=== PATIENT | female | born 1960 | race Caucasian/White ===

== ENCOUNTER 2016-11-30 09:50 | Inpatient (IN) | payer MEDICARE, MEDICAID ==
[2016-11-30] MEDS ORDERED: methylPREDNISolone 125 MG* 2 ML VIAL IV ONE (10:09)
[2016-11-30] MEDS ORDERED: NS 0.9% 1000 ML* 1,000 ML IV ONE ×2 (10:10→21:04)
[2016-11-30] MEDS ORDERED: Levofloxacin 750 MG IVPREMIX(* 750 MG/150 ML BAG IVPB ONE (10:10)
[2016-11-30] MEDS ORDERED: Albuterol/Ipratropium NEB.SOL* Albuterol 2.5 MG/Ipratropium 0.5 MG 3 ML INH ONE ×2 (10:10→11:20)
--- NOTE | 2016-11-30 10:28 | RAD ---
HISTORY: Chest pain COMPARISONS: Summer 05/14/2016 VIEWS:1: Single frontal portable view of the chest at 10:15 AM FINDINGS: LINES AND TUBES: An implantable lunchroom monitor is noted CARDIOMEDIASTINAL SILHOUETTE: The cardiomediastinal silhouette is normal for portable technique. PLEURA: The costophrenic angles are sharp. No pleural abnormalities are noted. LUNG PARENCHYMA: The lungs are clear. ABDOMEN: The upper abdomen is clear. There is no subphrenic gas. BONES AND SOFT TISSUES: No bone or soft tissue abnormalities are noted. IMPRESSION: NO ACTIVE CARDIOPULMONARY DISEASE.
[2016-11-30] MEDS ORDERED: Acetaminophen TAB* 325 MG PO ONE (10:49)
[2016-11-30 10:52] LABS: Hematocrit 35 % (35-47); Hemoglobin 11.6 g/dl (12.0-16.0); Mean Corpuscular HGB Conc 34 g/dl (31-36); Mean Corpuscular Hemoglobin 29 pg (27-31); Mean Corpuscular Volume 85 fL (80-97); Mean Platelet Volume 9 um3 (7.4-10.4); Red Blood Count 4.09 10^6/ul (4.0-5.4); Red Cell Distribution Width 15 % (10.5-15)
[2016-11-30 11:16] LABS: Albumin 3.6 g/dL (3.2-5.2); BUN/Creatinine Ratio 12.9 (8-20); Calcium 10.1 mg/dL (8.6-10.3); EGFR African American 61.9 (>60); EGFR Non-African American 48.2 (>60); Globulin 2.7 g/dL (2-4); Potassium 4.1 mmol/L (3.5-5.0); Total Bilirubin 0.4 mg/dL (0.2-1.0); Total Protein 6.3 g/dL (6.4-8.9)
[2016-11-30 12:48] LABS: Troponin I 0.1 ng/mL (<0.04)
[2016-11-30] MEDS ORDERED: Albuterol 2.5 MG/3 ML NEB.SOL* (0.083%) INH PRN (13:14)
[2016-11-30] MEDS ORDERED: Ondansetron INJ* 2 MG/ML VIAL IV PRN (13:14)
[2016-11-30] MEDS ORDERED: guaiFENesin/CODIEN 100MG-10MG* 5 ML UDC PO PRN (13:18)
[2016-11-30] MEDS ORDERED: Cetirizine* 10 MG TAB PO PRN (13:18)
[2016-11-30] MEDS ORDERED: LORazepam TAB(*) 0.5 MG PO PRN (13:18)
[2016-11-30] MEDS ORDERED: Morphine ORAL.SOLN 10 mg* 2 MG/ML UDC 5 ml PO PRN (13:18)
[2016-11-30] MEDS ORDERED: Morphine ORAL.SOLN 10 mg* 2 MG/ML UDC 5 ml PO ONE (13:18)
[2016-11-30] MEDS ORDERED: Cyclobenzaprine TAB* 10 MG PO PRN (13:18)
[2016-11-30] MEDS ORDERED: GuaiFENesin DM* 5 ML UDC PO PRN (13:18)
[2016-11-30] MEDS ORDERED: predniSONE TAB* 20 MG PO SCH (14:00)
[2016-11-30] MEDS ORDERED: Albuterol/Ipratropium NEB.SOL* Albuterol 2.5 MG/Ipratropium 0.5 MG 3 ML INH SCH (14:00)
[2016-11-30] MEDS: Albuterol/Ipratropium NEB.SOL* Albuterol 2.5 MG/Ipratropium 0.5 MG 3 ML INH SCH ×3 (15:15→23:47)
[2016-11-30] MEDS: Heparin VIAL(*) 5000 UNITS/ML VIAL (FIVE THOUSAND) SUBCUT SCH ×2 (15:30→21:35)
[2016-11-30] MEDS: Diltiazem TAB* 30 MG PO SCH (17:13)
[2016-11-30] MEDS: Montelukast Sodium TAB* 10 MG PO SCH (17:13)
[2016-11-30] MEDS: Potassium Chlor TAB* 10 MEQ TAB.ER PO SCH (17:13)
[2016-11-30] MEDS: CMC:Pravastatin (NF) 20 MG TAB PO SCH (17:26)
--- NOTE | 2016-11-30 20:20 | HP ---
HISTORY AND PHYSICAL: * DATE OF ADMISSION: 11/30/16 ADDENDUM: Mrs. Muniz is a 56-year-old female with history of COPD/asthma, who presents to the hospital complaining of shortness of breath. The patient is going to be placed on observation with a diagnosis of COPD exacerbation. The patient also has chronically elevated troponins on which Dr. Ramirez will comment. For further details of patient's presentation and plan, please see history and physical dictated by Ivan Martinez NP, on 11/30/16, with which I agree. [id number]/[facility] #: [id number] JERMAIN
--- NOTE | 2016-11-30 20:46 | HP ---
ATTENDING PROVIDER ADDENDUM NOW INCLUDED ON THIS REPORT HISTORY AND PHYSICAL: DATE OF ADMISSION: 11/30/16 PRIMARY CARE PROVIDER: Dr. Dent. ATTENDING PHYSICIAN WHILE IN THE HOSPITAL: Dr. Leatha Nix * (report dictated by Michelle Martinez NP). CHIEF COMPLAINT: 1. Shortness of breath. 2. Chest pain. HISTORY OF PRESENTING ILLNES: Mrs. Muniz is a 56-year-old female patient with a history of COPD, hypertension, TIA, anxiety, depression, LEELA, fibromyalgia, hyperlipidemia, MVP and ASD, thoracic aneurysm, tachycardia, which she sees Dr. Kecia gutierrez, insurance customer service specialist in [place], history of [place] and she said she had a history of elevated troponins. She comes into the ER today stating that last night she went to bed. She was feeling short of breath. She was coughing a little bit more than her baseline. She took a treatment and she actually felt good, went to bed, was able to sleep but unfortunately woke up in the early hours this morning, was very short of breath, having difficulty with breathing, having some chest pain across the front of her chest and down her left arm. She was concerned, she took a nebulizer, hopeful that it would help again, but it did not. So she decided to come into the ER to be evaluated. She denied any recent fevers, there is no abdominal pain, no nausea, no vomiting. No dysuria, no frequency. She denied having any other symptoms. She said that when she got here, she was given another treatment and she was given antibiotics , and she states that this was making her feel better. It was ultimately found that her troponin was bumping at 0.10. There was concern because she was continuing to wheeze despite treatments here in the ER and the hospitalist service was asked to evaluate for admission. PAST MEDICAL HISTORY: Significant for: 1. COPD. 2. Hypertension. 3. TIA. 4. Anxiety. 5. Depression. 6. LEELA. 7. Fibromyalgia. 8. Hyperlipidemia. 9. Mitral valve prolapse. 10. ASD. 11. Thoracic aneurysm. 12. Tachycardia and which she sees an insurance customer service specialist for. PAST SURGICAL HISTORY: 1. She has had a right total knee replacement. 2. Cardiac catheterization, 2009, per Dr. Ramirez, this was clean. 3. She had a history of hernia repair. 4. History of a hysterectomy. HOME MEDICATIONS: Include: 1. Lyrica 50 mg b.i.d., 100 mg in the morning. 2. Morphine 4 mg every 6 hours as needed. 3. Codeine with guaifenesin 5 mL every 4 hours as needed. 4. Symbicort 2 puffs inhaled b.i.d. 5. QVAR 2 puffs inhaled b.i.d. 6. Spiriva one capsule inhaled daily. 7. Pravachol 10 mg daily. 8. Potassium 10 mEq p.o. daily. 9. Singulair 10 mg daily. 10. Mag-Ox 200 mg p.o. daily. 11. Lisinopril 10 mg p.o. b.i.d. 12. Ativan 0.25 mg every 8 hours as needed. 13. Motrin 600 mg every 6 hours as needed. 14. Hydrochlorothiazide 25 mg daily. 15. Robitussin 10 cc every 4 hours as needed. 16. Folic acid 1 mg daily. 17. Pepcid 20 mg at bedtime. 18. Benadryl 25 mg every 4 hours as needed. 19. Flexeril 10 mg p.o. t.i.d. as needed. 20. Vitamin D 1000 units p.o. daily. 21. Zyrtec 10 mg p.o. daily as needed. 22. Albuterol 2 puffs inhaled every 4 hours as needed. 23. Albuterol nebulizer 1 neb every 4 hours as needed. ALLERGIES: Her allergies to medications include ASPIRIN, BACITRACIN, BEE VENOM , PENICILLIN, TOMATO, CEFACLOR, ANCEF, CELEBREX, CUCUMBER, ERYTHROMYCIN, METOPROLOL, SAVELLA, MUSHROOMS, POLYMYXIN B, TETRACYCLINE, NEOMYCIN, LIDOCAINE, and PEPPER. FAMILY HISTORY: Mother had mitral valve prolapse and ASD as well. Father had history of brain cancer. SOCIAL HISTORY: She is a former smoker, occasionally drinks. She lives alone. Surrogate decision maker is her son, Dre. REVIEW OF SYSTEMS: There is no documented fever. She denied having any significant weight change. There was no double vision. There is no ear discharge. She denies having any rhinorrhea. There is no sore throat. No thyroid enlargement. There was chest pain per my HPI. There was dyspnea on exertion. No shortness of breath. There was no abdominal pain, no nausea, no vomiting. No dysuria, no frequency, no loss of consciousness, no pruritus and no skin ulcerations. Review of 14 systems completed, all others negative. PHYSICAL EXAMINATION GENERAL: At this time, Mrs. Muniz is a 56-year-old female patient. She does not appear to be in any acute distress. She is sitting in the ER stretcher. VITAL SIGNS: Reveals blood pressure 138/80 with a pulse 87, respirations 18, O2 sat 98%, temperature 98.6. HEENT: Head atraumatic, normocephalic. Eyes: EOMs are intact. Sclerae is anicteric, not pale. Throat: Oral mucosa appears to be moist. No oropharyngeal erythema. NECK: Supple. LUNGS: She did have some wheezing bilaterally, expiratory in the upper and lower lobes. HEART: Heart sounds S1, S2. Regular rate and rhythm. No murmurs, rubs or gallops. She is tachycardic, rate in the 100s. ABDOMEN: Soft, flat, nontender. Bowel sounds were present. EXTREMITIES: Pulses were 2+ throughout. She was able to move all 4 extremities with 5/5 strength. NEUROLOGIC: She is awake, she is alert. She is oriented x3. Tongue midline. Book Jogger were equal. No gross focal deficits. SKIN: Grossly intact. DIAGNOSTIC STUDIES/LAB DATA: Labs today revealed WBC of 6.0, RBC of 4.09, hemoglobin of 11.6, hematocrit of 35, platelet count of 233. INR was 0.88, PTT 33.7. Sodium 141, potassium is 4.1, chloride of 101, bicarb 31, BUN 15, creatinine 1.16, glucose of 83, lactate 2.4, total bili 0.4, AST 18, ALT 21, alk phos 54, CK is 69, CK-MB 2.1, myoglobin of 54, troponin 0.10. BNP of 11, albumin 3.6. She did have a chest x-ray obtained today, which revealed no cardiopulmonary disease. She had an EKG obtained today, which showed a normal sinus rhythm with a rate of 99. No ST elevations or T-wave inversions were noted. She had a stress test done in September of this year, which showed a normal stress test. She had an echo done about a month ago, which showed an EF of 65%. No wall motion abnormalities were seen. Old medical records were reviewed. ASSESSMENT AND PLAN: Mrs. Muniz is a 56-year-old female patient coming into the ER today with complaints of shortness of breath, cough, and chest discomfort. On evaluation in the ER, it was noted that she had elevated troponin at 0.1 and there was concern because she was also wheezing on exam. She will be admitted under observation status for: 1. Chronic obstructive pulmonary disease exacerbation. At this point, I will go ahead and put her on Dulera, nebs around the clock, steroids, and Levaquin. Aggressive pulmonary toileting and we will continue to follow. 2. Indeterminate troponin. We had a long discussion with Dr. Ramirez, the patient's primary detective precinct. He feels that it is most likely related to the fact that she is chronically tachycardic. However, she had a negative stress, she had a negative cath 4 years ago. In addition to this, her echo appeared to be stable just the beginning of last month. We are going to repeat the troponins. If they do go up and they are not trending down, then Dr. Ramirez will evaluate the patient. She is chest pain-free currently. She will be placed on telemetry and we will continue to follow. 3. Hypertension. Continue meds as prescribed. I am going to hold the hydrochlorothiazide in the setting of acute illness. 4. History of transient ischemic attack. We will continue the patient on her statin. She is allergic to ASPIRIN. 5. Obstructive sleep apnea. She does not wear a mask at night. 6. Anxiety and depression. Continue meds as prescribed. 7. Fibromyalgia. Continue meds as prescribed. 8. Hyperlipidemia. Continue statin therapy. 9. History of mitral valve prolapse and atrial septal defect. Follow with her primary. 10. Thoracic aneurysm. Follow with her primary. 11. History of tachycardia. Follow with Dr. Mcdonnell. 12. DVT prophylaxis. She will be placed on heparin subcu. 13. Code status. Full code. 14. Fluids, electrolytes and nutrition. She can have a heart healthy diet. TIME SPENT: Time spent on this admission was 60 minutes; greater than half the time was spent [id number] with the patient, obtaining my history of physical; the other half time was spent going over the plan of care with the patient and implementing plan of care. I did discuss the plan of care with my attending, Dr. Nix; she is in agreement. MICHELLE MARTINEZ NP ADDENDUM: Mrs. Muniz is a 56-year-old female with history of COPD/asthma, who presents to the hospital complaining of shortness of breath. The patient is going to be placed on observation with a diagnosis of COPD exacerbation. The patient also has chronically elevated troponins on which Dr. Ramirez will comment. For further details of patient's presentation and plan, please see history and physical dictated by Ivan Martinez NP, on 11/30/16, with which I agree. LEATHA NIX MD CC: Dr. Ramirez; Dr. Dent [id number]/[facility] #: [id number]/[facility] #: [id number] JERMAIN
[2016-11-30] MEDS: Mometasone/Formoter 200/5 MDI INH SCH (20:56)
[2016-11-30] MEDS: Lisinopril TAB* 10 MG PO SCH (21:35)
[2016-11-30] MEDS: Pregabalin CAP(*) 50 MG PO SCH (21:35)
[2016-11-30] MEDS: Famotidine TAB* 20 MG PO SCH (21:35)
[2016-12-01] MEDS: Diltiazem TAB* 30 MG PO SCH ×3 (00:02→11:40)
--- NOTE | 2016-12-01 00:54 | CONS ---
CC: Hospitalist Service, Abimael Martinez, TERRI; Dr. Ramirez; Dr. Dent CARDIOLOGY CONSULT: DATE OF CONSULT: 11/30/16 HISTORY OF PRESENT ILLNESS: I was asked by Abimael Martinez from the hospitalist service to see this [age]-year-old female patient who is known to me from before actually. The patient was just hospitalize d in October 2016 and discharged on the . The reason for hospitalization at that time was symp toms of chest pain and borderline troponin peaked at 0.2. She does have a known history of chronic chest pain syndrome. She does have also history of chronic obstructive pulmonary disease. She does have a cardiac catheterization done in 2011 and showed no coronary artery disease appreciated. She does have known history of resting sinus tachycardia and she followed up and evaluated by Dr. Umair holloway at [facility] in [place]. Possibilities include inappropriate resting sinus tachycardia. She does have history of hypertension, transient ischemic attack, history of anxiety, depression, obstructive sleep apnea, fibromyalgia, dyslipidemia and tachycardia as well. The patient presented again with shortness of breath and also chronic chest pain syndrome. She was found to have a tropon in of 0.1. She has sinus tachycardia. Because of her troponin borderline, cardiology consult was f sammy requested. Of note, this goes back in June 2016, her troponin was borderline at 0.07 and 0 .08. She always has symptoms of chest pain and they never go away actually. She does have history of hypertension as indicated above. In October, she had a nuclear Myoview stress test that was rep orted to be normal without any evidence of ischemia or infarction and she had an echocardiogram and the echocardiogram reported to have a normal left ventricular systolic function with an EF of 65% an d a [id number] mitral insufficiency, [id number] tricuspid insufficiency, trace pulmonic insuff iciency and there was no dilatation of the aorta and was normal. She had also chest and abdomen CTA and it was reported the patient to have no pulmonary lesion and no evidence of aortic dissection an d the origins of the great vessels are unremarkable. She gets no fevers, no chills, no nausea, no v omiting, no hematochezia, no skin rash, no abdominal pain, no syncope, no swelling in the lower extr emities is appreciated. PAST MEDICAL HISTORY: Her past medical history is complex including all of the above actually menti oned including anxiety, depression and also COPD, hypertension, TIA, obstructive sleep apnea, fibrom yalgia, dyslipidemia, mitral valve disease, and tachycardia. Review of all other systems essentiall y is negative. Her nuclear Myoview stress test was done on 10/03/16 and at that time it was reporte d to be normal actually and low risk. PAST SURGICAL HISTORY: She had a history of hysterectomy at age 44. Hernia repair, right inguinal hernia x2. She had a history of adenoidectomy and total replacement of knee on the right side in . CURRENT MEDICATIONS: 1. Tylenol 650 mg p.o. q.4 hours p.r.n. 2. Ventolin 2.5 mg p.r.n. 3. Zyrtec 10 mg p.o. daily. 4. Flexeril 10 mg t.i.d. p.r.n. 5. Diltiazem 30 mg p.o. q. 6 hours. 6. Pepcid 20 mg p.o. at bedtime. 7. Folic acid 1 mg p.o. daily. 8. She is also on heparin 5000 units subcu q.8 hours. 9. She is on Levaquin 750 mg q.24 hours. 10. Lisinopril 10 mg b.i.d. 11. Magnesium 200 mg daily. 12. Singulair 10 mg daily. 13. Potassium 10 mEq q.p.m. 14. Pravachol 10 mg q.p.m. 15. Prednisone 60 mg daily. ALLERGIES: She is allergic to ASPIRIN, BACITRACIN, PENICILLIN, CEFACLOR, CEFAZOLIN, METOPROLOL, TET RACYCLINE, and LIDOCAINE. FAMILY HISTORY: No family history of premature CAD. SOCIAL HISTORY: She is an ex-tobacco, she quit in 2011. She smoked for about four to five years. No alcohol or drug abuse. She is unemployed. She is disabled. REVIEW OF SYSTEMS: Review of all other systems essentially is negative. PHYSICAL EXAMINATION: General: On exam, she is receiving inhaler treatment for her shortness of br eath and COPD. She had a chronic chest pain syndrome. Vitals: Her blood pressure is 139/78, pulse is 100 sinus, respiratory rate is 18, temperature 98.0. Head and Neck Exam: Normocephalic, atrauma tic. Head, ears, nose, and throat: Essentially benign. Neck: Supple. JVP is not elevated. No c arotid bruits. No masses in the neck is appreciated. Chest: Clear to auscultation. No rales. No wheezes. No added sounds. Diminished air inside the bases. Heart: Normal. Tachycardic S1, S2. No added sounds. No gallops. No rubs. Abdomen: Benign, soft. Positive bowel sounds. Extremiti es: No edema, no cyanosis, and no clubbing. Skin exam is normal. Psych: Normal affect and mood. PEDIATRIC ONCOLOGY NURSE: No focal deficits appreciated. DIAGNOSTIC STUDIES/LABORATORY DATA: Her EKG showed her to be in sinus rhythm. Heart rate 99 beats p er minute. Nonspecific T abnormality. Her labs showed the following: White blood cells 6, hemoglobin 11.6, hematocrit 35, and platelets 2 33. Her INR 0.88. Her sodium 141, potassium is 4.1, chloride of 101, total CO2 of 31, BUN 15, crea tinine 1.16, lactic acid 2.4, AST 18, ALT 21, total CK 69, myoglobin 54.9. Troponin 0.10. IMPRESSION: The patient is a 56-year-old female patient with: 1. Known history of chronic chest pain syndrome. 2. Cardiac catheterization done in 2011 because of recurrent chronic chest pain showed normal coron nate artery system. 3. Systemic arterial hypertension. 4. Chronic obstructive pulmonary disease with exacerbation. 5. Chronically elevated borderline troponin. 6. Nuclear Myoview stress test done, September 2016 showed no ischemia, no infarction, low risk. 7. An echocardiogram done in October 2016 showed normal left ventricular systolic function and tra ce-to-mild mitral insufficiency and tricuspid insufficiency. 8. CT scan done in October 2016 showed no aortic dissection. 9. Anxiety and depression. 10. Known history of resting sinus tachycardia. She was seen in the past by Electrophysiology, Dr. Mcdonnell, at [facility] in [place]. She is scheduled to see him again in December, next month. PLAN: Must immediately clear her troponin for her chest pain. She does have known chronic chest pa in syndrome that needed us to do a cardiac catheterization on her in 2011, which was normal coronary artery system. The elevation of the troponin is probably related to her chronic resting sinus tach ycardia and it could be related to exacerbation of her COPD with shortness of breath. In light of h er normal nuclear Myoview stress test in September 2016 and in light of her normal left ventricular s ystolic function and wall motion by an echo in October 2016 and in light of her normal coronary art leonarda system in 2011, I think at the present time we can wait and follow her troponin. I have discuss ed with her that the definite evaluation test for her would be a cardiac catheterization, this is st ill under discussion. We will wait and see the second followup on the troponins. If the troponin b ecomes significantly elevated, then consideration might be given for cardiac catheterization. If th e troponin continued to be in this range, then I would advise medical management and controlling her heart rate with Cardizem. I discussed with hospitalist, Abimael Martinez and COPD treatment. I do no t think repeating an echo and nuclear stress test is needed at the present time. I answered all her concerns and questions up to her satisfaction. TIME SPENT: More than half of at least 60 to 65 plus minutes was in the education and counseling mo de [id number] explaining all of the above to the patient and answering all her concerns and questi ons up to her satisfaction. [id number]/[facility] #: [id number]
[2016-12-01] MEDS ORDERED: NS 0.9% 1000 ML* 1,000 ML IV ONE (01:30)
[2016-12-01] MEDS: Albuterol/Ipratropium NEB.SOL* Albuterol 2.5 MG/Ipratropium 0.5 MG 3 ML INH SCH ×6 (03:44→23:01)
[2016-12-01 05:31] LABS: Hematocrit 33 % (35-47); Hemoglobin 10.9 g/dl (12.0-16.0); Mean Corpuscular HGB Conc 33 g/dl (31-36); Mean Corpuscular Hemoglobin 28 pg (27-31); Mean Corpuscular Volume 85 fL (80-97); Mean Platelet Volume 8 um3 (7.4-10.4); Red Cell Distribution Width 15 % (10.5-15); White Blood Count 7.9 10^3/ul (3.5-10.8)
[2016-12-01 05:46] LABS: EGFR African American 73.5 (>60); EGFR Non-African American 57.1 (>60)
[2016-12-01] MEDS: Heparin VIAL(*) 5000 UNITS/ML VIAL (FIVE THOUSAND) SUBCUT SCH ×3 (05:48→21:02)
[2016-12-01] MEDS: Mometasone/Formoter 200/5 MDI INH SCH ×2 (07:44→21:03)
[2016-12-01] MEDS: predniSONE TAB* 20 MG PO SCH (09:28)
[2016-12-01] MEDS: Lisinopril TAB* 10 MG PO SCH ×2 (09:28→21:02)
[2016-12-01] MEDS: Pregabalin CAP(*) 100 MG PO SCH (09:28)
[2016-12-01] MEDS: Folic Acid TAB* 1 MG PO SCH (09:28)
[2016-12-01] MEDS: Magnesium Oxide TAB* 400 MG PO SCH (09:29)
[2016-12-01] MEDS: Acetaminophen TAB* 325 MG PO PRN ×2 (10:29→18:22)
[2016-12-01] MEDS: Pregabalin CAP(*) 50 MG PO SCH ×2 (11:39→21:02)
[2016-12-01] MEDS: Levofloxacin 750 MG IVPREMIX(* 750 MG/150 ML BAG IVPB SCH (11:41)
[2016-12-01] MEDS: Diltiazem CD CAP* 180 MG PO SCH (14:00)
--- NOTE | 2016-12-01 14:05 | PN ---
Subjective Date of Service: 12/01/16 Interval History: Breathing feels "better". Has CP and epigastric pain when coughing-improved. Had evaluation for it with CTA in October 2016- neg for PE. C/o sudden onset of R ankle edema and pain. Difficulty bearing weight on the R leg. Telem shows sinus tachy Objective Active Medications: Acetaminophen (Tylenol Tab*) 650 mg PO Q4H PRN PRN Reason: FEVER/PAIN Last Admin: 12/01/16 10:29 Dose: 650 mg Albuterol (Ventolin 2.5 Mg/3 Ml Neb.Grazyna*) 2.5 mg INH Q2H PRN PRN Reason: SOB/WHEEZING Albuterol/Ipratropium (Duoneb Neb.Grazyna*) 1 neb INH Q4H [facility] Last Admin: 12/01/16 11:48 Dose: 1 neb Cetirizine HCl (Zyrtec*) 10 mg PO DAILY PRN; Protocol PRN Reason: Allergy Symptoms Cyclobenzaprine HCl (Flexeril Tab*) 10 mg PO TID PRN PRN Reason: SPASMS Diltiazem HCl (Cardizem Cd Cap*) 180 mg PO DAILY [facility] Famotidine (Pepcid Tab*) 20 mg PO BEDTIME [facility] Last Admin: 11/30/16 21:35 Dose: 20 mg Folic Acid (Folvite Tab*) 1 mg PO DAILY [facility] Last Admin: 12/01/16 09:28 Dose: 1 mg Guaifenesin/Codeine Phosphate (Robitussin Ac 100mg-10mg*) 5 ml PO Q4H PRN PRN Reason: COUGH Guaifenesin/Dextromethorphan (Robitussin Dm*) 10 ml PO Q4H PRN PRN Reason: COUGH Heparin Sodium (Porcine) (Heparin Vial(*)) 5,000 units SUBCUT Q8HR [facility] Last Admin: 12/01/16 05:48 Dose: 5,000 units Levofloxacin/Dextrose (Levaquin 750 Mg Ivpremix(*)) 750 mg in 150 mls @ 100 mls /hr IVPB Q24H [facility] Last Admin: 12/01/16 11:41 Dose: 100 mls/hr Lisinopril (Prinivil Tab*) 10 mg PO BID [facility] Last Admin: 12/01/16 09:28 Dose: 10 mg Lorazepam (Ativan Tab(*)) 0.25 mg PO Q8H PRN PRN Reason: ANXIETY Last Admin: 12/01/16 00:17 Dose: 0.25 mg Magnesium Oxide (Magox 400 Tab*) 200 mg PO DAILY [facility] Last Admin: 12/01/16 09:29 Dose: 200 mg Mometasone Furoate/Formoterol Fumar (Dulera 200/5 Mdi*) 2 puff INH BID [facility] Last Admin: 12/01/16 07:44 Dose: 2 puff Montelukast Sodium (Singulair Tab*) 10 mg PO QPM [facility] Last Admin: 11/30/16 17:13 Dose: 10 mg Ondansetron HCl (Zofran Inj*) 4 mg IV Q6H PRN PRN Reason: NAUSEA Oxycodone/Acetaminophen (Percocet 5/325 Tab*) 1 tab PO Q4H PRN PRN Reason: PAIN Potassium Chloride (Klor Con Er Tab*) 10 meq PO QPM [facility] Last Admin: 11/30/16 17:13 Dose: 10 meq Pravastatin Sodium (Pravachol (Nf)) 10 mg PO QPM [facility] Last Admin: 11/30/16 17:26 Dose: 10 mg Prednisone (Deltasone Tab*) 60 mg PO DAILY@0900 [facility] Last Admin: 12/01/16 09:28 Dose: 60 mg Pregabalin (Lyrica Cap(*)) 100 mg PO QAM [facility] Last Admin: 12/01/16 09:28 Dose: 100 mg Pregabalin (Lyrica Cap(*)) 50 mg PO BID@1200,2100 [facility] Last Admin: 12/01/16 11:39 Dose: 50 mg Vital Signs 11/30/16 11/30/16 11/30/16 14:30 14:53 15:18 Temperature 98.0 F Pulse Rate 103 113 Respiratory 13 18 18 Rate Blood Pressure 123/92 139/78 (mmHg) O2 Sat by Pulse 96 100 Oximetry 11/30/16 11/30/16 11/30/16 15:19 19:10 20:00 Temperature 98.3 F Pulse Rate 105 109 Respiratory 18 14 20 Rate Blood Pressure 113/58 (mmHg) O2 Sat by Pulse 95 95 Oximetry 11/30/16 11/30/16 11/30/16 20:57 21:35 23:34 Temperature 97.4 F Pulse Rate 101 99 Respiratory 16 20 20 Rate Blood Pressure 105/60 (mmHg) O2 Sat by Pulse 95 97 Oximetry 11/30/16 11/30/16 12/01/16 23:35 23:47 00:17 Temperature Pulse Rate 94 Respiratory 20 16 20 Rate Blood Pressure (mmHg) O2 Sat by Pulse 99 Oximetry 12/01/16 12/01/16 12/01/16 02:17 05:00 07:24 Temperature 98.2 F Pulse Rate 103 99 Respiratory 20 22 18 Rate Blood Pressure 113/64 (mmHg) O2 Sat by Pulse 98 99 Oximetry 12/01/16 12/01/16 12/01/16 07:50 09:28 11:26 Temperature 97.9 F 98.1 F Pulse Rate 111 103 Respiratory 16 14 16 Rate Blood Pressure 122/53 111/63 (mmHg) O2 Sat by Pulse 98 96 Oximetry 12/01/16 12/01/16 12/01/16 11:28 11:39 11:53 Temperature Pulse Rate 98 Respiratory 14 14 20 Rate Blood Pressure (mmHg) O2 Sat by Pulse 98 Oximetry Oxygen Devices in Use Now: None Appearance: 56 yo F in nAD, aAOx3 Eyes: No Scleral Icterus, PERRLA Ears/Nose/Mouth/Throat: NL Teeth, Lips, Gums, Mucous Membranes Moist Neck: NL Appearance and Movements; NL JVP, Trachea Midline Respiratory: Symmetrical Chest Expansion and Respiratory Effort, - - scant wheezes at b/l bases Cardiovascular: NL Sounds; No Murmurs; No JVD, RRR Abdominal: NL Sounds; No Tenderness; No Distention, No Hepatosplenomegaly Lymphatic: No Cervical Adenopathy Extremities: No Clubbing, Cyanosis, - - R ankle edema -pain with passive and active movement, no skin erythema, or increased warmth , left ankle-trace edema Skin: No Nodules or Sclerosis Neurological: Alert and Oriented x 3, NL Muscle Strength and Tone Result Diagrams: 12/01/16 05:22 12/01/16 05:22 Microbiology and Other Data: Microbiology 11/30/16 16:00 Influenza Types A,B Antigen (JOSEF) - Final Nasal Specimen received for Influenza A/B Molecular testing Assess/Plan/Problems-Billing Assessment: 56 yo F with h/o fibromyalgia, chronically elevated troponin(neg cath in 2011 and stress test in September 2016), cOPD presented with c/o SOB - Patient Problems (1) COPD exacerbation Comment: Feels better today, continue levaquin, prednisone, PRN nebulizers. (2) Elevated troponin Comment: Denies chest pain-pleuritic, chronic in nature, h/o CTA in the past with no PE noted, pt not hypoxemic. Troponin peaked at 0.10. Appreciate dr. Rock consult. Recent echo and stress test neg. suspect demand ischemia. cont telem and rate control with Cardizem CD (3) Tachycardia Comment: start Cardizem CD, d/c short acting Cardizem (4) DVT prophylaxis Comment: SQ heparin (5) Dyslipidemia Comment: Continue statin. (6) Ankle edema Comment: and pain, surprisingly it occured after pt was started on Prednisone.Decreased ROM due to pain. H/o remote ORIF of the R ankle XRay and dopplers ordered.
--- NOTE | 2016-12-01 14:33 | RAD ---
HISTORY: Edema, history of ORIF, pain and swelling of right ankle COMPARISONS: None VIEWS: 3, Frontal, lateral, and oblique views of the right ankle FINDINGS: BONE DENSITY: Normal. BONES: There is a tiny well corticated bone fragment of the distal fibula. There is no acute displaced fracture or dislocation. JOINTS: There is a joint effusion ALIGNMENT: There is no dislocation. SOFT TISSUES: There is a compression soft tissue swelling OTHER FINDINGS: None. IMPRESSION: 1. SMALL WELL-CORTICATED BONE FRAGMENT OF THE DISTAL FIBULA SUGGESTIVE OF REMOTE AVULSION INJURY. 2. JOINT EFFUSION. 3. SOFT TISSUE SWELLING. 4. NO ACUTE OSSEOUS INJURY. IF SYMPTOMS PERSIST, RECOMMEND REPEAT IMAGING
[2016-12-01] MEDS: Montelukast Sodium TAB* 10 MG PO SCH (18:09)
[2016-12-01] MEDS: CMC:Pravastatin (NF) 20 MG TAB PO SCH (18:09)
[2016-12-01] MEDS: Potassium Chlor TAB* 10 MEQ TAB.ER PO SCH (18:09)
--- NOTE | 2016-12-01 19:38 | RAD ---
HISTORY: Right lower extremity pain COMPARISONS: June 24, 2014 TECHNIQUE: Multiple transverse and longitudinal ultrasound images were obtained of the right lower extremity from the level of the common femoral vein inferiorly through to the infrapopliteal veins using grayscale, color Doppler, and spectral Doppler imaging with and without compression and with augmentation. Comparison images were obtained of the contralateral common femoral vein. FINDINGS: VEINS: The venous system of the right lower extremity is compressible throughout its course, with normal flow on color Doppler imaging and normal response to augmentation on spectral Doppler imaging. SOFT TISSUES: Unremarkable. OTHER FINDINGS: None. IMPRESSION: NO RIGHT LOWER EXTREMITY DEEP VEIN THROMBOSIS
[2016-12-01] MEDS: Famotidine TAB* 20 MG PO SCH (21:01)
--- NOTE | 2016-12-01 22:13 | CONS ---
ORTHOPEDIC CONSULTATION: DATE OF CONSULT: 12/01/16 Thank you for this orthopedic consultation. CHIEF COMPLAINT: Right ankle pain. HISTORY OF PRESENT ILLNESS: Ms. Muniz is a 56-year-old female who is admitted on 11/30/16 for COPD exacerbation and chest pain. She has chronic history of chest pain and COPD exacerbations as well as obstructive sleep apnea, fibromyalgia, anxiety, depression, hypertension, TIA, thoracic aneurysm, and chronic tachycardia. The patient has been treated by the medicine team. They report that they have been giving her breathing treatments as well as oral prednisone. Over the last 24 hours, the sonam dutton has developed swelling and pain in her right ankle. She denies a specific trauma. She repor ts 6/10 pain in the right ankle increased with weightbearing and decreased with rest. She does have a history of right ankle pain and surgery for a torn lateral tendon. She denies any recent fever, infection, or other injuries. PAST MEDICAL HISTORY: Right lateral ankle tear, COPD, hypertension, TIA, anxiety, depression, obstr uctive sleep apnea, fibromyalgia, hyperlipidemia, morbid obesity, mitral valve prolapse, ASD, thorac ic aneurysm, chronic tachycardia. PAST SURGICAL HISTORY: Right total knee arthroplasty, right ankle ligament repair, cardiac cath, an d hernia repair. HOME MEDICATIONS: Please see full medical reconciliation which includes: 1. Lyrica. 2. Morphine. 3. Codeine. 4. Symbicort. 5. QVAR. 6. Spiriva. 7. Pravachol. 8. Potassium. 9. Singulair. 10. Mag Ox. 11. Lisinopril. 12. Ativan. 13. Motrin. 14. Hydrochlorothiazide. 15. Robitussin. 16. Folic acid. 17. Pepcid. 18. Benadryl. 19. Flexeril. 20. Vitamin D. 21. Zyrtec. 22. Albuterol. ALLERGIES: Her allergy list is long including ASPIRIN, BACITRACIN, BEE VENOM, PENICILLIN, TOMATO, C EFACLOR, ANCEF, CELEBREX, CUCUMBER, ERYTHROMYCIN, METOPROLOL, SAVELLA, MUSHROOMS, POLYMYXIN B, TETRA CYCLINE, NEOMYCIN, LIDOCAINE, and PEPPER. FAMILY HISTORY: Maternal mitral valve prolapse and ASD. Paternal brain cancer. SOCIAL HISTORY: The patient lives alone. Surrogate decision maker is her son. She normally ambulat es independently. No tobacco, alcohol or recreational drug use, although she does have history of t obacco abuse. REVIEW OF SYSTEMS: 14 systems are reviewed with the patient today. Positive for recent chest pain, shortness of breath, heart palpitations, right ankle pain and swelling, dyspnea on exertion. No na usea, vomiting, abdominal pain, fevers, chills. No recent infection, cough, or cold. No dysuria or frequency. Otherwise, the patient reports review of systems is negative or not relevant. PHYSICAL EXAM: Vitals: Temperature 98.1, heart rate 103, blood pressure 111/63. General: The edwin ent is a morbidly obese female, in no apparent distress. Alert and oriented x3. Pleasant mood and a ppropriate affect. She is lying in bed, alert and oriented x3. Pleasant mood and appropriate affec t. HEENT: Atraumatic, normocephalic. Pupils equal and reactive to light. Chest: Unlabored breat herbert. Right lower extremity: The patient has some mild swelling and tenderness to palpation around the medial and anterolateral malleolus at the ankle. Her skin is intact. No warmth or erythema. S he can dorsiflex to 10 degrees, plantarflex to 40 degrees with 5/5 strength. Full sensation to ligh t touch in all nerve distributions and 2+ palpable DP pulse. DIAGNOSTIC STUDIES/LAB DATA: Radiographs: Multiple views of the right ankle show chronic swelling around the lateral malleolus with a chronic avulsion fracture at the tip of the lateral malleolus. Some degenerative changes are noted. Laboratory values: White blood cell today 7.9, INR is 0.95, lactic acid 2.9, troponin 0.09. Sodium 134, potassium 4.0, platelets 213. ASSESSMENT AND PLAN: Ms. Muniz is a 56-year-old female with 24 hours of right ankle swelling and p ain. She does have chronic ligamentous laxity and prior ligament repair in this ankle. The patient is afebrile with no leukocytosis. Her ankle is mildly swollen, but without any erythema or warmth. I have a low suspicion for infection at this point. I would recommend a fracture boot to the [facility] t lower extremity and weightbearing as tolerated. She should have Physical Therapy teach her how to ambulate with a walker and the fracture boot. She should be mobilized as much as possible. Radiographs are without an obvious fracture. She has no recent trauma. I explained all this to the patient. I will continue to follow this patient and she can follow up with me as an outpatient if she is disc harged. I would like to see her within 7 to 10 days. Call the office [phone]. [id number]/[facility] #: [id number]
[2016-12-01] MEDS: oxyCODONE/Acetamin 5/325 MG* TAB PO PRN (22:32)
[2016-12-02] MEDS: Albuterol/Ipratropium NEB.SOL* Albuterol 2.5 MG/Ipratropium 0.5 MG 3 ML INH SCH ×3 (01:00→13:34)
[2016-12-02] MEDS: Heparin VIAL(*) 5000 UNITS/ML VIAL (FIVE THOUSAND) SUBCUT SCH ×3 (05:51→22:30)
[2016-12-02] MEDS: Mometasone/Formoter 200/5 MDI INH SCH ×2 (08:05→21:50)
[2016-12-02] MEDS: Pregabalin CAP(*) 100 MG PO SCH (08:52)
[2016-12-02] MEDS: Diltiazem CD CAP* 180 MG PO SCH (08:53)
[2016-12-02] MEDS: predniSONE TAB* 20 MG PO SCH (08:53)
[2016-12-02] MEDS: Magnesium Oxide TAB* 400 MG PO SCH (08:53)
[2016-12-02] MEDS: Folic Acid TAB* 1 MG PO SCH (08:53)
[2016-12-02] MEDS: Lisinopril TAB* 10 MG PO SCH ×2 (08:53→22:28)
[2016-12-02] MEDS: Levofloxacin 750 MG IVPREMIX(* 750 MG/150 ML BAG IVPB SCH (11:35)
[2016-12-02] MEDS ORDERED: Pregabalin CAP(*) 50 MG ONE (12:09)
[2016-12-02] MEDS: Pregabalin CAP(*) 50 MG PO SCH ×2 (12:12→22:30)
[2016-12-02] MEDS: oxyCODONE/Acetamin 5/325 MG* TAB PO PRN ×2 (14:04→22:29)
[2016-12-02] MEDS: Potassium Chlor TAB* 10 MEQ TAB.ER PO SCH (16:52)
[2016-12-02] MEDS: CMC:Pravastatin (NF) 20 MG TAB PO SCH (16:52)
[2016-12-02] MEDS: Montelukast Sodium TAB* 10 MG PO SCH (16:52)
[2016-12-02] MEDS ORDERED: Albuterol/Ipratropium NEB.SOL* Albuterol 2.5 MG/Ipratropium 0.5 MG 3 ML INH PRN (17:06)
--- NOTE | 2016-12-02 18:43 | PN ---
Subjective Date of Service: 12/02/16 Interval History: Seen and examined Feels SOB and wheeze have resolved Pain in right ankle persists She has not been OOB Objective Active Medications: Acetaminophen (Tylenol Tab*) 650 mg PO Q4H PRN PRN Reason: FEVER/PAIN Last Admin: 12/01/16 18:22 Dose: 650 mg Albuterol (Ventolin 2.5 Mg/3 Ml Neb.Grazyna*) 2.5 mg INH Q2H PRN PRN Reason: SOB/WHEEZING Albuterol/Ipratropium (Duoneb Neb.Grazyna*) 1 neb INH Q6H PRN PRN Reason: SOB/WHEEZING Cetirizine HCl (Zyrtec*) 10 mg PO DAILY PRN; Protocol PRN Reason: Allergy Symptoms Cyclobenzaprine HCl (Flexeril Tab*) 10 mg PO TID PRN PRN Reason: SPASMS Last Admin: 12/01/16 21:01 Dose: 10 mg Diltiazem HCl (Cardizem Cd Cap*) 180 mg PO DAILY [facility] Last Admin: 12/02/16 08:53 Dose: 180 mg Famotidine (Pepcid Tab*) 20 mg PO BEDTIME [facility] Last Admin: 12/01/16 21:01 Dose: 20 mg Folic Acid (Folvite Tab*) 1 mg PO DAILY [facility] Last Admin: 12/02/16 08:53 Dose: 1 mg Guaifenesin/Codeine Phosphate (Robitussin Ac 100mg-10mg*) 5 ml PO Q4H PRN PRN Reason: COUGH Guaifenesin/Dextromethorphan (Robitussin Dm*) 10 ml PO Q4H PRN PRN Reason: COUGH Heparin Sodium (Porcine) (Heparin Vial(*)) 5,000 units SUBCUT Q8HR [facility] Last Admin: 12/02/16 14:04 Dose: 5,000 units Levofloxacin/Dextrose (Levaquin 750 Mg Ivpremix(*)) 750 mg in 150 mls @ 100 mls /hr IVPB Q24H [facility] Last Admin: 12/02/16 11:35 Dose: 100 mls/hr Lisinopril (Prinivil Tab*) 10 mg PO BID [facility] Last Admin: 12/02/16 08:53 Dose: 10 mg Lorazepam (Ativan Tab(*)) 0.25 mg PO Q8H PRN PRN Reason: ANXIETY Last Admin: 12/01/16 00:17 Dose: 0.25 mg Magnesium Oxide (Magox 400 Tab*) 200 mg PO DAILY [facility] Last Admin: 12/02/16 08:53 Dose: 200 mg Mometasone Furoate/Formoterol Fumar (Dulera 200/5 Mdi*) 2 puff INH BID [facility] Last Admin: 12/02/16 08:05 Dose: 2 puff Montelukast Sodium (Singulair Tab*) 10 mg PO QPM [facility] Last Admin: 12/02/16 16:52 Dose: 10 mg Ondansetron HCl (Zofran Inj*) 4 mg IV Q6H PRN PRN Reason: NAUSEA Oxycodone/Acetaminophen (Percocet 5/325 Tab*) 1 tab PO Q4H PRN PRN Reason: PAIN Last Admin: 12/02/16 14:04 Dose: 1 tab Potassium Chloride (Klor Con Er Tab*) 10 meq PO QPM [facility] Last Admin: 12/02/16 16:52 Dose: 10 meq Pravastatin Sodium (Pravachol (Nf)) 10 mg PO QPM [facility] Last Admin: 12/02/16 16:52 Dose: 10 mg Prednisone (Deltasone Tab*) 60 mg PO DAILY@0900 [facility] Last Admin: 12/02/16 08:53 Dose: 60 mg Pregabalin (Lyrica Cap(*)) 100 mg PO QAM [facility] Last Admin: 12/02/16 08:52 Dose: 100 mg Pregabalin (Lyrica Cap(*)) 50 mg PO BID@1200,2100 [facility] Last Admin: 12/02/16 12:12 Dose: 50 mg Vital Signs 12/01/16 12/01/16 12/01/16 19:53 20:00 21:01 Temperature 98.0 F Pulse Rate 110 Respiratory 18 20 20 Rate Blood Pressure 128/72 (mmHg) O2 Sat by Pulse 95 Oximetry 12/01/16 12/01/16 12/01/16 21:02 21:04 22:32 Temperature Pulse Rate 92 Respiratory 20 16 20 Rate Blood Pressure (mmHg) O2 Sat by Pulse 98 Oximetry 12/01/16 12/02/16 12/02/16 23:28 00:32 03:43 Temperature 98.1 F 97.6 F Pulse Rate 98 87 Respiratory 16 20 20 Rate Blood Pressure 121/66 107/76 (mmHg) O2 Sat by Pulse 94 96 Oximetry 12/02/16 12/02/16 12/02/16 04:15 07:31 08:00 Temperature 97.6 F Pulse Rate 78 Respiratory 20 20 18 Rate Blood Pressure 117/74 (mmHg) O2 Sat by Pulse 96 Oximetry 12/02/16 12/02/16 12/02/16 08:07 08:52 10:52 Temperature Pulse Rate 90 Respiratory 14 18 18 Rate Blood Pressure (mmHg) O2 Sat by Pulse 99 Oximetry 12/02/16 12/02/16 12/02/16 11:06 12:12 13:35 Temperature 97.9 F Pulse Rate 98 104 Respiratory 20 18 15 Rate Blood Pressure 131/70 (mmHg) O2 Sat by Pulse 95 99 Oximetry 12/02/16 12/02/16 12/02/16 14:04 14:12 15:32 Temperature 98.7 F Pulse Rate 105 Respiratory 18 18 20 Rate Blood Pressure 131/76 (mmHg) O2 Sat by Pulse 95 Oximetry 12/02/16 16:04 Temperature Pulse Rate Respiratory 18 Rate Blood Pressure (mmHg) O2 Sat by Pulse Oximetry Oxygen Devices in Use Now: None Appearance: NAD Eyes: No Scleral Icterus, PERRLA Ears/Nose/Mouth/Throat: NL Teeth, Lips, Gums, Clear Oropharnyx, Mucous Membranes Moist Neck: NL Appearance and Movements; NL JVP, Trachea Midline Respiratory: Symmetrical Chest Expansion and Respiratory Effort, Clear to Auscultation Cardiovascular: RRR Abdominal: NL Sounds; No Tenderness; No Distention, No Hepatosplenomegaly Lymphatic: No Cervical Adenopathy Extremities: - - minimal swelling in right ankle, TTP in right ankle and with ROM Skin: No Rash or Ulcers Neurological: Alert and Oriented x 3 Result Diagrams: 12/01/16 05:22 12/01/16 05:22 Microbiology and Other Data: Microbiology 11/30/16 16:00 Influenza Types A,B Antigen (JOSEF) - Final Nasal Specimen received for Influenza A/B Molecular testing Assess/Plan/Problems-Billing Assessment: 56 yo F with h/o fibromyalgia, chronically elevated troponin(neg cath in 2011 and stress test in September 2016), COPD presented with c/o SOB - Patient Problems (1) COPD exacerbation Comment: Improving c/w levaquin, POprednisone, PRN nebulizers. change standing duoneb to PRN (2) Ankle edema Comment: Appreciate orthopedic consult CAM boot delivered Walker ordered PT eval pending (3) Elevated troponin Comment: Denies chest pain-pleuritic, chronic in nature, h/o CTA in the past with no PE noted, pt not hypoxemic. Troponin peaked at 0.10. Appreciate dr. Rokc consult. Recent echo and stress test neg. suspect demand ischemia. cont telem and rate control with Cardizem CD (4) Tachycardia Comment: c/w Cardizem CD changed form short acting Cardizem (5) Dyslipidemia Comment: Continue statin. (6) DVT prophylaxis Comment: SQ heparin
[2016-12-02] MEDS: Famotidine TAB* 20 MG PO SCH (22:28)
[2016-12-03] MEDS: Heparin VIAL(*) 5000 UNITS/ML VIAL (FIVE THOUSAND) SUBCUT SCH ×2 (05:37→14:43)
[2016-12-03] MEDS: Acetaminophen TAB* 325 MG PO PRN (09:46)
[2016-12-03] MEDS: Pregabalin CAP(*) 100 MG PO SCH (09:47)
[2016-12-03] MEDS: predniSONE TAB* 20 MG PO SCH (09:47)
[2016-12-03] MEDS: Magnesium Oxide TAB* 400 MG PO SCH (09:48)
[2016-12-03] MEDS: Lisinopril TAB* 10 MG PO SCH (09:48)
[2016-12-03] MEDS: Folic Acid TAB* 1 MG PO SCH (09:48)
[2016-12-03] MEDS: Diltiazem CD CAP* 180 MG PO SCH (09:48)
[2016-12-03] MEDS: Mometasone/Formoter 200/5 MDI INH SCH ×2 (10:27→19:53)
[2016-12-03] MEDS: Pregabalin CAP(*) 50 MG PO SCH (12:20)
[2016-12-03] MEDS: Levofloxacin 750 MG IVPREMIX(* 750 MG/150 ML BAG IVPB SCH (12:20)
[2016-12-03 14:47] VITALS: BP 129/82
[2016-12-03] MEDS ORDERED: Diltiazem TAB* 30 MG PO ONE (17:04)
[2016-12-03] MEDS: CMC:Pravastatin (NF) 20 MG TAB PO SCH (18:09)
[2016-12-03] MEDS: Montelukast Sodium TAB* 10 MG PO SCH (18:09)
[2016-12-03] MEDS: Potassium Chlor TAB* 10 MEQ TAB.ER PO SCH (18:10)
--- NOTE | 2016-12-04 14:29 | DS ---
DISCHARGE SUMMARY: DATE OF ADMISSION: 11/30/16 DATE OF DISCHARGE: 12/03/16 PRIMARY CARE PROVIDER: Wilmer Dent MD ORTHOPEDIST: Rosalee Perdomo MD PRIMARY DIAGNOSIS: Chronic obstructive pulmonary disease exacerbation. SECONDARY DIAGNOSES: Include: 1. Chronically elevated troponin. 2. Right ankle laxity and swelling. 3. Hypertension. 4. Transient ischemic attack. 5. History of anxiety and depression. 6. History of obstructive sleep apnea. 7. History of fibromyalgia. 8. Hyperlipidemia. 9. Mitral valve prolapse. 10. History of tachycardia. 11. Persistently elevated troponin. CONSULTATIONS OBTAINED DURING THE HOSPITAL STAY: 1. Orthopedic Surgery. 2. Cardiology. MEDICAL EQUIPMENT DISCHARGED WITH: Include Cam boot for right ankle and rolling walker. MEDICATIONS ON DISCHARGE: Include: 1. Lyrica 50 mg twice daily. 2. Symbicort 2 puffs twice daily. 3. Beclomethasone 80 mcg 2 puffs twice daily. 4. Spiriva 1 cap inhale daily. 5. Pravastatin 10 mg in the evening. 6. Potassium chloride 10 mEq in the evening. 7. Singulair 10 mg in the evening. 8. Magnesium oxide 200 mg daily. 9. Lisinopril 10 mg twice daily. 10. Lorazepam 0.25 mg 2 times a day as needed for anxiety. 11. Motrin 600 mg 4 times a day as needed for pain. 12. Hydrochlorothiazide 25 mg in the evening. 13. Robitussin 10 ml every 4 hours as needed for cough. 14. Folic acid 1 mg daily. 15. Pepcid 20 mg at bedtime. 16. Benadryl 25 mg every 4 hours as needed for pruritus. 17. Flexeril 10 mg three times a day as needed for spasm. 18. Vitamin D 1000 units daily. 19. Zyrtec 10 mg daily as needed. 20. Albuterol 2 puffs inhaled every 4 hours as needed for shortness of breath or wheeze. 21. Albuterol nebulizer every 4 hours as needed for shortness of breath or wheeze. 22. Diltiazem CD 180 mg daily. Note reintroduction of Diltiazem secondary to tachycardia present on admission. PERTINENT LABORATORY DATA: Afebrile during the course of hospital stay. Heart rate 217 beats per minute on the day of admission, improved to stay in the 70s and 80s on the day of discharge, on diltiazem. PERTINENT IMAGING STUDIES: 1. Chest x-ray, impression: No active cardiopulmonary disease. 2. Ankle x-rays or right ankle x-ray, small well-corticated bone fragment of the distal fibula suggestive of remote avulsion injury. Joint effusion. Soft tissue swelling. No acute osseous injuries. 3. Venous Doppler study: No right lower extremity DVT. HISTORY OF PRESENT ILLNESS AND HOSPITAL COURSE: A 56-year-old female with a past medical history as outlined in the history of present illness and the admission including COPD and a persistently elevated troponin; history of tachycardia, previously on Cardizem, off of it for history of bradycardia per the patient; presented to the hospital with sensation of shortness of breath, found with wheezing. On x-ray without obvious consolidation or effusion or vascular congestion. She was treated for COPD exacerbation with azithromycin, Levaquin and prednisone with improvement. Additionally, on the day of discharge , her lungs were clear bilaterally. Additionally, her right ankle is noted to be swollen and painful. She was in conjunction with Dr. Perdomo and found her right ankle have increased laxity, in the setting of previous injuries. She was fitted with a Cam boot and seen in conjunction with physical therapy. She was able to ambulate with Cam boot using a new rolling walker prior to discharge. Her pain was well controlled. A followup appointment was made to follow with Dr. Perdomo upon discharge. Additionally, the patient was seen by Dr. Ramirez from Cardiology Service given her persistently elevated troponin. He noted that she has a history of chronic chest pain for which she underwent cardiac catheterization in 2011 with normal arterial coronary artery system. He suspects that her elevated troponin in the setting of chronic resting sinus tachycardia or an exacerbation of COPD with her shortness of breath. She was started on Cardizem as indicated above for her resting tachycardia with improvement in her heart rate prior to discharge. There are no complications in this patient's stay. At followup, please; 1. Evaluate for blood pressure as well as heart rate control on Cardizem. 2. Please evaluate for continued pain resolution . 3. Ensure she follows up with Dr. Perdomo at her scheduled appointment. No other specific labs or vital signs will be followed. Reasons to return to the hospital including but not limited to worsening of symptoms, shortness of breath, chest pain, lightheadedness, nausea, vomiting, fever, chills, diarrhea, bleeding from any source, inability to obtain or tolerate any medications were discussed with the patient. She acknowledged understanding. Greater than 60 minutes was spent in the discharge of this patient, greater than half was spent [id number] with the patient. CC: Dr. Wilmer Dent, Dr. Rosalee Perdomo * [id number]/[facility] #: [id number] MTDD
[2016-12-04] MEDS ORDERED: Diltiazem TAB* 30 MG PO ONE (16:16)
--- NOTE | 2016-12-09 09:47 | ED ---
Renan Dozier Adam, scribed for Jae Rodríguez MD on 11/30/16 at 1016 . Respiratory - HPI Summary HPI Summary: Pt is a 56 year old female with COPD presenting with tachypnea and wheezing. She received one duoneb en route per EMS. Upon arrival at the ED her respirations slowed down. Pt also c/o chest pain and productive cough with clear phlegm. She denies fever. PMHx includes COPD, asthma, chronic bronchitis, HTN, mural aneurysm, mitral valve prolapse. - History of Current Complaint Chief Complaint: ED Stated Complaint: DIFF BREATHING Time Seen by Provider: 11/30/16 10:07 Hx Obtained From: Patient Onset/Duration: Gradual Onset, Lasting Hours, Still Present Initial Severity: Moderate Current Severity: Moderate Pain Intensity: 3 Character: Wheezing, Cough (Productive) Sputum Amount: Moderate Sputum Color: Clear Aggravating Factor(s): Nothing Alleviating Factor(s): Neb. Bronchodilators (Frequency Of Use) - 1x en route, Rest Associated Signs and Symptoms: SOB, Dyspnea - Allergy/Home Medications Allergies/Adverse Reactions: Allergies Allergy/AdvReac Type Severity Reaction Status Date / Time Aspirin Allergy Severe See Comment Verified 10/30/16 17:02 Bacitracin [From Neosporin] Allergy Severe Rash And Verified 10/30/16 17:02 Itching Bee Venom Allergy Severe Anaphylatic Verified 10/30/16 17:02 Shock Penicillins [PCN] Allergy Severe Difficulty Verified 10/30/16 17:02 Breathing Tomato Allergy Severe Rash Verified 10/30/16 17:02 Cefaclor [From Ceclor] Allergy Intermediate Rash Verified 10/30/16 17:02 Cefazolin [From Ancef] Allergy Intermediate Rash Verified 10/30/16 17:02 Celecoxib [From Celebrex] Allergy Intermediate Hives Verified 10/30/16 17:02 [place] Extract Allergy Intermediate Hives Verified 10/30/16 17:02 Erythromycin Allergy Intermediate See Comment Verified 10/30/16 17:02 Metoprolol Allergy Intermediate Shortness Verified 10/30/16 17:02 of Breath Milnacipran [From Savella] Allergy Intermediate Nausea And Verified 10/30/16 17: 02 Vomiting Mushroom Extract Complex Allergy Intermediate See Comment Verified 10/30/16 17: 02 Polymyxin B [From Neosporin] Allergy Intermediate Rash And Verified 10/30/16 17: 02 Itching Tetracyclines & Related Allergy Mild Rash And Verified 10/30/16 17:02 Itching Neomycin [From Neosporin] Allergy Unknown Rash And Verified 10/30/16 17:02 Itching Lidocaine Allergy Anaphylatic Verified 10/30/16 17:02 Shock [place] Allergy Severe Hives Uncoded 10/03/16 10:17 Pepper Allergy Severe Rash And Uncoded 10/03/16 10:17 Itching Mushroom Allergy Intermediate See Comment Uncoded 10/03/16 10:17 Bees Allergy Unknown Anaphylatic Uncoded 10/03/16 10:17 Shock Home Medications: Home Medications Albuterol 2.5MG/3ML (0.083%)* [Ventolin 2.5 MG/3 ML NEB.TATIANA*] 2.5 mg INH Q4HR PRN 11/30/16 [History Confirmed 11/30/16] Cetirizine* [ZyrTEC*] 10 mg PO DAILY PRN 11/30/16 [History Confirmed 11/30/16] Folic Acid TAB* [Folvite TAB*] 1 mg PO DAILY 11/30/16 [History Confirmed ] Magnesium Oxide TAB* [MagOx 400 TAB*] 200 mg PO DAILY 11/30/16 [History Confirmed 11/30/16] Pregabalin CAP(*) [Lyrica CAP(*)] 50 mg PO BID 11/30/16 [History Confirmed 11/30] PMH/Surg Hx/FS Hx/Imm Hx Endocrine/Hematology History: Reports: Hx Diabetes - Gestational with prior , Hx Sickle Cell Disease - ASINOPHELIA- HIGH WHITE BLOOD COUNT, Other Endocrine/Hematological Disorders - Eosinophilia- HIGH WHITE BLOOD COUNT Cardiovascular History: Reports: Hx Aneurysm - thoracic, Hx Angina, Hx Hypercholesterolemia, Hx Hypertension, Hx Pacemaker/ICD - IMPLANTED HEART MONITOR 01/2016, Hx Valvular Heart Disease - mitral valve prolapse, Other Cardiovascular Problems/Disorders - atrial septal defect Denies: Hx Congestive Heart Failure Respiratory History: Reports: Hx Asthma, Hx Chronic Bronchitis, Hx Chronic Obstructive Pulmonary Disease (COPD), Hx Pneumonia, Hx Seasonal Allergies, Hx Sleep Apnea - pt states unable to tolerate CPAP GI History: Reports: Hx Gastroesophageal Reflux Disease, Hx Hiatal Hernia History: Denies: Hx Renal Disease Musculoskeletal History: Reports: Hx Arthritis - OSTEO- KNEES, ANS RHEUMATOID- HANDS AND OTHER JOINTS, Hx Fibromyalgia Sensory History: Reports: Hx Contacts or Glasses, Hx Deafness - Left ear, Hx Hearing Aid - right ear, Hx Hearing Problem Opthamlomology History: Reports: Hx Contacts or Glasses Neurological History: Reports: Hx Nerve Disease - FIBROMYALGIA, Hx Transient Ischemic Attacks (TIA), Other Neuro Impairments/Disorders - fibromyalgia Psychiatric History: Reports: Hx Anxiety, Hx Depression, Hx Post Traumatic Stress Disorder, Hx Community Mental Health Tx Denies: Hx Attention Deficit Hyperactivity Disorder, Hx Eating Disorder, Hx Panic Disorder, Hx Inpatient Treatment, Hx Schizophrenia, Hx Bipolar Disorder, Hx Suicide Attempt, Hx of Violent Episodes Against Others, Hx Substance Abuse, Other Psychiatric Issues/Disorders - Surgical History Surgery Procedure, Year, and Place: hysterectomy 04/2006 right knee arthroscopy hernia repair tubes in ears total right knee replacement oct 26 2013 , deviated septum, cardiac cath, tonsilectomy Hx Anesthesia Reactions: No - Immunization History Date of Tetanus Vaccine: pt unsure Date of Influenza Vaccine: 07/2016 Infectious Disease History: No Infectious Disease History: Denies: Hx Clostridium Difficile, Hx Hepatitis, Hx Human Immunodeficiency Virus (HIV), Hx of Known/Suspected MRSA, Hx Shingles, Hx Tuberculosis, Hx Known/ Suspected VRE, Hx Known/Suspected VRSA, History Other Infectious Disease, Traveled Outside the [place] in Last 30 Days - Family History Known Family History: Positive: Cardiac Disease - CAD, Hypertension, Diabetes - Social History Occupation: Disabled Lives: Alone Alcohol Use: Rare Alcohol Amount: on special occasions only Hx Substance Use: No Substance Use Type: Reports: None Hx Tobacco Use: Yes Smoking Status (MU): Former Smoker Type: Cigarettes Length of Time of Smoking/Using Tobacco: 4-5 yrs Have You Smoked in the Last Year: No Review of Systems Constitutional: Negative Negative: Fever Positive: Shortness Of Breath, Cough All Other Systems Reviewed And Are Negative: Yes Physical Exam - Summary Physical Exam Summary: GENERAL: Awake, alert, oriented, no acute distress, very pleasant HEENT: Head is normocephalic, atraumatic, anicteric sclera, clear conjunctiva, mucous membranes moist, no erythema, no discharge, no lesions, neck is supple, trachea is midline, no JVD CARDIAC: Regular rate and rhythm, S1, S2, no rub, no murmur, no gallop, 2+ radial and pedal pulses bilaterally RESPIRATORY: Clear to auscultation bilaterally with no rales, rhonchi, or wheezes, non-tender ABDOMEN: Bowel sounds positive, no bruit, soft, non-tender, no CVA tenderness EXTREMITIES: No edema, warm, dry, moving all extremities in a grossly normal manner NEUROLOGICAL: Mood is appropriate, moving all extremities in a grossly normal manner Triage Information Reviewed: Yes Vital Signs On Initial Exam: Initial Vitals Temp Pulse Resp BP Pulse Ox 98.6 F 103 20 117/56 99 11/30/16 10:00 11/30/16 10:00 11/30/16 10:00 11/30/16 10:00 11/30/16 10:00 Vital Signs Reviewed: Yes Diagnostics - Vital Signs Vital Signs Temp Pulse Resp BP Pulse Ox 11/30/16 10:00 98.6 F 103 20 117/56 99 - Laboratory Lab Results: Lab Results 11/30/16 11/30/16 11/30/16 Range/Units 10:24 10:24 10:24 WBC 6.0 (3.5-10.8) 10^3/ul RBC 4.09 (4.0-5.4) 10^6/ul Hgb 11.6 L (12.0-16.0) g/dl Hct 35 (35-47) % MCV 85 (80-97) fL MCH 29 (27-31) pg MCHC 34 (31-36) g/dl RDW 15 (10.5-15) % Plt Count 233 (150-450) 10^3/ul MPV 9 (7.4-10.4) um3 Neut % (Auto) 48.1 (38-83) % Lymph % (Auto) 33.2 (25-47) % [place] % (Auto) 7.8 (1-9) % Eos % (Auto) 10.2 H (0-6) % Baso % (Auto) 0.7 (0-2) % Absolute Neuts (auto) 2.9 (1.5-7.7) 10^3/ul Absolute Lymphs (auto) 2.0 (1.0-4.8) 10^3/ul Absolute Monos (auto) 0.5 (0-0.8) 10^3/ul Absolute Eos (auto) 0.6 (0-0.6) 10^3/ul Absolute Basos (auto) 0 (0-0.2) 10^3/ul Absolute Nucleated RBC 0.01 10^3/ul Nucleated RBC % 0.1 INR (Anticoag Therapy) 0.88 L (0.89-1.11) APTT 33.7 (26.0-36.3) seconds Sodium 141 (133-145) mmol/L Potassium 4.1 (3.5-5.0) mmol/L Chloride 101 (101-111) mmol/L Carbon Dioxide 31 (22-32) mmol/L Anion Gap 9 (2-11) mmol/L BUN 15 (6-24) mg/dL Creatinine 1.16 H (0.51-0.95) mg/dL Est GFR ( Amer) 61.9 (>60) Est GFR (Non-Af Amer) 48.2 (>60) BUN/Creatinine Ratio 12.9 (8-20) Glucose 83 (70-100) mg/dL Lactic Acid (0.5-2.0) mmol/L Calcium 10.1 (8.6-10.3) mg/dL Total Bilirubin 0.40 (0.2-1.0) mg/dL AST 18 (13-39) U/L ALT 21 (7-52) U/L Alkaline Phosphatase 54 (34-104) U/L Total Creatine Kinase 69 (10-223) U/L CK-MB (CK-2) (0.6-6.3) ng/mL Myoglobin 54.9 (14.3-65.8) ng/mL Troponin I 0.10 H* (<0.04) ng/mL B-Natriuretic Peptide ( - 100) pg/mL Total Protein 6.3 L (6.4-8.9) g/dL Albumin 3.6 (3.2-5.2) g/dL Globulin 2.7 (2-4) g/dL Albumin/Globulin Ratio 1.3 (1-3) Influenza A (Rapid) (Negative) Influenza B (Rapid) (Negative) 11/30/16 11/30/16 11/30/16 Range/Units 10:24 10:24 10:24 WBC (3.5-10.8) 10^3/ul RBC (4.0-5.4) 10^6/ul Hgb (12.0-16.0) g/dl Hct (35-47) % MCV (80-97) fL MCH (27-31) pg MCHC (31-36) g/dl RDW (10.5-15) % Plt Count (150-450) 10^3/ul MPV (7.4-10.4) um3 Neut % (Auto) (38-83) % Lymph % (Auto) (25-47) % [place] % (Auto) (1-9) % Eos % (Auto) (0-6) % Baso % (Auto) (0-2) % Absolute Neuts (auto) (1.5-7.7) 10^3/ul Absolute Lymphs (auto) (1.0-4.8) 10^3/ul Absolute Monos (auto) (0-0.8) 10^3/ul Absolute Eos (auto) (0-0.6) 10^3/ul Absolute Basos (auto) (0-0.2) 10^3/ul Absolute Nucleated RBC 10^3/ul Nucleated RBC % INR (Anticoag Therapy) (0.89-1.11) APTT (26.0-36.3) seconds Sodium (133-145) mmol/L Potassium (3.5-5.0) mmol/L Chloride (101-111) mmol/L Carbon Dioxide (22-32) mmol/L Anion Gap (2-11) mmol/L BUN (6-24) mg/dL Creatinine (0.51-0.95) mg/dL Est GFR ( Amer) (>60) Est GFR (Non-Af Amer) (>60) BUN/Creatinine Ratio (8-20) Glucose (70-100) mg/dL Lactic Acid 2.4 H* (0.5-2.0) mmol/L Calcium (8.6-10.3) mg/dL Total Bilirubin (0.2-1.0) mg/dL AST (13-39) U/L ALT (7-52) U/L Alkaline Phosphatase (34-104) U/L Total Creatine Kinase (10-223) U/L CK-MB (CK-2) 2.1 (0.6-6.3) ng/mL Myoglobin (14.3-65.8) ng/mL Troponin I (<0.04) ng/mL B-Natriuretic Peptide 11 ( - 100) pg/mL Total Protein (6.4-8.9) g/dL Albumin (3.2-5.2) g/dL Globulin (2-4) g/dL Albumin/Globulin Ratio (1-3) Influenza A (Rapid) (Negative) Influenza B (Rapid) (Negative) 11/30/16 11/30/16 11/30/16 Range/Units 15:43 15:46 16:18 WBC (3.5-10.8) 10^3/ul RBC (4.0-5.4) 10^6/ul Hgb (12.0-16.0) g/dl Hct (35-47) % MCV (80-97) fL MCH (27-31) pg MCHC (31-36) g/dl RDW (10.5-15) % Plt Count (150-450) 10^3/ul MPV (7.4-10.4) um3 Neut % (Auto) (38-83) % Lymph % (Auto) (25-47) % [place] % (Auto) (1-9) % Eos % (Auto) (0-6) % Baso % (Auto) (0-2) % Absolute Neuts (auto) (1.5-7.7) 10^3/ul Absolute Lymphs (auto) (1.0-4.8) 10^3/ul Absolute Monos (auto) (0-0.8) 10^3/ul Absolute Eos (auto) (0-0.6) 10^3/ul Absolute Basos (auto) (0-0.2) 10^3/ul Absolute Nucleated RBC 10^3/ul Nucleated RBC % INR (Anticoag Therapy) (0.89-1.11) APTT (26.0-36.3) seconds Sodium (133-145) mmol/L Potassium (3.5-5.0) mmol/L Chloride (101-111) mmol/L Carbon Dioxide (22-32) mmol/L Anion Gap (2-11) mmol/L BUN (6-24) mg/dL Creatinine (0.51-0.95) mg/dL Est GFR ( Amer) (>60) Est GFR (Non-Af Amer) (>60) BUN/Creatinine Ratio (8-20) Glucose (70-100) mg/dL Lactic Acid 2.1 H* (0.5-2.0) mmol/L Calcium (8.6-10.3) mg/dL Total Bilirubin (0.2-1.0) mg/dL AST (13-39) U/L ALT (7-52) U/L Alkaline Phosphatase (34-104) U/L Total Creatine Kinase (10-223) U/L CK-MB (CK-2) (0.6-6.3) ng/mL Myoglobin (14.3-65.8) ng/mL Troponin I 0.10 H* (<0.04) ng/mL B-Natriuretic Peptide ( - 100) pg/mL Total Protein (6.4-8.9) g/dL Albumin (3.2-5.2) g/dL Globulin (2-4) g/dL Albumin/Globulin Ratio (1-3) Influenza A (Rapid) Negative (Negative) Influenza B (Rapid) Negative (Negative) 11/30/16 11/30/16 11/30/16 Range/Units 17:09 20:15 20:15 WBC (3.5-10.8) 10^3/ul RBC (4.0-5.4) 10^6/ul Hgb (12.0-16.0) g/dl Hct (35-47) % MCV (80-97) fL MCH (27-31) pg MCHC (31-36) g/dl RDW (10.5-15) % Plt Count (150-450) 10^3/ul MPV (7.4-10.4) um3 Neut % (Auto) (38-83) % Lymph % (Auto) (25-47) % [place] % (Auto) (1-9) % Eos % (Auto) (0-6) % Baso % (Auto) (0-2) % Absolute Neuts (auto) (1.5-7.7) 10^3/ul Absolute Lymphs (auto) (1.0-4.8) 10^3/ul Absolute Monos (auto) (0-0.8) 10^3/ul Absolute Eos (auto) (0-0.6) 10^3/ul Absolute Basos (auto) (0-0.2) 10^3/ul Absolute Nucleated RBC 10^3/ul Nucleated RBC % INR (Anticoag Therapy) (0.89-1.11) APTT (26.0-36.3) seconds Sodium (133-145) mmol/L Potassium (3.5-5.0) mmol/L Chloride (101-111) mmol/L Carbon Dioxide (22-32) mmol/L Anion Gap (2-11) mmol/L BUN (6-24) mg/dL Creatinine (0.51-0.95) mg/dL Est GFR ( Amer) (>60) Est GFR (Non-Af Amer) (>60) BUN/Creatinine Ratio (8-20) Glucose (70-100) mg/dL Lactic Acid 3.2 H* (0.5-2.0) mmol/L Calcium (8.6-10.3) mg/dL Total Bilirubin (0.2-1.0) mg/dL AST (13-39) U/L ALT (7-52) U/L Alkaline Phosphatase (34-104) U/L Total Creatine Kinase (10-223) U/L CK-MB (CK-2) (0.6-6.3) ng/mL Myoglobin (14.3-65.8) ng/mL Troponin I 0.10 H* 0.09 H* (<0.04) ng/mL B-Natriuretic Peptide ( - 100) pg/mL Total Protein (6.4-8.9) g/dL Albumin (3.2-5.2) g/dL Globulin (2-4) g/dL Albumin/Globulin Ratio (1-3) Influenza A (Rapid) (Negative) Influenza B (Rapid) (Negative) 12/01/16 12/01/16 12/01/16 Range/Units 00:06 05:22 05:22 WBC 7.9 (3.5-10.8) 10^3/ul RBC 3.90 L (4.0-5.4) 10^6/ul Hgb 10.9 L (12.0-16.0) g/dl Hct 33 L (35-47) % MCV 85 (80-97) fL MCH 28 (27-31) pg MCHC 33 (31-36) g/dl RDW 15 (10.5-15) % Plt Count 213 (150-450) 10^3/ul MPV 8 (7.4-10.4) um3 Neut % (Auto) 88.5 H (38-83) % Lymph % (Auto) 8.8 L (25-47) % [place] % (Auto) 2.3 (1-9) % Eos % (Auto) 0 (0-6) % Baso % (Auto) 0.4 (0-2) % Absolute Neuts (auto) 7.0 (1.5-7.7) 10^3/ul Absolute Lymphs (auto) 0.7 L (1.0-4.8) 10^3/ul Absolute Monos (auto) 0.2 (0-0.8) 10^3/ul Absolute Eos (auto) 0 (0-0.6) 10^3/ul Absolute Basos (auto) 0 (0-0.2) 10^3/ul Absolute Nucleated RBC 0 10^3/ul Nucleated RBC % 0.1 INR (Anticoag Therapy) 0.95 (0.89-1.11) APTT (26.0-36.3) seconds Sodium (133-145) mmol/L Potassium (3.5-5.0) mmol/L Chloride (101-111) mmol/L Carbon Dioxide (22-32) mmol/L Anion Gap (2-11) mmol/L BUN (6-24) mg/dL Creatinine (0.51-0.95) mg/dL Est GFR ( Amer) (>60) Est GFR (Non-Af Amer) (>60) BUN/Creatinine Ratio (8-20) Glucose (70-100) mg/dL Lactic Acid 4.2 H* (0.5-2.0) mmol/L Calcium (8.6-10.3) mg/dL Total Bilirubin (0.2-1.0) mg/dL AST (13-39) U/L ALT (7-52) U/L Alkaline Phosphatase (34-104) U/L Total Creatine Kinase (10-223) U/L CK-MB (CK-2) (0.6-6.3) ng/mL Myoglobin (14.3-65.8) ng/mL Troponin I (<0.04) ng/mL B-Natriuretic Peptide ( - 100) pg/mL Total Protein (6.4-8.9) g/dL Albumin (3.2-5.2) g/dL Globulin (2-4) g/dL Albumin/Globulin Ratio (1-3) Influenza A (Rapid) (Negative) Influenza B (Rapid) (Negative) 12/01/16 12/01/16 Range/Units 05:22 05:22 WBC (3.5-10.8) 10^3/ul RBC (4.0-5.4) 10^6/ul Hgb (12.0-16.0) g/dl Hct (35-47) % MCV (80-97) fL MCH (27-31) pg MCHC (31-36) g/dl RDW (10.5-15) % Plt Count (150-450) 10^3/ul MPV (7.4-10.4) um3 Neut % (Auto) (38-83) % Lymph % (Auto) (25-47) % [place] % (Auto) (1-9) % Eos % (Auto) (0-6) % Baso % (Auto) (0-2) % Absolute Neuts (auto) (1.5-7.7) 10^3/ul Absolute Lymphs (auto) (1.0-4.8) 10^3/ul Absolute Monos (auto) (0-0.8) 10^3/ul Absolute Eos (auto) (0-0.6) 10^3/ul Absolute Basos (auto) (0-0.2) 10^3/ul Absolute Nucleated RBC 10^3/ul Nucleated RBC % INR (Anticoag Therapy) (0.89-1.11) APTT (26.0-36.3) seconds Sodium 134 (133-145) mmol/L Potassium 4.0 (3.5-5.0) mmol/L Chloride 108 (101-111) mmol/L Carbon Dioxide 24 (22-32) mmol/L Anion Gap 2 (2-11) mmol/L BUN 17 (6-24) mg/dL Creatinine 1.00 H (0.51-0.95) mg/dL Est GFR ( Amer) 73.5 (>60) Est GFR (Non-Af Amer) 57.1 (>60) BUN/Creatinine Ratio 17.0 (8-20) Glucose 172 H (70-100) mg/dL Lactic Acid 2.9 H* (0.5-2.0) mmol/L Calcium 9.0 (8.6-10.3) mg/dL Total Bilirubin (0.2-1.0) mg/dL AST (13-39) U/L ALT (7-52) U/L Alkaline Phosphatase (34-104) U/L Total Creatine Kinase (10-223) U/L CK-MB (CK-2) (0.6-6.3) ng/mL Myoglobin (14.3-65.8) ng/mL Troponin I (<0.04) ng/mL B-Natriuretic Peptide ( - 100) pg/mL Total Protein (6.4-8.9) g/dL Albumin (3.2-5.2) g/dL Globulin (2-4) g/dL Albumin/Globulin Ratio (1-3) Influenza A (Rapid) (Negative) Influenza B (Rapid) (Negative) Result Diagrams: 12/01/16 05:22 12/01/16 05:22 Lab Statement: Any lab studies that have been ordered have been reviewed, and results considered in the medical decision making process. - Radiology CXR Xray Interpretation: No Acute Changes Radiology Interpretation Completed By: Radiologist - EKG 09:51 Cardiac Rate: NL - 99 BPM - Additional Comments Diagnostic Additional Comments: Lactic Acid - 2.4 Troponin I - 0.10 Re-Evaluation - Re-Evaluation First Eval Re-Evaluation Time: 11:54 - Diffuse wheezing everywhere. Disposition - Diagnoses Provider Diagnoses: COPD EXACERBATION Discharge - Discharge Plan Condition: Good Disposition: ADMITTED TO [facility] documentation as recorded by the Renan urbina Adam accurately reflects the service I personally performed and the decisions made by me, Jae Rodríguez MD.
== END 2016-12-03 19:10 | disposition home health service (06) | DRG 191 ==
LOC: ED 09:50 → MEDTELE 14:13 → INTOOBSV 14:13 → OBSVTOIN 12-01 15:03
PROVIDERS: ADMIT Internal Medicine; ATTEND Internal Medicine
DX: J44.1 Chronic obstructive pulmonary disease with (acute) exacerbation (principal); Q21.1 Atrial septal defect; I10 Essential (primary) hypertension; R74.8 Abnormal levels of other serum enzymes; M24.271 Disorder of ligament, right ankle; F41.8 Other specified anxiety disorders; R07.89 Other chest pain; G47.33 Obstructive sleep apnea (adult) (pediatric); M79.7 Fibromyalgia; E78.5 Hyperlipidemia, unspecified; I34.1 Nonrheumatic mitral (valve) prolapse; Z96.651 Presence of right artificial knee joint; Z79.899 Other long term (current) drug therapy; Z86.73 Personal history of transient ischemic attack (TIA), and cerebral infarction without residual deficits; Z88.6 Allergy status to analgesic agent; Z88.1 Allergy status to other antibiotic agents; Z88.0 Allergy status to penicillin; Z88.8 Allergy status to other drugs, medicaments and biological substances; Z91.018 Allergy to other foods; Z80.8 Family history of malignant neoplasm of other organs or systems; Z82.49 Family history of ischemic heart disease and other diseases of the circulatory system; Z87.891 Personal history of nicotine dependence
CPT/HCPCS: 36415; 71010; 80048; 80053; 82550; 82553; 83605; 83874; 83880; 84484; 85025; 85610; 85730; 87502; 87899; 93005; 94640; 94760; A9270-GY; G0378; J1644; J2930; J7512

== ENCOUNTER 2016-12-23 13:06 | Inpatient (IN) | payer MEDICARE, MEDICAID ==
[2016-12-23] MEDS ORDERED: Acetaminophen TAB* 325 MG PO ONE (13:29)
[2016-12-23] MEDS ORDERED: NS 0.9% 1000 ML* 3,000 ML IV ONE (13:29)
[2016-12-23] MEDS ORDERED: Albuterol/Ipratropium NEB.SOL* Albuterol 2.5 MG/Ipratropium 0.5 MG 3 ML INH ONE (13:40)
[2016-12-23] MEDS ORDERED: Levofloxacin 750 MG IVPREMIX(* 750 MG/150 ML BAG IVPB ONE (13:42)
[2016-12-23] MEDS ORDERED: methylPREDNISolone 125 MG* 2 ML VIAL IV ONE (13:55)
--- NOTE | 2016-12-23 13:58 | RAD ---
Indication: Cough, fever. Single frontal view of the chest performed at 1340 hours was reviewed. Comparison is made with previous exam dated November 30, 2016. No mediastinal shift is noted. Heart is of normal size and configuration. Lung rangel appear clear. IMPRESSION: NO ACTIVE CARDIOPULMONARY DISEASE IS NOTED.
[2016-12-23 14:17] LABS: Hematocrit 35 % (35-47); Hemoglobin 11.7 g/dl (12.0-16.0); Mean Corpuscular HGB Conc 33 g/dl (31-36); Mean Corpuscular Hemoglobin 28 pg (27-31); Mean Corpuscular Volume 84 fL (80-97); Mean Platelet Volume 10 um3 (7.4-10.4); Red Blood Count 4.19 10^6/ul (4.0-5.4); Red Cell Distribution Width 15 % (10.5-15); White Blood Count 6.5 10^3/ul (3.5-10.8)
[2016-12-23] MEDS ORDERED: Ondansetron INJ* 2 MG/ML VIAL ONE (14:30)
[2016-12-23 14:33] LABS: Albumin 3.8 g/dL (3.2-5.2); BUN/Creatinine Ratio 14.2 (8-20); C Reactive Protein 15.05 mg/L (< 5.00); Calcium 9.5 mg/dL (8.6-10.3); EGFR African American 68.7 (>60); EGFR Non-African American 53.4 (>60); Globulin 2.7 g/dL (2-4); Potassium 3.5 mmol/L (3.5-5.0); Total Bilirubin 0.3 mg/dL (0.2-1.0); Total Protein 6.5 g/dL (6.4-8.9)
[2016-12-23] MEDS ORDERED: Ondansetron INJ* 2 MG/ML VIAL IV ONE (14:35)
[2016-12-23] MEDS ORDERED: Oseltamivir CAP* 75 MG PO ONE (14:35)
[2016-12-23 14:38] LABS: Troponin I 0.1 ng/mL (<0.04)
[2016-12-23] MEDS ORDERED: Ondansetron INJ* 2 MG/ML VIAL IV PRN (15:31)
[2016-12-23] MEDS ORDERED: PROCHLORPERAZINE INJ 5 MG/ML 2 ML VIAL IV PRN (15:31)
--- NOTE | 2016-12-23 15:49 | ED ---
Fanny Dozier Michael, scribed for Andrew Colón MD on 12/23/16 at 1345 . Respiratory - HPI Summary HPI Summary: 56 y/o female was BIBA to the ED presenting with a productive cough that started one day ago. The pt also c/o SOB, lightheadedness/dizziness, fever, sore throat, and nausea. She presents bilateral LE swelling that is normal for her. She has a temperature of 101.4. The pt denies chills, vomiting, and diarrhea.The pt did not report anything aggravating or alleviating her symptoms. The PMHx is significant for COPD and OH. There is no hx of CHF. The pt does not have home oxygen and only has nebulizers and inhalers. - History of Current Complaint Chief Complaint: EDRespiratoryDistress Stated Complaint: DIFF BREATHING Time Seen by Provider: 12/23/16 13:29 Hx Obtained From: Patient, EMS, Medical Records Onset/Duration: Gradual Onset, Lasting Days, Still Present Timing: Constant Initial Severity: Moderate Current Severity: Moderate Pain Intensity: 0 Character: Cough (Productive) Aggravating Factor(s): Nothing Alleviating Factor(s): Nothing Associated Signs and Symptoms: Negative - chills. vomiting. diarrhea., Fever, SOB - productive cough. sore throat. nausea, Dizziness, Edema - Bilat LE - Allergy/Home Medications Allergies/Adverse Reactions: Allergies Allergy/AdvReac Type Severity Reaction Status Date / Time Aspirin Allergy Severe See Comment Verified 10/30/16 17:02 Bacitracin [From Neosporin] Allergy Severe Rash And Verified 10/30/16 17:02 Itching Bee Venom Allergy Severe Anaphylatic Verified 10/30/16 17:02 Shock Penicillins [PCN] Allergy Severe Difficulty Verified 10/30/16 17:02 Breathing Tomato Allergy Severe Rash Verified 10/30/16 17:02 Cefaclor [From Ceclor] Allergy Intermediate Rash Verified 10/30/16 17:02 Cefazolin [From Ancef] Allergy Intermediate Rash Verified 10/30/16 17:02 Celecoxib [From Celebrex] Allergy Intermediate Hives Verified 10/30/16 17:02 [place] Extract Allergy Intermediate Hives Verified 10/30/16 17:02 Erythromycin Allergy Intermediate See Comment Verified 10/30/16 17:02 Metoprolol Allergy Intermediate Shortness Verified 10/30/16 17:02 of Breath Milnacipran [From Savella] Allergy Intermediate Nausea And Verified 10/30/16 17: 02 Vomiting Mushroom Extract Complex Allergy Intermediate See Comment Verified 10/30/16 17: 02 Polymyxin B [From Neosporin] Allergy Intermediate Rash And Verified 10/30/16 17: 02 Itching Tetracyclines & Related Allergy Mild Rash And Verified 10/30/16 17:02 Itching Neomycin [From Neosporin] Allergy Unknown Rash And Verified 10/30/16 17:02 Itching Lidocaine Allergy Anaphylatic Verified 10/30/16 17:02 Shock [place] Allergy Severe Hives Uncoded 10/03/16 10:17 Pepper Allergy Severe Rash And Uncoded 10/03/16 10:17 Itching Mushroom Allergy Intermediate See Comment Uncoded 10/03/16 10:17 Bees Allergy Unknown Anaphylatic Uncoded 10/03/16 10:17 Shock PMH/Surg Hx/FS Hx/Imm Hx Endocrine/Hematology History: Reports: Hx Diabetes - Gestational with prior , Hx Sickle Cell Disease - ASINOPHELIA- HIGH WHITE BLOOD COUNT, Other Endocrine/Hematological Disorders - Eosinophilia- HIGH WHITE BLOOD COUNT Cardiovascular History: Reports: Hx Aneurysm - thoracic, Hx Angina, Hx Hypercholesterolemia, Hx Hypertension, Hx Pacemaker/ICD - IMPLANTED HEART MONITOR 01/2016, Hx Valvular Heart Disease - mitral valve prolapse, Other Cardiovascular Problems/Disorders - atrial septal defect Denies: Hx Congestive Heart Failure Respiratory History: Reports: Hx Asthma, Hx Chronic Bronchitis, Hx Chronic Obstructive Pulmonary Disease (COPD), Hx Pneumonia, Hx Seasonal Allergies, Hx Sleep Apnea - pt states unable to tolerate CPAP GI History: Reports: Hx Gastroesophageal Reflux Disease, Hx Hiatal Hernia History: Denies: Hx Renal Disease Musculoskeletal History: Reports: Hx Arthritis - OSTEO- KNEES, ANS RHEUMATOID- HANDS AND OTHER JOINTS, Hx Fibromyalgia Denies: Hx Osteoporosis Sensory History: Reports: Hx Contacts or Glasses, Hx Deafness - Left ear, Hx Hearing Aid - right ear, Hx Hearing Problem Opthamlomology History: Reports: Hx Contacts or Glasses Neurological History: Reports: Hx Nerve Disease - FIBROMYALGIA, Hx Transient Ischemic Attacks (TIA), Other Neuro Impairments/Disorders - fibromyalgia Psychiatric History: Reports: Hx Anxiety, Hx Depression, Hx Post Traumatic Stress Disorder, Hx Community Mental Health Tx Denies: Hx Attention Deficit Hyperactivity Disorder, Hx Eating Disorder, Hx Panic Disorder, Hx Inpatient Treatment, Hx Schizophrenia, Hx Bipolar Disorder, Hx Suicide Attempt, Hx of Violent Episodes Against Others, Hx Substance Abuse, Other Psychiatric Issues/Disorders - Surgical History Surgery Procedure, Year, and Place: hysterectomy 04/2006 right knee arthroscopy; hernia repair tubes in ears; total right knee replacement oct 26 2013 , deviated septum, cardiac cath, tonsilectomy; RT ARTHROSCOPIC Hx Anesthesia Reactions: No - Immunization History Date of Tetanus Vaccine: pt unsure Date of Influenza Vaccine: 07/2016 Infectious Disease History: No Infectious Disease History: Denies: Hx Clostridium Difficile, Hx Hepatitis, Hx Human Immunodeficiency Virus (HIV), Hx of Known/Suspected MRSA, Hx Shingles, Hx Tuberculosis, Hx Known/ Suspected VRE, Hx Known/Suspected VRSA, History Other Infectious Disease, Traveled Outside the [place] in Last 30 Days - Family History Known Family History: Positive: Cardiac Disease - CAD, Hypertension, Diabetes - Social History Occupation: Disabled Lives: Alone Alcohol Use: Rare Alcohol Amount: on special occasions only Hx Substance Use: No Substance Use Type: Reports: None Hx Tobacco Use: Yes Smoking Status (MU): Former Smoker Type: Cigarettes Length of Time of Smoking/Using Tobacco: 4-5 yrs Have You Smoked in the Last Year: No Review of Systems Positive: Fever Positive: Sore Throat Positive: Shortness Of Breath, Cough Positive: Nausea. Negative: Vomiting, Diarrhea Positive: Other - bilat LE swelling Neurological: Other - dizziness/lightheadedness All Other Systems Reviewed And Are Negative: Yes Physical Exam - Summary Physical Exam Summary: The patient is well-nourished in no acute distress and in no acute pain. The patient has poor eye contact. The skin is warm and dry and skin color reflects adequate perfusion. Skin turgor is good. HEENT: The head is normocephalic and atraumatic. The pupils are equal and reactive. The conjunctivae are clear and without drainage. Nares are patent and without drainage. Mouth reveals dry mucous membranes and the throat is without erythema and exudate. The external ears are intact. The ear canals are patent and without drainage. The tympanic membranes are intact. Neck is supple with full range of motion and non-tender. There are no carotid bruits. There is no neck vein distension. Respiratory: Chest is non-tender. Mild respiratory distress with rhonchi and wheezes. Cardiovascular: Heart is tachycardia . There is no murmur or rub auscultated. There is no peripheral edema and pulses are symmetrical and equal. Cap refill is 2 seconds. Abdomen: The abdomen is soft and non-tender. There are normal bowel sounds heard in all four quadrants and there is no organomegaly palpated. Musculoskeletal: There is no back pain noted. Extremities are non-tender with full range of motion. Capillary refill is 2 seconds. There is slight pitting edema of pretibial area. Neurological: Patient is alert and oriented to person, place and time. The patient has symmetrical motor strength in all four extremities. Cranial nerves are grossly intact. Deep tendon reflexes are symmetrical and equal in all four extremities. Psychiatric: The patient has an appropriate affect and does not exhibit any anxiety or depression. Triage Information Reviewed: Yes Vital Signs On Initial Exam: Initial Vitals Temp Pulse Resp BP Pulse Ox 101.4 F 128 22 105/67 100 12/23/16 13:21 12/23/16 13:21 12/23/16 13:21 12/23/16 13:21 12/23/16 13:21 Vital Signs Reviewed: Yes Diagnostics - Vital Signs Vital Signs Temp Pulse Resp BP Pulse Ox 12/23/16 13:21 101.4 F 128 22 105/67 100 - Laboratory Lab Results: Lab Results 12/23/16 12/23/16 12/23/16 Range/Units 13:50 13:50 13:50 WBC 6.5 (3.5-10.8) 10^3/ul RBC 4.19 (4.0-5.4) 10^6/ul Hgb 11.7 L (12.0-16.0) g/dl Hct 35 (35-47) % MCV 84 (80-97) fL MCH 28 (27-31) pg MCHC 33 (31-36) g/dl RDW 15 (10.5-15) % Plt Count 186 (150-450) 10^3/ul MPV 10 (7.4-10.4) um3 Neut % (Auto) 75.4 (38-83) % Lymph % (Auto) 9.3 L (25-47) % Luna % (Auto) 5.5 (1-9) % Eos % (Auto) 9.0 H (0-6) % Baso % (Auto) 0.8 (0-2) % Absolute Neuts (auto) 4.9 (1.5-7.7) 10^3/ul Absolute Lymphs (auto) 0.6 L (1.0-4.8) 10^3/ul Absolute Monos (auto) 0.4 (0-0.8) 10^3/ul Absolute Eos (auto) 0.6 (0-0.6) 10^3/ul Absolute Basos (auto) 0.1 (0-0.2) 10^3/ul Absolute Nucleated RBC 0 10^3/ul Nucleated RBC % 0 INR (Anticoag Therapy) 0.93 (0.89-1.11) APTT 34.2 (26.0-36.3) seconds Sodium 137 (133-145) mmol/L Potassium 3.5 (3.5-5.0) mmol/L Chloride 103 (101-111) mmol/L Carbon Dioxide 26 (22-32) mmol/L Anion Gap 8 (2-11) mmol/L BUN 15 (6-24) mg/dL Creatinine 1.06 H (0.51-0.95) mg/dL Est GFR ( Amer) 68.7 (>60) Est GFR (Non-Af Amer) 53.4 (>60) BUN/Creatinine Ratio 14.2 (8-20) Glucose 106 H (70-100) mg/dL Lactic Acid (0.5-2.0) mmol/L Calcium 9.5 (8.6-10.3) mg/dL Total Bilirubin 0.30 (0.2-1.0) mg/dL AST 13 (13-39) U/L ALT 13 (7-52) U/L Alkaline Phosphatase 53 (34-104) U/L Troponin I 0.10 H* (<0.04) ng/mL C-Reactive Protein 15.05 H (< 5.00) mg/L Total Protein 6.5 (6.4-8.9) g/dL Albumin 3.8 (3.2-5.2) g/dL Globulin 2.7 (2-4) g/dL Albumin/Globulin Ratio 1.4 (1-3) Procalcitonin (<0.6) ng/mL Influenza A (Rapid) (Negative) Influenza B (Rapid) (Negative) 12/23/16 12/23/16 12/23/16 Range/Units 13:50 13:50 14:17 WBC (3.5-10.8) 10^3/ul RBC (4.0-5.4) 10^6/ul Hgb (12.0-16.0) g/dl Hct (35-47) % MCV (80-97) fL MCH (27-31) pg MCHC (31-36) g/dl RDW (10.5-15) % Plt Count (150-450) 10^3/ul MPV (7.4-10.4) um3 Neut % (Auto) (38-83) % Lymph % (Auto) (25-47) % Luna % (Auto) (1-9) % Eos % (Auto) (0-6) % Baso % (Auto) (0-2) % Absolute Neuts (auto) (1.5-7.7) 10^3/ul Absolute Lymphs (auto) (1.0-4.8) 10^3/ul Absolute Monos (auto) (0-0.8) 10^3/ul Absolute Eos (auto) (0-0.6) 10^3/ul Absolute Basos (auto) (0-0.2) 10^3/ul Absolute Nucleated RBC 10^3/ul Nucleated RBC % INR (Anticoag Therapy) (0.89-1.11) APTT (26.0-36.3) seconds Sodium (133-145) mmol/L Potassium (3.5-5.0) mmol/L Chloride (101-111) mmol/L Carbon Dioxide (22-32) mmol/L Anion Gap (2-11) mmol/L BUN (6-24) mg/dL Creatinine (0.51-0.95) mg/dL Est GFR ( Amer) (>60) Est GFR (Non-Af Amer) (>60) BUN/Creatinine Ratio (8-20) Glucose (70-100) mg/dL Lactic Acid 1.3 (0.5-2.0) mmol/L Calcium (8.6-10.3) mg/dL Total Bilirubin (0.2-1.0) mg/dL AST (13-39) U/L ALT (7-52) U/L Alkaline Phosphatase (34-104) U/L Troponin I (<0.04) ng/mL C-Reactive Protein (< 5.00) mg/L Total Protein (6.4-8.9) g/dL Albumin (3.2-5.2) g/dL Globulin (2-4) g/dL Albumin/Globulin Ratio (1-3) Procalcitonin 0.1 (<0.6) ng/mL Influenza A (Rapid) Positive H (Negative) Influenza B (Rapid) Negative (Negative) Result Diagrams: 12/23/16 13:50 12/23/16 13:50 Lab Statement: Any lab studies that have been ordered have been reviewed, and results considered in the medical decision making process. - Radiology CxR Xray Interpretation: No Acute Changes Radiology Interpretation Completed By: Radiologist - EKG EK EKG Rhythm: Sinus Tachycardia EKG Interpretation: non specific ST changes Re-Evaluation - Re-Evaluation 1st Re-Evaluation Time: 14:57 Change: Unchanged Comment: Reviewed the pt's labs with her and told here that she has influenza. Disposition - Course Course Of Treatment: Dr. Lopez consluted patient. The patient will be accpeted as an admission. - Differential Dx - Cardiopulmonary Differential Diagnoses - Cardiopulmonary: Bronchitis, CAD, CHF, Exacerbation Of COPD, Influenza, Lower Resp Infection - Diagnoses Provider Diagnoses: Acute dyspnea, Influenza, History of COPD Discharge - Discharge Plan Condition: Stable Disposition: ADMITTED TO [facility] documentation as recorded by the Fanny urbina Michael accurately reflects the service I personally performed and the decisions made by , Andrew Colón MD.
[2016-12-23] MEDS ORDERED: Cyclobenzaprine TAB* 10 MG PO PRN (15:52)
[2016-12-23] MEDS ORDERED: LORazepam TAB(*) 0.5 MG PO PRN (15:52)
[2016-12-23] MEDS: NS 0.9% 1000 ML* 1,000 ML IV SCH (17:07)
[2016-12-23 17:09] LABS: Urine Bilirubin Negative (Negative); Urine Glucose Negative (Negative); Urine Nitrite Negative (Negative)
--- NOTE | 2016-12-23 19:04 | HP ---
HISTORY AND PHYSICAL: DATE OF ADMISSION: 12/23/16 PRIMARY CARE PROVIDER: Dr. Dent. CHIEF COMPLAINT: Flu-like symptoms. HISTORY OF PRESENT ILLNESS: Ms. Muniz is a 56-year-old female, who was recently hospitalized from 12/01/16 through 12/03/16 with COPD exacerbation. The patient states that she ultimately recovered from that; however, approximately 2 days prior to admission, she began to note cough and runny nose. On the morning of admission, the patient awakened from sleep with severe nausea. Additionally, she felt very feverish. She continued to have significant cough. She denies any sputum production. She admits to chills and body aches. She does state that she has a sick contact where she was exposed to an individual, who had cold-like symptoms. In addition to the above complaints, the patient states that her appetite is also very poor. PAST MEDICAL HISTORY: 1. COPD. 2. Hypertension. 3. History of TIA. 4. History of anxiety/depression. 5. LEELA. 6. Fibromyalgia. 7. Hyperlipidemia. 8. Mitral valve prolapse. 9. ASD. 10. History of thoracic aneurysm. 11. Baseline tachycardia. PAST SURGICAL HISTORY: 1. Right total knee replacement. 2. Bilateral inguinal hernia repair. 3. Robotic hysterectomy and oophorectomy. MEDICATIONS: 1. Benadryl 25 mg p.o. q.4 hours p.r.n. itching. 2. Spiriva 1 puff inhaled daily. 3. Lyrica 50 mg p.o. b.i.d. 4. Pravachol 10 mg p.o. q.h.s. 5. Potassium chloride 10 mEq p.o. q.h.s. 6. Singulair 10 mg p.o. q.h.s. 7. Magnesium oxide 200 mg p.o. daily. 8. Lisinopril 10 mg p.o. b.i.d. 9. Ativan 0.25 mg p.o. q.8 hours p.r.n. anxiety. 10. Ibuprofen 600 mg p.o. q.6 hours p.r.n. pain. 11. Hydrochlorothiazide 25 mg p.o. daily. 12. Robitussin DM 10 mL p.o. q.4 hours p.r.n. cough. 13. Folic acid 1 mg p.o. daily. 14. Famotidine 20 mg p.o. q.h.s. 15. Diltiazem CD 180 mg p.o. daily. 16. Flexeril 10 mg p.o. t.i.d. p.r.n. spasm. 17. Vitamin D 1000 units p.o. daily. 18. Cetirizine 10 mg p.o. daily p.r.n. allergy. 19. Symbicort 160/4.5 two puffs inhaled b.i.d. 20. QVAR 2 puffs inhaled b.i.d. 21. Albuterol 2 puffs inhaled q.4 hours p.r.n. shortness of breath. 22. Albuterol 1 neb inhaled q.4 hours p.r.n. shortness of breath. ALLERGIES: ASPIRIN, BACITRACIN, BEE VENOM, PENICILLIN, TOMATO, CEFACLOR, CEFAZOLIN, CELEBREX, CUCUMBER EXTRACT, ERYTHROMYCIN, METOPROLOL, SAVELLA, MUSHROOM EXTRACT, POLYMYXIN B, TETRACYCLINE, NEOMYCIN, LIDOCAINE, and PEPPER. FAMILY HISTORY: Mom is living, she is 74. She has a history of COPD, hypertension, hyperlipidemia. Dad is at the age of 71 of cancer; she is unclear of what type. SOCIAL HISTORY: The patient is a former smoker. She states that she smoked few cigarettes per day, quitting in 2011 and smoked for only 5 years. She drinks alcohol on occasion. She lives alone. Her son, Dre, is her healthcare proxy. The patient has two living children; one is from what sounds to be SIDS. REVIEW OF SYSTEMS: The patient admits to fevers, chills, and anorexia. No chest pain. She has mild chronic lower extremity edema. She admits to cough. No shortness of breath. Admits to nausea, but no vomiting, no abdominal pain. No diarrhea or constipation. No hematochezia, no hematuria, no dysuria. No focal weakness or sensory loss. No sudden changes in vision or dysphagia. She admits to diffuse body aches. No rashes. No anxiety or depression. PHYSICAL EXAMINATION GENERAL: The patient is a well-developed, middle-aged female, sitting in the stretcher, appearing to be acutely ill but in no acute distress. VITAL SIGNS: Blood pressure 119/84, pulse 118, respirations 16, temp 101.4, O2 sat 99% on room air. HEENT: Pupils are equal, they are round. Extraocular muscles are intact. Oropharynx is very dry. NECK: There is no submandibular, cervical, or supraclavicular adenopathy. Thyroid is not enlarged. No thyroid nodules are noted. PULMONARY: Lungs are clear with few scattered wheezes. CARDIAC: Normal S1, S2. Heart rate is tachycardic but regular. There is 1+ bilateral lower extremity edema. ABDOMEN: Bowel sounds are present. Abdomen is soft, nontender, nondistended. MUSCULOSKELETAL: There is no cyanosis, clubbing of the digits. There is full active range of motion of all 4 extremities. NEURO: Cranial nerves II through XII are grossly intact. Sensation is intact to light touch throughout. Strength is 5/5 and symmetric in both upper and lower extremities bilaterally. PSYCH: The patient is alert, she is oriented x3. Affect appears appropriate. SKIN: Warm and dry. There are no rashes. DIAGNOSTIC STUDIES/LAB DATA: WBC 6.5, hemoglobin 11.7, hematocrit 35, platelets 186. INR 0.93. Sodium 137, potassium 3.5, chloride 103, CO2 26, BUN 15, creatinine 1.06, glucose 106, lactic acid 1.3, calcium 9.5. Bilirubin 0.3, AST 13, ALT 13, alk phos 53. Troponin 0.10. CRP 15.05. Albumin 3.8. Procalcitonin 0.1. Influenza A positive. Chest x-ray: No acute pulmonary disease. EKG: Sinus tachycardia. No acute ST-T wave abnormalities. ASSESSMENT AND PLAN: Ms. Muniz is a 56-year-old female with a known history of chronic obstructive pulmonary disease, hypertension, hyperlipidemia, and fibromyalgia, who presents to the emergency room with complaints of flu-like symptoms and in fact has been diagnosed with influenza A. 1. Influenza A. At this point, the patient is quite symptomatic from this. She is tachycardic and appears volume deplete. The patient will be admitted and hydrated overnight. She has been started on Tamiflu and will continue this for 10 total doses. The patient will have Zofran and Compazine available for nausea. At this point, supportive care is all she needs. She has very mild wheezing. She will continue on her p.r.n. nebs. There are no signs of chronic obstructive pulmonary disease exacerbation at this time. 2. Chronic obstructive pulmonary disease. The patient will be continued on her usual home inhaler regimen. 3. Elevated troponin. The patient's troponin is chronically in this range. I will not follow up any further troponin as she does not complain of any chest pain. 4. Hypertension. The patient's blood pressure is under fair control. I am going to hold her hydrochlorothiazide while she is admitted for the flu. 5. Obstructive sleep apnea. The patient does not wear CPAP at night and this will not be prescribed at this time. 6. Anxiety and depression. The patient will be maintained on her usual dose of Ativan p.r.n. 7. Fibromyalgia. Continue Lyrica. 8. DVT prophylaxis. According to the Adult Thrombosis Prophylaxis Risk Factor Assessment Guide, the patient has a total risk factor score of 4 making her high risk. She will be placed on heparin 5000 units subcutaneous q.8 hours. 9. Code status is full and again the patient indicates that her son, Dre, is her healthcare proxy. TIME SPENT: Sixty-five minutes was spent admitting this patient. CC: Dr. Dent* [id number]/CPS #: [id number] JERMAIN
[2016-12-23] MEDS ORDERED: Beclomethasone 80 MCG MDI(NF) 80 MCG/PUFF MDI INH SCH (21:00)
[2016-12-23] MEDS: Mometasone/Formoter 200/5 MDI INH SCH (21:01)
[2016-12-23] MEDS: Oseltamivir CAP* 75 MG PO SCH (21:18)
[2016-12-23] MEDS: Pregabalin CAP(*) 50 MG PO SCH (21:18)
[2016-12-23] MEDS: Potassium Chlor TAB* 10 MEQ TAB.ER PO SCH (21:21)
[2016-12-23] MEDS: Famotidine TAB* 20 MG PO SCH (21:21)
[2016-12-23] MEDS: CMCS - Pravastatin (NF) 20 MG TAB PO SCH (21:22)
[2016-12-23] MEDS: Lisinopril TAB* 10 MG PO SCH (21:25)
[2016-12-23] MEDS ORDERED: Acetaminophen TAB* 325 MG ONE (22:01)
[2016-12-23] MEDS: Heparin VIAL(*) 5000 UNITS/ML VIAL (FIVE THOUSAND) SUBCUT SCH (22:03)
[2016-12-24] MEDS: Montelukast Sodium TAB* 10 MG PO SCH ×2 (00:24→17:21)
[2016-12-24] MEDS: GuaiFENesin DM* 5 ML UDC PO PRN ×2 (00:25→23:27)
[2016-12-24] MEDS: NS 0.9% 1000 ML* 1,000 ML IV SCH ×3 (00:27→13:11)
[2016-12-24] MEDS: Albuterol 2.5 MG/3 ML NEB.SOL* (0.083%) INH PRN ×3 (02:26→16:06)
[2016-12-24] MEDS: Acetaminophen TAB* 325 MG PO PRN ×2 (05:44→22:58)
[2016-12-24] MEDS: Heparin VIAL(*) 5000 UNITS/ML VIAL (FIVE THOUSAND) SUBCUT SCH ×3 (05:45→22:56)
[2016-12-24] MEDS: Tiotropium CAP.INH* CAP.INH/18 MCG (USE ORDER SET !) INH SCH (09:08)
[2016-12-24] MEDS: Mometasone/Formoter 200/5 MDI INH SCH ×2 (09:08→21:44)
[2016-12-24] MEDS: Diltiazem CD CAP* 180 MG PO SCH (09:24)
[2016-12-24] MEDS: Lisinopril TAB* 10 MG PO SCH ×2 (09:24→22:49)
[2016-12-24] MEDS: Oseltamivir CAP* 75 MG PO SCH ×2 (09:24→22:48)
[2016-12-24] MEDS: Cholecalciferol TAB* 1000 UNITS PO SCH (09:24)
[2016-12-24] MEDS: Magnesium Oxide TAB* 400 MG PO SCH (09:24)
[2016-12-24] MEDS: Folic Acid TAB* 1 MG PO SCH (09:24)
[2016-12-24] MEDS: Pregabalin CAP(*) 50 MG PO SCH ×2 (09:25→22:49)
[2016-12-24] MEDS ORDERED: Spiriva Inhaler DEVICE* 1 EACH DEVICE INH SCH (10:00)
--- NOTE | 2016-12-24 11:39 | PN ---
Subjective Date of Service: 12/24/16 Interval History: Pt is feeling lousy. She states she is having quite a bit of post nasal drip and that is causing her to cough vigorously which then makes her SOB. Objective Active Medications: Acetaminophen (Tylenol Tab*) 650 mg PO Q6H PRN PRN Reason: PAIN Last Admin: 12/24/16 05:44 Dose: 650 mg Albuterol (Ventolin 2.5 Mg/3 Ml Neb.Grazyna*) 2.5 mg INH Q4HR PRN PRN Reason: SHORTNESS OF BREATH Last Admin: 12/24/16 09:13 Dose: 2.5 mg Cholecalciferol (Vitamin D Tab*) 1,000 units PO DAILY [facility] Last Admin: 12/24/16 09:24 Dose: 1,000 units Cyclobenzaprine HCl (Flexeril Tab*) 10 mg PO TID PRN PRN Reason: SPASMS Device (Tiotropium Inhaler Device*) 1 each INH ONCE [facility] Last Admin: 12/24/16 09:23 Dose: 1 each Diltiazem HCl (Cardizem Cd Cap*) 180 mg PO DAILY [facility] Last Admin: 12/24/16 09:24 Dose: 180 mg Famotidine (Pepcid Tab*) 20 mg PO BEDTIME [facility] Last Admin: 12/23/16 21:21 Dose: 20 mg Folic Acid (Folvite Tab*) 1 mg PO DAILY [facility] Last Admin: 12/24/16 09:24 Dose: 1 mg Guaifenesin/Dextromethorphan (Robitussin Dm*) 10 ml PO Q4H PRN PRN Reason: COUGH Last Admin: 12/24/16 00:25 Dose: 10 ml Heparin Sodium (Porcine) (Heparin Vial(*)) 5,000 units SUBCUT Q8HR [facility] Last Admin: 12/24/16 05:45 Dose: 5,000 units Sodium Chloride (Ns 0.9% 1000 Ml*) 1,000 mls @ 150 mls/hr IV PER RATE [facility] Last Admin: 12/24/16 05:53 Dose: 150 mls/hr Lisinopril (Prinivil Tab*) 10 mg PO BID [facility] Last Admin: 12/24/16 09:24 Dose: 10 mg Lorazepam (Ativan Tab(*)) 0.25 mg PO Q8H PRN PRN Reason: ANXIETY Magnesium Oxide (Magox 400 Tab*) 200 mg PO DAILY [facility] Last Admin: 12/24/16 09:24 Dose: 200 mg Mometasone Furoate/Formoterol Fumar (Dulera 200/5 Mdi*) 2 puff INH BID [facility] PRN Reason: Protocol Last Admin: 12/24/16 09:08 Dose: 2 puff Montelukast Sodium (Singulair Tab*) 10 mg PO QPM [facility] Last Admin: 12/24/16 00:24 Dose: 10 mg Ondansetron HCl (Zofran Inj*) 4 mg IV Q6H PRN PRN Reason: NAUSEA Oseltamivir Phosphate (Tamiflu Cap*) 75 mg PO BID [facility] Stop: 12/27/16 21:01 Last Admin: 12/24/16 09:24 Dose: 75 mg Potassium Chloride (Klor Con Er Tab*) 10 meq PO QPM [facility] Last Admin: 12/23/16 21:21 Dose: 10 meq Pravastatin Sodium (Pravachol (Nf)) 10 mg PO QPM [facility] Last Admin: 12/23/16 21:22 Dose: 10 mg Pregabalin (Lyrica Cap(*)) 50 mg PO BID [facility] Last Admin: 12/24/16 09:25 Dose: 50 mg Prochlorperazine Edisylate (Compazine Inj*) 10 mg IV Q6H PRN PRN Reason: NAUSEA/VOMITING Tiotropium [place] (Spiriva Cap.Inh*) 1 cap INH DAILY [facility] Last Admin: 12/24/16 09:08 Dose: 1 cap Vital Signs 12/23/16 12/23/16 12/23/16 15:00 15:30 16:00 Temperature Pulse Rate 117 118 117 Respiratory 16 18 19 Rate Blood Pressure 119/84 109/54 110/56 (mmHg) O2 Sat by Pulse 99 95 93 Oximetry 12/23/16 12/23/16 12/23/16 16:36 16:59 17:00 Temperature 99.5 F 99.5 F Pulse Rate 121 121 Respiratory 22 22 22 Rate Blood Pressure 129/66 129/66 (mmHg) O2 Sat by Pulse 93 93 Oximetry 12/23/16 12/23/16 12/23/16 19:11 20:00 21:18 Temperature 98.0 F Pulse Rate 108 Respiratory 16 16 16 Rate Blood Pressure 108/57 (mmHg) O2 Sat by Pulse 98 98 Oximetry 12/23/16 12/24/16 12/24/16 23:14 02:29 03:48 Temperature 98.5 F 98.3 F Pulse Rate 102 104 97 Respiratory 16 21 Rate Blood Pressure 111/67 119/66 (mmHg) O2 Sat by Pulse 95 94 96 Oximetry 12/24/16 12/24/16 12/24/16 07:17 08:00 09:21 Temperature 97.9 F Pulse Rate 96 104 Respiratory 20 18 18 Rate Blood Pressure 110/65 (mmHg) O2 Sat by Pulse 93 96 96 Oximetry 12/24/16 12/24/16 09:22 09:25 Temperature Pulse Rate 105 Respiratory 18 18 Rate Blood Pressure (mmHg) O2 Sat by Pulse 96 Oximetry Oxygen Devices in Use Now: None - 96% Appearance: Middle aged female sitting up in bed, coughing forcefully, NAD Eyes: No Scleral Icterus Ears/Nose/Mouth/Throat: Mucous Membranes Moist Respiratory: Symmetrical Chest Expansion and Respiratory Effort, Clear to Auscultation - few scattered wheezes Cardiovascular: NL Sounds; No Murmurs; No JVD, - - mildly tachycardic but regular, 1+ B/L LE edema Abdominal: NL Sounds; No Tenderness; No Distention Extremities: No Clubbing, Cyanosis Skin: No Rash or Ulcers, No Nodules or Sclerosis Neurological: Alert and Oriented x 3 Result Diagrams: 12/23/16 13:50 12/23/16 13:50 Additional Lab and Data: Lab Results 12/23/16 12/23/16 12/23/16 Range/Units 13:50 13:50 13:50 WBC 6.5 (3.5-10.8) 10^3/ul RBC 4.19 (4.0-5.4) 10^6/ul Hgb 11.7 L (12.0-16.0) g/dl Hct 35 (35-47) % MCV 84 (80-97) fL MCH 28 (27-31) pg MCHC 33 (31-36) g/dl RDW 15 (10.5-15) % Plt Count 186 (150-450) 10^3/ul MPV 10 (7.4-10.4) um3 Neut % (Auto) 75.4 (38-83) % Lymph % (Auto) 9.3 L (25-47) % [place] % (Auto) 5.5 (1-9) % Eos % (Auto) 9.0 H (0-6) % Baso % (Auto) 0.8 (0-2) % Absolute Neuts (auto) 4.9 (1.5-7.7) 10^3/ul Absolute Lymphs (auto) 0.6 L (1.0-4.8) 10^3/ul Absolute Monos (auto) 0.4 (0-0.8) 10^3/ul Absolute Eos (auto) 0.6 (0-0.6) 10^3/ul Absolute Basos (auto) 0.1 (0-0.2) 10^3/ul Absolute Nucleated RBC 0 10^3/ul Nucleated RBC % 0 INR (Anticoag Therapy) 0.93 (0.89-1.11) APTT 34.2 (26.0-36.3) seconds Sodium 137 (133-145) mmol/L Potassium 3.5 (3.5-5.0) mmol/L Chloride 103 (101-111) mmol/L Carbon Dioxide 26 (22-32) mmol/L Anion Gap 8 (2-11) mmol/L BUN 15 (6-24) mg/dL Creatinine 1.06 H (0.51-0.95) mg/dL Est GFR ( Amer) 68.7 (>60) Est GFR (Non-Af Amer) 53.4 (>60) BUN/Creatinine Ratio 14.2 (8-20) Glucose 106 H (70-100) mg/dL Lactic Acid (0.5-2.0) mmol/L Calcium 9.5 (8.6-10.3) mg/dL Total Bilirubin 0.30 (0.2-1.0) mg/dL AST 13 (13-39) U/L ALT 13 (7-52) U/L Alkaline Phosphatase 53 (34-104) U/L Troponin I 0.10 H* (<0.04) ng/mL C-Reactive Protein 15.05 H (< 5.00) mg/L Total Protein 6.5 (6.4-8.9) g/dL Albumin 3.8 (3.2-5.2) g/dL Globulin 2.7 (2-4) g/dL Albumin/Globulin Ratio 1.4 (1-3) Procalcitonin (<0.6) ng/mL Influenza A (Rapid) (Negative) Influenza B (Rapid) (Negative) 12/23/16 12/23/16 12/23/16 Range/Units 13:50 13:50 14:17 WBC (3.5-10.8) 10^3/ul RBC (4.0-5.4) 10^6/ul Hgb (12.0-16.0) g/dl Hct (35-47) % MCV (80-97) fL MCH (27-31) pg MCHC (31-36) g/dl RDW (10.5-15) % Plt Count (150-450) 10^3/ul MPV (7.4-10.4) um3 Neut % (Auto) (38-83) % Lymph % (Auto) (25-47) % [place] % (Auto) (1-9) % Eos % (Auto) (0-6) % Baso % (Auto) (0-2) % Absolute Neuts (auto) (1.5-7.7) 10^3/ul Absolute Lymphs (auto) (1.0-4.8) 10^3/ul Absolute Monos (auto) (0-0.8) 10^3/ul Absolute Eos (auto) (0-0.6) 10^3/ul Absolute Basos (auto) (0-0.2) 10^3/ul Absolute Nucleated RBC 10^3/ul Nucleated RBC % INR (Anticoag Therapy) (0.89-1.11) APTT (26.0-36.3) seconds Sodium (133-145) mmol/L Potassium (3.5-5.0) mmol/L Chloride (101-111) mmol/L Carbon Dioxide (22-32) mmol/L Anion Gap (2-11) mmol/L BUN (6-24) mg/dL Creatinine (0.51-0.95) mg/dL Est GFR ( Amer) (>60) Est GFR (Non-Af Amer) (>60) BUN/Creatinine Ratio (8-20) Glucose (70-100) mg/dL Lactic Acid 1.3 (0.5-2.0) mmol/L Calcium (8.6-10.3) mg/dL Total Bilirubin (0.2-1.0) mg/dL AST (13-39) U/L ALT (7-52) U/L Alkaline Phosphatase (34-104) U/L Troponin I (<0.04) ng/mL C-Reactive Protein (< 5.00) mg/L Total Protein (6.4-8.9) g/dL Albumin (3.2-5.2) g/dL Globulin (2-4) g/dL Albumin/Globulin Ratio (1-3) Procalcitonin 0.1 (<0.6) ng/mL Influenza A (Rapid) Positive H (Negative) Influenza B (Rapid) Negative (Negative) Assess/Plan/Problems-Billing Ms Muniz is a 56 yo F who has a h/o asthma/COPD, HTN, LEELA, chronic sinus tachycardia, anxiety/depression and fibromyalgia who presented to the ER with c/ o flu like symptoms and was found to be influenza A positive. - Patient Problems (1) Influenza A Current Visit: Yes Status: Acute Code(s): J10.1 - FLU DUE TO OTH IDENT INFLUENZA VIRUS W OTH RESP MANIFEST SNOMED Code(s): 523854623 Comment: Continue tamiflu. I have reminded the patient that she needs to allow the flu to run its course. Continue IVF as her HR remains elevated. Supportive care for now. (2) Tachycardia Current Visit: Yes Status: Acute Code(s): R00.0 - TACHYCARDIA, UNSPECIFIED SNOMED Code(s): 2535447 Comment: Continue cardizem CD- HR is likely up currently secondary to flu. (3) HTN (hypertension) Current Visit: Yes Status: Chronic Code(s): I10 - ESSENTIAL (PRIMARY) HYPERTENSION SNOMED Code(s): 25826195 Comment: BP is under good control. Continue lisinopril and diltiazem CD but hold HCTZ for now. (4) Anxiety Current Visit: Yes Status: Chronic Code(s): F41.9 - ANXIETY DISORDER, UNSPECIFIED SNOMED Code(s): 77410591 Comment: Continue prn ativan. (5) Fibromyalgia Current Visit: Yes Status: Chronic Code(s): M79.7 - FIBROMYALGIA SNOMED Code(s): 160570850 Comment: Continue Lyrica. (6) DVT prophylaxis Current Visit: Yes Status: Acute Code(s): JRV3362 - SNOMED Code(s): 963916176 Comment: SQ heparin (7) Full code status Current Visit: Yes Status: Acute Code(s): Z78.9 - OTHER SPECIFIED HEALTH STATUS SNOMED Code(s): 717077983
[2016-12-24] MEDS: methylPREDNISolone SOD 40 MG* 1 ML VIAL IV SCH (17:20)
[2016-12-24] MEDS: Potassium Chlor TAB* 10 MEQ TAB.ER PO SCH (17:21)
[2016-12-24] MEDS: CMCS - Pravastatin (NF) 20 MG TAB PO SCH (17:21)
[2016-12-24] MEDS: Albuterol/Ipratropium NEB.SOL* Albuterol 2.5 MG/Ipratropium 0.5 MG 3 ML INH SCH ×2 (21:44)
[2016-12-24] MEDS: Famotidine TAB* 20 MG PO SCH (22:48)
[2016-12-25] MEDS: Albuterol/Ipratropium NEB.SOL* Albuterol 2.5 MG/Ipratropium 0.5 MG 3 ML INH SCH ×2 (02:24→07:32)
[2016-12-25] MEDS: NS 0.9% 1000 ML* 1,000 ML IV SCH ×2 (02:39→09:44)
[2016-12-25] MEDS: methylPREDNISolone SOD 40 MG* 1 ML VIAL IV SCH (06:03)
[2016-12-25] MEDS: Heparin VIAL(*) 5000 UNITS/ML VIAL (FIVE THOUSAND) SUBCUT SCH (06:12)
[2016-12-25 07:25] VITALS: BP 138/69
[2016-12-25] MEDS: Mometasone/Formoter 200/5 MDI INH SCH (07:33)
[2016-12-25] MEDS: Tiotropium CAP.INH* CAP.INH/18 MCG (USE ORDER SET !) INH SCH (07:33)
[2016-12-25] MEDS: Pregabalin CAP(*) 50 MG PO SCH (08:56)
[2016-12-25] MEDS: Cholecalciferol TAB* 1000 UNITS PO SCH (08:56)
[2016-12-25] MEDS: Lisinopril TAB* 10 MG PO SCH (08:56)
[2016-12-25] MEDS: Oseltamivir CAP* 75 MG PO SCH (08:56)
[2016-12-25] MEDS: Folic Acid TAB* 1 MG PO SCH (08:56)
[2016-12-25] MEDS: Magnesium Oxide TAB* 400 MG PO SCH (08:57)
[2016-12-25] MEDS: Diltiazem CD CAP* 180 MG PO SCH (08:57)
--- NOTE | 2016-12-25 10:24 | PN ---
Subjective Date of Service: 12/25/16 Interval History: Pt is feeling much better. Less wheezing and less cough. She is tender in her lower ribs from coughing. She feels like she will be able to manage at home. Objective Active Medications: Acetaminophen (Tylenol Tab*) 650 mg PO Q6H PRN PRN Reason: PAIN Last Admin: 12/24/16 22:58 Dose: 650 mg Albuterol (Ventolin 2.5 Mg/3 Ml Neb.Grazyna*) 2.5 mg INH Q4HR PRN PRN Reason: SHORTNESS OF BREATH Last Admin: 12/24/16 16:06 Dose: 2.5 mg Albuterol/Ipratropium (Duoneb Neb.Grazyna*) 1 neb INH [id number] [facility] Last Admin: 12/25/16 07:32 Dose: 1 neb Cholecalciferol (Vitamin D Tab*) 1,000 units PO DAILY [facility] Last Admin: 12/25/16 08:56 Dose: 1,000 units Cyclobenzaprine HCl (Flexeril Tab*) 10 mg PO TID PRN PRN Reason: SPASMS Device (Tiotropium Inhaler Device*) 1 each INH ONCE [facility] Last Admin: 12/24/16 09:23 Dose: 1 each Diltiazem HCl (Cardizem Cd Cap*) 180 mg PO DAILY [facility] Last Admin: 12/25/16 08:57 Dose: 180 mg Famotidine (Pepcid Tab*) 20 mg PO BEDTIME [facility] Last Admin: 12/24/16 22:48 Dose: 20 mg Folic Acid (Folvite Tab*) 1 mg PO DAILY [facility] Last Admin: 12/25/16 08:56 Dose: 1 mg Guaifenesin/Dextromethorphan (Robitussin Dm*) 10 ml PO Q4H PRN PRN Reason: COUGH Last Admin: 12/24/16 23:27 Dose: 10 ml Heparin Sodium (Porcine) (Heparin Vial(*)) 5,000 units SUBCUT Q8HR [facility] Last Admin: 12/25/16 06:12 Dose: 5,000 units Sodium Chloride (Ns 0.9% 1000 Ml*) 1,000 mls @ 150 mls/hr IV PER RATE [facility] Last Admin: 12/25/16 09:44 Dose: 150 mls/hr Lisinopril (Prinivil Tab*) 10 mg PO BID [facility] Last Admin: 12/25/16 08:56 Dose: 10 mg Lorazepam (Ativan Tab(*)) 0.25 mg PO Q8H PRN PRN Reason: ANXIETY Magnesium Oxide (Magox 400 Tab*) 200 mg PO DAILY [facility] Last Admin: 12/25/16 08:57 Dose: 200 mg Methylprednisolone Sodium Succinate (Solu-Medrol*) 40 mg IV Q12H [facility] Last Admin: 12/25/16 06:03 Dose: 40 mg Mometasone Furoate/Formoterol Fumar (Dulera 200/5 Mdi*) 2 puff INH BID [facility] PRN Reason: Protocol Last Admin: 12/25/16 07:33 Dose: 2 puff Montelukast Sodium (Singulair Tab*) 10 mg PO QPM [facility] Last Admin: 12/24/16 17:21 Dose: 10 mg Ondansetron HCl (Zofran Inj*) 4 mg IV Q6H PRN PRN Reason: NAUSEA Oseltamivir Phosphate (Tamiflu Cap*) 75 mg PO BID [facility] Stop: 12/27/16 21:01 Last Admin: 12/25/16 08:56 Dose: 75 mg Potassium Chloride (Klor Con Er Tab*) 10 meq PO QPM [facility] Last Admin: 12/24/16 17:21 Dose: 10 meq Pravastatin Sodium (Pravachol (Nf)) 10 mg PO QPM [facility] Last Admin: 12/24/16 17:21 Dose: 10 mg Pregabalin (Lyrica Cap(*)) 50 mg PO BID [facility] Last Admin: 12/25/16 08:56 Dose: 50 mg Prochlorperazine Edisylate (Compazine Inj*) 10 mg IV Q6H PRN PRN Reason: NAUSEA/VOMITING Tiotropium [place] (Spiriva Cap.Inh*) 1 cap INH DAILY [facility] Last Admin: 12/25/16 07:33 Dose: 1 cap Vital Signs 12/24/16 12/24/16 12/24/16 11:25 15:26 16:08 Temperature 97.8 F Pulse Rate 104 102 Respiratory 4 18 20 Rate Blood Pressure 112/62 (mmHg) O2 Sat by Pulse 100 99 Oximetry 12/24/16 12/24/16 12/24/16 19:17 20:00 22:49 Temperature 98.2 F Pulse Rate 104 105 Respiratory 16 20 20 Rate Blood Pressure 138/78 (mmHg) O2 Sat by Pulse 95 95 Oximetry 12/24/16 12/25/16 12/25/16 23:24 00:49 03:46 Temperature 98.2 F 97.5 F Pulse Rate 98 88 Respiratory 16 14 16 Rate Blood Pressure 130/76 119/70 (mmHg) O2 Sat by Pulse 94 95 Oximetry 12/25/16 12/25/16 12/25/16 07:18 07:35 08:56 Temperature 98.4 F Pulse Rate 88 88 Respiratory 17 14 14 Rate Blood Pressure 138/69 (mmHg) O2 Sat by Pulse 96 100 Oximetry Oxygen Devices in Use Now: None - 96% Appearance: Middle aged female sitting on the edge of the bed, NAD Eyes: No Scleral Icterus Ears/Nose/Mouth/Throat: Mucous Membranes Moist Respiratory: Symmetrical Chest Expansion and Respiratory Effort, Clear to Auscultation Cardiovascular: NL Sounds; No Murmurs; No JVD, RRR, No Edema Abdominal: NL Sounds; No Tenderness; No Distention Extremities: No Clubbing, Cyanosis Skin: No Rash or Ulcers, No Nodules or Sclerosis Neurological: Alert and Oriented x 3 Result Diagrams: 12/23/16 13:50 12/23/16 13:50 Additional Lab and Data: Lab Results 12/23/16 12/23/16 12/23/16 Range/Units 13:50 13:50 13:50 WBC 6.5 (3.5-10.8) 10^3/ul RBC 4.19 (4.0-5.4) 10^6/ul Hgb 11.7 L (12.0-16.0) g/dl Hct 35 (35-47) % MCV 84 (80-97) fL MCH 28 (27-31) pg MCHC 33 (31-36) g/dl RDW 15 (10.5-15) % Plt Count 186 (150-450) 10^3/ul MPV 10 (7.4-10.4) um3 Neut % (Auto) 75.4 (38-83) % Lymph % (Auto) 9.3 L (25-47) % [place] % (Auto) 5.5 (1-9) % Eos % (Auto) 9.0 H (0-6) % Baso % (Auto) 0.8 (0-2) % Absolute Neuts (auto) 4.9 (1.5-7.7) 10^3/ul Absolute Lymphs (auto) 0.6 L (1.0-4.8) 10^3/ul Absolute Monos (auto) 0.4 (0-0.8) 10^3/ul Absolute Eos (auto) 0.6 (0-0.6) 10^3/ul Absolute Basos (auto) 0.1 (0-0.2) 10^3/ul Absolute Nucleated RBC 0 10^3/ul Nucleated RBC % 0 INR (Anticoag Therapy) 0.93 (0.89-1.11) APTT 34.2 (26.0-36.3) seconds Sodium 137 (133-145) mmol/L Potassium 3.5 (3.5-5.0) mmol/L Chloride 103 (101-111) mmol/L Carbon Dioxide 26 (22-32) mmol/L Anion Gap 8 (2-11) mmol/L BUN 15 (6-24) mg/dL Creatinine 1.06 H (0.51-0.95) mg/dL Est GFR ( Amer) 68.7 (>60) Est GFR (Non-Af Amer) 53.4 (>60) BUN/Creatinine Ratio 14.2 (8-20) Glucose 106 H (70-100) mg/dL Lactic Acid (0.5-2.0) mmol/L Calcium 9.5 (8.6-10.3) mg/dL Total Bilirubin 0.30 (0.2-1.0) mg/dL AST 13 (13-39) U/L ALT 13 (7-52) U/L Alkaline Phosphatase 53 (34-104) U/L Troponin I 0.10 H* (<0.04) ng/mL C-Reactive Protein 15.05 H (< 5.00) mg/L Total Protein 6.5 (6.4-8.9) g/dL Albumin 3.8 (3.2-5.2) g/dL Globulin 2.7 (2-4) g/dL Albumin/Globulin Ratio 1.4 (1-3) Procalcitonin (<0.6) ng/mL Influenza A (Rapid) (Negative) Influenza B (Rapid) (Negative) 0112/23/16 12/23/16 Range/Units 13:50 13:50 14:17 WBC (3.5-10.8) 10^3/ul RBC (4.0-5.4) 10^6/ul Hgb (12.0-16.0) g/dl Hct (35-47) % MCV (80-97) fL MCH (27-31) pg MCHC (31-36) g/dl RDW (10.5-15) % Plt Count (150-450) 10^3/ul MPV (7.4-10.4) um3 Neut % (Auto) (38-83) % Lymph % (Auto) (25-47) % [place] % (Auto) (1-9) % Eos % (Auto) (0-6) % Baso % (Auto) (0-2) % Absolute Neuts (auto) (1.5-7.7) 10^3/ul Absolute Lymphs (auto) (1.0-4.8) 10^3/ul Absolute Monos (auto) (0-0.8) 10^3/ul Absolute Eos (auto) (0-0.6) 10^3/ul Absolute Basos (auto) (0-0.2) 10^3/ul Absolute Nucleated RBC 10^3/ul Nucleated RBC % INR (Anticoag Therapy) (0.89-1.11) APTT (26.0-36.3) seconds Sodium (133-145) mmol/L Potassium (3.5-5.0) mmol/L Chloride (101-111) mmol/L Carbon Dioxide (22-32) mmol/L Anion Gap (2-11) mmol/L BUN (6-24) mg/dL Creatinine (0.51-0.95) mg/dL Est GFR ( Amer) (>60) Est GFR (Non-Af Amer) (>60) BUN/Creatinine Ratio (8-20) Glucose (70-100) mg/dL Lactic Acid 1.3 (0.5-2.0) mmol/L Calcium (8.6-10.3) mg/dL Total Bilirubin (0.2-1.0) mg/dL AST (13-39) U/L ALT (7-52) U/L Alkaline Phosphatase (34-104) U/L Troponin I (<0.04) ng/mL C-Reactive Protein (< 5.00) mg/L Total Protein (6.4-8.9) g/dL Albumin (3.2-5.2) g/dL Globulin (2-4) g/dL Albumin/Globulin Ratio (1-3) Procalcitonin 0.1 (<0.6) ng/mL Influenza A (Rapid) Positive H (Negative) Influenza B (Rapid) Negative (Negative) Assess/Plan/Problems-Billing Ms Muniz is a 56 yo F who has a h/o asthma/COPD, HTN, LEELA, chronic sinus tachycardia, anxiety/depression and fibromyalgia who presented to the ER with c/ o flu like symptoms and was found to be influenza A positive. - Patient Problems (1) Influenza A Current Visit: Yes Status: Acute Code(s): J10.1 - FLU DUE TO OTH IDENT INFLUENZA VIRUS W OTH RESP MANIFEST SNOMED Code(s): 401942259 Comment: Continue tamiflu to complete 10 doses. She appears much improved today. (2) Tachycardia Current Visit: Yes Status: Acute Code(s): R00.0 - TACHYCARDIA, UNSPECIFIED SNOMED Code(s): 5155484 Comment: Continue cardizem CD- HR is improved. (3) HTN (hypertension) Current Visit: Yes Status: Chronic Code(s): I10 - ESSENTIAL (PRIMARY) HYPERTENSION SNOMED Code(s): 11543052 Comment: BP is under good control. Continue lisinopril and diltiazem CD- resume HCTZ tomorrow. (4) Anxiety Current Visit: Yes Status: Chronic Code(s): F41.9 - ANXIETY DISORDER, UNSPECIFIED SNOMED Code(s): 53471619 Comment: Continue prn ativan. (5) Fibromyalgia Current Visit: Yes Status: Chronic Code(s): M79.7 - FIBROMYALGIA SNOMED Code(s): 446273332 Comment: Continue Lyrica. (6) DVT prophylaxis Current Visit: Yes Status: Acute Code(s): WJS6572 - SNOMED Code(s): 968894844 Comment: SQ heparin (7) Full code status Current Visit: Yes Status: Acute Code(s): Z78.9 - OTHER SPECIFIED HEALTH STATUS SNOMED Code(s): 997703213 Status and Disposition: d/c home
--- NOTE | 2016-12-25 11:10 | DS ---
DATE OF ADMISSION: 12/23/2016. DATE OF DISCHARGE: 12/25/2016. PRIMARY CARE PROVIDER: Dr. Dent. PRINCIPAL DIAGNOSIS: Influenza. SECONDARY DIAGNOSES: 1. Asthma/COPD. 2. Fibromyalgia. 3. Anxiety/depression. 4. Hypertension. 5. Chronic sinus tachycardia. DISCHARGE MEDICATIONS: 1. QVAR two puffs inhaled twice daily. 2. Albuterol two puffs inhaled twice daily. 3. Albuterol two puffs inhaled q.4 hours prn shortness of breath. 4. Albuterol one neb inhaled q.4 hours standing for the next two to three days and then as needed. 5. Lyrica 50 mg p.o. b.i.d. 6. Pravastatin 10 mg p.o. at bedtime. 7. Potassium chloride 10 mEq p.o. at bedtime. 8. Singulair 10 mg p.o. at bedtime. 9. Magnesium Oxide 200 mg p.o. daily. 10. Lisinopril 10 mg p.o. b.i.d. 11. Ativan 0.25 mg p.o. q.8 hours prn anxiety. 12. Ibuprofen 600 mg p.o. q.6 hours prn pain. 13. Hydrochlorothiazide 25 mg p.o. daily to start on 12/26/2016. 14. Robitussin AC 10 ml p.o. q.4 hours prn cough. 15. Folic acid 1 mg p.o. daily. 16. Famotidine 20 mg p.o. at bedtime. 17. Diltiazem CD 180 mg p.o. daily. 18. Flexeril 10 mg p.o. t.i.d. prn spasm. 19. Vitamin D 1000 units p.o. daily. 20. Cetirizine 10 mg daily prn allergies. 21. Symbicort 160/4.5 two puffs inhaled twice daily. 22. Benadryl 25 mg p.o. q.4 hours prn itching. 23. Spiriva one puff inhaled daily. 24. Prednisone 40 mg p.o. on 12/26/2016, tapering by 10 mg every day until done. 25. Tamiflu 75 mg p.o. b.i.d. times 5 more doses. HOSPITAL COURSE: Ms. Muniz is a 56-year-old female who has a history of asthma /COPD who presented to the emergency room with complaints of flu-like symptoms. She had been hospitalized from 12/01/2016 through 12/03/2016 with COPD exacerbation. She had recovered from that; however, two days prior to admission she began to note cough and runny nose. On the morning of admission, she awakened with severe nausea. She felt very feverish. Because of this, the patient presented to the emergency room. In the ER, the patient underwent a flu swab which was positive for influenza A. The patient was admitted to the hospital due to persistent tachycardia and the likelihood that she could have an asthma/COPD exacerbation related to this. On 12/24/2016, the patient had improved, though was still coughing a tremendous amount and was diffusely wheezy. The decision was made to keep her another night and to place her on nebulizer treatments around the clock. This has helped tremendously and the patient feels much improved. At this point, the patient is stable for discharge home. FOLLOW-UP CONCERNS: The patient is being discharged home today, 12/25/2016. The patient should follow-up with Dr. Dent in the next four to seven days. ACTIVITY LEVEL: As tolerated. DIET: Regular. CONDITION ON DISCHARGE: Stable. Twenty-five minutes were spent discharging this patient. CC: Dr. Dent* [id number]/[facility] #: [id number] JERMAIN
== END 2016-12-25 13:15 | disposition home or self-care (01) | DRG 194 ==
LOC: ED 13:06 → MED 14:56 → INTOOBSV 14:56 → OBSVTOIN 12-24 11:20
PROVIDERS: ADMIT Hospitalist; ATTEND Hospitalist
DX: J09.X2 Influenza due to identified novel influenza A virus with other respiratory manifestations (principal); Q21.1 Atrial septal defect; I10 Essential (primary) hypertension; J44.9 Chronic obstructive pulmonary disease, unspecified; J45.909 Unspecified asthma, uncomplicated; M79.7 Fibromyalgia; F41.8 Other specified anxiety disorders; R00.0 Tachycardia, unspecified; G47.33 Obstructive sleep apnea (adult) (pediatric); E78.5 Hyperlipidemia, unspecified; I34.1 Nonrheumatic mitral (valve) prolapse; Z96.651 Presence of right artificial knee joint; Z86.73 Personal history of transient ischemic attack (TIA), and cerebral infarction without residual deficits; Z79.1 Long term (current) use of non-steroidal anti-inflammatories (NSAID); Z79.899 Other long term (current) drug therapy; Z88.6 Allergy status to analgesic agent; Z88.1 Allergy status to other antibiotic agents; Z91.030 Bee allergy status; Z88.0 Allergy status to penicillin; Z88.8 Allergy status to other drugs, medicaments and biological substances; Z91.018 Allergy to other foods; Z82.49 Family history of ischemic heart disease and other diseases of the circulatory system; Z83.6 Family history of other diseases of the respiratory system; Z80.9 Family history of malignant neoplasm, unspecified; Z87.891 Personal history of nicotine dependence; R74.8 Abnormal levels of other serum enzymes
CPT/HCPCS: 36415; 71010; 80053; 81003; 83605; 84145; 84484; 85025; 85610; 85730; 86140; 87040; 87502; 93005; 94640; 94760; A9270-GY; G0378; J1644; J2405; J2920; J2930

== ENCOUNTER 2017-03-28 18:30 | Observation (INO) | payer MEDICARE, MEDICAID ==
--- NOTE | 2017-03-28 20:48 | RAD ---
HISTORY: Palpitation COMPARISONS: March 11, 2017 VIEWS:1: Single frontal portable view of the chest at 8:32 PM FINDINGS: LINES AND TUBES: None. CARDIOMEDIASTINAL SILHOUETTE: The cardiomediastinal silhouette is normal for portable technique. PLEURA: The costophrenic angles are sharp. No pleural abnormalities are noted. LUNG PARENCHYMA: The lungs are clear. ABDOMEN: The upper abdomen is clear. There is no subphrenic gas. BONES AND SOFT TISSUES: No bone or soft tissue abnormalities are noted. IMPRESSION: NO ACTIVE CARDIOPULMONARY DISEASE.
[2017-03-28 21:24] LABS: Hematocrit 38 % (35-47); Hemoglobin 12.2 g/dl (12.0-16.0); Mean Corpuscular HGB Conc 32 g/dl (31-36); Mean Corpuscular Hemoglobin 27 pg (27-31); Mean Corpuscular Volume 84 fL (80-97); Mean Platelet Volume 9 um3 (7.4-10.4); Red Blood Count 4.48 10^6/ul (4.0-5.4); Red Cell Distribution Width 15 % (10.5-15)
[2017-03-28 21:25] LABS: Albumin 4.3 g/dL (3.2-5.2); BUN/Creatinine Ratio 12.1 (8-20); Calcium 9.7 mg/dL (8.6-10.3); EGFR Non-African American 52.9 (>60); Globulin 2.9 g/dL (2-4); Potassium 3.8 mmol/L (3.5-5.0); Total Bilirubin 0.4 mg/dL (0.2-1.0); Total Protein 7.2 g/dL (6.4-8.9)
[2017-03-28 21:41] LABS: Troponin I 0.07 ng/mL (<0.04)
[2017-03-28] MEDS ORDERED: oxyCODONE/Acetamin 5/325 MG* TAB PO ONE (22:09)
[2017-03-28] MEDS ORDERED: Clindamycin CAP* 150 MG PO ONE (22:46)
--- NOTE | 2017-03-28 22:46 | ED ---
Bob Dozier Aidan, scribed for Fadumo Ortizuel on 03/28/17 at 2047 . Throat Pain/Nasal Congestion - HPI Summary HPI Summary: 56 y/o female presents to the ED with a complaint of acute, constant, moderate front dental pain and left sided jaw swelling with associated pain. Her pain began yesterday. She last saw a dentist 3 months ago. At 1300 today, she took 2 Tylenol, which did not alleviate her pain. Associated symptoms include palpitations. Hx of aneurism left ventricle and mitral valve. Her last stress test was 3-4 weeks ago and was normal. - History of Current Complaint Chief Complaint: EDDysrhythmPalp Time Seen by Provider: 03/28/17 19:59 Hx Obtained From: Patient Onset/Duration: Sudden Onset, Lasting Hours, Still Present Severity: Moderate Cough: None Related History: Smoking - former smoker - Epiglottits Risk Factors Epiglottis Risk Factors: Sudden Onset - dental pain, left sided jaw swelling - Allergies/Home Medications Allergies/Adverse Reactions: Allergies Allergy/AdvReac Type Severity Reaction Status Date / Time Aspirin Allergy Severe See Comment Verified 03/28/17 19:55 Bacitracin [From Neosporin] Allergy Severe Rash And Verified 03/28/17 19:55 Itching Bee Venom Allergy Severe Anaphylatic Verified 03/28/17 19:55 Shock Penicillins [PCN] Allergy Severe Difficulty Verified 03/28/17 19:55 Breathing Tomato Allergy Severe Rash Verified 03/28/17 19:55 Cefaclor [From Ceclor] Allergy Intermediate Rash Verified 03/28/17 19:55 Cefazolin [From Ancef] Allergy Intermediate Rash Verified 03/28/17 19:55 Celecoxib [From Celebrex] Allergy Intermediate Hives Verified 03/28/17 19:55 [place] Extract Allergy Intermediate Hives Verified 03/28/17 19:55 Erythromycin Allergy Intermediate See Comment Verified 03/28/17 19:55 Metoprolol Allergy Intermediate Shortness Verified 03/28/17 19:55 of Breath Milnacipran [From Savella] Allergy Intermediate Nausea And Verified 03/28/17 19: 55 Vomiting Mushroom Extract Complex Allergy Intermediate See Comment Verified 03/28/17 19: 55 Polymyxin B [From Neosporin] Allergy Intermediate Rash And Verified 03/28/17 19: 55 Itching Tetracyclines & Related Allergy Mild Rash And Verified 03/28/17 19:55 Itching Neomycin [From Neosporin] Allergy Unknown Rash And Verified 03/28/17 19:55 Itching Lidocaine Allergy Anaphylatic Verified 03/28/17 19:55 Shock [place] Allergy Severe Hives Uncoded 03/28/17 19:55 Pepper Allergy Severe Rash And Uncoded 03/28/17 19:55 Itching Mushroom Allergy Intermediate See Comment Uncoded 03/28/17 19:55 Bees Allergy Unknown Anaphylatic Uncoded 03/28/17 19:55 Shock PMH/Surg Hx/FS Hx/Imm Hx Endocrine/Hematology History: Reports: Hx Diabetes - Gestational with prior , Hx Sickle Cell Disease - ASINOPHELIA- HIGH WHITE BLOOD COUNT, Other Endocrine/Hematological Disorders - Eosinophilia- HIGH WHITE BLOOD COUNT Cardiovascular History: Reports: Hx Aneurysm - thoracic, Hx Angina, Hx Coronary Artery Disease, Hx Hypercholesterolemia, Hx Hypertension, Hx Myocardial Infarction - 2009 no intervention to Pt's knowledge, Hx Valvular Heart Disease - mitral valve prolapse, Other Cardiovascular Problems/Disorders - AORTIC ANEURYSM, TACHYCARDIA, HEART MURMUR, MVP, CAD Denies: Hx Congestive Heart Failure Comment Only: Hx Pacemaker/ICD - HEART MONITOR 01/2016 Respiratory History: Reports: Hx Asthma, Hx Chronic Bronchitis, Hx Chronic Obstructive Pulmonary Disease (COPD), Hx Pneumonia, Hx Seasonal Allergies, Hx Sleep Apnea - pt states unable to tolerate CPAP, Other Respiratory Problems/ Disorders - PNA GI History: Reports: Hx Gastroesophageal Reflux Disease, Hx Hiatal Hernia History: Denies: Hx Renal Disease Musculoskeletal History: Reports: Hx Arthritis - OSTEO- KNEES, ANS RHEUMATOID- HANDS AND OTHER JOINTS, Hx Fibromyalgia Denies: Hx Osteoporosis Sensory History: Reports: Hx Contacts or Glasses, Hx Deafness - Left ear, Hx Hearing Aid - right ear, Hx Hearing Problem Opthamlomology History: Reports: Hx Contacts or Glasses Neurological History: Reports: Hx Nerve Disease - FIBROMYALGIA, Hx Transient Ischemic Attacks (TIA), Other Neuro Impairments/Disorders - fibromyalgia Psychiatric History: Reports: Hx Anxiety, Hx Depression, Hx Post Traumatic Stress Disorder, Hx Community Mental Health Tx Denies: Hx Attention Deficit Hyperactivity Disorder, Hx Eating Disorder, Hx Panic Disorder, Hx Inpatient Treatment, Hx Schizophrenia, Hx Bipolar Disorder, Hx Suicide Attempt, Hx of Violent Episodes Against Others, Hx Substance Abuse, Other Psychiatric Issues/Disorders - Surgical History Surgery Procedure, Year, and Place: hysterectomy 04/2006 right knee arthroscopy; hernia repair tubes in ears; total right knee replacement dec 2012 , deviated septum, cardiac cath, tonsilectomy; RT ARTHROSCOPIC Hx Anesthesia Reactions: No - Immunization History Date of Tetanus Vaccine: pt unsure Date of Influenza Vaccine: 07/2016 Infectious Disease History: No Infectious Disease History: Denies: Hx Clostridium Difficile, Hx Hepatitis, Hx Human Immunodeficiency Virus (HIV), Hx of Known/Suspected MRSA, Hx Shingles, Hx Tuberculosis, Hx Known/ Suspected VRE, Hx Known/Suspected VRSA, History Other Infectious Disease, Traveled Outside the [place] in Last 30 Days - Family History Known Family History: Positive: None - reviewed & noncontributory, Cardiac Disease - CAD, Hypertension, Diabetes - Social History Occupation: Disabled Lives: Alone Alcohol Use: Occasionally Alcohol Amount: holidays Hx Substance Use: No Substance Use Type: Reports: None Hx Tobacco Use: Yes Smoking Status (MU): Former Smoker Type: Cigarettes Length of Time of Smoking/Using Tobacco: 4-5 yrs Have You Smoked in the Last Year: No Review of Systems Constitutional: Negative Eyes: Negative ENT: Other - left sided jaw swelling with associated pain Positive: Dental Pain - front. Negative: Epistaxis, Sore Throat, Ear Ache, Nasal Discharge Positive: Palpitations. Negative: Chest Pain Respiratory: Negative Gastrointestinal: Negative Genitourinary: Negative Musculoskeletal: Negative Skin: Negative Neurological: Negative Psychological: Normal All Other Systems Reviewed And Are Negative: Yes Physical Exam Triage Information Reviewed: Yes Vital Signs On Initial Exam: Initial Vitals Temp Pulse Resp BP Pulse Ox 97.5 F 94 18 111/73 100 03/28/17 18:34 03/28/17 18:34 03/28/17 18:34 03/28/17 18:34 03/28/17 18:34 Vital Signs Reviewed: Yes Appearance: Positive: Well-Appearing. Negative: No Pain Distress Skin: Positive: Warm, Skin Color Reflects Adequate Perfusion, Dry Head/Face: Positive: Normal Head/Face Inspection Eyes: Positive: Normal ENT: Positive: Normal ENT inspection Dental: Positive: Other - 16 to 18 teeth broken and dental care is advised Neck: Positive: Supple, Nontender Respiratory/Lung Sounds: Positive: Clear to Auscultation, Breath Sounds Present Cardiovascular: Positive: RRR Abdomen Description: Positive: Nontender, Soft Bowel Sounds: Positive: Present Musculoskeletal: Positive: Normal Neurological: Positive: Normal Psychiatric: Positive: Affect/Mood Appropriate Diagnostics - Vital Signs Vital Signs Temp Pulse Resp BP Pulse Ox 03/28/17 19:53 99.1 F 90 18 138/73 98 03/28/17 18:34 97.5 F 94 18 111/73 100 - Laboratory Lab Results: Lab Results 03/28/17 03/28/17 03/28/17 Range/Units 20:56 20:56 20:56 WBC 7.0 (3.5-10.8) 10^3/ul RBC 4.48 (4.0-5.4) 10^6/ul Hgb 12.2 (12.0-16.0) g/dl Hct 38 (35-47) % MCV 84 (80-97) fL MCH 27 (27-31) pg MCHC 32 (31-36) g/dl RDW 15 (10.5-15) % Plt Count 300 (150-450) 10^3/ul MPV 9 (7.4-10.4) um3 Neut % (Auto) 71.3 (38-83) % Lymph % (Auto) 15.0 L (25-47) % Tyrrell % (Auto) 7.8 (1-9) % Eos % (Auto) 5.3 (0-6) % Baso % (Auto) 0.6 (0-2) % Absolute Neuts (auto) 5.0 (1.5-7.7) 10^3/ul Absolute Lymphs (auto) 1.0 (1.0-4.8) 10^3/ul Absolute Monos (auto) 0.5 (0-0.8) 10^3/ul Absolute Eos (auto) 0.4 (0-0.6) 10^3/ul Absolute Basos (auto) 0 (0-0.2) 10^3/ul Absolute Nucleated RBC 0 10^3/ul Nucleated RBC % 0 Sodium 139 (133-145) mmol/L Potassium 3.8 (3.5-5.0) mmol/L Chloride 100 L (101-111) mmol/L Carbon Dioxide 32 (22-32) mmol/L Anion Gap 7 (2-11) mmol/L BUN 13 (6-24) mg/dL Creatinine 1.07 H (0.51-0.95) mg/dL Est GFR ( Amer) 68.0 (>60) Est GFR (Non-Af Amer) 52.9 (>60) BUN/Creatinine Ratio 12.1 (8-20) Glucose 103 H (70-100) mg/dL Calcium 9.7 (8.6-10.3) mg/dL Total Bilirubin 0.40 (0.2-1.0) mg/dL AST 20 (13-39) U/L ALT 19 (7-52) U/L Alkaline Phosphatase 64 (34-104) U/L Troponin I 0.07 H* (<0.04) ng/mL B-Natriuretic Peptide 24 ( - 100) pg/mL Total Protein 7.2 (6.4-8.9) g/dL Albumin 4.3 (3.2-5.2) g/dL Globulin 2.9 (2-4) g/dL Albumin/Globulin Ratio 1.5 (1-3) Result Diagrams: 03/28/17 20:56 03/28/17 20:56 Lab Statement: Any lab studies that have been ordered have been reviewed, and results considered in the medical decision making process. - Radiology CHEST XR Xray Interpretation: No Acute Changes - IMPRESSION: NO ACTIVE CARDIOPULMONARY DISEASE. Radiology Interpretation Completed By: Radiologist - EKG EKG 1847 Cardiac Rate: NL - 92 EKG Rhythm: Sinus Rhythm EKG Interpretation: ST CHANGES IN LATERAL LEADS EENT Course/Dx - Course Course Of Treatment: The patient has front dental pain and left-sided jaw inflammation with assoiated pain. 16 to 18 teeth broken. Dental care is advised. Chest x-ray was negative, however, her troponin was 0.07. EKG indicated ST and T changes in the lateral leads. She will be diagnosed with a tooth ache and palpitations and will be admitted to further investigate and rule out IL. - Diagnoses Provider Diagnoses: Palpitations, ACS (acute coronary syndrome), Toothache Discharge - Discharge Plan Condition: Stable Disposition: ADMITTED TO [facility] Referrals: Wilmer Dent MD [Primary Care Provider] - The documentation as recorded by the Bob urbina Aidan accurately reflects the service I personally performed and the decisions made by Diana stephenson Emmanuel.
[2017-03-28] MEDS ORDERED: Ondansetron INJ* 2 MG/ML VIAL IV PRN (23:45)
[2017-03-28] MEDS ORDERED: Acetaminophen TAB* 325 MG PO PRN (23:45)
[2017-03-28] MEDS ORDERED: Al Hydrox/Mg Hydrox/Simet LIQ* 30 ML UDC PO PRN (23:45)
[2017-03-28] MEDS ORDERED: Senna TAB PO PRN (23:49)
[2017-03-28] MEDS ORDERED: Docusate CAP* 100 MG PO PRN (23:49)
[2017-03-29] MEDS ORDERED: Cyclobenzaprine TAB* 10 MG PO PRN (00:24)
[2017-03-29] MEDS ORDERED: LORazepam TAB(*) 0.5 MG PO PRN (00:24)
[2017-03-29] MEDS ORDERED: Albuterol HFA INHALER* 8 gm MDI INH PRN (00:26)
[2017-03-29 01:00] LABS: Digoxin 0.9 ng/ml (0.8-2.0)
[2017-03-29] MEDS: oxyCODONE/Acetamin 5/325 MG* TAB PO PRN ×2 (01:58→09:00)
--- NOTE | 2017-03-29 02:45 | HP ---
HISTORY AND PHYSICAL: DATE OF ADMISSION: 03/28/17 TIME OF EVALUATION: 2300. PRIMARY CARE PHYSICIAN: Wilmer Dent MD CHIEF COMPLAINT: Palpitations and tooth pain. HISTORY OF PRESENT ILLNESS: This is a 56-year-old female with a past medical history of COPD, obstructive sleep apnea, and hypertension who presents to the emergency room with palpitations and toothache. The patient states yesterday, she began having right lower-sided tooth pain and swelling. The swelling and the redness got worse throughout the day and she developed palpitations and came to the emergency room for further evaluation. She did call her dentist yesterday, who started her on antibiotic and pain pills and the plan is for her to go [place] to have her teeth removed under anesthesia because she states she is allergic to NOVOCAIN. She denies any fevers. No chest pain, no nausea, vomiting or diarrhea. Otherwise, remainder of the review of systems negative. The patient had labs, imaging, troponin slightly elevated. Cardiology was contacted. They recommended observation admission with serial troponins and EKG in the morning. PAST MEDICAL HISTORY: 1. COPD. 2. Hypertension. 3. TIA. 4. Obstructive sleep apnea, not on any non-invasive positive pressure ventilation. 5. Fibromyalgia. 6. Hyperlipidemia. 7. Mitral valve prolapse. 8. History of AST. 9. History of tachycardia. 10. History of right knee surgery. 11. Bilateral hernia repair. 12. Hysterectomy. 13. Oophorectomy. MEDICATIONS: Different from her primary care physician office from January 2017, which needs to be confirmed what is the correct list, are as follows: 1. Diltiazem 120 mg daily. 2. Tylenol every 4 hours as needed for pain. 3. Rashmi 180 mg daily. 4. Fluticasone 2 sprays both nares twice daily. 5. Lyrica 100 mg in the morning and 150 mg in the evening. 6. Hydrochlorothiazide 25 mg daily. 7. Zyrtec 10 mg daily. 8. Pravastatin 10 mg in the evening. 9. Potassium chloride 10 mEq in the evening. 10. Singulair 10 mg daily. 11. Magnesium oxide 200 mg daily. 12. Lorazepam 0.25 mg every 3 hours as needed for anxiety. 13. Motrin 600 mg every 6 hours as needed for pain. 14. Folic acid 1 mg daily. 15. Pepcid 20 mg at bedtime. 16. Benadryl 25 mg every 4 hours as needed. 17. Cyclobenzaprine 10 mg 3 times a day as needed. 18. Vitamin D 1000 units daily. 19. Albuterol puff inhaled every 4 hours as needed for shortness of breath. 20. Albuterol nebulizer as needed for shortness of breath. 21. Lisinopril 5 mg daily. 22. Breo Ellipta 200/25 mcg inhaled twice daily. ALLERGIES: ASPIRIN, BACITRACIN, BEE VENOM, PENICILLIN, TOMATO, CEFACLOR, ANCEF , CELEBREX, CUCUMBER, ERYTHROMYCIN, METOPROLOL, SAVELLA, MUSHROOM EXTRACT, POLYMYXIN, TETRACYCLINE, NEOMYCIN, LIDOCAINE, PEPPER, MUSHROOMS and BEES. FAMILY HISTORY: Reviewed and noncontributory. SOCIAL HISTORY: The patient lives at home alone. She quit smoking in 2011; at that time she was smoking 4 to 5 cigarettes per day for the past 4 to 5 years. She admits to occasional alcohol use. Her healthcare proxy is her son, Dre. She is unemployed, on disability. REVIEW OF SYSTEMS: As mentioned in the HPI. PHYSICAL EXAMINATION GENERAL: In no acute distress. Resting comfortably. VITAL SIGNS: Temperature is 99.1, pulse rate 92, respiratory rate 18, oxygen saturation 98% on room air, and blood pressure 144/77. HEENT: Neck supple. Some lymphadenopathy in the anterior cervical chain on the left side. She has some mild edema and erythema on the right facial region. Significant amount of tenderness and edema in the right lower gum region. No purulent drainage noted. Oropharynx, no erythema or exudate. Pupils equal and reactive, anicteric. CARDIAC: Tachycardia. Soft systolic murmur heard throughout. RESPIRATORY: Diminished breath sounds. No wheezes, rhonchi or rales. ABDOMEN: Soft, nontender, and nondistended. EXTREMITIES: No clubbing, cyanosis, or edema. 1+ DPs. NEUROLOGIC: Alert and oriented x3. No focal neurological deficits. DIAGNOSTIC STUDIES/LABORATORY DATA: White count 7, hemoglobin 12.2, hematocrit 38, platelets 300. Sodium 139, potassium 3.8, chloride 100, bicarb 32, BUN 13, creatinine 1.07, glucose 103, troponin 0.07. Urinalysis unremarkable. Radiographic data: Chest x-ray; no active cardiopulmonary disease. EKG; shows normal sinus rhythm with no significant changes from prior EKG. ASSESSMENT: This is a 56-year-old female with past medical history of chronic obstructive pulmonary disease, hypertension, tachycardia who presents to the emergency room with toothache and palpitations. 1. Toothache. Assessment: The patient with what appears to be an abscess. She was started on antibiotics. She is planning to go [place] to have her teeth removed under general anesthesia. Plan: We will continue her on clindamycin, it is unclear what antibiotics she was started yesterday on, and pain control and patient to follow up with [place] to have her teeth removed. 2. Palpitations. Assessment: The patient has had a history of palpitations and in fact was admitted last month, had a nuclear stress test on 03/12/17 that showed no fixed or reversible perfusion defects. She also had a CT of the chest and thorax on the that showed no acute events of acute pulmonary emboli. Multiple tiny granulomas and there were no findings of aortic aneurysm either. Her troponin on her prior admission was slightly elevated as well, 0.05 was the last troponin. It was unclear the etiology of her mildly elevated troponin as she did have an implantable loop recorder and she is followed by Dr. Ramirez. Plan: After discussing with Dr. Ramirez, she is to be admitted for observation to the CDU unit, trend her troponins, repeat EKG in the morning and if any abnormalities, would recommend contacting Cardiology. CHRONIC MEDICAL PROBLEMS: 1. We will resume her home prescription medications from her list from and would recommended followup with her pharmacist to get a correct accurate list as there is some discrepancy from her admission in February and her primary care note in January. 2. Code status: Full code. 3. FEN: We will place her on a heart healthy diet. 4. DVT prophylaxis: The patient is with moderate risk, placed her on heparin subcu t.i.d. TIME SPENT: Greater than 60 minutes was spent doing the history and physical, more than half the time spent in direct patient contact. CC: Wilmer Dent MD* [id number]/[facility] #: [id number] MTDD
[2017-03-29] MEDS ORDERED: Heparin VIAL(*) 5000 UNITS/ML VIAL (FIVE THOUSAND) SUBCUT SCH (06:00)
[2017-03-29] MEDS ORDERED: Clindamycin CAP* 150 MG PO SCH (06:00)
[2017-03-29] MEDS ORDERED: Famotidine TAB* 20 MG PO SCH (09:00)
[2017-03-29] MEDS ORDERED: Lisinopril TAB* 5 MG PO SCH (09:00)
[2017-03-29] MEDS ORDERED: Pregabalin CAP(*) 100 MG PO SCH (09:00)
[2017-03-29] MEDS ORDERED: Magnesium Oxide TAB* 400 MG PO SCH (09:00)
[2017-03-29] MEDS ORDERED: Folic Acid TAB* 1 MG PO SCH (09:00)
[2017-03-29] MEDS ORDERED: Fluticasone NASAL SPRAY 50MCG* 16 gm SPRAY BTL BOTH NARES SCH (09:00)
[2017-03-29] MEDS ORDERED: Diltiazem CD CAP* 120 MG PO SCH (09:00)
[2017-03-29] MEDS ORDERED: Fluticasone/Vilanterol MDI(NF) 100/25 MDI INH SCH (09:00)
[2017-03-29] MEDS ORDERED: Potassium Chlor TAB* 10 MEQ TAB.ER PO SCH (09:00)
[2017-03-29 12:10] VITALS: BP 120/70
[2017-03-29] MEDS ORDERED: Montelukast Sodium TAB* 10 MG PO SCH (21:00)
[2017-03-29] MEDS ORDERED: Pregabalin CAP(*) 50 MG PO SCH (21:00)
--- NOTE | 2017-03-30 03:13 | DS ---
CC: Wilmer Dent MD; Geraldine Ramirez MD DISCHARGE SUMMARY: DATE OF ADMISSION: 03/28/17 DATE OF DISCHARGE: 03/29/17 PRIMARY CARE PROVIDER: Wilmer Dent MD ZOOLOGY TECHNICAL OFFICER: Geraldine Ramirez MD DISCHARGE DIAGNOSES: 1. Dental abscess. 2. Palpitations. SECONDARY DIAGNOSES: 1. Chronic obstructive pulmonary disease. 2. Hypertension. 3. Transient ischemic attack. 4. Obstructive sleep apnea, not on CPAP. 5. Fibromyalgia. 6. Hyperlipidemia. 7. Mitral valve prolapse. 8. History of tachycardia. 9. Obesity with a BMI of 31. MEDICATION LIST: Extensive as follows: 1. Lyrica 100 mg p.o. in the morning and at bedtime. 2. Calcium Plus vitamin D 1 tablet p.o. b.i.d. 3. Ibuprofen 600 mg p.o. q.6 hours p.r.n. pain. 4. Guaifenesin 10 mg p.o. q.4 hours p.r.n. cough. 5. Morphine 4 mg p.o. q.6 hours p.r.n. pain. 6. Fluticasone nasal spray 50 mcg 2 sprays to both nares b.i.d. 7. Albuterol 2.5 nebulized q.4 hours p.r.n. shortness of breath. 8. Benadryl 25 mg p.o. q.4 hours p.r.n. itching. 9. Pravastatin 10 mg p.o. q.p.m. 10. Folic acid 400 mcg p.o. daily. 11. Guaifenesin 200 mg p.o. q.4 hours p.r.n. cough. 12. Breo Ellipta 200/25 mcg 1 puff inhaled daily. 13. Montelukast 10 mg p.o. q.p.m. 14. Potassium chloride 10 mEq p.o. q.p.m. 15. Famotidine 20 mg p.o. b.i.d. 16. Cyclobenzaprine 10 mg p.o. t.i.d. as needed for muscle spasms. 17. Albuterol HFA 2 puffs inhaled q.4 hours p.r.n. shortness of breath. 18. Levocetirizine 5 mg p.o. daily. 19. Cholecalciferol 1000 units p.o. daily. 20. Digoxin 0.125 mg p.o. daily. 21. Diltiazem CD 180 mg p.o. daily. 22. Lorazepam 0.25 mg p.o. q.8 hours p.r.n. anxiety. 23. Lisinopril 10 mg p.o. daily. 24. Hydrochlorothiazide 25 mg p.o. daily. 25. Acetaminophen 650 mg p.o. q.4 hours p.r.n. pain. NEW MEDICATIONS: 1. Metronidazole 500 mg p.o. t.i.d. for 10 days. 2. Clindamycin 300 mg p.o. q.8 hours for 10 days. HOSPITAL COURSE: Mrs. Muniz is a 56-year-old lady with a past medical history as stated above that presented to the emergency room last night with complaints of palpitations and tooth pain. The pat ient has had issues with this tooth for months and she is waiting to have dental surgery at [facility] due to her multiple comorbidities and allergy to LIDOCAINE preventing procedure under local anesthesia. She has being followed by her PCP and Cardiology as outpatient to receive medical optimi zation for the procedure. The patient has no fever, no white cell count and today the pain is already improving. I did contac t oral surgeons in the area including Dr. Zuniga, but he felt that should be better served at a [facility], so the patient was advised to follow up with her dentist early next week . The patient has a chronic complaint of palpitations. She had an event monitor placed and this was i nterrogated. It showed that the patient had sinus tachycardia with heart rate in the low 100s, but no other episodes of arrhythmias were seen. While on telemetry, she also had no other significant ep isodes. She did have borderline troponins at 0.07, but this also appears to be a chronic issue for her and this is actually lower than her baseline. Of note is the fact the patient had a nuclear str ess test on 03/12/17 and it showed no fixed or reversible perfusion defects. The patient also had a CTA of the chest done at the same time and that was negative for PE. The patient has had symptomatic improvement. I believe she is medically stable for discharge today to follow up with her primary care provider and her dentist as outpatient. PHYSICAL EXAMINATION: Vital Signs: Temperature 98.3, heart rate is 80, respiratory rate is 18, oxy gen saturation 96% on room air, blood pressure is 120/70. General: The patient is a middle aged la dy, sitting up in bed, in no acute distress. HEENT: The patient has edema on the left lateral aspe ct of her mandible and and dentition is in poor condition. The source of the infection appears to b e a broken #19 or 20. At this point, has only root. I did not see any purulent drainage. CVS: No rmal S1 and S2. Regular rate and rhythm. Chest: Breath sounds present bilaterally with scattered w heeze. Abdomen is soft, obese. Bowel sounds are present. Extremities: No edema. Neuro: The edwin ent is alert, awake, and oriented x3. Able to move all 4 extremities. DIET: Heart-healthy diet. ACTIVITIES: As tolerated. STATUS WHILE IN THE HOSPITAL: Observation. DISPOSITION: To home. The patient has an appointment to follow up with Dr. Dent on 04/03/17 at 10 a.m. and she was advised to go to [facility] on 04/01/17 to see her dentist. Please keep in mind this is a summarized version of this patient's hospital stay. If you need more i nformation, please feel free to call me at [phone] or please obtain the full medical records. TIME SPENT: Approximately 45 minutes were spent to complete this discharge. [id number]/[facility] #: [id number]
== END 2017-03-29 14:50 | disposition home or self-care (01) ==
LOC: ED 18:30 → MEDTELE 23:45
PROVIDERS: ADMIT Pediatrics; ATTEND Internal Medicine
DX: R00.2 Palpitations (principal); K04.7 Periapical abscess without sinus; J44.9 Chronic obstructive pulmonary disease, unspecified; I10 Essential (primary) hypertension; E78.5 Hyperlipidemia, unspecified; I34.1 Nonrheumatic mitral (valve) prolapse; E66.9 Obesity, unspecified; Z68.31 Body mass index [BMI] 31.0-31.9, adult; G47.33 Obstructive sleep apnea (adult) (pediatric); Z86.73 Personal history of transient ischemic attack (TIA), and cerebral infarction without residual deficits; Z79.899 Other long term (current) drug therapy; Z88.8 Allergy status to other drugs, medicaments and biological substances; Z88.1 Allergy status to other antibiotic agents; Z87.891 Personal history of nicotine dependence; Z88.0 Allergy status to penicillin
CPT/HCPCS: 36415; 71010; 80053; 80162; 83880; 84484; 85025; 86803; 93005; 96372; 99284; A9270-GY; G0378; J1644

== ENCOUNTER 2017-05-21 20:16 | Emergency (ER) | payer MEDICARE, MEDICAID ==
--- NOTE | 2017-05-21 21:19 | RAD ---
INDICATION: 3 days cough, congestion. Chronic obstructive pulmonary disease. Cardiac disease. COMPARISON: March 28, 2017 chest radiograph and March 11, 2017 CT. TECHNIQUE: Dual energy PA and routine lateral views of the chest were obtained. 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 Small calcified granuloma at the periphery of the LEFT lower lung zone. No suspicious focal pulmonary lesions or alveolar consolidation. Elevated lung volumes with mild prominence of interstitial markings and patchy upper lung zone rarefaction. Negative for pleural effusion or pneumothorax. Negative for cardiomegaly. Unremarkable central pulmonary vasculature. Unremarkable soft tissue contours and osseous structures. IMPRESSION: Stigmata of obstructive lung disease. No acute pulmonary or cardiac process evident.
[2017-05-21] MEDS ORDERED: NS 0.9% 1000 ML* 1,000 ML IV ONE (21:27)
[2017-05-21] MEDS ORDERED: Albuterol/Ipratropium NEB.SOL* Albuterol 2.5 MG/Ipratropium 0.5 MG 3 ML INH ONE (21:31)
[2017-05-21] MEDS ORDERED: methylPREDNISolone 125 MG* 2 ML VIAL IV ONE (21:31)
[2017-05-21 22:15] LABS: Hematocrit 34 % (35-47); Hemoglobin 11.2 g/dl (12.0-16.0); Mean Corpuscular HGB Conc 33 g/dl (31-36); Mean Corpuscular Hemoglobin 28 pg (27-31); Mean Corpuscular Volume 86 fL (80-97); Mean Platelet Volume 10 um3 (7.4-10.4); Red Blood Count 4.01 10^6/ul (4.0-5.4); Red Cell Distribution Width 16 % (10.5-15); White Blood Count 8.8 10^3/ul (3.5-10.8)
[2017-05-21 22:30] LABS: Albumin 3.9 g/dL (3.2-5.2); BUN/Creatinine Ratio 16.7 (8-20); Calcium 9.2 mg/dL (8.6-10.3); EGFR African American 71.8 (>60); EGFR Non-African American 55.9 (>60); Globulin 2.8 g/dL (2-4); Potassium 4.2 mmol/L (3.5-5.0); Total Bilirubin 0.3 mg/dL (0.2-1.0); Total Protein 6.7 g/dL (6.4-8.9)
[2017-05-21 22:33] LABS: Troponin I 0.08 ng/mL (<0.04)
[2017-05-21] MEDS ORDERED: Aspirin TAB* 325 MG PO ONE (22:34)
[2017-05-21] MEDS ORDERED: Aspirin Low Dose CHEW TAB* 81 MG ONE (22:36)
[2017-05-21] MEDS ORDERED: Iodixanol* (CONTRAST) 320 MG/ML 100 ML SDV IV ONE (23:12)
[2017-05-22 03:55] VITALS: BP 127/68
--- NOTE | 2017-05-22 07:42 | RAD ---
INDICATION: Tachycardia, shortness of breath and elevated d-dimer. COMPARISON: Comparison is made with a prior chest x-ray study from May 21, 2017. Correlation is also made with a prior CT angiogram of the chest from March 11, 2017. TECHNIQUE: A CT angiogram of the chest was performed with intravenous following intravenous injection of 88 ml of Visipaque 320 nonionic contrast. Contiguous axial sections were obtained from the lung apices through the lung bases. Images were reconstructed in the coronal and sagittal planes. FINDINGS: There is relatively homogeneous opacification of the pulmonary arteries. No intraluminal filling defect or pulmonary embolism is seen. The heart is within normal limits in size. No pericardial effusion is present. The thoracic aorta is normal in caliber and demonstrates homogeneous contrast opacification. No significant enlarged mediastinal or hilar lymph nodes are seen. There are multiple small calcified nodules in both lungs most consistent with old granulomatous disease. The lungs are otherwise clear. No pleural effusion is seen. No significant focal osseous abnormality is seen. IMPRESSION: 1. NO EVIDENCE FOR PULMONARY EMBOLISM. 2. FINDINGS CONSISTENT WITH OLD GRANULOMATOUS DISEASE.
--- NOTE | 2017-06-02 23:35 | ED ---
Jacquelyn Dozier Rebecca, scribed for Talib Freitas MD on 05/21/17 at 2026 . Respiratory - HPI Summary HPI Summary: Pt is a 56 y/o F BIBA who presents to ED c/o productive cough and mild SOB charcaterized as dyspnea at rest. Reports sx began a few days ago and have been constant since onset. No blood is present in mucous. Sx aggravated by laying flat and alleviated by nothing. She did not treat sx with breathing Tx HOME CARE COORDINATOR. Additionally c/o CP with cough and bilateral edema. Denies myalgias, dizziness, lightheadedness. Uses breathing Tx at home, though she did not do one tonight. SHx former smoker. PMHx COPD with bronchitis. Reports she sleeps on 4 pillows at night and has done so since her COPD Dx. No PMHx CHF. Takes Hydrochlorothiozide, Lisinopril and Diltiazem. - History of Current Complaint Chief Complaint: EDGeneral Stated Complaint: SOB Time Seen by Provider: 05/21/17 20:22 Hx Obtained From: Patient Onset/Duration: Still Present Timing: Constant Initial Severity: Mild Current Severity: Mild Pain Intensity: 3 Character: Cough (Productive), Dyspnea at Rest Aggravating Factor(s): Other - Laying flat Alleviating Factor(s): Nothing Associated Signs and Symptoms: SOB, Edema - bilateral, Chest Pain with Cough - Allergy/Home Medications Allergies/Adverse Reactions: Allergies Allergy/AdvReac Type Severity Reaction Status Date / Time Aspirin Allergy Severe See Comment Verified 03/28/17 19:55 Bacitracin [From Neosporin] Allergy Severe Rash And Verified 03/28/17 19:55 Itching Bee Venom Allergy Severe Anaphylatic Verified 03/28/17 19:55 Shock Penicillins [PCN] Allergy Severe Difficulty Verified 03/28/17 19:55 Breathing Tomato Allergy Severe Rash Verified 03/28/17 19:55 Cefaclor [From Ceclor] Allergy Intermediate Rash Verified 03/28/17 19:55 Cefazolin [From Ancef] Allergy Intermediate Rash Verified 03/28/17 19:55 Celecoxib [From Celebrex] Allergy Intermediate Hives Verified 03/28/17 19:55 [place] Extract Allergy Intermediate Hives Verified 03/28/17 19:55 Erythromycin Allergy Intermediate See Comment Verified 03/28/17 19:55 Metoprolol Allergy Intermediate Shortness Verified 03/28/17 19:55 of Breath Milnacipran [From Savella] Allergy Intermediate Nausea And Verified 03/28/17 19: 55 Vomiting Mushroom Extract Complex Allergy Intermediate See Comment Verified 03/28/17 19: 55 Polymyxin B [From Neosporin] Allergy Intermediate Rash And Verified 03/28/17 19: 55 Itching Tetracyclines & Related Allergy Mild Rash And Verified 03/28/17 19:55 Itching Neomycin [From Neosporin] Allergy Unknown Rash And Verified 03/28/17 19:55 Itching Lidocaine Allergy Anaphylatic Verified 03/28/17 19:55 Shock [place] Allergy Severe Hives Uncoded 03/28/17 19:55 Pepper Allergy Severe Rash And Uncoded 03/28/17 19:55 Itching Mushroom Allergy Intermediate See Comment Uncoded 03/28/17 19:55 Bees Allergy Unknown Anaphylatic Uncoded 03/28/17 19:55 Shock PMH/Surg Hx/FS Hx/Imm Hx Endocrine/Hematology History: Reports: Hx Diabetes - Gestational with prior , Hx Sickle Cell Disease - ASINOPHELIA- HIGH WHITE BLOOD COUNT, Other Endocrine/Hematological Disorders - Eosinophilia- HIGH WHITE BLOOD COUNT Cardiovascular History: Reports: Hx Aneurysm - thoracic, Hx Angina, Hx Coronary Artery Disease, Hx Hypercholesterolemia, Hx Hypertension, Hx Myocardial Infarction - 2009 no intervention to Pt's knowledge, Hx Valvular Heart Disease - mitral valve prolapse, Other Cardiovascular Problems/Disorders - AORTIC ANEURYSM, TACHYCARDIA, HEART MURMUR, MVP, CAD Denies: Hx Congestive Heart Failure Comment Only: Hx Pacemaker/ICD - HEART MONITOR 01/2016 Respiratory History: Reports: Hx Asthma, Hx Chronic Bronchitis, Hx Chronic Obstructive Pulmonary Disease (COPD), Hx Pneumonia, Hx Seasonal Allergies, Hx Sleep Apnea - pt states unable to tolerate CPAP, Other Respiratory Problems/ Disorders - PNA GI History: Reports: Hx Gastroesophageal Reflux Disease, Hx Hiatal Hernia History: Denies: Hx Renal Disease Musculoskeletal History: Reports: Hx Arthritis - OSTEO- KNEES, ANS RHEUMATOID- HANDS AND OTHER JOINTS, Hx Fibromyalgia Denies: Hx Osteoporosis Sensory History: Reports: Hx Contacts or Glasses, Hx Vision Problem, Hx Deafness - Left ear, Hx Hearing Aid - right ear, Hx Hearing Problem Denies: Other Sensory Impairments Opthamlomology History: Reports: Hx Contacts or Glasses, Hx Vision Problem Denies: Other Sensory Impairments Neurological History: Reports: Hx Nerve Disease - FIBROMYALGIA, Hx Transient Ischemic Attacks (TIA), Other Neuro Impairments/Disorders - fibromyalgia Psychiatric History: Reports: Hx Anxiety, Hx Depression, Hx Post Traumatic Stress Disorder, Hx Community Mental Health Tx Denies: Hx Attention Deficit Hyperactivity Disorder, Hx Eating Disorder, Hx Panic Disorder, Hx Inpatient Treatment, Hx Schizophrenia, Hx Bipolar Disorder, Hx Suicide Attempt, Hx of Violent Episodes Against Others, Hx Substance Abuse, Other Psychiatric Issues/Disorders - Surgical History Surgery Procedure, Year, and Place: hysterectomy 04/2006 right knee arthroscopy; hernia repair tubes in ears; total right knee replacement oct 26 2013 , deviated septum, cardiac cath, tonsilectomy; RT ARTHROSCOPIC Hx Anesthesia Reactions: No - Immunization History Date of Tetanus Vaccine: pt unsure Date of Influenza Vaccine: 07/2016 Infectious Disease History: Denies: Hx Clostridium Difficile, Hx Hepatitis, Hx Human Immunodeficiency Virus (HIV), Hx of Known/Suspected MRSA, Hx Shingles, Hx Tuberculosis, Hx Known/ Suspected VRE, Hx Known/Suspected VRSA, History Other Infectious Disease, Traveled Outside the [place] in Last 30 Days - Family History Known Family History: Positive: Cardiac Disease - CAD, Hypertension, Diabetes - Social History Alcohol Use: Occasionally Alcohol Amount: holidays Hx Substance Use: No Substance Use Type: Reports: None Hx Tobacco Use: Yes Smoking Status (MU): Former Smoker Type: Cigarettes Length of Time of Smoking/Using Tobacco: 4-5 yrs Have You Smoked in the Last Year: No Review of Systems Negative: Fever, Chills Negative: Erythema Negative: Sore Throat Positive: Chest Pain - With cough Positive: Shortness Of Breath - mild, Cough - productive Negative: Abdominal Pain, Vomiting, Nausea Negative: dysuria, hematuria Positive: Edema - Bilateral. Negative: Myalgia Negative: Rash Neurological: Other - Negative dizziness, lightheadedness All Other Systems Reviewed And Are Negative: Yes Physical Exam - Summary Physical Exam Summary: Constitutional: Well-developed, Well-nourished, Alert. (-) Distressed Skin: Warm, Dry HENT: Normocephalic; Atraumatic Eyes: Conjunctiva normal Neck: Musculoskeletal ROM normal neck. (-) JVD, (-) Stridor, (-) Tracheal deviation Cardio: Rhythm regular, rate normal, Heart sounds normal; Intact distal pulses; The pedal pulses are 2+ and symmetric. Radial pulses are 2+ and symmetric. (-) Murmur Pulmonary/Chest wall: Effort normal. (-) Respiratory distress, (-) Wheezes, Crackles in the right lower lung base Abd: Soft, (-) Tenderness, (-) Distension, (-) Guarding, (-) Rebound Musculoskeletal: Trace pitting edema Lymph: (-) Cervical adenopathy Neuro: Alert, Oriented x3 Psych: Mood and affect Normal Triage Information Reviewed: Yes Vital Signs On Initial Exam: Initial Vitals Temp Pulse Resp BP Pulse Ox 98.3 F 107 22 126/87 96 05/21/17 20:20 05/21/17 20:20 05/21/17 20:20 05/21/17 20:20 05/21/17 20:20 Vital Signs Reviewed: Yes Diagnostics - Vital Signs Vital Signs Temp Pulse Resp BP Pulse Ox 05/21/17 20:20 98.3 F 107 22 126/87 96 - Laboratory Result Diagrams: 05/21/17 21:47 05/21/17 21:47 Lab Statement: Any lab studies that have been ordered have been reviewed, and results considered in the medical decision making process. - Radiology CXR Xray Interpretation: No Acute Changes - Stigmata of obstructive lung disease. No acute pulmonary or cardiac process evident. Radiology Interpretation Completed By: Radiologist - EKG 2234 Cardiac Rate: Tachycardia - 107 bpm EKG Rhythm: Sinus Tachycardia EKG Interpretation: No change, No STEMI Re-Evaluation - Re-Evaluation First Eval Re-Evaluation Time: 22:51 Change: Unchanged Comment: Unchanged from prior evaluation. Disposition - Course Assessment/Plan: Pt is a 56 y/o F BIBA who presents to ED c/o productive cough and mild SOB charcaterized as dyspnea at rest for a few days. No blood is present in mucous. Sx aggravated by laying flat and alleviated by nothing. She did not treat sx with breathing Tx HOME CARE COORDINATOR. Additionally c/o CP with cough and bilateral edema. Denies myalgias, dizziness, lightheadedness. Uses breathing Tx at home, though she did not do one tonight. SHx former smoker. PMHx COPD with bronchitis. Reports she sleeps on 4 pillows at night and has done so since her COPD Dx. No PMHx CHF. CXR reveals no acute findings. EKG reveals sinus tachycardia with no STEMI. D-Dimer of 379, Lactic acid 2.2, Troponin 0.08. Discussed care of pt with Dr. Arredondo, hospitalist, who is awaiting results of CTA Chest and repeat Troponin. Pt medications reviewed this visit. - Diagnoses Provider Diagnoses: Orthopnea, SOB (shortness of breath), COPD (chronic obstructive pulmonary disease), Persistent tachycardia, Elevated d-dimer - Physician Notifications Discussed Care Of Patient With: Musa Arredondo Time Discussed With Above Provider: 22:54 Instructed by Provider To: Other - Waiting for results of CTA Chest and repeat troponin. At this time, she is not hypoxic and has no indication for admission. Discharge - Discharge Plan Condition: Good Disposition: OTHER Discharge Disposition Comment: Pt will be signed out to Dr. Arnold, pending dispo, awaiting CTA/Trop Referrals: Wilmer Dent MD [Primary Care Provider] - The documentation as recorded by the Jacquelyn urbina Rebecca accurately reflects the service I personally performed and the decisions made by me, Talib Freitas MD.
--- NOTE | 2017-06-05 06:28 | ED ---
zuleyma Dozier Timothy, padminied for Frederick Arnold MD on 05/22/17 at 0343 . Progress - Progress Note Progress Note: Gisele Muniz is a 56 yo female presenting to [facility] with SOB and productive cough with green sputum for the past 2 days. She also C/O 3/10 CP with cough. Her MHx includes tachycardia, aortic aneurysm, ND, angina, heart murmur, mitral valve prolapse, thoracic aneurysm, CAD, heart monitor, internal defibrillator, HLD, irregular heart beat, HTN, fibromyalgia, TIA, COPD, asthma, chronic bronchitis, PNA, CPAP machine, GERD, hiatal hernia, tubal ligation, oophorectomy , osteoarthritis bilateral knees, RA hands and other joints, right knee prosthesis, sickle cell disease, eosinophilia, gestation DM, PTSD, depression, anxiety, tobacco use. Pt was signed out by Dr. Freitas pending CTA Chest. CTA Chest: Impression: No pulmonary embolism identified. No other acute abnormality seen in the chest or visualized upper abdomen. - EKG/XRAY/CT CT: CTA results in note Course/Dx - Course Course Of Treatment: Gisele Muniz is a 56 yo female presenting to [facility] with SOB and productive cough with green sputum with 3/10 associated CP for the past 2 days. She was signed out by Dr. Freitas pending CTA chest. Pt medication list reviewed this visit. Her CTA chest suggests no PE, and no acute abnormality. After clinical examination and review of her lab and imaging studies, she will be discharged home with chest pain with appropriate instructions. - Diagnoses Provider Diagnoses: Chest pain The documentation as recorded by the zuleyma urbina Timothy accurately reflects the service I personally performed and the decisions made by , Frederick Arnold MD.
== END 2017-05-22 03:53 ==
LOC: ED 20:16
DX: R06.01 Orthopnea (principal); R06.02 Shortness of breath; J44.9 Chronic obstructive pulmonary disease, unspecified; R00.0 Tachycardia, unspecified; R79.1 Abnormal coagulation profile; R07.9 Chest pain, unspecified; R60.0 Localized edema; I10 Essential (primary) hypertension; I25.119 Atherosclerotic heart disease of native coronary artery with unspecified angina pectoris; E78.00 Pure hypercholesterolemia, unspecified; F41.9 Anxiety disorder, unspecified; F32.9 Major depressive disorder, single episode, unspecified; Z96.651 Presence of right artificial knee joint; Z90.710 Acquired absence of both cervix and uterus; Z88.3 Allergy status to other anti-infective agents; Z88.0 Allergy status to penicillin; Z88.6 Allergy status to analgesic agent; Z91.030 Bee allergy status; Z87.891 Personal history of nicotine dependence
CPT/HCPCS: 36415; 71020; 71275; 80053; 83605; 83880; 84484; 85025; 85379; 87040; 93005; 96361; 96374; 99284; A9270-GY; J2930; Q9967

== ENCOUNTER 2017-08-16 08:12 | Inpatient (IN) | payer MEDICARE, MEDICAID ==
[2017-08-16] MEDS ORDERED: Albuterol/Ipratropium NEB.SOL* Albuterol 2.5 MG/Ipratropium 0.5 MG 3 ML ONE (08:17)
[2017-08-16] MEDS ORDERED: Magnesium Sulfate 2 GM IV* 2 GM/50 ML BAG IVPB ONE (08:18)
[2017-08-16] MEDS ORDERED: NS 0.9% 1000 ML* 1,000 ML IV ONE (08:18)
[2017-08-16] MEDS: Albuterol/Ipratropium NEB.SOL* Albuterol 2.5 MG/Ipratropium 0.5 MG 3 ML INH SCH ×3 (08:30→10:13)
[2017-08-16] MEDS ORDERED: Magnesium Sulfate 2 GM IV* 2 GM/50 ML BAG ONE (08:31)
[2017-08-16 08:58] LABS: Hematocrit 41 % (35-47); Hemoglobin 12.9 g/dl (12.0-16.0); Mean Corpuscular HGB Conc 32 g/dl (31-36); Mean Corpuscular Hemoglobin 28 pg (27-31); Mean Corpuscular Volume 87 fL (80-97); Mean Platelet Volume 9 um3 (7.4-10.4); Red Blood Count 4.68 10^6/ul (4.0-5.4); Red Cell Distribution Width 16 % (10.5-15); White Blood Count 7.2 10^3/ul (3.5-10.8)
--- NOTE | 2017-08-16 09:14 | RAD ---
INDICATION: Short of breath COMPARISON: May 21, 2017 TECHNIQUE: An AP portable view obtained at 0852 hours is submitted. FINDINGS: Bones/Soft Tissues: There are no acute bony findings. Cardiomediastinal: The cardiomediastinal silhouette is normal. Lungs: There are no infiltrates. Pleura: There are no pleural effusions. Other: None IMPRESSION: NO ACTIVE DISEASE.
[2017-08-16 09:41] LABS: Albumin 3.9 g/dL (3.2-5.2); BUN/Creatinine Ratio 22.2 (8-20); C Reactive Protein 9.81 mg/L (< 5.00); Calcium 9.7 mg/dL (8.6-10.3); EGFR African American 61.3 (>60); EGFR Non-African American 47.7 (>60); Globulin 3.1 g/dL (2-4); Potassium 3.1 mmol/L (3.5-5.0); Total Bilirubin 0.4 mg/dL (0.2-1.0)
[2017-08-16 09:49] LABS: Troponin I 0.05 ng/mL (<0.04)
[2017-08-16] MEDS ORDERED: Potassium Chlor TAB* 20 MEQ TAB.ER PO ONE (09:51)
[2017-08-16 10:37] LABS: PCO2 Arterial 27 mmHg (35-45)
[2017-08-16] MEDS ORDERED: Albuterol/Ipratropium NEB.SOL* Albuterol 2.5 MG/Ipratropium 0.5 MG 3 ML INH PRN (11:45)
[2017-08-16] MEDS ORDERED: Cyclobenzaprine TAB* 10 MG PO PRN (11:49)
[2017-08-16] MEDS ORDERED: guaiFENesin LIQ* 100 MG/5 ML UDC PO PRN (11:49)
[2017-08-16] MEDS ORDERED: LORazepam TAB(*) 0.5 MG PO PRN (11:49)
[2017-08-16] MEDS ORDERED: Albuterol HFA INHALER* 8 gm MDI INH PRN (11:49)
--- NOTE | 2017-08-16 12:41 | ED ---
Ankit Dozier Angela, scribed for Alfred Lara MD on 08/16/17 at 0839 . Respiratory - HPI Summary HPI Summary: This pt is a 56 y/o female BIBA [facility] days, currently in respiratory distress. Pt reports a productive cough with light green sputum. Pt denies fever. PMHx: COPD, asthma, bronchitis. Pt is a former smoker. - History of Current Complaint Chief Complaint: EDRespiratoryDistress Stated Complaint: RESP DISTRESS Time Seen by Provider: 08/16/17 08:18 Hx Obtained From: Patient, EMS Onset/Duration: Lasting Days Timing: Constant Pain Intensity: 0 Character: Cough (Productive) Sputum Amount: Moderate Sputum Color: Green - light green Associated Signs and Symptoms: SOB - Allergy/Home Medications Allergies/Adverse Reactions: Allergies Allergy/AdvReac Type Severity Reaction Status Date / Time Aspirin Allergy Severe See Comment Verified 03/28/17 19:55 Bacitracin [From Neosporin] Allergy Severe Rash And Verified 03/28/17 19:55 Itching Bee Venom Allergy Severe Anaphylatic Verified 03/28/17 19:55 Shock Penicillins [PCN] Allergy Severe Difficulty Verified 03/28/17 19:55 Breathing Tomato Allergy Severe Rash Verified 03/28/17 19:55 Cefaclor [From Ceclor] Allergy Intermediate Rash Verified 03/28/17 19:55 Cefazolin [From Ancef] Allergy Intermediate Rash Verified 03/28/17 19:55 Celecoxib [From Celebrex] Allergy Intermediate Hives Verified 03/28/17 19:55 Milroy Extract Allergy Intermediate Hives Verified 03/28/17 19:55 Erythromycin Allergy Intermediate See Comment Verified 03/28/17 19:55 Metoprolol Allergy Intermediate Shortness Verified 03/28/17 19:55 of Breath Milnacipran [From Savella] Allergy Intermediate Nausea And Verified 03/28/17 19: 55 Vomiting Mushroom Extract Complex Allergy Intermediate See Comment Verified 03/28/17 19: 55 Polymyxin B [From Neosporin] Allergy Intermediate Rash And Verified 03/28/17 19: 55 Itching Tetracyclines & Related Allergy Mild Rash And Verified 03/28/17 19:55 Itching Neomycin [From Neosporin] Allergy Unknown Rash And Verified 03/28/17 19:55 Itching Lidocaine Allergy Anaphylatic Verified 03/28/17 19:55 Shock Milroy Allergy Severe Hives Uncoded 03/28/17 19:55 Pepper Allergy Severe Rash And Uncoded 03/28/17 19:55 Itching Mushroom Allergy Intermediate See Comment Uncoded 03/28/17 19:55 Bees Allergy Unknown Anaphylatic Uncoded 03/28/17 19:55 Shock Home Medications: Home Medications Azelastine/Fluticasone ROBERT(NF [Dymista(NF)] 1 spray BOTH NARES DAILY 08/16/17 [ History Confirmed 08/16/17] PMH/Surg Hx/FS Hx/Imm Hx Endocrine/Hematology History: Reports: Hx Diabetes - Gestational with prior , Hx Sickle Cell Disease - ASINOPHELIA- HIGH WHITE BLOOD COUNT, Other Endocrine/Hematological Disorders - Eosinophilia- HIGH WHITE BLOOD COUNT Cardiovascular History: Reports: Hx Aneurysm - thoracic, Hx Angina, Hx Coronary Artery Disease, Hx Hypercholesterolemia, Hx Hypertension, Hx Myocardial Infarction - 2009 no intervention to Pt's knowledge, Hx Valvular Heart Disease - mitral valve prolapse, Other Cardiovascular Problems/Disorders - AORTIC ANEURYSM, TACHYCARDIA, HEART MURMUR, MVP, CAD Denies: Hx Congestive Heart Failure Comment Only: Hx Pacemaker/ICD - HEART MONITOR 01/2016 Respiratory History: Reports: Hx Asthma, Hx Chronic Bronchitis, Hx Chronic Obstructive Pulmonary Disease (COPD), Hx Pneumonia, Hx Seasonal Allergies, Hx Sleep Apnea - pt states unable to tolerate CPAP, Other Respiratory Problems/ Disorders - PNA GI History: Reports: Hx Gastroesophageal Reflux Disease, Hx Hiatal Hernia History: Denies: Hx Renal Disease Musculoskeletal History: Reports: Hx Arthritis - OSTEO- KNEES, ANS RHEUMATOID- HANDS AND OTHER JOINTS, Hx Fibromyalgia Denies: Hx Osteoporosis Sensory History: Reports: Hx Contacts or Glasses, Hx Vision Problem, Hx Deafness - Left ear, Hx Hearing Aid - right ear, Hx Hearing Problem Denies: Other Sensory Impairments Opthamlomology History: Reports: Hx Contacts or Glasses, Hx Vision Problem Denies: Other Sensory Impairments Neurological History: Reports: Hx Nerve Disease - FIBROMYALGIA, Hx Transient Ischemic Attacks (TIA), Other Neuro Impairments/Disorders - fibromyalgia Psychiatric History: Reports: Hx Anxiety, Hx Depression, Hx Post Traumatic Stress Disorder, Hx Community Mental Health Tx Denies: Hx Attention Deficit Hyperactivity Disorder, Hx Eating Disorder, Hx Panic Disorder, Hx Inpatient Treatment, Hx Schizophrenia, Hx Bipolar Disorder, Hx Suicide Attempt, Hx of Violent Episodes Against Others, Hx Substance Abuse, Other Psychiatric Issues/Disorders - Surgical History Surgery Procedure, Year, and Place: hysterectomy 04/2006 right knee arthroscopy; hernia repair tubes in ears; total right knee replacement oct 26 2013 , deviated septum, cardiac cath, tonsilectomy; RT ARTHROSCOPIC Hx Anesthesia Reactions: No - Immunization History Date of Tetanus Vaccine: pt unsure Date of Influenza Vaccine: 08/03/2017 Immunizations Up to Date: Yes Infectious Disease History: No Infectious Disease History: Denies: Hx Clostridium Difficile, Hx Hepatitis, Hx Human Immunodeficiency Virus (HIV), Hx of Known/Suspected MRSA, Hx Shingles, Hx Tuberculosis, Hx Known/ Suspected VRE, Hx Known/Suspected VRSA, History Other Infectious Disease, Traveled Outside the [place] in Last 30 Days - Family History Known Family History: Positive: Cardiac Disease - CAD, Hypertension, Diabetes - Social History Alcohol Use: Occasionally Alcohol Amount: holidays Hx Substance Use: No Substance Use Type: Reports: None Hx Tobacco Use: Yes Smoking Status (MU): Former Smoker Type: Cigarettes Length of Time of Smoking/Using Tobacco: 4-5 yrs Have You Smoked in the Last Year: No Review of Systems Negative: Fever, Chills Negative: Palpitations Positive: Shortness Of Breath, Cough - productive with light green sputum Negative: Abdominal Pain, Vomiting, Diarrhea, Nausea Negative: Weakness, Numbness All Other Systems Reviewed And Are Negative: Yes Physical Exam - Summary Physical Exam Summary: VITAL SIGNS: Reviewed. GENERAL: Patient is a well-developed and nourished female. Patient is in acute respiratory distress, unable to speak full sentences. HEAD AND FACE: No signs of trauma. ~No ecchymosis, hematomas or skull depressions. No sinus tenderness. EYES: PERRLA, EOMI x 2, No injected conjunctiva, no nystagmus. EARS: Hearing grossly intact. Ear canals and tympanic membranes are within normal limits. MOUTH: Oropharynx within normal limits. NECK: Supple, trachea is midline, no adenopathy, no JVD, no carotid bruit, no c- spine tenderness, neck with full ROM. CHEST: Symmetric, no tenderness at palpation LUNGS: There are decreased breath sounds bilaterally with wheezing. There are crackles heard between the lungs. CVS: Regular rate and rhythm, S1 and S2 present, no murmurs or gallops appreciated. ABDOMEN: Soft, non-tender. No signs of distention. No rebound no guarding, and no masses palpated. Bowel sounds are normal. EXTREMITIES: FROM in all major joints, no edema, no cyanosis or clubbing. NEURO: Alert and oriented x 3. No acute neurological deficits. Speech is normal and follows commands. SKIN: Pt is diaphoretic and clammy. Triage Information Reviewed: Yes Vital Signs On Initial Exam: Initial Vitals Temp Pulse Resp BP Pulse Ox 96.7 F 103 34 131/59 100 08/16/17 08:15 08/16/17 08:15 08/16/17 08:15 08/16/17 08:15 08/16/17 08:15 Vital Signs Reviewed: Yes - [place] Coma Scale Coma Scale Total: 15 Diagnostics - Vital Signs Vital Signs Temp Pulse Resp BP Pulse Ox 08/16/17 08:31 103 99 100 08/16/17 08:15 96.7 F 103 34 131/59 100 - Laboratory Lab Results: Lab Results 08/16/17 08/16/17 08/16/17 Range/Units 08:37 08:37 08:37 WBC (3.5-10.8) 10^3/ul RBC (4.0-5.4) 10^6/ul Hgb (12.0-16.0) g/dl Hct (35-47) % MCV (80-97) fL MCH (27-31) pg MCHC (31-36) g/dl RDW (10.5-15) % Plt Count (150-450) 10^3/ul MPV (7.4-10.4) um3 Neut % (Auto) (38-83) % Lymph % (Auto) (25-47) % Collingsworth % (Auto) (1-9) % Eos % (Auto) (0-6) % Baso % (Auto) (0-2) % Absolute Neuts (auto) (1.5-7.7) 10^3/ul Absolute Lymphs (auto) (1.0-4.8) 10^3/ul Absolute Monos (auto) (0-0.8) 10^3/ul Absolute Eos (auto) (0-0.6) 10^3/ul Absolute Basos (auto) (0-0.2) 10^3/ul Absolute Nucleated RBC 10^3/ul Nucleated RBC % ABG pH (7.35-7.45) ABG pCO2 (35-45) mmHg ABG pO2 (80-100) mmHg ABG HCO3 (19-31) mmol/L ABG O2 Saturation (95-98) % ABG Base Excess (-2.0-2.0) Sodium 141 (133-145) mmol/L Potassium 3.1 L (3.5-5.0) mmol/L Chloride 103 (101-111) mmol/L Carbon Dioxide 26 (22-32) mmol/L Anion Gap 12 H (2-11) mmol/L BUN 26 H (6-24) mg/dL Creatinine 1.17 H (0.51-0.95) mg/dL Est GFR ( Amer) 61.3 (>60) Est GFR (Non-Af Amer) 47.7 (>60) BUN/Creatinine Ratio 22.2 H (8-20) Glucose 122 H (70-100) mg/dL Lactic Acid 2.3 H* (0.5-2.0) mmol/L Calcium 9.7 (8.6-10.3) mg/dL Total Bilirubin 0.40 (0.2-1.0) mg/dL AST 25 (13-39) U/L ALT 27 (7-52) U/L Alkaline Phosphatase 60 (34-104) U/L Troponin I 0.05 H* (<0.04) ng/mL C-Reactive Protein 9.81 H (< 5.00) mg/L B-Natriuretic Peptide 9 ( - 100) pg/mL Total Protein 7.0 (6.4-8.9) g/dL Albumin 3.9 (3.2-5.2) g/dL Globulin 3.1 (2-4) g/dL Albumin/Globulin Ratio 1.3 (1-3) 08/16/17 08/16/17 Range/Units 08:37 10:30 WBC 7.2 (3.5-10.8) 10^3/ul RBC 4.68 (4.0-5.4) 10^6/ul Hgb 12.9 (12.0-16.0) g/dl Hct 41 (35-47) % MCV 87 (80-97) fL MCH 28 (27-31) pg MCHC 32 (31-36) g/dl RDW 16 H (10.5-15) % Plt Count 255 (150-450) 10^3/ul MPV 9 (7.4-10.4) um3 Neut % (Auto) 49.2 (38-83) % Lymph % (Auto) 27.6 (25-47) % Collingsworth % (Auto) 6.5 (1-9) % Eos % (Auto) 15.4 H (0-6) % Baso % (Auto) 1.3 (0-2) % Absolute Neuts (auto) 3.6 (1.5-7.7) 10^3/ul Absolute Lymphs (auto) 2.0 (1.0-4.8) 10^3/ul Absolute Monos (auto) 0.5 (0-0.8) 10^3/ul Absolute Eos (auto) 1.1 H (0-0.6) 10^3/ul Absolute Basos (auto) 0.1 (0-0.2) 10^3/ul Absolute Nucleated RBC 0 10^3/ul Nucleated RBC % 0.1 ABG pH 7.51 H (7.35-7.45) ABG pCO2 27 L (35-45) mmHg ABG pO2 130 H (80-100) mmHg ABG HCO3 24.5 (19-31) mmol/L ABG O2 Saturation 100.2 H (95-98) % ABG Base Excess -0.5 (-2.0-2.0) Sodium (133-145) mmol/L Potassium (3.5-5.0) mmol/L Chloride (101-111) mmol/L Carbon Dioxide (22-32) mmol/L Anion Gap (2-11) mmol/L BUN (6-24) mg/dL Creatinine (0.51-0.95) mg/dL Est GFR ( Amer) (>60) Est GFR (Non-Af Amer) (>60) BUN/Creatinine Ratio (8-20) Glucose (70-100) mg/dL Lactic Acid (0.5-2.0) mmol/L Calcium (8.6-10.3) mg/dL Total Bilirubin (0.2-1.0) mg/dL AST (13-39) U/L ALT (7-52) U/L Alkaline Phosphatase (34-104) U/L Troponin I (<0.04) ng/mL C-Reactive Protein (< 5.00) mg/L B-Natriuretic Peptide ( - 100) pg/mL Total Protein (6.4-8.9) g/dL Albumin (3.2-5.2) g/dL Globulin (2-4) g/dL Albumin/Globulin Ratio (1-3) Result Diagrams: 08/16/17 08:37 08/16/17 08:37 Lab Statement: Any lab studies that have been ordered have been reviewed, and results considered in the medical decision making process. - Radiology Chest XR Xray Interpretation: No Acute Changes - IMPRESSION: No active disease. ED physician has reviewed this radiology report and agrees. Radiology Interpretation Completed By: Radiologist - EKG 0836 Cardiac Rate: Tachycardia - 108 bpm EKG Rhythm: Sinus Rhythm EKG Interpretation: ST depression at I, II, V4-V6 EKG Comparison: No Significant Change - Similar to previous EKG done on . Disposition - Course Assessment/Plan: This pt is a 56 y/o female BIBA presenting to [facility] c/o SOB x3 days, currently in respiratory distress. Pt reports a productive cough with light green sputum. Pt denies fever. PMHx: COPD, asthma, bronchitis. Pt is a former smoker. Test results are without any significant abnormalities except for potassium 3.1, for which the pt was given potassium chloride. Pt has increased BUN/creatinine, possibly secondary to dehydration. Glucose is 122, lactic acid is 2.3, and troponin is 0.05. Troponin is usually higher for her, so it is at her baseline. EKG has some ST depression in leads I, II, and V4-V6, but similar to previous EKGs. Prior to arrival the pt was given Decadron, IV R AC, and 2 duo nebs. In the ED course, the pt was given Duoneb, but the pt continued to be short of breath. Pts lung exam is still with crackles and wheezing. Therefore, I discussed the case with Dr. Ruvalcaba, who accepted the pt for admission. - Differential Dx - Cardiopulmonary Differential Diagnoses - Cardiopulmonary: Bronchitis, Exacerbation Of COPD - Diagnoses Provider Diagnoses: COPD exacerbation, Asthma exacerbation Discharge - Discharge Plan Condition: Good Disposition: ADMITTED TO [facility] The documentation as recorded by the Ankit urbina Angela accurately reflects the service I personally performed and the decisions made by me, Alfred Lara MD.
[2017-08-16] MEDS: Pregabalin CAP(*) 50 MG PO SCH (13:13)
[2017-08-16] MEDS: Heparin VIAL(*) 5000 UNITS/ML VIAL (FIVE THOUSAND) SUBCUT SCH ×2 (13:15→21:35)
[2017-08-16] MEDS: NS 0.9% 1000 ML* 1,000 ML IV SCH (13:33)
--- NOTE | 2017-08-16 15:53 | HP ---
CC: Dr. Dent* [facility] HISTORY AND PHYSICAL: DATE OF ADMISSION: 08/16/17 PRIMARY CARE PHYSICIAN: Dr. Dent. ATTENDING PHYSICIAN: Boston Ruvalcaba MD* (dictation provided by Ngozi Dominique NP ). CHIEF COMPLAINT: Shortness of breath. HISTORY OF PRESENT ILLNESS: Ms. Muniz is a 56-year-old female with a past medical history of COPD, hypertension, and allergies, who presents to the hospital today with concern for shortness of breath. Ms. Muniz states that she has been feeling increased wheezing with cough over the past couple of days. When she went to bed last night, she was actually feeling a little bit better; however, at 3 a.m. she awoke suddenly with severe shortness of breath and was coughing uncontrollably. She ultimately called the emergency medical services to be brought to the emergency room when the use of her inhalers and nebulizers were not helpful. On arrival of EMS, the patient was noted to be in significant distress and was having difficulty completing sentences. She was given albuterol with some mild improvement. She was given dexamethasone again with minimal improvement and then was placed on CPAP. By the time she arrived to the emergency room, she was feeling better and her shortness of breath had significantly resolved. Ms. Muniz has a chest x-ray in the ED today, which shows no acute infiltrate. She has no leukocytosis. She is afebrile. Her ABG shows a metabolic alkalosis with the pH of 7.51, PO2 of 130 with PCO2 of 27. She does have a slight elevation in her BUN and creatinine to 26 and 1.17 respectively. She has an elevated troponin to 0.05. Her EKG shows concern for slight depressions in the ST segments along the V leads. This is consistent with previous morphology, but that seems to be a little bit more exaggerated today. Her CRP is only 9.81 , lactic acid 2.3. PAST MEDICAL HISTORY: 1. COPD. 2. Obstructive sleep apnea. The patient unable to tolerate CPAP. 3. Severe allergies managed by Dr. Olivarez with monthly injections. 4. History of TIA. 5. Fibromyalgia. 6. Hyperlipidemia. 7. Mitral valve prolapse. 8. History of tachycardia. 9. History of right knee surgery, 10. Bilateral hernia repair. 11. Hysterectomy. 12. Oophorectomy. MEDICATIONS: 1. Dymista 1 spray both nares daily. 2. Fluticasone and vilanterol 200/25 one inhalation daily. 3. Famotidine 20 mg b.i.d. 4. Diltiazem CD 180 mg p.o. daily. 5. Digoxin 0.125 mg p.o. daily. 6. Flexeril 10 mg p.o. t.i.d. p.r.n. 7. Cholecalciferol 1000 units p.o. daily. 8. Calcium carbonate with vitamin D 1 tab p.o. b.i.d. 9. Albuterol inhaler 2 puffs inhaled q.4 hours p.r.n. 10. Albuterol nebulizer 2.5 mg inhaled q.4 hours p.r.n. 11. Tylenol p.r.n. 12. Guaifenesin p.r.n. 13. Folic acid 400 mcg p.o. daily. 14. Lisinopril 10 mg p.o. daily. 15. Levocetirizine 5 mg p.o. daily. 16. Lorazepam 0.25 mg p.o. q.8 hours p.r.n. 17. Ibuprofen 600 mg p.o. q.6 hours p.r.n. 18. Hydrochlorothiazide 25 mg p.o. q.p.m. 19. Pregabalin 100 mg in the a.m., 50 mg at noon, and 100 mg at bedtime. 20. Pravastatin 10 mg p.o. q.p.m. 21. Potassium chloride 10 mEq p.o. q.p.m. 22. Montelukast 10 mg p.o. q.p.m. 23. Guaifenesin 10 mL p.o. q.4 hours p.r.n. 24. Diphenhydramine 25 mg p.o. q.4 hours p.r.n. Of note, the patient also has had a prescription of morphine in the past, 4 mg sublingually as needed for shortness of breath, but she states that she ran out of that prescription and has not refilled it. She did note improvement with her symptoms with it. ALLERGIES: To ASPIRIN, BACITRACIN, BEE VENOM, PENICILLINS, TOMATO, CEFACLOR, CEFAZOLIN, CELEBREX, CUCUMBER EXTRACT, ERYTHROMYCIN, METOPROLOL, MILNACIPRAN, MUSHROOM EXTRACT, POLYMYXIN B, TETRACYCLINE, NEOMYCIN, LIDOCAINE, CUCUMBER, PEPPER, MUSHROOMS, BEES. FAMILY HISTORY: The patient reports her mother had asthma and hypertension. Father had cancer, but she is not sure of what type. SOCIAL HISTORY: The patient quit smoking in 2011. There is no report of alcohol or drug use. She states her son is the healthcare proxy. REVIEW OF SYSTEMS: A 14-point review of systems was completed with Ms. Muniz and all those not mentioned above were negative. PHYSICAL EXAMINATION GENERAL: Ms. Muniz is sitting up in the bed. She is in no acute distress. VITAL SIGNS: Temperature 97.9, heart rate 121, respiratory rate 15, O2 saturation 98% on 2 L nasal cannula, blood pressure 116/58. LUNGS: Had good aeration. There is minimal wheezing bilaterally. There is no accessory muscle use. She is able to speak in clear complete sentences. HEART: S1 and S2. No murmur, rub or gallop and regular. ABDOMEN: Soft, nontender with bowel sounds positive x4. EXTREMITIES: No cyanosis or edema. NEUROLOGIC: She is alert. She is oriented x3. She moves all extremities equally. There is no facial asymmetry or focal weakness. Extraocular movements are intact. SKIN: Intact. LABORATORY DATA/DIAGNOSTIC STUDIES: Sodium 141, potassium 3.1, chloride 103, serum bicarbonate 26, BUN 26, creatinine 1.17, glucose 122, lactic acid 2.3. Troponin 0.05. CRP 9.81, BNP 9. WBC 7.2, hemoglobin 12.9, hematocrit 41, and platelet count 255,000. ABG shows pH 7.51, PCO2 of 27, PO2 of 130, bicarbonate 24.5. Chest x-ray is read as follows; "no active disease." EKG shows as noted the lagging ST segments in the V leads, which is consistent, though more exaggerated from previous EKGs. ASSESSMENT AND PLAN: Ms. Muniz is a 56-year-old female with a past medical history of chronic obstructive pulmonary disease, obstructive sleep apnea not on CPAP and significant allergies, who presents to the hospital today with concern for chronic obstructive pulmonary disease exacerbation. She was in acute respiratory failure on arrival of EMS, but has responded well to treatment thus far. Our plans are for admission to the telemetry unit as I expect her length of stay to be greater than 2 days for the followin. Chronic obstructive pulmonary disease exacerbation with acute hypoxic respiratory failure: The patient was in significant distress on arrival of EMS , but she has responded well to dexamethasone and albuterol treatments. Plan for her to be monitored closely on the telemetry unit. For now, plan to continue with Solu- Medrol IV; this can be titrated down to prednisone if she continues to do well tomorrow. At this point, she has no leukocytosis, no infiltrate, no fever. I am opting to not start antibiotics due to her long list of allergies and long list of current medications with concern for drug interactions. If the patient does not improve with simple steroids or develops fever, antibiotics could be added at that point. Plan to continue her inhalers and she will have Duonebulizers as needed. The patient will have sublingual morphine available for shortness of breath as needed, as well as Ativan. I recommend that she continue on this at home and a prescription be provided to her at the time of discharge. 2. Hypertension: Plan to continue diltiazem, but hold lisinopril and hydrochlorothiazide with acute kidney injury. 3. Acute kidney injury: The patient's BUN and creatinine are very mildly elevated today. I suspect this is prerenal in the setting of lisinopril and hydrochlorothiazide use and feeling under the weather with mild dehydration. Plan to hold lisinopril and hydrochlorothiazide. She has had 1 L of IV fluids in the emergency room. Continue with maintenance fluid at 75 mL per hour and recheck her labs tomorrow. 5. Hypokalemia: Supplementation ordered. 6. History of tachycardia. She is tachycardic now, plan to continue diltiazem and digoxin and hydrate. Medications can be adjusted as needed. 7. DVT prophylaxis with heparin subcu. 8. Code status: Full code. TIME SPENT: Approximately 60 minutes was spent on the admission of this patient , more than half of the time was spent with the patient at the bedside reviewing the events leading up to this hospitalization, performing the physical examination, and reviewing my plan of care. NGOZI DOMINIQUE NP [id number]/[facility] #: [id number] JERMAIN
[2017-08-16] MEDS: Potassium Chlor TAB* 10 MEQ TAB.ER PO SCH (17:36)
[2017-08-16] MEDS: methylPREDNISolone SOD 40 MG* 1 ML VIAL IV SCH (17:36)
[2017-08-16] MEDS: Montelukast Sodium TAB* 10 MG PO SCH (17:36)
[2017-08-16] MEDS ORDERED: Hydrochlorothiazide TAB* 25 MG PO SCH (18:00)
[2017-08-16] MEDS: Mometasone/Formoter 200/5 MDI INH SCH (20:24)
[2017-08-16] MEDS: Acetaminophen TAB* 325 MG PO PRN (21:35)
[2017-08-16] MEDS: Famotidine TAB* 20 MG PO SCH (21:35)
[2017-08-16] MEDS: Pregabalin CAP(*) 100 MG PO SCH (21:35)
[2017-08-17] MEDS: methylPREDNISolone SOD 40 MG* 1 ML VIAL IV SCH ×3 (01:05→17:40)
[2017-08-17] MEDS: Morphine ORAL.SOLN 10 mg* 2 MG/ML UDC 5 ml PO PRN ×2 (01:08→05:04)
[2017-08-17] MEDS: guaiFENesin LIQ* 100 MG/5 ML UDC PO PRN ×3 (01:09→13:57)
[2017-08-17] MEDS: Heparin VIAL(*) 5000 UNITS/ML VIAL (FIVE THOUSAND) SUBCUT SCH ×3 (05:05→21:54)
[2017-08-17 05:49] LABS: BUN/Creatinine Ratio 23.1 (8-20); EGFR African American 97.9 (>60); EGFR Non-African American 76.1 (>60); Potassium 4.4 mmol/L (3.5-5.0)
--- NOTE | 2017-08-17 08:09 | PN ---
Subjective Date of Service: 08/17/17 Interval History: Ms. Muniz remains SOB with severe cough associated with rib pain. She denies other complaint. Objective Active Medications: Acetaminophen (Tylenol Tab*) 650 mg PO Q4H PRN Albuterol (Ventolin Hfa Inhaler*) 2 puff INH Q4H PRN Albuterol/Ipratropium (Duoneb (Albuterol 2.5 Mg/Ipratropium 0.5 Mg)) 1 neb INH Q6H PRN Cholecalciferol (Vitamin D Tab*) 1,000 units PO DAILY AUDI Cyclobenzaprine HCl (Flexeril Tab*) 10 mg PO TID PRN Digoxin (Lanoxin Tab*) 0.125 mg PO DAILY AUDI Diltiazem HCl (Cardizem Cd Cap*) 180 mg PO DAILY AUDI Famotidine (Pepcid Tab*) 20 mg PO BID AUDI Folic Acid (Folvite Tab*) 0.4 mg PO DAILY AUDI Guaifenesin (Robitussin*) 10 ml PO Q4H PRN Heparin Sodium (Porcine) (Heparin Vial(*)) 5,000 units SUBCUT Q8HR [facility] Sodium Chloride (Ns 0.9% 1000 Ml*) 1,000 mls @ 75 mls/hr IV PER RATE [facility] Ibuprofen (Motrin Tab*) 600 mg PO Q6HR PRN Lorazepam (Ativan Tab(*)) 0.25 mg PO Q8H PRN Methylprednisolone Sodium Succinate (Solu-Medrol 40 Mg) 40 mg IV Q8H AUDI Mometasone Furoate/Formoterol Fumar (Dulera 200/5 Mdi*) 2 puff INH BID AUDI Montelukast Sodium (Singulair Tab*) 10 mg PO QPM AUDI Morphine Sulfate (Morphine Oral.Soln 10 Mg*) 5 mg PO Q4H PRN Potassium Chloride (Klor Con Er Tab*) 10 meq PO QPM AUDI Pregabalin (Lyrica Cap(*)) 50 mg PO 1200 AUDI Pregabalin (Lyrica Cap(*)) 100 mg PO IN AM AND AT BEDTIME AUDI Vital Signs: Temp Pulse Resp BP Pulse Ox 97.8 F 86 22 130/68 97 08/17/17 04:32 08/17/17 04:32 08/17/17 05:04 08/17/17 04:32 08/17/17 04:32 Oxygen Devices in Use Now: Nasal Cannula Appearance: Female sitting up in bed, appears uncomfortable from coughing Eyes: No Scleral Icterus Ears/Nose/Mouth/Throat: Mucous Membranes Moist Respiratory: Symmetrical Chest Expansion and Respiratory Effort, Clear to Auscultation Cardiovascular: NL Sounds; No Murmurs; No JVD, No Edema Abdominal: NL Sounds; No Tenderness; No Distention Lymphatic: No Cervical Adenopathy Extremities: No Edema Skin: No Rash or Ulcers Neurological: Alert and Oriented x 3, NL Muscle Strength and Tone Nutrition: Taking PO's Result Diagrams: 08/16/17 08:37 08/17/17 04:59 Additional Lab and Data: . Assess/Plan/Problems-Billing Assessment: Ms. Muniz is a 56 yo female with a PMH of COPD and tachycardia who was admitted on 08/16/17 with a COPD excarbation. - Patient Problems (1) COPD exacerbation Comment: - Minimal improvement, though lungs are clear she remains debilitated by cough and severe rib pain. - Considered PE, but ddimer negative. - Continue prednisone with duonebs. Have added codeine with guaifenisen as well as tessalon pearles for cough suppression. - Increase prn morphine SL. (2) Tachycardia Comment: - HR 80s. - Continue diltiazem. (3) HTN (hypertension) Comment: - BP well controlled. - Continue diltiazem, resume lisinopril and hctz tomorrow as had been held for DEVON. (4) Dyslipidemia Comment: - Resume pravastatin at discharge (nonformulary). (5) DVT prophylaxis Comment: - SQ heparin (6) Full code status Status and Disposition: Inpatient. Anticipate discharge to home when medically stable.
[2017-08-17] MEDS: Mometasone/Formoter 200/5 MDI INH SCH ×2 (08:46→20:36)
[2017-08-17] MEDS ORDERED: Lisinopril TAB* 10 MG PO SCH (09:00)
[2017-08-17] MEDS: Cholecalciferol TAB* 1000 UNITS PO SCH (10:55)
[2017-08-17] MEDS: Pregabalin CAP(*) 100 MG PO SCH ×2 (10:55→21:53)
[2017-08-17] MEDS: Famotidine TAB* 20 MG PO SCH ×2 (10:55→21:53)
[2017-08-17] MEDS: Folic Acid TAB* 1 MG PO SCH (10:56)
[2017-08-17] MEDS: Lisinopril TAB* 10 MG PO SCH (10:56)
[2017-08-17] MEDS: Digoxin TAB* 0.125 MG PO SCH (10:57)
[2017-08-17] MEDS: Diltiazem CD CAP* 180 MG PO SCH (10:58)
[2017-08-17] MEDS: Ibuprofen TAB* 600 MG PO PRN (11:09)
[2017-08-17 11:17] LABS: Urine Bacteria Absent (Absent); Urine Bilirubin Negative (Negative); Urine Glucose 3+(>=500 mg/dL) (Negative); Urine Nitrite Negative (Negative)
[2017-08-17] MEDS: Pregabalin CAP(*) 50 MG PO SCH (13:57)
[2017-08-17] MEDS ORDERED: Levofloxacin TAB* 750 MG PO SCH (17:00)
[2017-08-17] MEDS ORDERED: Morphine ORAL.SOLN 10 mg* 2 MG/ML UDC 5 ml PO PRN (17:23)
[2017-08-17] MEDS: Montelukast Sodium TAB* 10 MG PO SCH (17:39)
[2017-08-17] MEDS: Potassium Chlor TAB* 10 MEQ TAB.ER PO SCH (17:40)
[2017-08-17] MEDS: NS 0.9% 1000 ML* 1,000 ML IV SCH (17:46)
[2017-08-17] MEDS ORDERED: Hydrochlorothiazide TAB* 25 MG PO SCH (18:00)
[2017-08-18] MEDS: Acetaminophen TAB* 325 MG PO PRN (01:04)
[2017-08-18] MEDS: methylPREDNISolone SOD 40 MG* 1 ML VIAL IV SCH ×2 (01:05→09:30)
[2017-08-18] MEDS: Ibuprofen TAB* 600 MG PO PRN (04:02)
[2017-08-18] MEDS: NS 0.9% 1000 ML* 1,000 ML IV SCH (07:21)
[2017-08-18] MEDS ORDERED: guaiFENesin/CODIEN 100MG-10MG* 5 ML UDC PO PRN (07:24)
[2017-08-18] MEDS: Heparin VIAL(*) 5000 UNITS/ML VIAL (FIVE THOUSAND) SUBCUT SCH (07:24)
[2017-08-18] MEDS: Mometasone/Formoter 200/5 MDI INH SCH (08:07)
--- NOTE | 2017-08-18 08:34 | PN ---
Subjective Date of Service: 08/18/17 Interval History: Ms. Muniz states that she is feeling a little bit better this morning but she does continue to have pain with severe coughing spells. She denies other complaint. She ambulated around the unit without significant MONTOYA or hypoxia. Objective Active Medications: Acetaminophen (Tylenol Tab*) 650 mg PO Q4H PRN Albuterol (Ventolin Hfa Inhaler*) 2 puff INH Q4H PRN Albuterol/Ipratropium (Duoneb (Albuterol 2.5 Mg/Ipratropium 0.5 Mg)) 1 neb INH Q6H PRN Cholecalciferol (Vitamin D Tab*) 1,000 units PO DAILY AUDI Cyclobenzaprine HCl (Flexeril Tab*) 10 mg PO TID PRN Digoxin (Lanoxin Tab*) 0.125 mg PO DAILY AUDI Diltiazem HCl (Cardizem Cd Cap*) 180 mg PO DAILY AUDI Famotidine (Pepcid Tab*) 20 mg PO BID AUDI Folic Acid (Folvite Tab*) 0.4 mg PO DAILY AUDI Guaifenesin/Codeine Phosphate (Robitussin Ac 100mg-10mg*) 5 ml PO Q4H PRN Heparin Sodium (Porcine) (Heparin Vial(*)) 5,000 units SUBCUT Q8HR AUDI Hydrochlorothiazide (Hydrodiuril Tab*) 25 mg PO QPM AUDI Sodium Chloride (Ns 0.9% 1000 Ml*) 1,000 mls @ 75 mls/hr IV PER RATE AUDI Ibuprofen (Motrin Tab*) 600 mg PO Q6HR PRN Levofloxacin (Levaquin Tab*) 750 mg PO Q24H AUDI Lisinopril (Prinivil Tab*) 10 mg PO DAILY AUDI Lorazepam (Ativan Tab(*)) 0.25 mg PO Q8H PRN Methylprednisolone Sodium Succinate (Solu-Medrol 40 Mg) 40 mg IV Q8H AUDI Mometasone Furoate/Formoterol Fumar (Dulera 200/5 Mdi*) 2 puff INH BID AUDI Montelukast Sodium (Singulair Tab*) 10 mg PO QPM AUDI Morphine Sulfate (Morphine Oral.Soln 10 Mg*) 5 mg PO Q2H PRN Potassium Chloride (Klor Con Er Tab*) 10 meq PO QPM AUDI Pregabalin (Lyrica Cap(*)) 50 mg PO 1200 [facility] Pregabalin (Lyrica Cap(*)) 100 mg PO IN AM AND AT BEDTIME [facility] Vital Signs: Temp Pulse Resp BP Pulse Ox 97.9 F 83 18 127/70 97 08/18/17 03:08 08/18/17 08:09 08/18/17 08:09 08/18/17 03:08 08/18/17 08:09 Oxygen Devices in Use Now: None Appearance: Female sitting up in bed in NAD Ears/Nose/Mouth/Throat: NL Teeth, Lips, Gums Neck: NL Appearance and Movements; NL JVP, Trachea Midline Respiratory: Symmetrical Chest Expansion and Respiratory Effort, Clear to Auscultation Cardiovascular: NL Sounds; No Murmurs; No JVD, No Edema Abdominal: NL Sounds; No Tenderness; No Distention Lymphatic: No Cervical Adenopathy Extremities: No Edema Skin: No Rash or Ulcers Neurological: Alert and Oriented x 3, NL Muscle Strength and Tone Nutrition: Taking PO's Result Diagrams: 08/16/17 08:37 08/17/17 04:59 Additional Lab and Data: . Assess/Plan/Problems-Billing Assessment: Ms. Muniz is a 56 yo female with a PMH of COPD and tachycardia who was admitted on 08/16/17 with a COPD excarbation. - Patient Problems (1) COPD exacerbation Comment: - Continued slow improvement - Considered PE, but ddimer negative. - Continue prednisone with duonebs. Have added codeine with guaifenisen as well as tessalon pearles for cough suppression. - Continue prn morphine SL. (2) Tachycardia Comment: - HR 80s. - Continue diltiazem. (3) Elevated troponin Comment: - Trop elevated only to 0.05, chronically elevated since 08/2016. - Workups negative in the past. (4) HTN (hypertension) Comment: - BP well controlled. - Continue diltiazem, lisinopril and hctz. (5) Dyslipidemia Comment: - Resume pravastatin at discharge (nonformulary). (6) DVT prophylaxis Comment: - SQ heparin (7) Full code status Status and Disposition: Inpatient. Discharge to home.
[2017-08-18] MEDS: Cholecalciferol TAB* 1000 UNITS PO SCH (09:27)
[2017-08-18] MEDS: Pregabalin CAP(*) 100 MG PO SCH (09:27)
[2017-08-18] MEDS: Diltiazem CD CAP* 180 MG PO SCH (09:28)
[2017-08-18] MEDS: Digoxin TAB* 0.125 MG PO SCH (09:28)
[2017-08-18] MEDS: Famotidine TAB* 20 MG PO SCH (09:28)
[2017-08-18] MEDS: Lisinopril TAB* 10 MG PO SCH (09:28)
[2017-08-18] MEDS: Folic Acid TAB* 1 MG PO SCH (09:28)
[2017-08-18 11:36] VITALS: BP 124/82
[2017-08-18] MEDS: Pregabalin CAP(*) 50 MG PO SCH (12:51)
--- NOTE | 2017-08-18 23:11 | DS ---
CC: Dr. Dent* DISCHARGE SUMMARY: DATE OF ADMISSION: 08/16/17 DATE OF DISCHARGE: 08/18/17 PRIMARY CARE PHYSICIAN: Dr. Dent. ATTENDING PHYSICIAN: Dr. Dent* (dictation provided by Ngozi Dominique NP) PRIMARY DIAGNOSIS: Acute on chronic bronchitis. SECONDARY DIAGNOSES: 1. History of chronic obstructive pulmonary disease. 2. Obstructive sleep apnea, unable to tolerate CPAP. 3. Severe allergies, managed by Dr. Olivarez with monthly injections. 4. History of transient ischemic attack. 5. Fibromyalgia. 6. Hyperlipidemia. 7. Mitral valve prolapse. 8. History of tachycardia. 9. History of right knee surgery. 10. Bilateral hernia repair. 11. Hysterectomy. 12. Oophorectomy. MEDICATIONS AT THE TIME OF DISCHARGE: 1. Levaquin 750 mg p.o. daily. 2. Morphine 4 mg p.o. q.4 hours p.r.n. pain. 3. Dymista 1 spray both nares daily. 4. Fluticasone and Vilanterol 200/25 one inhalation daily. 5. Imodium 20 mg p.o. b.i.d. 6. Diltiazem CD 180 mg p.o. daily. 7. Guaifenesin p.r.n. cough. 8. Diltiazem 180 p.o. daily. 9. Digoxin 0.125 mg p.o. daily. 10. Flexeril 10 mg p.o. t.i.d. p.r.n. 11. Cholecalciferol 1000 units p.o. daily. 12. Calcium carbonate with vitamin D 1 tab p.o. b.i.d. 13. Albuterol inhaler 2 puffs inhaled q.4 hours p.r.n. shortness of breath. 14. Albuterol nebulizer p.r.n. 15. Tylenol p.r.n. 16. Folic acid 400 mcg p.o. daily. 17. Lisinopril 10 mg p.o. daily. 18. Levocetirizine 5 mg p.o. daily. 19. Lorazepam 0.25 mg p.o. q.8 hours p.r.n. (new prescription provided). 20. Ibuprofen 600 mg p.o. q.6 hours p.r.n. 21. Hydrochlorothiazide 25 mg p.o. q.p.m. 22. Pregabalin 100 mg in the a.m., 50 mg at noon and 100 mg at bedtime. 23. Pravastatin 10 mg p.o. q.p.m. 24. Potassium chloride 10 mEq p.o. q.p.m. 25. Montelukast 10 mg p.o. q.p.m. 26. Diphenhydramine 25 mg p.o. q.4 hours p.r.n. HOSPITAL COURSE: Ms. Muniz is a 56-year-old female with past medical history of COPD who presented to the hospital on 08/16/17 with concern for shortness of breath. Please see the dictated H and P from myself for complete details. In brief, patient had chest x-ray, which showed no acute infiltrate. Vital signs showed she was mildly hypoxic requiring 2 L of oxygen. She was afebrile. Her labs showed only a mild elevation in her troponin to 0.05, which was consistent with her previous admissions since August 2016. Ms. Muniz was admitted to the hospital with concern for COPD exacerbation. She had severe cough with rib pain. She was treated with Solu-Medrol, duonebulizers, and levaquin with oxygen. She has had slow improvement, but today she is feeling better. She is up and ambulating in the hallway without oxygen and is not hypoxic or severely dyspneic on exertion. Ms. Muniz is medically stable for discharge to home. In the past, she has had prescriptions for Ativan and morphine. I think these are appropriate for her and she agrees that they help quite a bit with her anxiety related to shortness of breath and also with the pain related to her severe coughing spells. I plan to continue those medications now as well as Levaquin and a prednisone taper. Ms. Muniz is medically stable for discharge to home. DISPOSITION: Home. DIET: Low salt. ACTIVITY: As tolerated. FOLLOWUP PLAN: Please follow up with Dr. Dent in the next 1 to 2 weeks regarding this acute hospitalization. NGOZI DOMINIQUE NP [id number]/[facility] #: [id number] JERMAIN
== END 2017-08-18 12:46 | disposition home or self-care (01) | DRG 190 ==
LOC: ED 08:12 → MEDTELE 11:05
PROVIDERS: ADMIT Internal Medicine; ATTEND Internal Medicine
DX: J44.1 Chronic obstructive pulmonary disease with (acute) exacerbation (principal); J96.01 Acute respiratory failure with hypoxia; N17.9 Acute kidney failure, unspecified; J44.0 Chronic obstructive pulmonary disease with (acute) lower respiratory infection; J20.9 Acute bronchitis, unspecified; I10 Essential (primary) hypertension; G47.33 Obstructive sleep apnea (adult) (pediatric); M79.7 Fibromyalgia; E78.5 Hyperlipidemia, unspecified; I34.1 Nonrheumatic mitral (valve) prolapse; E86.0 Dehydration; Z91.09 Other allergy status, other than to drugs and biological substances; Z86.73 Personal history of transient ischemic attack (TIA), and cerebral infarction without residual deficits; Z79.1 Long term (current) use of non-steroidal anti-inflammatories (NSAID); Z79.899 Other long term (current) drug therapy; Z88.6 Allergy status to analgesic agent; Z91.030 Bee allergy status; Z88.5 Allergy status to narcotic agent; Z88.0 Allergy status to penicillin; Z88.8 Allergy status to other drugs, medicaments and biological substances; Z91.018 Allergy to other foods; Z82.5 Family history of asthma and other chronic lower respiratory diseases; Z82.49 Family history of ischemic heart disease and other diseases of the circulatory system; Z80.9 Family history of malignant neoplasm, unspecified; Z87.891 Personal history of nicotine dependence; E87.6 Hypokalemia; R00.0 Tachycardia, unspecified; R74.8 Abnormal levels of other serum enzymes
CPT/HCPCS: 36415; 36600; 71010; 80048; 80053; 81003; 81015; 82803; 83605; 83880; 84484; 85025; 85379; 86140; 87077; 87086; 87186; 93005; 94640; 94760; A9270-GY; J1644; J2920; J3475

== ENCOUNTER 2017-10-30 04:37 | Emergency (ER) | payer MEDICARE, MEDICAID ==
[2017-10-30] MEDS ORDERED: Metoclopramide IV* 5 MG/ML 2 ML VIAL ONE (04:52)
[2017-10-30] MEDS ORDERED: NS 0.9% 1000 ML* 1,000 ML IV ONE (04:52)
[2017-10-30] MEDS ORDERED: Metoclopramide IV* 5 MG/ML 2 ML VIAL IV ONE (04:55)
[2017-10-30 05:17] LABS: Hematocrit 39 % (35-47); Hemoglobin 12.9 g/dl (12.0-16.0); Mean Corpuscular HGB Conc 33 g/dl (31-36); Mean Corpuscular Hemoglobin 28 pg (27-31); Mean Corpuscular Volume 85 fL (80-97); Mean Platelet Volume 10 um3 (7.4-10.4); Red Blood Count 4.59 10^6/ul (4.0-5.4); Red Cell Distribution Width 15 % (10.5-15)
[2017-10-30 05:26] LABS: Albumin 4.2 g/dL (3.2-5.2); BUN/Creatinine Ratio 12.6 (8-20); EGFR Non-African American 60.6 (>60); Globulin 3.4 g/dL (2-4); Magnesium 1.8 mg/dL (1.9-2.7); Potassium 3.2 mmol/L (3.5-5.0); Total Bilirubin 0.5 mg/dL (0.2-1.0); Total Protein 7.6 g/dL (6.4-8.9)
[2017-10-30] MEDS ORDERED: LORazepam INJ* 2 MG/ML 1 ML VIAL IV PUSH ONE (05:27)
[2017-10-30] MEDS ORDERED: Ondansetron INJ* 2 MG/ML VIAL IV ONE (05:28)
[2017-10-30] MEDS ORDERED: Pantoprazole IV* 40 MG IV ONE (05:28)
[2017-10-30 05:29] LABS: Troponin I 0.05 ng/mL (<0.04)
[2017-10-30] MEDS ORDERED: Aspirin Low Dose CHEW TAB* 81 MG PO ONE (05:33)
[2017-10-30 05:44] LABS: TSH (Thyroid Stimulating Horm) 6.27 mcIU/mL (0.34-5.60)
[2017-10-30] MEDS ORDERED: Potassium Chlor TAB* 20 MEQ TAB.ER PO ONE (06:10)
--- NOTE | 2017-10-30 07:04 | ED ---
Toy Dozier Benjamin, scribed for Lenin Gonzalez MD on 10/30/17 at 0459 . Palpitations / Dysrhythmia - HPI Summary HPI Summary: 56yo female BIBA for waking up today around 0300 with racing HR, N/V, and diaphoresis. Pt also has a rash on her left abdomen. Pt states that rash is itchy. PMHx includes COPD, asthma, tachycardia, and mitral valves prolapse. - History of Current Complaint Chief Complaint: EDGeneral Time Seen by Provider: 10/30/17 04:39 Hx Obtained From: Patient Onset/Duration: Sudden Onset, Lasting Hours, Still Present Severity Initially: Mild Severity Currently: Mild Character: Fast Aggravating: Nothing Alleviating: Nothing Associated Signs & Symptoms: Diaphoresis, Nausea, Vomiting - Allergy/Home Medications Allergies/Adverse Reactions: Allergies Allergy/AdvReac Type Severity Reaction Status Date / Time Aspirin Allergy Severe See Comment Verified 10/24/17 11:40 Bacitracin [From Neosporin] Allergy Severe Rash And Verified 10/24/17 11:40 Itching Bee Venom Allergy Severe Anaphylatic Verified 10/24/17 11:40 Shock Penicillins [PCN] Allergy Severe Difficulty Verified 10/24/17 11:40 Breathing Tomato Allergy Severe Rash Verified 10/24/17 11:40 Cefaclor [From Ceclor] Allergy Intermediate Rash Verified 10/24/17 11:40 Cefazolin [From Ancef] Allergy Intermediate Rash Verified 10/24/17 11:40 Celecoxib [From Celebrex] Allergy Intermediate Hives Verified 10/24/17 11:40 Cocoa Extract Allergy Intermediate Hives Verified 10/24/17 11:40 Erythromycin Allergy Intermediate See Comment Verified 10/24/17 11:40 Metoprolol Allergy Intermediate Shortness Verified 10/24/17 11:40 of Breath Milnacipran [From Savella] Allergy Intermediate Nausea And Verified 10/24/17 11: 40 Vomiting Mushroom Extract Complex Allergy Intermediate See Comment Verified 10/24/17 11: 40 Polymyxin B [From Neosporin] Allergy Intermediate Rash And Verified 10/24/17 11: 40 Itching Tetracyclines & Related Allergy Mild Rash And Verified 10/24/17 11:40 Itching Neomycin [From Neosporin] Allergy Unknown Rash And Verified 10/24/17 11:40 Itching Lidocaine Allergy Anaphylatic Verified 10/24/17 11:40 Shock Cocoa Allergy Severe Hives Uncoded 10/24/17 11:40 Pepper Allergy Severe Rash And Uncoded 10/24/17 11:40 Itching Mushroom Allergy Intermediate See Comment Uncoded 10/24/17 11:40 Bees Allergy Unknown Anaphylatic Uncoded 10/24/17 11:40 Shock PMH/Surg Hx/FS Hx/Imm Hx Endocrine/Hematology History: Reports: Hx Diabetes - Gestational with prior , Hx Sickle Cell Disease - ASINOPHELIA- HIGH WHITE BLOOD COUNT, Other Endocrine/Hematological Disorders - Eosinophilia- HIGH WHITE BLOOD COUNT Cardiovascular History: Reports: Hx Aneurysm - thoracic, Hx Angina, Hx Coronary Artery Disease, Hx Hypercholesterolemia, Hx Hypertension, Hx Myocardial Infarction - 2009 no intervention to Pt's knowledge, Hx Valvular Heart Disease - mitral valve prolapse, Other Cardiovascular Problems/Disorders - AORTIC ANEURYSM, TACHYCARDIA, HEART MURMUR, MVP, CAD Denies: Hx Congestive Heart Failure Comment Only: Hx Pacemaker/ICD - HEART MONITOR 01/2016 Respiratory History: Reports: Hx Asthma, Hx Chronic Bronchitis, Hx Chronic Obstructive Pulmonary Disease (COPD), Hx Pneumonia, Hx Seasonal Allergies, Hx Sleep Apnea - pt states unable to tolerate CPAP, Other Respiratory Problems/ Disorders - PNA GI History: Reports: Hx Gastroesophageal Reflux Disease, Hx Hiatal Hernia History: Denies: Hx Renal Disease Musculoskeletal History: Reports: Hx Arthritis - OSTEO- KNEES, ANS RHEUMATOID- HANDS AND OTHER JOINTS, Hx Fibromyalgia Denies: Hx Osteoporosis Sensory History: Reports: Hx Contacts or Glasses, Hx Vision Problem, Hx Deafness - Left ear, Hx Hearing Aid - right ear, Hx Hearing Problem Denies: Other Sensory Impairments Opthamlomology History: Reports: Hx Contacts or Glasses, Hx Vision Problem Denies: Other Sensory Impairments Neurological History: Reports: Hx Nerve Disease - FIBROMYALGIA, Hx Transient Ischemic Attacks (TIA), Other Neuro Impairments/Disorders - fibromyalgia Psychiatric History: Reports: Hx Anxiety, Hx Depression, Hx Post Traumatic Stress Disorder, Hx Community Mental Health Tx Denies: Hx Attention Deficit Hyperactivity Disorder, Hx Eating Disorder, Hx Panic Disorder, Hx Inpatient Treatment, Hx Schizophrenia, Hx Bipolar Disorder, Hx Suicide Attempt, Hx of Violent Episodes Against Others, Hx Substance Abuse, Other Psychiatric Issues/Disorders - Surgical History Surgery Procedure, Year, and Place: hysterectomy 04/2006 right knee arthroscopy; hernia repair tubes in ears; total right knee replacement oct 26 2013 , deviated septum, cardiac cath, tonsilectomy; RT ARTHROSCOPIC Hx Anesthesia Reactions: No - Immunization History Date of Tetanus Vaccine: pt unsure Date of Influenza Vaccine: 08/03/2017 Infectious Disease History: No Infectious Disease History: Denies: Hx Clostridium Difficile, Hx Hepatitis, Hx Human Immunodeficiency Virus (HIV), Hx of Known/Suspected MRSA, Hx Shingles, Hx Tuberculosis, Hx Known/ Suspected VRE, Hx Known/Suspected VRSA, History Other Infectious Disease, Traveled Outside the [place] in Last 30 Days - Family History Known Family History: Positive: None - reviewed & noncontributory, Cardiac Disease - CAD, Hypertension, Diabetes - Social History Alcohol Use: Occasionally Alcohol Amount: occasionally Hx Substance Use: No Substance Use Type: Reports: None Hx Tobacco Use: Yes Smoking Status (MU): Former Smoker Type: Cigarettes Length of Time of Smoking/Using Tobacco: 4-5 yrs Have You Smoked in the Last Year: No Review of Systems Positive: Skin Diaphoresis Eyes: Negative ENT: Negative Positive: Palpitations. Negative: Chest Pain Respiratory: Negative Positive: Vomiting, Nausea. Negative: Abdominal Pain, Diarrhea Genitourinary: Negative Musculoskeletal: Negative Positive: Rash - Left abdomen Neurological: Negative Psychological: Normal All Other Systems Reviewed And Are Negative: Yes Physical Exam - Summary Physical Exam Summary: VITAL SIGNS: Reviewed. GENERAL: Patient is a well-developed and nourished FEMALE who is lying comfortable in the stretcher. Patient is not in any acute respiratory distress. HEAD AND FACE: No signs of trauma. No ecchymosis, hematomas or skull depressions. No sinus tenderness. EYES: PERRLA, EOMI x 2, No injected conjunctiva, no nystagmus. EARS: Hearing grossly intact. Ear canals and tympanic membranes are within normal limits. MOUTH: Oropharynx within normal limits. NECK: Supple, trachea is midline, no adenopathy, no JVD, no carotid bruit, no c- spine tenderness, neck with full ROM. CHEST: Symmetric, no tenderness at palpation LUNGS: Clear to auscultation bilaterally. No wheezing or crackles. CVS: Regular rate and rhythm, S1 and S2 present, no murmurs or gallops appreciated. ABDOMEN: Soft, non-tender. Distended abdomen.. No rebound no guarding, and no masses palpated. Bowel sounds are normal. EXTREMITIES: FROM in all major joints, no edema, no cyanosis or clubbing. NEURO: Alert and oriented x 3. No acute neurological deficits. Speech is normal and follows commands. SKIN: Dry and warm, Hives rash in left abdomen that is itchy. PSYCH: Anxious Triage Information Reviewed: Yes Vital Signs On Initial Exam: Initial Vitals Temp Pulse Resp BP Pulse Ox 96.2 F 88 14 122/84 99 10/30/17 04:39 10/30/17 04:39 10/30/17 04:39 10/30/17 04:39 10/30/17 04:39 Vital Signs Reviewed: Yes Diagnostics - Vital Signs Vital Signs Temp Pulse Resp BP Pulse Ox 10/30/17 04:39 96.2 F 88 14 122/84 99 - Laboratory Lab Results: Lab Results 10/30/17 10/30/17 10/30/17 Range/Units 04:43 04:43 04:43 WBC 6.0 (3.5-10.8) 10^3/ul RBC 4.59 (4.0-5.4) 10^6/ul Hgb 12.9 (12.0-16.0) g/dl Hct 39 (35-47) % MCV 85 (80-97) fL MCH 28 (27-31) pg MCHC 33 (31-36) g/dl RDW 15 (10.5-15) % Plt Count 256 (150-450) 10^3/ul MPV 10 (7.4-10.4) um3 Neut % (Auto) 54.0 (38-83) % Lymph % (Auto) 34.7 (25-47) % Mora % (Auto) 9.2 H (1-9) % Eos % (Auto) 0.8 (0-6) % Baso % (Auto) 1.3 (0-2) % Absolute Neuts (auto) 3.2 (1.5-7.7) 10^3/ul Absolute Lymphs (auto) 2.1 (1.0-4.8) 10^3/ul Absolute Monos (auto) 0.6 (0-0.8) 10^3/ul Absolute Eos (auto) 0 (0-0.6) 10^3/ul Absolute Basos (auto) 0.1 (0-0.2) 10^3/ul Absolute Nucleated RBC 0 10^3/ul Nucleated RBC % 0 APTT (26.0-36.3) seconds Sodium 137 (133-145) mmol/L Potassium 3.2 L (3.5-5.0) mmol/L Chloride 97 L (101-111) mmol/L Carbon Dioxide 29 (22-32) mmol/L Anion Gap 11 (2-11) mmol/L BUN 12 (6-24) mg/dL Creatinine 0.95 (0.51-0.95) mg/dL Est GFR ( Amer) 78.0 (>60) Est GFR (Non-Af Amer) 60.6 (>60) BUN/Creatinine Ratio 12.6 (8-20) Glucose 158 H (70-100) mg/dL Lactic Acid 1.3 (0.5-2.0) mmol/L Calcium 10.0 (8.6-10.3) mg/dL Magnesium 1.8 L (1.9-2.7) mg/dL Total Bilirubin 0.50 (0.2-1.0) mg/dL AST 43 H (13-39) U/L ALT 54 H (7-52) U/L Alkaline Phosphatase 57 (34-104) U/L Troponin I 0.05 H* (<0.04) ng/mL Total Protein 7.6 (6.4-8.9) g/dL Albumin 4.2 (3.2-5.2) g/dL Globulin 3.4 (2-4) g/dL Albumin/Globulin Ratio 1.2 (1-3) Amylase 37 (29-103) U/L Lipase 21 (11.0-82.0) U/L TSH 6.27 H (0.34-5.60) mcIU/mL 10/30/17 Range/Units 04:43 WBC (3.5-10.8) 10^3/ul RBC (4.0-5.4) 10^6/ul Hgb (12.0-16.0) g/dl Hct (35-47) % MCV (80-97) fL MCH (27-31) pg MCHC (31-36) g/dl RDW (10.5-15) % Plt Count (150-450) 10^3/ul MPV (7.4-10.4) um3 Neut % (Auto) (38-83) % Lymph % (Auto) (25-47) % Mora % (Auto) (1-9) % Eos % (Auto) (0-6) % Baso % (Auto) (0-2) % Absolute Neuts (auto) (1.5-7.7) 10^3/ul Absolute Lymphs (auto) (1.0-4.8) 10^3/ul Absolute Monos (auto) (0-0.8) 10^3/ul Absolute Eos (auto) (0-0.6) 10^3/ul Absolute Basos (auto) (0-0.2) 10^3/ul Absolute Nucleated RBC 10^3/ul Nucleated RBC % APTT 29.7 (26.0-36.3) seconds Sodium (133-145) mmol/L Potassium (3.5-5.0) mmol/L Chloride (101-111) mmol/L Carbon Dioxide (22-32) mmol/L Anion Gap (2-11) mmol/L BUN (6-24) mg/dL Creatinine (0.51-0.95) mg/dL Est GFR ( Amer) (>60) Est GFR (Non-Af Amer) (>60) BUN/Creatinine Ratio (8-20) Glucose (70-100) mg/dL Lactic Acid (0.5-2.0) mmol/L Calcium (8.6-10.3) mg/dL Magnesium (1.9-2.7) mg/dL Total Bilirubin (0.2-1.0) mg/dL AST (13-39) U/L ALT (7-52) U/L Alkaline Phosphatase (34-104) U/L Troponin I (<0.04) ng/mL Total Protein (6.4-8.9) g/dL Albumin (3.2-5.2) g/dL Globulin (2-4) g/dL Albumin/Globulin Ratio (1-3) Amylase (29-103) U/L Lipase (11.0-82.0) U/L TSH (0.34-5.60) mcIU/mL Result Diagrams: 10/30/17 04:43 10/30/17 04:43 Lab Statement: Any lab studies that have been ordered have been reviewed, and results considered in the medical decision making process. - EKG 0437. Cardiac Rate: NL EKG Rhythm: Sinus Rhythm - 89bpm ST Segment: Non-Specific EKG Interpretation: Incomplete RBBB Course/Dx - Course Course Of Treatment: Pt will be signed out to Dr. Lara at the end of the shift. Pending repeat troponin at 0840, and disposition. - Diagnoses Provider Diagnoses: Vomiting, Palpitation Discharge - Discharge Plan Condition: Stable Disposition: OTHER Discharge Disposition Comment: Signed out to Dr Lara Referrals: Wilmer Dent MD [Primary Care Provider] - Additional Instructions: RETURN TO EMERGENCY DEPARTMENT FOR ANY NEW OR WORSENING SYMPTOMS The documentation as recorded by the Toy urbina Benjamin accurately reflects the service I personally performed and the decisions made by Carlos stephenson Abdul, MD.
[2017-10-30 09:32] VITALS: BP 144/75
--- NOTE | 2017-10-31 08:16 | ED ---
Ankit Dozier Angela, scribed for Alfred Lara MD on 10/30/17 at 0728 . Progress - Progress Note Progress Note: This pt was signed out by Dr. Gonzalez, pending disposition, awaiting second troponin. This pt is a 56 y/o female BIBA to [facility] for waking up today around 0300 with racing HR, N/V, and diaphoresis. Physical Exam: VITAL SIGNS: Reviewed. GENERAL: Patient is a well-developed and nourished female who is lying comfortable in the stretcher. Patient is not in any acute respiratory distress. HEAD AND FACE: No signs of trauma. No ecchymosis, hematomas or skull depressions. No sinus tenderness. EYES: PERRLA, EOMI x 2, No injected conjunctiva, no nystagmus. EARS: Hearing grossly intact. Ear canals and tympanic membranes are within normal limits. MOUTH: Oropharynx within normal limits. NECK: Supple, trachea is midline, no adenopathy, no JVD, no carotid bruit, no c- spine tenderness, neck with full ROM. CHEST: Symmetric, no tenderness at palpation LUNGS: Clear to auscultation bilaterally. No wheezing or crackles. CVS: Regular rate and rhythm, S1 and S2 present, no murmurs or gallops appreciated. ABDOMEN: Soft, non-tender. No signs of distention. No rebound no guarding, and no masses palpated. Bowel sounds are normal. EXTREMITIES: FROM in all major joints, no edema, no cyanosis or clubbing. NEURO: Alert and oriented x 3. No acute neurological deficits. Speech is normal and follows commands. SKIN: Dry and warm The pt will be discharged home, in stable condition, with a diagnosis of chest pain. Re-Evaluation - Re-Evaluation First Eval Re-Evaluation Time: 07:23 Comment: Pt notes she is feeling better and her chest pain has resolved. Course/Dx - Course Course Of Treatment: This pt was signed out by Dr. Gonzalez to follow up on a second troponin. If second troponin is 0.05 or lower, she can be discharged home with follow up from her PCP. The second troponin is 0.04 and the pt is asymptomatic. Pt has no chest pain or any other complaints. Therefore, she can be discharged home with follow up from her PCP. Pt is hemodynamically stable, alert and oriented x3. The pt will be discharged home, in stable condition, with a diagnosis of chest pain. - Diagnoses Provider Diagnoses: Chest pain The documentation as recorded by the Ankit urbina Angela accurately reflects the service I personally performed and the decisions made by , Alfred Lara MD.
== END 2017-10-30 10:00 | disposition home or self-care (01) ==
LOC: ED 04:37
DX: R07.9 Chest pain, unspecified (principal); R11.10 Vomiting, unspecified; R00.2 Palpitations; J44.9 Chronic obstructive pulmonary disease, unspecified; I34.1 Nonrheumatic mitral (valve) prolapse; Z88.0 Allergy status to penicillin; K21.9 Gastro-esophageal reflux disease without esophagitis; M79.7 Fibromyalgia; F32.9 Major depressive disorder, single episode, unspecified; F41.9 Anxiety disorder, unspecified; Z87.891 Personal history of nicotine dependence
CPT/HCPCS: 36415; 80053; 82150; 83605; 83690; 83735; 84443; 84484; 85025; 85730; 93005; 99284; A9270-GY; J2060; J2405; J2765

== ENCOUNTER 2018-07-19 19:14 | Emergency (ER) | payer MEDICAID, MEDICARE, OTHER ==
[2018-07-19] MEDS ORDERED: oxyCODONE/Acetamin 5/325 MG* TAB PO ONE (19:33)
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
--- OUTSIDE RECORDS SUMMARY | 2018-07-19 20:02 | XMS REPORT ---
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 Torrey Dent MD Primary Care Physician Unavailable Payers Type Date Identification Numbers Payment Provider Subscriber Medicare Primary Policy Number: [id number] Medicare [place] Muniz PayID: [id number] [address] [place] [address] Medigap Part B Policy Number: [id number] Medicaid [place] Gisele Muniz PayID: [id number] [address] [place] [address] Problems Date Description Provider Status Onset: 12/28/2016 Impaired fasting glycaemia Torrey Dent MD Active Onset: 12/19/2016 Allergic rhinitis Claudia Jain MD Active Onset: 11/15/2016 H/O: myocardial infarct at less Active than 60 Onset: 11/06/2016 Mixed hyperlipidemia Cory Basurto MD Active Onset: 11/06/2016 Chronic obstructive lung disease Cory Basurto MD Active Onset: 05/24/2016 Paroxysmal tachycardia Torrey Dent MD Active Onset: 10/19/2015 Moderate persistent asthma Active Onset: 06/30/2014 Obstructive sleep apnea syndrome Torrey Rodrigues MD Active Onset: 09/18/2013 Pure hypercholesterolemia Torrey Dent MD Active Onset: 03/03/2013 Chondrocalcinosis due to Torrey Dent MD Active pyrophosphate crystals Onset: 01/21/2013 Benign essential hypertension Geraldine Ramirez MD Active Onset: 12/12/2012 Vitamin D deficiency Torrey Dent MD Active Onset: 09/02/2012 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 Fenstermacher, Active asthma RPA-C Onset: 09/18/2017 Chronic rhinitis Maral S. Fenstermacher, Active RPA-C Onset: 10/09/2017 Uncomplicated severe persistent Maral S. 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 Olviarez MD Active immunoglob or w hyperimmunoglob Family History Date Family Member(s) Problem(s) Comments Mother Allergies Mother Asthma First Brother Allergies First Brother Asthma Social History Type Date Description Comments Smoke-Free Home is smoke-free Pets None Smoking Patient is a former smoker Quit in 2011 Allergies, Adverse Reactions, Alerts Date Description Reaction Status Severity Comments 05/24/2016 Neosporin active 06/30/2014 Celebrex active 06/30/2014 Erythromycin active 06/30/2014 Metoprolol worsening asthma active 02/13/2013 Lidocaine active 02/13/2013 Carbocaine active 06/02/2012 Ancef hives, itching active Moderate 05/23/2012 Novocain Anaphylaxis active 03/14/2012 Bee Sting Anaphylaxis active 11/05/2011 Penicillin active 09/12/2011 Savella active 07/24/2010 Ceclor active 07/24/2010 Tetracycline active 07/24/2010 Aspirin bleeding active Medications Medication Date Status Form Strength Qnty SIG Indications Ordering Provider Levocetirizine 06/04 Active Tablets 5mg 30tab take 1 Dihydrochloride s tablet (5 Yvonne [facility]arez MD mg) by oral route once daily as needed Fasenra 04/11 Active Soln 30mg/ml Prefill Yvonne [facility] MD Syringe Atrovent 04/11 Active Solution 0.03% 30ml 2 puffs J30.1 each Yvonne [facility]arez MD nostril three times a day Hydrocortisone 12/17 Active Cream 1% 1unit apply to s affected Yvonne Olivarez MD area on face bid as needed Gamunex-C 11/25 Active Solution 30GM/ 30grams 300ML Iv Yvonne [facility]arez MD monthly Proair HFA 02/22 Active Aerosol 108(90Bas 8.500 2 puffs D83.8 e) gm every 4 Yvonne [facility]arez MD mcg/Act as needed Vitamin D 12/28 Active Tablets 1000Unit 90tab 1 by Torrey Dent (Cholecalciferol s mouth Trevon Nova MD ) every day K-Tab 12/19 Active Tablets ER 10Meq 90tab 1 Tab po Torrey Dent /2016 s daily Trevon Nova MD Guaifenesin 09/06 Active Solution 100mg/5ML 10ml po q 4 hrs prn cough Benadryl 09/06 Active Capsules 25mg 30cap take 1 s tab up to every 4 hours as needed for ithching Singulair 08/23 Active Tablets 10mg 90tab Take 1 Cristobal, s Tablet By MD Claudia Mouth Every Day Epipen 2-Yazan 05/03 Active Solution 0.3mg/0.3 4unit as needed Auto-Injec ML s Yvonne [facility] MD t Folic Acid 10/01 Active Tablets 400mcg 1n by 714.0 mouth every day Pravastatin 09/22 Active Tablets 10mg 90tab Take 1 Unknown Sodium s Tablet By Mouth One Time Daily Hydrochlorothiaz 09/04 Active Tablets 25mg 90tab 1 by diamond Ramirez s mouth Qujeffrey S, every day Albuterol 12/01 Active Nebulizer (2.5mg/3M 300un inhale Unknown Sulfate L) 0.083% its the contents of one vial via nebulizer every 4 to 6 hours as needed Flexeril 10/13 Active Tablets 10mg 60tab take 1 s tablet by Trevon Nova MD mouth three times daily as needed Pepcid Active Tablets 20mg 30tab 1 tab by s mouth Yvonne [facility] MD twice a day Lyrica Active Capsules 50mg 150ca 2 in in ps the Trevon Nova MD morning, 1 at noon, and 2 in pm. Lisinopril Active Tablets 10mg 90tab 1 by Maghaydernestina s mouth qd Geraldine Garcia MD Flonase Allergy Active Suspension 50mcg/Act spray 2 Unknown Relief spray in each nostril twice daily Lorazepam Active Tablets 0.5mg take half tab every 8 hours as needed Morphine Sulfate Active Solution 2mg/ml 4mg oral Unknown (PF) Q6H as needed Breo Ellipta Active Aerosol 200-25mcg 28uni one Cristobal, / /Inh ts inhalatio MD Claudia n daily Robitussin Active Liquid 15mg/5ML 236un 10ml PO q Unknown Ling its 4 hrs prn Coldlong-Acting cough Cough Calcium 600+D Active Tablets 600-400mg 1 by -Unit mouth twice a day Propranolol HCL Active Tablets 10mg Take 1 0000 Tablet By Mouth Four Times Daily Spironolactone Active Tablets 25mg Take 1 Unknown 0000 Tablet By Mouth Every Day Auvi-Q 04/11 Hx Solution 0.3mg/0.3 4unit use as Auto-Injec ML s directed Yvonne [facility] MD - t 04/11 Prednisone 04/11 Hx Tablets 10mg 30tab take 3 s tablets Yvonne [facility] MD - by mouth 05/12 twice a day for 5 days. take with food. Octagam 12/11 Hx 30gm infused Q Yvonne Olivarez MD - month for 03 Eucrisa 12/11 Hx Ointment 2% 60gm apply to affected Yvonne Olivarez MD - areas on 12/17 twice a day as needed Prednisone 09/18 Hx Tablets 5mg 100ta Follow J45.51 bs taper as Yvonne Olivarez MD - directed 10/09 Prednisone 05/21 Hx Tablets 5mg 36tab 6 tablets s (30 mg) Yvonne Olivarez MD - by mouth 08/25 x 3 days Prednisone 04/26 Hx Tablets 10mg 30tab take 3 s tablets Yvonne [facility]arez MD - by mouth 05/21 twice day for 5 days. take with food. Levaquin 02/22 Hx Tablets 500mg 14tab one D83.8 s tablet by Yvonne Olivarez MD - mouth 04/05 x 14 days Prednisone 02/22 Hx Tablets 5mg 60tab 6 tablets D83.8 s (30 mg) Yvonne Olivarez MD - by mouth 04/05 twice day x 5 days Digox 02/01 Hx Tablets 125mcg 30tab 1 by [facility] s mouth Qutaybeh S, - every day 03/25 Proair HFA 12/01 Hx Aerosol 108(90Bas 8.5un inhale 2 Hector, /2013 e) its puffs by Trevon Nova MD - mcg/Act mouth 08/25 hours as needed Xyzal Hx Tablets 5mg 30tab take 1 s tablet by Yvonne Olivarez MD - mouth 06/04 Diltiazem CD Hx Caps ER 180mg 1 by 24HR mouth - every day 03/25 Flagyl Hx Tablets 500mg Three Unknown / times - daily 08/25 Clindamycin HCL Hx Capsules 300mg 1 tab Unknown / three - times 08/25 Prednisone Hx Tablets tapering Unknown 0000 dose ends - tomorrow 08/29 Medications Administered in Office Medication Date Status Form Strength Qnty SIG Indications Ordering Provider Injection 07/09 Administered Injection Christopher Gamunex IV Yvonne [facility]arez MD Nonlyophilized 500 MG Injection 07/09 Administered Injection Infusion Gamunex IV Nonlyophilized 500 MG IV Infusion For 07/09 Administered Injection Christopher Therapy,Prophyl Yvonne Olivarez MD axis Or Diagnosis Additional Hour IV Infusion For 07/09 Administered Injection Infusion Therapy, axis Or Diagnosis Additional Hour IV Infusion For 07/09 Administered Injection Christopher Therapy, Yvonne Olivarez MD axis Or Diagnosis Init Up To 1 HR IV Infusion For 07/09 Administered Injection Infusion Therapy,Prophyl axis Or Diagnosis Init Up To 1 HR Injection 06/11 Administered Injection Christopher Gamunex IV Yvonne Olivarez MD Nonlyophilized 500 MG Injection 06/11 Administered Injection Infusion Gamunex IV Nonlyophilized 500 MG IV Infusion For 06/11 Administered Injection Christopher Therapy, Yvonne Olivarez MD axis Or Diagnosis Additional Hour IV Infusion For 06/11 Administered Injection Infusion Therapy, axis Or Diagnosis Additional Hour IV Infusion For 06/11 Administered Injection Christopher Therapy, Yvonne Olivarez MD axis Or Diagnosis Init Up To 1 HR IV Infusion For 06/11 Administered Injection Infusion Therapy, axis Or Diagnosis Init Up To 1 HR Unclassified 06/04 Administered Injection Christopher Drugs /2017 Yvonne Olivarez MD Therapeutic, 06/04 Administered Injection Christopher Prophylactic Or /2017 Yvonne Olivarez MD Diagnostic Injection Subq/Im Fasenra 30 MG 04/04 Administered Injection Injection 1 Single Dose Unclassified 04/04 Administered Injection Christopher Drugs Yvonne Olivarez MD Chemotherpy 04/04 Administered Injection Christopher Admin /2017 Yvonne Olivarez MD Subcutaneous/Im Non-Hormonal Anti-Neoplastic Chemotherpy 04/04 Administered Injection Injection 1 Admin Subcutaneous/Im Non-Hormonal Anti-Neoplastic Injection 04/02 Administered Injection Christopher Gamunex IV Yvonne [facility]arez MD Nonlyophilized 500 MG Injection 04/02 Administered Injection Infusion Gamunex IV Nonlyophilized 500 MG IV Infusion For 04/02 Administered Injection Christopher Therapy, Yvonne Olivarez MD axis Or Diagnosis Additional Hour IV Infusion For 04/02 Administered Injection Infusion Therapy, axis Or Diagnosis Additional Hour IV Infusion For 04/02 Administered Injection Christopher Therapy, Yvonne Olivarez MD axis Or Diagnosis Init Up To 1 HR IV Infusion For 04/02 Administered Injection Infusion Therapy, axis Or Diagnosis Init Up To 1 HR Injection 03/05 Administered Injection Christopher Gamunex IV /2017 Yvonne Olivarez MD Nonlyophilized 500 MG Injection 03/05 Administered Injection Infusion Gamunex IV /2017 Nonlyophilized 500 MG Chemotherpy 03/05 Administered Injection Christopher Admin /2017 Yvonne Olivarez MD Subcutaneous/Im Non-Hormonal Anti-Neoplastic IV Infusion For 03/05 Administered Injection Christopher Therapy,Prophyl Yvonne Olivarez MD axis Or Diagnosis Additional Hour IV Infusion For 03/05 Administered Injection Infusion Therapy, axis Or Diagnosis Additional Hour IV Infusion For 03/05 Administered Injection Christopher Therapy,Prophyl Yvonne Olivarez MD axis Or Diagnosis Init Up To 1 HR IV Infusion For 03/05 Administered Injection Infusion Therapy, axis Or Diagnosis Init Up To 1 HR Fasenra 30 MG 02/05 Administered Injection Injection 1 Single Dose /2017 Chemotherpy 02/05 Administered Injection Christopher Admin /2017 Yvonne Olivarez MD Subcutaneous/Im Non-Hormonal Anti-Neoplastic Chemotherpy 02/05 Administered Injection Injection 1 Subcutaneous/Im Non-Hormonal Anti-Neoplastic Injection 01/29 Administered Injection Christopher Gamunex IV Yvonne Olivarez MD Nonlyophilized 500 MG Injection 01/29 Administered Injection Infusion Gamunex IV /2017 Nonlyophilized 500 MG IV Infusion For 01/29 Administered Injection Christopher Therapy, Yvonne Olivarez MD axis Or Diagnosis Additional Hour IV Infusion For 01/29 Administered Injection Infusion Therapy, axis Or Diagnosis Additional Hour IV Infusion For 01/29 Administered Injection Christopher Therapy,Prophyl Yvonne Olivarez MD axis Or Diagnosis Init Up To 1 HR IV Infusion For 01/29 Administered Injection Infusion Therapy, axis Or Diagnosis Init Up To 1 HR Immunizations CPT Code Status Date Vaccine Lot # 32516 Given 02/22/2017 Pneumococcal Vaccine 2Yrs Or Older 9944-6710-00 [id number] Given 08/01/2016 Influenza Virus Vaccine Split Virus 3 Years Of Age And Older 68388 Given 10/19/2015 Fluarix Quadrivalent, Preservative Free 0.5mL 39140 Given 10/07/2014 Pneumococcal Vaccine 2Yrs Or Older [id number] 02970 Given 10/07/2014 Influenza Virus Split 3 Yrs And Above For Intramuscular Use 50718 Given 10/01/2014 Pneumococcal Conjugate Vaccine 13 Valent For Intramuscular Use 69753 Given 10/01/2014 Influenza Virus Vaccine Split Virus 3Yr Older 86234-571-03 90686 Given 09/18/2013 Influenza Virus Vaccine Split Virus 3Yr Older [id number] Q2038 Given 09/02/2012 Influenza Vaccine (Fluzone) Administered Age 3 And Older 77927 Given 03/28/2012 Tetanus, Diphtheria Toxoids/Acellular Pertussis Vaccine 7 Or > Q2038 Given 09/12/2011 Influenza Vaccine (Fluzone) Administered Age 3 And Older 05534 Given 10/04/2010 Pneumococcal Vaccine 2Yrs Or Older [id number] 43331 Given 10/04/2010 Influenza Virus Split 3 Yrs And Above For Intramuscular Use Vital Signs Date Vital Result Comment 07/09/2018 BP Systolic 118 mmHg BP Diastolic 76 mmHg Height 67 inches 5'7" Weight 177.38 lb BMI (Body Mass Index) 27.8 kg/m2 Heart Rate 96 /min Respiratory Rate 16 /min Body Temperature 96.7 F O2 % BldC Oximetry 98 % 06/11/2018 BP Systolic 108 mmHg BP Diastolic 74 mmHg Height 67 inches 5'7" Weight 181.00 lb BMI (Body Mass Index) 28.3 kg/m2 Heart Rate 98 /min Respiratory Rate 16 /min Body Temperature 98.5 F O2 % BldC Oximetry 96 % 05/14/2018 BP Systolic 112 mmHg BP Diastolic 78 mmHg Height 67 inches 5'7" Weight 180.00 lb BMI (Body Mass Index) 28.2 kg/m2 Heart Rate 92 /min Respiratory Rate 16 /min Body Temperature 97.8 F O2 % BldC Oximetry 99 % 04/11/2018 BP Systolic 110 mmHg BP Diastolic 70 mmHg Height 67 inches 5'7" Weight 180.00 lb BMI (Body Mass Index) 28.2 kg/m2 Heart Rate 102 /min Respiratory Rate 16 /min Body Temperature 97.2 F O2 % BldC Oximetry 97 % 04/02/2018 BP Systolic 134 mmHg BP Diastolic 86 mmHg Height 67 inches 5'7" Weight 179.00 lb BMI (Body Mass Index) 28.0 kg/m2 Heart Rate 83 /min Respiratory Rate 16 /min Body Temperature 97.2 F Temporal O2 % BldC Oximetry 98 % 03/05/2018 BP Systolic 113 mmHg BP Diastolic 80 mmHg Height 67 inches 5'7" Weight 176.00 lb BMI (Body Mass Index) 27.6 kg/m2 Heart Rate 84 /min Respiratory Rate 16 /min Body Temperature 98.3 F O2 % BldC Oximetry 95 % 01/29/2018 BP Systolic 110 mmHg BP Diastolic 60 mmHg Height 67 inches 5'7" Weight 176.00 lb BMI (Body Mass Index) 27.6 kg/m2 Heart Rate 78 /min Respiratory Rate 18 /min Body Temperature 98.0 F Oral O2 % BldC Oximetry 99 % Ra 12/11/2017 BP Systolic 110 mmHg BP Diastolic 70 mmHg Height 67 inches 5'7" 0'5ft 7inches Weight 181.00 lb BMI (Body Mass Index) 28.3 kg/m2 Heart Rate 100 /min Respiratory Rate 20 /min Body Temperature 95.6 F O2 % BldC Oximetry 98 % 10/09/2017 BP Systolic 132 mmHg BP Diastolic 70 mmHg Height 67 inches 5'7" Weight 185.00 lb BMI (Body Mass Index) 29.0 kg/m2 Heart Rate 107 /min Respiratory Rate 16 /min Body Temperature 96.9 F O2 % BldC Oximetry 96 % 09/18/2017 Height 67 inches 5'7" Weight 185.00 lb BMI (Body Mass Index) 29.0 kg/m2 Heart Rate 110 /min Respiratory Rate 18 /min Body Temperature 97.5 F O2 % BldC Oximetry 95 % 08/28/2017 Height 67 inches 5'7" Weight 185.00 lb BMI (Body Mass Index) 29.0 kg/m2 Heart Rate 97 /min Respiratory Rate 18 /min O2 % BldC Oximetry 99 % 04/05/2017 BP Systolic 128 mmHg BP Diastolic 78 mmHg Height 67 inches 5'7" Weight 193.00 lb BMI (Body Mass Index) 30.2 kg/m2 Heart Rate 111 /min Respiratory Rate 16 /min Body Temperature 96.9 F O2 % BldC Oximetry 99 % 02/22/2017 BP Systolic 122 mmHg BP Diastolic 82 mmHg Height 66 inches Weight 196.00 lb BMI (Body Mass Index) 31.6 kg/m2 Heart Rate 109 /min Respiratory Rate 16 /min Body Temperature 97.6 F O2 % BldC Oximetry 98 % 02/01/2017 Height 66 inches Weight 202.75 lb BMI (Body Mass Index) 32.7 kg/m2 Heart Rate 116 /min 01/30/2017 Weight 202.38 lb Heart Rate 102 /min Body Temperature 97.0 F O2 % BldC Oximetry 98 % 12/28/2016 Weight 204.00 lb Heart Rate 108 /min Body Temperature 98.4 F O2 % BldC Oximetry 97 % 12/19/2016 Height 66 inches Weight 199.25 lb BMI (Body Mass Index) 32.2 kg/m2 Heart Rate 122 /min Respiratory Rate 20 /min O2 % BldC Oximetry 97 % 12/12/2016 Weight 199.25 lb Heart Rate 98 /min Body Temperature 97.6 F O2 % BldC Oximetry 98 % 12/10/2016 BP Systolic 142 mmHg BP Diastolic 89 mmHg Height 66 inches Weight 203.00 lb BMI (Body Mass Index) 32.8 kg/m2 Heart Rate 117 /min 11/15/2016 Height 66 inches Weight 203.12 lb BMI (Body Mass Index) 32.8 kg/m2 Heart Rate 119 /min O2 % BldC Oximetry 98 % 11/06/2016 Weight 193.38 lb Heart Rate 112 /min Body Temperature 98.3 F O2 % BldC Oximetry 98 % 10/16/2016 Height 67 inches Weight 195.00 lb BMI (Body Mass Index) 30.5 kg/m2 Heart Rate 104 /min Body Temperature 98.6 F O2 % BldC Oximetry 98 % 10/08/2016 Height 67 inches Weight 192.50 lb BMI (Body Mass Index) 30.1 kg/m2 Heart Rate 124 /min Body Temperature 98.1 F O2 % BldC Oximetry 97 % 09/12/2016 Height 67 inches Weight 196.25 lb BMI (Body Mass Index) 30.7 kg/m2 Heart Rate 98 /min Body Temperature 97.4 F O2 % BldC Oximetry 98 % 07/23/2016 Height 67 inches Weight 193.00 lb BMI (Body Mass Index) 30.2 kg/m2 Heart Rate 108 /min 05/24/2016 Height 67 inches Weight 192.00 lb BMI (Body Mass Index) 30.1 kg/m2 Heart Rate 94 /min Body Temperature 98.6 F O2 % BldC Oximetry 95 % 03/26/2016 Weight 194.00 lb Heart Rate 108 /min Body Temperature 97.5 F O2 % BldC Oximetry 98 % 10/31/2015 BP Systolic 108 mmHg BP Diastolic 72 mmHg Height 67 inches Heart Rate 103 /min Respiratory Rate 16 /min O2 % BldC Oximetry 98 % 10/25/2015 Height 67 inches Weight 190.00 lb BMI (Body Mass Index) 29.8 kg/m2 Heart Rate 118 /min 10/19/2015 Height 67 inches Weight 188.00 lb BMI (Body Mass Index) 29.4 kg/m2 Heart Rate 112 /min Body Temperature 97.6 F O2 % BldC Oximetry 98 % 10/14/2015 BP Systolic 118 mmHg BP Diastolic 76 mmHg Height 67 inches Weight 195.00 lb BMI (Body Mass Index) 30.5 kg/m2 Heart Rate 110 /min Respiratory Rate 16 /min Body Temperature 97.3 F O2 % BldC Oximetry 99 % 07/19/2015 Height 67 inches Weight 195.00 lb BMI (Body Mass Index) 30.5 kg/m2 Heart Rate 124 /min Body Temperature 97.4 F O2 % BldC Oximetry 97 % 06/20/2015 BP Systolic 118 mmHg Height 67 inches Weight 185.00 lb BMI (Body Mass Index) 29.0 kg/m2 Heart Rate 95 /min Respiratory Rate 14 /min O2 % BldC Oximetry 96 % 06/07/2015 Height 67 inches Weight 185.00 lb BMI (Body Mass Index) 29.0 kg/m2 04/20/2015 Height 67 inches Weight 185.00 lb BMI (Body Mass Index) 29.0 kg/m2 Heart Rate 104 /min Respiratory Rate 18 /min O2 % BldC Oximetry 96 % 04/19/2015 Height 67 inches Weight 185.00 lb BMI (Body Mass Index) 29.0 kg/m2 04/08/2015 Weight 186.00 lb Heart Rate 125 /min Body Temperature 97.6 F O2 % BldC Oximetry 98 % 03/29/2015 Height 67 inches Weight 191.00 lb BMI (Body Mass Index) 29.9 kg/m2 Heart Rate 86 /min 02/22/2015 Weight 191.00 lb Heart Rate 120 /min Body Temperature 97.5 F O2 % BldC Oximetry 98 % 02/01/2015 BP Systolic 118 mmHg BP Diastolic 78 mmHg Height 67 inches Weight 184.00 lb BMI (Body Mass Index) 28.8 kg/m2 Heart Rate 112 /min 12/29/2014 BP Systolic 112 mmHg BP Diastolic 94 mmHg Height 67 inches Weight 189.00 lb BMI (Body Mass Index) 29.6 kg/m2 Heart Rate 126 /min 12/21/2014 Heart Rate 108 /min Respiratory Rate 22 /min Body Temperature 98.9 F O2 % BldC Oximetry 96 % 12/14/2014 Weight 189.50 lb Heart Rate 116 /min O2 % BldC Oximetry 98 % 10/12/2014 Height 66.5 inches Weight 187.00 lb BMI (Body Mass Index) 29.7 kg/m2 Heart Rate 100 /min Respiratory Rate 14 /min Body Temperature 99.2 F O2 % BldC Oximetry 98 % 10/07/2014 Height 66.5 inches Weight 187.00 lb BMI (Body Mass Index) 29.7 kg/m2 Heart Rate 104 /min Body Temperature 98.1 F 10/01/2014 Weight 185.00 lb Heart Rate 108 /min Body Temperature 98.6 F O2 % BldC Oximetry 96 % 08/30/2014 Height 67 inches Weight 175.00 lb BMI (Body Mass Index) 27.4 kg/m2 Heart Rate 106 /min Respiratory Rate 20 /min Body Temperature 100.0 F O2 % BldC Oximetry 98 % 07/27/2014 Weight 175.00 lb Heart Rate 115 /min Body Temperature 98.3 F O2 % BldC Oximetry 97 % 06/30/2014 Height 66.5 inches Weight 176.00 lb BMI (Body Mass Index) 28.0 kg/m2 Heart Rate 98 /min Respiratory Rate 16 /min Body Temperature 97.9 F O2 % BldC Oximetry 98 % 06/22/2014 Height 66.5 inches Weight 176.00 lb BMI (Body Mass Index) 28.0 kg/m2 Heart Rate 112 /min Body Temperature 98.0 F 05/27/2014 Height 66.5 inches Weight 170.25 lb BMI (Body Mass Index) 27.1 kg/m2 Heart Rate 92 /min Respiratory Rate 18 /min 04/23/2014 Height 66.5 inches Weight 173.25 lb BMI (Body Mass Index) 27.5 kg/m2 Heart Rate 128 /min Respiratory Rate 16 /min 10/16/2013 Height 66.5 inches Weight 165.75 lb BMI (Body Mass Index) 26.3 kg/m2 Heart Rate 80 /min 10/16/2013 Height 66.5 inches Weight 163.00 lb BMI (Body Mass Index) 25.9 kg/m2 Heart Rate 96 /min Respiratory Rate 16 /min 09/21/2013 Heart Rate 110 /min Respiratory Rate 16 /min 09/18/2013 Weight 171.00 lb Heart Rate 100 /min 09/04/2013 Height 66.25 inches Weight 168.00 lb BMI (Body Mass Index) 26.9 kg/m2 Heart Rate 124 /min Respiratory Rate 20 /min 08/07/2013 Height 66.25 inches Weight 165.00 lb BMI (Body Mass Index) 26.4 kg/m2 Heart Rate 112 /min Body Temperature 97.5 F O2 % BldC Oximetry 99 % 04/17/2013 BP Systolic 122 mmHg BP Diastolic 70 mmHg Heart Rate 89 /min Respiratory Rate 16 /min 03/30/2013 BP Systolic 132 mmHg BP Diastolic 70 mmHg Height 66 inches Weight 164.00 lb BMI (Body Mass Index) 26.5 kg/m2 Heart Rate 114 /min 03/19/2013 Height 66 inches Weight 162.00 lb BMI (Body Mass Index) 26.1 kg/m2 Heart Rate 100 /min Respiratory Rate 16 /min 03/11/2013 Heart Rate 112 /min Respiratory Rate 16 /min 02/13/2013 Height 66 inches Weight 164.25 lb BMI (Body Mass Index) 26.5 kg/m2 Heart Rate 88 /min 02/09/2013 BP Systolic 126 mmHg BP Diastolic 78 mmHg Height 66 inches Weight 163.00 lb BMI (Body Mass Index) 26.3 kg/m2 Heart Rate 96 /min 02/05/2013 BP Systolic 126 mmHg BP Diastolic 82 mmHg Height 66 inches Heart Rate 84 /min 01/21/2013 Height 66 inches Weight 159.00 lb BMI (Body Mass Index) 25.7 kg/m2 Heart Rate 120 /min Respiratory Rate 20 /min 01/06/2013 Height 66 inches Weight 155.50 lb BMI (Body Mass Index) 25.1 kg/m2 Heart Rate 116 /min Body Temperature 101.3 F O2 % BldC Oximetry 98 % 12/12/2012 Height 66 inches Weight 157.00 lb BMI (Body Mass Index) 25.3 kg/m2 Heart Rate 88 /min Body Temperature 99.9 F O2 % BldC Oximetry 98.5 % 11/12/2012 Height 66 inches Weight 156.00 lb BMI (Body Mass Index) 25.2 kg/m2 Heart Rate 123 /min Body Temperature 99.2 F O2 % BldC Oximetry 93 % 10/27/2012 Height 66 inches Weight 154.00 lb BMI (Body Mass Index) 24.9 kg/m2 Heart Rate 120 /min 09/02/2012 Height 66.5 inches Weight 149.00 lb BMI (Body Mass Index) 23.7 kg/m2 Heart Rate 90 /min 08/08/2012 Height 66.5 inches Weight 143.00 lb BMI (Body Mass Index) 22.7 kg/m2 Heart Rate 124 /min 07/21/2012 Height 66 inches Weight 152.00 lb BMI (Body Mass Index) 24.5 kg/m2 Heart Rate 86 /min Body Temperature 97.7 F 07/14/2012 Height 66 inches Weight 158.00 lb BMI (Body Mass Index) 25.5 kg/m2 Heart Rate 84 /min 06/25/2012 Height 66 inches Weight 158.00 lb BMI (Body Mass Index) 25.5 kg/m2 Heart Rate 100 /min 06/19/2012 Height 66 inches Weight 158.00 lb BMI (Body Mass Index) 25.5 kg/m2 Heart Rate 88 /min Body Temperature 99.1 F 06/18/2012 BP Systolic 120 mmHg BP Diastolic 60 mmHg Height 66 inches Weight 156.00 lb BMI (Body Mass Index) 25.2 kg/m2 Heart Rate 112 /min Respiratory Rate 18 /min Body Temperature 99.4 F O2 % BldC Oximetry 94 % 06/02/2012 Height 66 inches Weight 154.00 lb BMI (Body Mass Index) 24.9 kg/m2 Heart Rate 100 /min Respiratory Rate 24 /min 05/23/2012 Height 66 inches Weight 159.00 lb BMI (Body Mass Index) 25.7 kg/m2 Heart Rate 100 /min Respiratory Rate 20 /min 03/28/2012 Height 66 inches Weight 159.00 lb BMI (Body Mass Index) 25.7 kg/m2 Heart Rate 98 /min Body Temperature 98.4 F 03/19/2012 Height 66 inches Weight 157.00 lb BMI (Body Mass Index) 25.3 kg/m2 Heart Rate 97 /min 03/14/2012 Height 66 inches Weight 158.00 lb BMI (Body Mass Index) 25.5 kg/m2 Heart Rate 82 /min Body Temperature 99.0 F 02/13/2012 Height 66 inches Weight 157.00 lb BMI (Body Mass Index) 25.3 kg/m2 Heart Rate 98 /min 12/19/2011 Weight 158.00 lb Heart Rate 96 /min 11/05/2011 Height 66.5 inches Weight 156.00 lb BMI (Body Mass Index) 24.8 kg/m2 Heart Rate 88 /min 09/12/2011 Weight 151.00 lb Heart Rate 82 /min 08/22/2011 BP Systolic 145 mmHg BP Diastolic 80 mmHg Height 66.5 inches Weight 151.00 lb BMI (Body Mass Index) 24.0 kg/m2 Heart Rate 68 /min Body Temperature 97.6 F 10/31/2010 Weight 150.00 lb Heart Rate 120 /min 10/13/2010 Weight 146.00 lb Heart Rate 108 /min Body Temperature 97.5 F O2 % BldC Oximetry 99 % 10/04/2010 BP Systolic 112 mmHg BP Diastolic 72 mmHg Weight 146.00 lb Heart Rate 86 /min 07/24/2010 Height 69 inches Weight 147.00 lb BMI (Body Mass Index) 21.7 kg/m2 Heart Rate 80 /min Results Test Date Test Result H/L Range Note Order 09/18/2017 Nebulizer Treatment <pending> Laboratory test finding 01/30/2017 Glucose 91 mg/dL 70-100 1 Lipid Profile 01/30/2017 Cholesterol 191 mg/dL 2 (Trig/Chol/HDL) HDL Cholesterol 74.4 mg/dL 3 LDL Cholesterol 101 mg/dL 4 Triglycerides 78 mg/dL 5 Laboratory test finding 01/30/2017 Anti Nuclear Antibody 0.2 U 6 Aspergillus Igg Antibodies <3.0 mg/L <=102 7 C-Anca Negative Negative 8 Immunoglobulin E (Ige) 1588 kU/L <=214 9 P-Anca Negative Negative Rheumatoid Factor <15 Iu/ml <15 10 Laboratory test finding 01/30/2017 Immunoglobulin A 141 mg/dL 61 - 356 Immunoglobulin G 685 mg/dL 767 - 1590 11 Immunoglobulin M 51 mg/dL 37 - 286 CBC Auto Diff 01/30/2017 Abs Basophils 0.1 10^3/uL 0-0.2 Abs Eosinophils 0.5 10^3/uL 0-0.6 Abs Lymphocytes 1.4 10^3/uL 1.0-4.8 Abs Monocytes 0.3 10^3/uL 0-0.8 Abs Neutrophils 2.8 10^3/uL 1.5-7.7 Abs Nucleated RBC 0 10^3/uL Basophil % 2.2 % High 0-2 Eosinophil % 10.4 % High 0-6 Granulocyte % 54.1 % 38-83 Hematocrit 37 % 35-47 Hemoglobin 11.8 g/dL Low 12.0-16.0 Lymphocyte % 26.8 % 25-47 Mean Corpuscular HGB Conc 32 g/dL 31-36 Mean Corpuscular Hemoglobin 28 pg 27-31 Mean Corpuscular Volume 85 fL 80-97 Mean Platelet Volume 10 um3 7.4-10.4 Monocyte % 6.5 % 1-9 Nucleated Red Blood Cells % 0.1 Platelet Count 239 10^3/uL 150-450 Red Blood Count 4.28 10^6/uL 4.0-5.4 Red Cell Distribution Width 15 % 10.5-15 White Blood Count 5.1 10^3/uL 3.5-10.8 1 FASTING 10 HOUR 2 Desirable <200 Borderline high 200-239 High >239 3 Low <40 Desirable: 40-60 High: >60 4 Desirable: <100 mg/dL Near Optimal: 100-129 mg/dL Borderline High: 130-159 mg/dL High: 160-189 mg/dL Very High: >189 mg/dL 5 Desirable <150 Borderline high 150-199 High 200-499 Very High >500 6 REFERENCE VALUE <=1.0 (Negative) Test Performed by: [facility] - [address] [address] 7 ADDITIONAL INFORMATION This test was developed and its performance characteristics determined by [facility] in a manner consistent with CLIA requirements. This test has not been cleared or approved by the U.S. Food and Drug Administration. Test Performed by: [address] [address] 8 Negative for cANCA and pANCA patterns by immunofluorescence. ADDITIONAL INFORMATION This test was developed and its performance characteristics determined by [facility] in a manner consistent with CLIA requirements. This test has not been cleared or approved by the U.S. Food and Drug Administration. Test Performed by: [facility] - [facility] [address] [place] [address] 9 Test Performed by: [facility] - [facility] [address] [place] [address] 10 Test Performed by: [facility] - [facility] [address] [place] [address] 11 Test Performed by: [facility] - [address] [address] Procedures Date CPT Code Description Status 07/09/2018 15573 IV Infusion For Therapy,Prophylaxis Or Diagnosis Completed Additional Hour 07/09/2018 95069 IV Infusion For Therapy,Prophylaxis Or Diagnosis Completed Additional Hour 07/09/2018 34284 IV Infusion For Therapy,Prophylaxis Or Diagnosis Init Completed Up To 1 HR 07/09/2018 51973 IV Infusion For Therapy,Prophylaxis Or Diagnosis Init Completed Up To 1 HR 06/11/2018 14791 IV Infusion For Therapy,Prophylaxis Or Diagnosis Completed Additional Hour 06/11/2018 92066 IV Infusion For Therapy,Prophylaxis Or Diagnosis Completed Additional Hour 06/11/2018 69006 IV Infusion For Therapy,Prophylaxis Or Diagnosis Init Completed Up To 1 HR 06/11/2018 94366 IV Infusion For Therapy,Prophylaxis Or Diagnosis Init Completed Up To 1 HR 06/04/2018 83459 Therapeutic, Prophylactic Or Diagnostic Injection Completed Subq/Im 05/14/2018 53901 Bronchodilation Responsiveness Spirometry Pre/Post Completed Bronchodil Adm 05/14/2018 62419 Bronchodilation Responsiveness Spirometry Pre/Post Completed Bronchodil Adm 05/14/2018 67509 Nitric Oxide Gas Determination Completed 05/14/2018 97801 Nitric Oxide Gas Determination Completed 04/11/2018 73419 Nitric Oxide Gas Determination Completed 04/11/2018 15747 Bronchodilation Responsiveness Spirometry Pre/Post Completed Bronchodil Adm 04/04/2018 54861 Chemotherpy Admin Subcutaneous/Im Non-Hormonal Completed Anti-Neoplastic 04/04/2018 23243 Chemotherpy Admin Subcutaneous/Im Non-Hormonal Completed Anti-Neoplastic 04/02/2018 11273 IV Infusion For Therapy,Prophylaxis Or Diagnosis Init Completed Up To 1 HR 04/02/2018 13010 IV Infusion For Therapy,Prophylaxis Or Diagnosis Init Completed Up To 1 HR 04/02/2018 36213 IV Infusion For Therapy,Prophylaxis Or Diagnosis Completed Additional Hour 04/02/2018 62113 IV Infusion For Therapy,Prophylaxis Or Diagnosis Completed Additional Hour 03/05/2018 16019 Chemotherpy Admin Subcutaneous/Im Non-Hormonal Completed Anti-Neoplastic 03/05/2018 44280 IV Infusion For Therapy,Prophylaxis Or Diagnosis Completed Additional Hour 03/05/2018 84946 IV Infusion For Therapy,Prophylaxis Or Diagnosis Completed Additional Hour 03/05/2018 25449 IV Infusion For Therapy,Prophylaxis Or Diagnosis Init Completed Up To 1 HR 03/05/2018 52010 IV Infusion For Therapy,Prophylaxis Or Diagnosis Init Completed Up To 1 HR 02/05/2018 34482 Chemotherpy Admin Subcutaneous/Im Non-Hormonal Completed Anti-Neoplastic 02/05/2018 24063 Chemotherpy Admin Subcutaneous/Im Non-Hormonal Completed Anti-Neoplastic 01/29/2018 89115 IV Infusion For Therapy,Prophylaxis Or Diagnosis Completed Additional Hour 01/29/2018 29620 IV Infusion For Therapy,Prophylaxis Or Diagnosis Completed Additional Hour 01/29/2018 41213 IV Infusion For Therapy,Prophylaxis Or Diagnosis Init Completed Up To 1 HR 01/29/2018 39015 IV Infusion For Therapy,Prophylaxis Or Diagnosis Init Completed Up To 1 HR 10/09/2017 07794 Nitric Oxide Gas Determination Completed 09/18/2017 95466 Nitric Oxide Gas Determination Completed 09/18/2017 53539 Pressurized/Non-Pressurized Inhalation Treatment,Acute Completed Obstructio 08/28/2017 71278 Bronchodilation Responsiveness Spirometry Pre/Post Completed Bronchodil Adm Encounters Type Date Location Provider CPT E/M Dx Office Visit 05/14/2018 10:30a [place]ona [address] J30.1 J30.89 J45.50 D83.8 Office Visit 04/11/2018 9:00[place] [address] J30.1 J30.89 J45.50 D83.8 D80.6 Office Visit 12/11/2017 8:00[place] [address] D83.8 J45.50 D72.1 Office Visit 10/09/2017 11:00a [place] [facility] [address] J45.50 J31.0 D83.8 Office Visit 09/18/2017 4:15p [place] [facility] [address] J45.51 J31.0 D83.8 Office Visit 08/28/2017 9:30a [place] [address] D83.8 J44.9 J30.1 J30.89 Office Visit 04/05/2017 10:30a [place] [address] D83.8 Office Visit 02/22/2017 1:00p [place] [address] D83.8 J20.8 Z23 Plan of Care Future Appointment(s):08/04/2018 1:00 pm - Infusion at [id number]/04/2018 9:55 am - Injection 1 at [id number]/15/2018 10:00 am - ORION Moran at [id number] 8:45 am - Nicanor Olivarez MD at [place]
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
[2018-07-19] MEDS ORDERED: Morphine VIAL* 10 MG/ML 1 ML VIAL IM ONE (21:47)
[2018-07-20 01:14] VITALS: BP 145/77
== END 2018-07-19 23:20 | disposition home or self-care (01) ==
LOC: ED 19:14
DX: S13.9XXA Sprain of joints and ligaments of unspecified parts of neck, initial encounter (principal); M54.2 Cervicalgia; Z87.891 Personal history of nicotine dependence; M25.519 Pain in unspecified shoulder; V49.9XXA Car occupant (driver) (passenger) injured in unspecified traffic accident, initial encounter; Y92.9 Unspecified place or not applicable
CPT/HCPCS: 72125; 96372; 99283; A9270-GY; J2270

== ENCOUNTER 2018-09-24 22:32 | Inpatient (IN) | payer MEDICARE, MEDICAID ==
[2018-09-24] MEDS ORDERED: methylPREDNISolone 125 MG* 2 ML VIAL IV ONE (23:01)
[2018-09-24] MEDS ORDERED: Albuterol/Ipratropium NEB.SOL* Albuterol 2.5 MG/Ipratropium 0.5 MG 3 ML INH ONE (23:02)
[2018-09-24] MEDS ORDERED: Levalbuterol 1.25MG/0.5ML NEB INH ONE (23:29)
[2018-09-24] MEDS ORDERED: Magnesium Sulfate 2 GM IV* 2 GM/50 ML BAG IVPB ONE (23:29)
[2018-09-24] MEDS ORDERED: Levalbuterol 1.25MG/0.5ML NEB ONE (23:29)
[2018-09-25] MEDS ORDERED: Levalbuterol 1.25MG/0.5ML NEB INH ONE (00:14)
--- NOTE | 2018-09-25 00:16 | ED ---
Respiratory - HPI Summary HPI Summary: 57-year-old female presents shortness of breath for the past week. She states in the past 24 hours the shortness of breath has been getting worse. She used her inhaler multiple times without relief. She states she is getting more and more wheezy. States she has chest pain when she takes deep breath. She also states that he feels that her heart is fluttering. She has history of palpitations. She denies any bowel pain. no pain or swelling in her legs. No nausea or vomiting. No sore throat. No headache. No fevers. She was a previous smoker. She has history of asthma and COPD. was given two duonebs prior to arrival by ems. - History of Current Complaint Chief Complaint: EDShortnessOfBreath Stated Complaint: DIFFICULTY BREATHING Time Seen by Provider: 09/24/18 22:55 Pain Intensity: 2 Sputum Amount: None - Allergy/Home Medications Allergies/Adverse Reactions: Allergies Allergy/AdvReac Type Severity Reaction Status Date / Time aspirin Allergy Severe Bleeding Verified 09/25/18 01:48 bacitracin Allergy Severe Rash And Verified 09/25/18 01:48 Itching bee venom protein (honey bee) Allergy Severe Anaphylatic Verified 09/25/18 01:53 Shock Penicillins Allergy Severe Difficulty Verified 09/25/18 01:48 Breathing tomato Allergy Severe Rash Verified 09/25/18 01:53 cefaclor Allergy Intermediate Rash Verified 09/25/18 01:53 cefazolin Allergy Intermediate Rash Verified 09/25/18 01:53 celecoxib Allergy Intermediate Hives Verified 09/25/18 01:53 cucumber Allergy Intermediate Hives Verified 09/25/18 01:53 MS Erythromycin Allergy Intermediate See Comment Verified 07/19/18 19:20 [Erythromycin] MS Metoprolol [Metoprolol] Allergy Intermediate Shortness Verified 07/19/18 19: 20 of Breath MS Milnacipran [From Savella] Allergy Intermediate Nausea And Verified 07/19/18 19:20 Vomiting MS Mushroom Extract Complex Allergy Intermediate See Comment Verified 07/19/18 19:20 [Mushroom Extract Complex] MS Polymyxin B Allergy Intermediate Rash And Verified 07/19/18 19:20 [From Neosporin] Itching MS Tetracyclines & Related Allergy Mild Rash And Verified 07/19/18 19:20 [Tetracyclines & Related] Itching MS Neomycin [From Neosporin] Allergy Unknown Rash And Verified 07/19/18 19:20 Itching MS Lidocaine [Lidocaine] Allergy Anaphylatic Verified 07/19/18 19:20 Shock [place] Allergy Severe Hives Uncoded 07/19/18 19:20 Pepper Allergy Severe Rash And Uncoded 07/19/18 19:20 Itching Mushroom Allergy Intermediate See Comment Uncoded 07/19/18 19:20 Bees Allergy Unknown Anaphylatic Uncoded 07/19/18 19:20 Shock Home Medications: Home Medications Azelastine/Fluticasone ROBERT(NF [Dymista(NF)] 2 spray INTRANASAL DAILY 09/25/18 [ History Confirmed 09/25/18] Hydrochlorothiazide TAB* [Hydrodiuril TAB*] 25 mg PO DAILY 09/25/18 [History Confirmed 09/25/18] Levocetirizine Dihydrochloride [Xyzal Allergy 24Hr] 5 mg PO DAILY 09/25/18 [ History Confirmed 09/25/18] Tiotropium CAP.INH* [Spiriva CAP.INH*] 1 cap.inh INH DAILY 09/25/18 [History Confirmed 09/25/18] PMH/Surg Hx/FS Hx/Imm Hx Endocrine/Hematology History: Reports: Hx Diabetes - Gestational with prior , Hx Sickle Cell Disease - ASINOPHELIA- HIGH WHITE BLOOD COUNT, Other Endocrine/Hematological Disorders - Eosinophilia- HIGH WHITE BLOOD COUNT Cardiovascular History: Reports: Hx Aneurysm - thoracic, Hx Angina, Hx Coronary Artery Disease, Hx Hypercholesterolemia, Hx Hypertension, Hx Myocardial Infarction - 2009 no intervention to Pt's knowledge, Hx Valvular Heart Disease - mitral valve prolapse, Other Cardiovascular Problems/Disorders - AORTIC ANEURYSM, TACHYCARDIA, HEART MURMUR, MVP, CAD Denies: Hx Congestive Heart Failure Comment Only: Hx Pacemaker/ICD - HEART MONITOR 01/2016 Respiratory History: Reports: Hx Asthma, Hx Chronic Bronchitis, Hx Chronic Obstructive Pulmonary Disease (COPD), Hx Pneumonia, Hx Seasonal Allergies, Hx Sleep Apnea - pt states unable to tolerate CPAP, Other Respiratory Problems/ Disorders - PNA GI History: Reports: Hx Gastroesophageal Reflux Disease, Hx Hiatal Hernia History: Denies: Hx Renal Disease Musculoskeletal History: Reports: Hx Arthritis - OSTEO- KNEES, ANS RHEUMATOID- HANDS AND OTHER JOINTS, Hx Fibromyalgia Denies: Hx Osteoporosis Sensory History: Reports: Hx Contacts or Glasses, Hx Vision Problem, Hx Deafness - Left ear, Hx Hearing Aid - right ear, Hx Hearing Problem Denies: Other Sensory Impairments Opthamlomology History: Reports: Hx Contacts or Glasses, Hx Vision Problem Denies: Other Sensory Impairments Neurological History: Reports: Hx Nerve Disease - FIBROMYALGIA, Hx Transient Ischemic Attacks (TIA), Other Neuro Impairments/Disorders - fibromyalgia Psychiatric History: Reports: Hx Anxiety, Hx Depression, Hx Post Traumatic Stress Disorder, Hx Community Mental Health Tx Denies: Hx Attention Deficit Hyperactivity Disorder, Hx Eating Disorder, Hx Panic Disorder, Hx Inpatient Treatment, Hx Schizophrenia, Hx Bipolar Disorder, Hx Suicide Attempt, Hx of Violent Episodes Against Others, Hx Substance Abuse, Other Psychiatric Issues/Disorders - Surgical History Surgery Procedure, Year, and Place: hysterectomy 04/2006 right knee arthroscopy; hernia repair tubes in ears; total right knee replacement oct 26 2013 , deviated septum, cardiac cath, tonsilectomy; RT ARTHROSCOPIC Hx Anesthesia Reactions: No - Immunization History Date of Tetanus Vaccine: utd Date of Influenza Vaccine: fall 2016 Infectious Disease History: No Infectious Disease History: Denies: Hx Clostridium Difficile, Hx Hepatitis, Hx Human Immunodeficiency Virus (HIV), Hx of Known/Suspected MRSA, Hx Shingles, Hx Tuberculosis, Hx Known/ Suspected VRE, Hx Known/Suspected VRSA, History Other Infectious Disease, Traveled Outside the [place] in Last 30 Days - Family History Known Family History: Positive: Cardiac Disease - CAD, Hypertension, Diabetes - Social History Alcohol Use: Occasionally Alcohol Amount: occasionally Hx Substance Use: No Substance Use Type: Reports: None Hx Tobacco Use: Yes Smoking Status (MU): Former Smoker Type: Cigarettes Length of Time of Smoking/Using Tobacco: 4-5 yrs Have You Smoked in the Last Year: No Review of Systems Negative: Fever Positive: Chest Pain Positive: Shortness Of Breath, Cough Negative: Abdominal Pain All Other Systems Reviewed And Are Negative: Yes Physical Exam Triage Information Reviewed: Yes Vital Signs On Initial Exam: Initial Vitals Pulse Pulse Ox 100 94 09/24/18 22:36 09/24/18 22:36 Vital Signs Reviewed: Yes Appearance: Positive: Well-Appearing Skin: Positive: Warm, Dry Head/Face: Positive: Normal Head/Face Inspection Eyes: Positive: Normal, EOMI, TRIP, Conjunctiva Clear ENT: Positive: Normal ENT inspection, Pharynx normal, TMs normal Neck: Positive: Supple, Nontender, No Lymphadenopathy Respiratory/Lung Sounds: Positive: Breath Sounds Present, Wheezes Cardiovascular: Positive: Normal, RRR Abdomen Description: Positive: Nontender, Soft Bowel Sounds: Positive: Present Musculoskeletal: Positive: Normal Neurological: Positive: Normal Psychiatric: Positive: Normal Diagnostics - Vital Signs Vital Signs Temp Pulse Resp BP Pulse Ox 09/24/18 23:47 105 109/76 97 09/24/18 23:32 99 20 100 09/24/18 23:21 95 20 100 09/24/18 23:00 100 96 09/24/18 22:37 98.3 F 96 16 109/79 96 09/24/18 22:36 100 94 - Laboratory Result Diagrams: 09/25/18 00:05 09/25/18 00:05 Lab Statement: Any lab studies that have been ordered have been reviewed, and results considered in the medical decision making process. - Radiology chest Radiology Interpretation Completed By: ED Physician Summary of Radiographic Findings: no pneumonia seen Re-Evaluation - Re-Evaluation First Eval Re-Evaluation Time: 00:15 Change: Unchanged Comment: still wheezing after two breathing treatments Second Eval Re-Evaluation Time: 00:55 Change: Improved Comment: wheezing less Disposition - Course Course Of Treatment: 57-year-old female presents shortness of breath for the past week. She states in the past 24 hours the shortness of breath has been getting worse. She used her inhaler multiple times without relief. She states she is getting more and more wheezy. States she has chest pain when she takes deep breath. She also states that he feels that her heart is fluttering. She has history of palpitations. She denies any bowel pain. no pain or swelling in her legs. No nausea or vomiting. No sore throat. No headache. No fevers. She was a previous smoker. She has history of asthma and COPD. On exam diffuse wheezes noted. Has a dry cough. Sinus tachycardia noted. EKG shows sinus tachycardia. Had 3 breathing treatments and still wheezing. gave mag and steriod and continues to wheeze. chest xray read by me as normal. wbc normal. troponin .05 which is similar to previous. d-dimer is elevated but again is similar to previous. ambulated and was able to maintain 02 but heart rate jumped to 120s. will get CTA as elevated d-dimer. due to multiple treatments with minimal improvement discussed with hospitalist who agree to admit. - Differential Dx - Cardiopulmonary Differential Diagnoses - Cardiopulmonary: Asthma, Bronchitis, Exacerbation Of COPD, Lower Resp Infection - Diagnoses Provider Diagnoses: COPD exacerbation Discharge - Sign-Out/Discharge Documenting (check all that apply): Patient Departure - Discharge Plan Condition: Stable Disposition: ADMITTED TO [facility] Referrals: No Primary Care Phys,NOPCP [Primary Care Provider] - - Billing Disposition and Condition Condition: STABLE Disposition: Admitted to [facility]
[2018-09-25 00:29] LABS: ABS Basophils 0 10^3/ul (0-0.2); ABS Eosinophils 0 10^3/ul (0-0.6); ABS Lymphocytes 1.8 10^3/ul (1.0-4.8); ABS Monocytes 0.6 10^3/ul (0-0.8); ABS Neutrophils 4.4 10^3/ul (1.5-7.7); ABS Nucleated RBC 0 10^3/ul; Eosinophil % 0.2 % (0-6); Hematocrit 36 % (35-47); Hemoglobin 12.2 g/dl (12.0-16.0); Lymphocyte % 26.6 % (25-47); Mean Corpuscular HGB Conc 34 g/dl (31-36); Mean Corpuscular Hemoglobin 29 pg (27-31); Mean Corpuscular Volume 86 fL (80-97); Mean Platelet Volume 9.7 um3 (7.4-10.4); Nucleated Red Blood Cells % 0.1; Platelet Count 233 10^3/ul (150-450); Red Blood Count 4.21 10^6/ul (4.00-5.40); Red Cell Distribution Width 14 % (10.5-15); White Blood Count 6.9 10^3/ul (3.5-10.8)
[2018-09-25 00:37] LABS: EGFR Non-African American 54.4 (>60)
[2018-09-25] MEDS ORDERED: Albuterol 2.5 MG/3 ML NEB.SOL* (0.083%) INH PRN (01:36)
[2018-09-25] MEDS ORDERED: NS 0.9% 1000 ML* 1,000 ML IV ONE ×2 (01:36→01:38)
[2018-09-25] MEDS ORDERED: NS 0.9% 1000 ML* 1,000 ML IV SCH (01:45)
[2018-09-25] MEDS ORDERED: Iodixanol* (CONTRAST) 320 MG/ML 100 ML SDV IV ONE (01:47)
[2018-09-25] MEDS ORDERED: Albuterol/Ipratropium NEB.SOL* Albuterol 2.5 MG/Ipratropium 0.5 MG 3 ML INH SCH (02:00)
--- NOTE | 2018-09-25 03:46 | RAD ---
EXAM: CT Angiography Chest With Intravenous Contrast EXAM DATE/TIME: 09/25/2018 3:06 AM CLINICAL HISTORY: 57 years old, female; Condition or disease; Lung condition and disease; Asthma and copd; With exacerbation; Severity not specified; Additional info: SOB TECHNIQUE: Axial computed tomographic angiography images of the chest with intravenous contrast using CT angiography protocol. All CT scans at this facility use at least one of these dose optimization techniques: automated exposure control; mA and/or kV adjustment per patient size (includes targeted exams where dose is matched to clinical indication); or iterative reconstruction. Coronal and sagittal reformatted images were created and reviewed. MIP reconstructed images were created and reviewed. CONTRAST: 75 ml of VISIPAQUE 320 administered intravenously. COMPARISON: CTA CHEST CTA CHEST 05/21/2017 11:37 PM FINDINGS: Pulmonary arteries: Pulmonary arteries are well opacified to the subsegmental branches. Normal caliber main pulmonary artery. No filling defects throughout the pulmonary artery tree. Aorta: The aorta demonstrates mild atherosclerotic calcification. Lungs: Solid pulmonary nodule anterior segment right upper lobe measures 0.5 cm (series 3, image 20) previously 0.4 cm. Calcified granuloma of lateral basal segment left lower lobe. No consolidation or masses. Diffuse mild peribronchial thickening. No bronchiectasis. Pleural space: Normal. No pneumothorax. No pleural effusion. Heart: Normal. No cardiomegaly. No pericardial effusion. Thyroid: No thyroid nodules. Bones/joints: No fractures. No suspicious bone lesions. Soft tissues: Normal. Lymph nodes: Normal. No enlarged lymph nodes. IMPRESSION: 1. No pulmonary emboli. 2. Findings of known reactive airways disease. 3. Right upper lobe pulmonary nodule. Due to one-year stability no followup is indicated. Guidelines for Management of Incidental Pulmonary Nodules Detected on CT Images: From the Fleischner Society 2017. MacMahon H et al. Radiology. 2017 Feb 23:529606. To contact [facility] with a general question: [facility] - [phone] For direct physician to physician contact: Physician Hotline - [phone] [facility] ([facility] Facility ID #[id number])
[2018-09-25] MEDS: Levofloxacin 750 MG IVPREMIX(* 750 MG/150 ML BAG IVPB SCH (03:54)
[2018-09-25] MEDS: predniSONE TAB* 20 MG PO SCH (03:57)
[2018-09-25] MEDS: Heparin VIAL(*) 5000 UNITS/ML VIAL (FIVE THOUSAND) SUBCUT SCH ×3 (04:27→22:39)
[2018-09-25 04:31] LABS: ABS Basophils 0 10^3/ul (0-0.2); ABS Eosinophils 0 10^3/ul (0-0.6); ABS Lymphocytes 0.3 10^3/ul (1.0-4.8); ABS Monocytes 0.1 10^3/ul (0-0.8); ABS Nucleated RBC 0 10^3/ul; Eosinophil % 0.1 % (0-6); Hematocrit 35 % (35-47); Hemoglobin 11.8 g/dl (12.0-16.0); Lymphocyte % 6.2 % (25-47); Mean Corpuscular HGB Conc 33 g/dl (31-36); Mean Corpuscular Hemoglobin 29 pg (27-31); Mean Corpuscular Volume 86 fL (80-97); Mean Platelet Volume 9.1 um3 (7.4-10.4); Nucleated Red Blood Cells % 0; Platelet Count 213 10^3/ul (150-450); Red Blood Count 4.12 10^6/ul (4.00-5.40); Red Cell Distribution Width 14 % (10.5-15); White Blood Count 5.4 10^3/ul (3.5-10.8)
[2018-09-25 04:38] LABS: INR 0.98 (0.77-1.02)
[2018-09-25 04:46] LABS: EGFR Non-African American 56.3 (>60)
--- NOTE | 2018-09-25 05:46 | HP ---
HISTORY AND PHYSICAL: DATE OF ADMISSION: 09/25/18. PRIMARY CARE PROVIDER: None. ATTENDING PHYSICIAN WHILE IN THE HOSPITAL: Dr. Leatha Nix * (report dictated by Abimael Martinez, TERRI) CHIEF COMPLAINT: 1. Cough. 2. Shortness of breath. HISTORY OF PRESENT ILLNESS: Mrs. Muniz is a 57-year-old female patient, who carries a history of COPD, LEELA, allergies, history of TIA, fibromyalgia, hyperlipidemia, mitral valve prolapse, tachycardia, arrhythmia and has a history of nonobstructive CAD and hypertension. She comes in to our ER today stating that last couple of days she has been dealing with cold symptoms. She has been having a cough. It has been productive of clear sputum although tonight it was more of a milky type sputum. She said she has been taking her nebulizers. They have been helping her. She has been taking her allergy meds for the last couple of days, but unfortunately today she was down at the bottom of her building watching the trick- or-treaters and when she went back upstairs she started having a coughing jag and she could not control her symptoms. She was profoundly short of breath. She was wheezing. She has not had any sick contacts that she is aware of. No fevers and she states that she has just been kind of aching all over. There has been no nausea or vomiting, no diarrhea. She did admit to having with the coughing tonight having chest pressure and discomfort, which has now gone, but she states she is still having some difficulty with breathing and feeling short of breath and it is much worse with exertion. She came into the ED today. She was given several nebulizers and it was also noted that the troponin was mildly elevated. She was concerned because the breathing just was not getting any better. She came in and was evaluated despite several nebulizer treatments. She did not improve down here, the troponin being up and the fact that she was mildly tachycardic, we were asked to evaluate for admission. PAST MEDICAL HISTORY: Significant for: 1. COPD. 2. LEELA. 3. Seasonal allergies. 4. TIA. 5. Fibromyalgia. 6. Hyperlipidemia. 7. Mitral valve prolapse. 8. Tachycardia. 9. CAD. 10. Hypertension. PAST SURGICAL HISTORY: She has had right knee arthroscopy. She has had hernia repair. She has a total abdominal hysterectomy with a bilateral salpingo- oophorectomy. She has had an ablation. She has had eustachian tubes, tonsillectomy. Cardiac catheterization, which did show nonobstructive disease. MEDICATIONS: Home medications according to the list she provided include: 1. Lyrica 50 mg at noon and 100 mg in the morning and in the evening. 2. Pravachol 10 mg daily. 3. Benadryl 25 mg every 4 hours as needed. 4. EpiPen one pen as needed. 5. Pepcid 20 mg daily. 6. Digoxin 0.125 mg p.o. daily. 7. Tylenol 500 mg to 1000 mg every 4 hours as needed. 8. Magnesium 250 mg p.o. daily. 9. Potassium chloride 10 mEq p.o. daily. 10. Folic acid 400 mcg p.o. daily. 11. Calcium carbonate one tablet twice a day. 12. Lyrica 100 mg p.o. b.i.d. 13. Flexeril 10 mg p.o. t.i.d. 14. Levocetirizine 5 mg p.o. daily. 15. Dymista 2 sprays intranasally daily both nares. 16. Singulair 10 mg daily. 17. Albuterol 2 puffs inhaler every 4 hours as needed. 18. Albuterol neb 1 neb every 4 hours as needed. 19. Spiriva 1 capsule inhale daily. 20. Breo 1 inhalation daily. 21. Lisinopril 10 mg daily. 22. Hydrochlorothiazide 25 mg daily. 23. Diltiazem 180 mg p.o. daily. 24. She is also taking Gamunex 30 mg one time a month. 25. Fasenra 30 mg every other month. ALLERGIES: Include ASPIRIN, BACTRIM, NEOSPORIN, BEE VENOM, PENICILLIN, TOMATO, CECLOR, ANCEF, CELEBREX, CUCUMBER, ERYTHROMYCIN, METOPROLOL, SAVELLA, MUSHROOMS , POLYMYXIN B, TETRACYCLINE, NEOMYCIN, LIDOCAINE. FAMILY HISTORY: Mother had a history of asthma and hypertension. Father had a history of brain cancer. SOCIAL HISTORY: She is a former smoker, she quit in 2012. Rarely drinks alcohol. Her surrogate decision make is her son, Dre. REVIEW OF SYSTEMS: There is no documented fever. She denied any significant weight change. She was no double vision. There was rhinorrhea. There has been a cough. There was dyspnea on exertion. No orthopnea. She did admit to chest pain today. Described as a pressure and associated in the setting of her coughing, which is now resolved. She denies having abdominal pain. There has been no nausea, no vomiting, no dysuria, no frequency. No seizure, no loss of consciousness. No pruritus and no skin ulcerations. Review of 14 systems completed, all others negative. PHYSICAL EXAMINATION GENERAL: At this time, Mrs. Muniz is a 57-year-old female patient. She is sitting in the ED stretcher. She does not appear to be in any acute distress. She appears to be well nourished, well developed. VITAL SIGNS: Blood pressure 109/79, pulse 105, respirations 20, O2 sat 100% on 2L, and temperature 98.3. HEENT: Head atraumatic and normocephalic. Eyes: EOMs are intact. Sclerae anicteric and not pale. NECK: Supple. Throat: Oral mucosa appears to be dry. No oropharyngeal erythema. LUNGS: She had wheezing noted bilaterally expiratory. She had rhonchi in the upper lobes. Equal diaphragmatic expansion. HEART: Sounds S1 and S2. She is tachycardic about 110. ABDOMEN: Soft and flat. It was nontender. Bowel sounds were present. EXTREMITIES: Pulses were 2+ throughout. She is moving all 4 extremities with 5 /5 strength. NEUROLOGIC: The patient is awake, she is alert, she is oriented x3. The tongue is midline. 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 She had no gross focal deficits. Skin was intact. DIAGNOSTIC STUDIES/LAB DATA: WBC of 6.9, RBC of 4.21, hemoglobin 12.2, hematocrit of 36, platelet count of 223. D-dimer was 312. Blood gases pH of 7.35, pCO2 of 48, bicarb of 24. Sodium was 138, potassium was 4.2, chloride 105 , bicarb 23, BUN 20, creatinine 1.04, glucose 100, lactic 0.9, calcium 9.5, magnesium 2.3, total bilirubin 0.4, AST 14, ALT 9, alk phos 8. Her troponin was 0.005. It has been near her baseline. CRP of 12.96, BNP of 13, procalcitonin negative. She had a chest x-ray obtained today, which when I reviewed it, I do not appreciate any acute disease. It appears to be stable. No obvious infiltrates were noted. She did have an EKG obtained today. EKG today shows sinus tachycardia at the rate of 101. No ST elevation. T-wave inversions noted. Compared to previous EKG, appears to be similar, exception the rate is faster now. Old medical records were reviewed. ASSESSMENT AND PLAN: Mrs. Muniz is a 57-year-old female patient with multiple medical problems coming in to the ED today with complaints of shortness of breath. On evaluation, there was concern for COPD exacerbation. She will be admitted under inpatient status for: 1. Chronic obstructive pulmonary disease exacerbation. At this point, I will go ahead and place her on steroids, Levaquin. We will check blood cultures. Lactic was stable. We will give her a liter of fluids due to the tachycardia. We will go ahead and put her on inhaled steroids and p.o. steroids and we will check legionella antigen, Streptococcus pneumoniae antigen. Also, check the flu and sputum culture if possible. Because she is short of breath and the fact that her troponin is mildly elevated, I am going to get a CT of the chest given elevated D- dimer. 2. Elevated troponin, probably secondary to demand ischemia from COPD exacerbation. We will continue to trend these and she will be placed on telemetry. 3. Obstructive sleep apnea. She is noncompliant with the mask. 4. Seasonal allergies. Continue medications as prescribed. 5. History of transient ischemic attack. Continue with secondary prevention if she did not take aspirin due to allergy. 6. Fibromyalgia. Continue medicine as prescribed. 7. Hyperlipidemia. Continue Pravachol. 8. Mitral valve prolapse. Follow with her primary care physician. 9. History of tachycardia. Continue her rate controlling meds as prescribed. I am checking a digoxin level. 10. Coronary artery disease. She does not take aspirin and beta-blockers at this point, but we will continue her statin. Continue with her diltiazem. 11. Hypertension. Continue meds as prescribed with the exception of lisinopril and hydrochlorothiazide in the setting of acute illness. 12. Code status: She is full code. 13. DVT Prophylaxis: We have ordered heparin subcu. 14. Fluids, electrolytes, and nutrition: She can have a heart-healthy diet. TIME SPENT: On the admission was 60 minutes, greater than half that time was spent [id number] with the patient obtaining my history and physical, other half the time spent going over the plan of care with the patient and implementing the plan of care. I did discuss the plan of care with my attending Dr. Nix; she is in agreement. ABIMAEL MARTINEZ NP [id number]/[facility] #: [id number] JERMAIN
[2018-09-25] MEDS: Albuterol/Ipratropium NEB.SOL* Albuterol 2.5 MG/Ipratropium 0.5 MG 3 ML INH SCH ×2 (06:32→11:57)
[2018-09-25] MEDS: Mometasone/Formoter 200/5 MDI INH SCH ×3 (06:34→20:04)
[2018-09-25] MEDS: Acetaminophen TAB* 325 MG PO PRN (06:41)
--- NOTE | 2018-09-25 08:12 | RAD ---
INDICATION: Asthma exacerbation. Shortness of breath. Coronary artery disease. COPD. COMPARISON: Subsequent CT chest September 25, 2018. TECHNIQUE: Dual energy PA and routine lateral views of the chest were obtained. REPORT: Elevated lung volumes. Mild prominence of the interstitial markings. No focal pulmonary lesion, compelling alveolar consolidation, pleural effusion, pneumothorax. LEFT chest wall quality assurance monitor. Negative for cardiomegaly. Unremarkable central pulmonary vasculature and mediastinal contours. IMPRESSION: #. Stigmata of obstructive lung disease. No acute pulmonary or cardiac process evident. R0
[2018-09-25] MEDS ORDERED: Diltiazem CD CAP* 180 MG PO SCH (09:00)
[2018-09-25] MEDS: Magnesium Oxide TAB* 400 MG PO SCH (09:06)
[2018-09-25] MEDS: Folic Acid TAB* 1 MG PO SCH (09:06)
[2018-09-25] MEDS: Cetirizine* 10 MG TAB PO SCH (09:06)
[2018-09-25] MEDS: Cyclobenzaprine TAB* 10 MG PO PRN (09:06)
[2018-09-25] MEDS: Pregabalin CAP(*) 100 MG PO SCH ×2 (09:06→22:38)
[2018-09-25] MEDS: Famotidine TAB* 20 MG PO SCH (09:07)
[2018-09-25] MEDS: Montelukast Sodium TAB* 10 MG PO SCH (09:43)
[2018-09-25] MEDS: Azelastine/Fluticasone NAS(NF) BTL BOTH NARES SCH (10:58)
[2018-09-25 11:12] LABS: Urine Appearance Clear; Urine Blood Negative (Negative); Urine Color Straw; Urine Ketones 1+ (Negative); Urine Protein Negative (Negative); Urine Urobilinogen Negative (Negative)
[2018-09-25] MEDS: Albuterol 2.5 MG/3 ML NEB.SOL* (0.083%) INH SCH ×2 (12:42→18:08)
[2018-09-25] MEDS: Pregabalin CAP(*) 50 MG PO SCH (13:45)
[2018-09-25] MEDS: Pravastatin (NF) 10 MG TAB PO SCH (16:08)
--- NOTE | 2018-09-25 16:26 | PN ---
Subjective Date of Service: 09/25/18 Interval History: Seen and examined. Suspected COPD exacerbation. feeling better. 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 had episode of 15 minutes of palpitations on Saturday. Usually resolves with taking deep breaths and sitting down. Has not f/u with Dr. Jain since these medication changes. Lung exam clear. Weaning down oxygen. Likely d/c tomorrow if trend continues. Have asked to try to walk her later today. Objective Active Medications: Acetaminophen (Tylenol Tab*) 650 mg PO Q4H PRN PRN Reason: FEVER/PAIN Last Admin: 09/25/18 06:41 Dose: 650 mg Albuterol (Ventolin 2.5 Mg/3 Ml Neb.Grazyna*) 2.5 mg INH Q2H PRN PRN Reason: SOB/WHEEZING Albuterol (Ventolin 2.5 Mg/3 Ml Neb.Grazyna*) 2.5 mg INH [id number] AWAKE [facility] Last Admin: 09/25/18 12:42 Dose: Not Given Azelastine/Fluticasone (Dymista(Nf)) 2 spray BOTH NARES DAILY [facility] Last Admin: 09/25/18 10:58 Dose: Not Given Cetirizine HCl (Zyrtec*) 10 mg PO DAILY [facility] Last Admin: 09/25/18 09:06 Dose: 10 mg Cyclobenzaprine HCl (Flexeril Tab*) 10 mg PO TID PRN PRN Reason: SPASMS Last Admin: 09/25/18 09:06 Dose: 10 mg Famotidine (Pepcid Tab*) 20 mg PO DAILY [facility] Last Admin: 09/25/18 09:07 Dose: 20 mg Folic Acid (Folvite Tab*) 1 mg PO DAILY [facility] Last Admin: 09/25/18 09:06 Dose: 1 mg Heparin Sodium (Porcine) (Heparin Vial(*)) 5,000 units SUBCUT Q8HR [facility] Last Admin: 09/25/18 13:45 Dose: 5,000 units Levofloxacin/Dextrose (Levaquin 750 Mg Ivpremix(*)) 750 mg in 150 mls @ 100 mls /hr IVPB Q24H [facility] Last Admin: 09/25/18 03:54 Dose: 100 mls/hr Influenza Virus Vaccine (Fluarix *Quad* 2018-*) 0.5 ml IM .ONCE ONE Stop: 09/26/18 09:01 Magnesium Oxide (Magox 400 Tab*) 400 mg PO DAILY [facility] Last Admin: 09/25/18 09:06 Dose: 400 mg Mometasone Furoate/Formoterol Fumar (Dulera 200/5 Mdi*) 2 puff INH BID [facility] Last Admin: 09/25/18 07:19 Dose: Not Given Montelukast Sodium (Singulair Tab*) 10 mg PO QAM [facility] Last Admin: 09/25/18 09:43 Dose: Not Given Pravastatin Sodium (Pravachol (Nf)) 10 mg PO QPM [facility] Last Admin: 09/25/18 16:08 Dose: Not Given Prednisone (Deltasone Tab*) 60 mg PO 0900 [facility] Last Admin: 09/25/18 03:57 Dose: 60 mg Pregabalin (Lyrica Cap(*)) 100 mg PO BID [facility] Last Admin: 09/25/18 09:06 Dose: 100 mg Pregabalin (Lyrica Cap(*)) 50 mg PO DAILY@1200 [facility] Last Admin: 09/25/18 13:45 Dose: 50 mg Vital Signs - 8 hr 09/25/18 09/25/18 09/25/18 09:06 09:38 10:40 Temperature Pulse Rate 98 Respiratory 18 18 Rate Blood Pressure (mmHg) O2 Sat by Pulse Oximetry 09/25/18 09/25/18 09/25/18 11:40 11:57 13:45 Temperature 98.3 F Pulse Rate 108 106 Respiratory 22 20 Rate Blood Pressure 117/62 (mmHg) O2 Sat by Pulse 98 99 Oximetry 09/25/18 09/25/18 09/25/18 15:14 15:40 16:08 Temperature 98.1 F Pulse Rate 108 Respiratory 16 18 Rate Blood Pressure 90/52 94/58 (mmHg) O2 Sat by Pulse 95 Oximetry Oxygen Devices in Use Now: Nasal Cannula Result Diagrams: 09/25/18 04:21 09/25/18 04:21 Microbiology and Other Data: Microbiology 09/25/18 04:10 Legionella Urinary Antigen - Final Urine Negative Legionella Antigen Streptococcus pneumoniae Ag Screen - Final Negative S. pneumo Antigen 09/25/18 02:30 Influenza Types A,B Antigen - Final Nasopharyngeal Specimen received for Influenza A/B Molecular testing Assess/Plan/Problems-Billing Assessment:
[2018-09-25] MEDS ORDERED: Digoxin TAB* 0.125 MG PO SCH (18:00)
[2018-09-25] MEDS: Morphine ORAL CONCENTRATE* 5 MG/0.25 ML ORAL.SYRIN SL PRN ×2 (18:30→22:39)
[2018-09-26] MEDS: Morphine ORAL CONCENTRATE* 5 MG/0.25 ML ORAL.SYRIN SL PRN ×3 (02:43→13:57)
[2018-09-26] MEDS: Levofloxacin 750 MG IVPREMIX(* 750 MG/150 ML BAG IVPB SCH (02:45)
[2018-09-26] MEDS: Albuterol 2.5 MG/3 ML NEB.SOL* (0.083%) INH SCH ×6 (02:45→18:09)
[2018-09-26] MEDS: Heparin VIAL(*) 5000 UNITS/ML VIAL (FIVE THOUSAND) SUBCUT SCH ×3 (05:25→20:39)
[2018-09-26] MEDS: Mometasone/Formoter 200/5 MDI INH SCH ×3 (07:10→19:31)
[2018-09-26] MEDS: predniSONE TAB* 20 MG PO SCH (09:53)
[2018-09-26] MEDS: Cetirizine* 10 MG TAB PO SCH (09:53)
[2018-09-26] MEDS: Montelukast Sodium TAB* 10 MG PO SCH (09:53)
[2018-09-26] MEDS: Folic Acid TAB* 1 MG PO SCH (09:53)
[2018-09-26] MEDS: Pregabalin CAP(*) 100 MG PO SCH ×2 (09:53→20:39)
[2018-09-26] MEDS: Famotidine TAB* 20 MG PO SCH (09:53)
[2018-09-26] MEDS: Magnesium Oxide TAB* 400 MG PO SCH (09:53)
[2018-09-26] MEDS: Azelastine/Fluticasone NAS(NF) BTL BOTH NARES SCH (10:01)
[2018-09-26] MEDS: Pregabalin CAP(*) 50 MG PO SCH (12:32)
[2018-09-26] MEDS: Diltiazem CD CAP* 120 MG PO SCH (13:57)
[2018-09-26] MEDS: Acetaminophen TAB* 325 MG PO PRN ×2 (13:57→17:53)
[2018-09-26] MEDS: Pravastatin (NF) 10 MG TAB PO SCH (17:46)
[2018-09-26] MEDS: Cyclobenzaprine TAB* 10 MG PO PRN (17:52)
[2018-09-26] MEDS: LORazepam TAB(*) 0.5 MG PO PRN (17:53)
--- NOTE | 2018-09-26 18:34 | PN ---
Subjective Date of Service: 09/26/18 Interval History: Had 3 episodes so far of respiratory attacks that are greatly relieved by nebulizer tx and SL morphine. Sharp stabbing and burning pain in LUQ abd, like poking through ribs and radiating to back. Similar happened earlier this year when got imaging ruling out aortic dissection afebrile. Objective Active Medications: Acetaminophen (Tylenol Tab*) 650 mg PO Q4H PRN PRN Reason: FEVER/PAIN Last Admin: 09/26/18 17:53 Dose: 650 mg Albuterol (Ventolin 2.5 Mg/3 Ml Neb.Grazyna*) 2.5 mg INH Q2H PRN PRN Reason: SOB/WHEEZING Albuterol (Ventolin 2.5 Mg/3 Ml Neb.Grazyna*) 2.5 mg INH [id number] AWAKE [facility] Last Admin: 09/26/18 18:09 Dose: 2.5 mg Azelastine/Fluticasone (Dymista(Nf)) 2 spray BOTH NARES DAILY [facility] Last Admin: 09/26/18 10:01 Dose: Not Given Cetirizine HCl (Zyrtec*) 10 mg PO DAILY [facility] Last Admin: 09/26/18 09:53 Dose: 10 mg Cyclobenzaprine HCl (Flexeril Tab*) 10 mg PO TID PRN PRN Reason: SPASMS Last Admin: 09/26/18 17:52 Dose: 10 mg Diltiazem HCl (Cardizem Cd Cap*) 120 mg PO DAILY [facility] Last Admin: 09/26/18 13:57 Dose: 120 mg Famotidine (Pepcid Tab*) 20 mg PO DAILY [facility] Last Admin: 09/26/18 09:53 Dose: 20 mg Folic Acid (Folvite Tab*) 1 mg PO DAILY [facility] Last Admin: 09/26/18 09:53 Dose: 1 mg Heparin Sodium (Porcine) (Heparin Vial(*)) 5,000 units SUBCUT Q8HR [facility] Last Admin: 09/26/18 13:59 Dose: 5,000 units Levofloxacin/Dextrose (Levaquin 750 Mg Ivpremix(*)) 750 mg in 150 mls @ 100 mls /hr IVPB Q24H [facility] Last Admin: 09/26/18 02:45 Dose: 100 mls/hr Lorazepam (Ativan Tab(*)) 0.5 mg PO Q6H PRN PRN Reason: ANXIETY Last Admin: 09/26/18 17:53 Dose: 0.5 mg Magnesium Oxide (Magox 400 Tab*) 400 mg PO DAILY [facility] Last Admin: 09/26/18 09:53 Dose: 400 mg Mometasone Furoate/Formoterol Fumar (Dulera 200/5 Mdi*) 2 puff INH BID [facility] Last Admin: 09/26/18 18:09 Dose: 2 puff Montelukast Sodium (Singulair Tab*) 10 mg PO QAM [facility] Last Admin: 09/26/18 09:53 Dose: 10 mg Morphine Sulfate (Morphine Oral Concentrate*) 2.5 mg SL Q4H PRN PRN Reason: PAIN Last Admin: 09/26/18 13:57 Dose: 2.5 mg Pravastatin Sodium (Pravachol (Nf)) 10 mg PO QPM [facility] Last Admin: 09/26/18 17:46 Dose: Not Given Prednisone (Deltasone Tab*) 60 mg PO 0900 [facility] Last Admin: 09/26/18 09:53 Dose: 60 mg Pregabalin (Lyrica Cap(*)) 100 mg PO BID [facility] Last Admin: 09/26/18 09:53 Dose: 100 mg Pregabalin (Lyrica Cap(*)) 50 mg PO DAILY@1200 [facility] Last Admin: 09/26/18 12:32 Dose: 50 mg Vital Signs - 8 hr 09/26/18 09/26/18 09/26/18 11:00 12:00 12:02 Temperature 98.1 F Pulse Rate 105 106 Respiratory 18 18 18 Rate Blood Pressure 116/60 (mmHg) O2 Sat by Pulse 98 100 Oximetry 09/26/18 09/26/18 09/26/18 12:32 13:57 14:07 Temperature Pulse Rate 111 Respiratory 18 26 26 Rate Blood Pressure (mmHg) O2 Sat by Pulse 98 Oximetry 09/26/18 09/26/18 09/26/18 16:54 17:52 17:53 Temperature Pulse Rate Respiratory 18 18 18 Rate Blood Pressure (mmHg) O2 Sat by Pulse Oximetry 09/26/18 18:11 Temperature Pulse Rate 98 Respiratory 18 Rate Blood Pressure (mmHg) O2 Sat by Pulse 99 Oximetry Oxygen Devices in Use Now: Nasal Cannula Appearance: NAD Eyes: No Scleral Icterus Ears/Nose/Mouth/Throat: NL Teeth, Lips, Gums Respiratory: Symmetrical Chest Expansion and Respiratory Effort, Clear to Auscultation Cardiovascular: NL Sounds; No Murmurs; No JVD, RRR Abdominal: NL Sounds; No Tenderness; No Distention, No Hepatosplenomegaly Extremities: No Edema Neurological: Alert and Oriented x 3, NL Sensation, NL Muscle Strength and Tone Nutrition: Taking PO's Result Diagrams: 09/25/18 04:21 09/25/18 04:21 Microbiology and Other Data: Microbiology 09/25/18 00:47 Blood Venous Aerobic Blood Culture - Preliminary No Growth Day 1 09/25/18 00:47 Blood Venous Anaerobic Blood Culture - Preliminary No Growth Day 1 09/25/18 00:05 Blood Venous Aerobic Blood Culture - Preliminary No Growth Day 1 09/25/18 00:05 Blood Venous Anaerobic Blood Culture - Preliminary No Growth Day 1 09/25/18 04:10 Urine Legionella Urinary Antigen - Final Negative Legionella Antigen 09/25/18 04:10 Urine Streptococcus pneumoniae Ag Screen - Final Negative S. pneumo Antigen 09/25/18 02:30 Nasopharyngeal Influenza Types A,B Antigen - Final Specimen received for Influenza A/B Molecular testing Assess/Plan/Problems-Billing Assessment: 57 yo female PMH COPD, LEELA, Mitral Valve prolapse, CAD, HTN, tachycardia presenting with suspected COPD exacerbation. - Patient Problems (1) COPD exacerbation Current Visit: No Status: Acute Priority: High Onset Date: 06/15/14 Code (s): J44.1 - CHRONIC OBSTRUCTIVE PULMONARY DISEASE W (ACUTE) EXACERBATION SNOMED Code(s): 167497333706186 Comment: no PE on CTA, BNP only 13 s/p solumedrol in ED, now prednisone 60mg daily. continue inhalers: dulera, singular, duonebs Continue prn morphine SL. continue levaquin. adding ativan prn for anxiety. I have held her home propranolol and switched back to cardizem for her tachy arrhythmia. goal O2 Sat 88-92, wean oxygen as tolerated, do not over oxygenate (2) Elevated troponin Current Visit: No Status: Acute Priority: Low Code(s): R79.89 - OTHER SPECIFIED ABNORMAL FINDINGS OF BLOOD CHEMISTRY SNOMED Code(s): 927109116 Comment: - Trop peaked to 0.05, chronically elevated since 08/2016. - Workups negative in the past. (3) Tachycardia Current Visit: No Status: Acute Code(s): R00.0 - TACHYCARDIA, UNSPECIFIED SNOMED Code(s): 4342895 Comment: - HR 80s. - Continue diltiazem. (4) Anxiety Current Visit: No Status: Chronic Code(s): F41.9 - ANXIETY DISORDER, UNSPECIFIED SNOMED Code(s): 19909153 Comment: Continue prn ativan. (5) Dyslipidemia Current Visit: No Status: Chronic Code(s): E78.5 - HYPERLIPIDEMIA, UNSPECIFIED SNOMED Code(s): 678631867 Comment: - continue pravastatin (6) Fibromyalgia Current Visit: No Status: Chronic Code(s): M79.7 - FIBROMYALGIA SNOMED Code(s): 540208839 Comment: Continue Lyrica. (7) HTN (hypertension) Current Visit: No Status: Chronic Code(s): I10 - ESSENTIAL (PRIMARY) HYPERTENSION SNOMED Code(s): 93610159 Comment: BP on the low side. I added diltiazem ER 120, holding home lisinopril, hctz, spironolactone. (8) Mitral valve prolapse Current Visit: No Status: Chronic Code(s): I34.1 - NONRHEUMATIC MITRAL ( VALVE) PROLAPSE SNOMED Code(s): 083167665 (9) LEELA (obstructive sleep apnea) Current Visit: No Status: Chronic Code(s): G47.33 - OBSTRUCTIVE SLEEP APNEA (ADULT) (PEDIATRIC) SNOMED Code(s): 46786013 Status and Disposition: medicine inpatient.
[2018-09-27] MEDS: Albuterol 2.5 MG/3 ML NEB.SOL* (0.083%) INH SCH ×3 (00:26→07:27)
[2018-09-27] MEDS: Acetaminophen TAB* 325 MG PO PRN ×4 (02:41→21:35)
[2018-09-27] MEDS: Levofloxacin 750 MG IVPREMIX(* 750 MG/150 ML BAG IVPB SCH (02:42)
[2018-09-27] MEDS: Heparin VIAL(*) 5000 UNITS/ML VIAL (FIVE THOUSAND) SUBCUT SCH ×3 (06:44→21:16)
[2018-09-27] MEDS: Mometasone/Formoter 200/5 MDI INH SCH (07:27)
[2018-09-27] MEDS: Diltiazem CD CAP* 120 MG PO SCH (08:30)
[2018-09-27] MEDS: predniSONE TAB* 20 MG PO SCH (08:30)
[2018-09-27] MEDS: Azelastine/Fluticasone NAS(NF) BTL BOTH NARES SCH (08:30)
[2018-09-27] MEDS: Montelukast Sodium TAB* 10 MG PO SCH (08:30)
[2018-09-27] MEDS: Famotidine TAB* 20 MG PO SCH (08:31)
[2018-09-27] MEDS: Folic Acid TAB* 1 MG PO SCH (08:31)
[2018-09-27] MEDS: Cetirizine* 10 MG TAB PO SCH (08:31)
[2018-09-27] MEDS: Magnesium Oxide TAB* 400 MG PO SCH (08:31)
[2018-09-27] MEDS: Pregabalin CAP(*) 100 MG PO SCH ×2 (08:31→21:15)
[2018-09-27] MEDS: Cyclobenzaprine TAB* 10 MG PO PRN ×3 (08:43→21:36)
[2018-09-27] MEDS: Pregabalin CAP(*) 50 MG PO SCH (12:23)
[2018-09-27] MEDS: Morphine ORAL CONCENTRATE* 5 MG/0.25 ML ORAL.SYRIN SL PRN (14:29)
[2018-09-27] MEDS: LORazepam TAB(*) 0.5 MG PO PRN ×2 (14:31→21:36)
[2018-09-27] MEDS ORDERED: Simethicone TAB* 80 MG TAB.CHEW PO ONE (15:26)
[2018-09-27] MEDS ORDERED: Al Hydrox/Mg Hydrox/Simet LIQ* 30 ML UDC PO ONE (15:27)
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
[2018-09-27] MEDS ORDERED: Diltiazem TAB* 60 MG PO ONE (15:53)
[2018-09-27] MEDS: Omeprazole CAP* 20 MG PO SCH (16:01)
[2018-09-27 16:13] LABS: ABS Basophils 0 10^3/ul (0-0.2); ABS Eosinophils 0 10^3/ul (0-0.6); ABS Lymphocytes 0.5 10^3/ul (1.0-4.8); ABS Monocytes 0.1 10^3/ul (0-0.8); ABS Neutrophils 6.7 10^3/ul (1.5-7.7); ABS Nucleated RBC 0 10^3/ul; Eosinophil % 0 % (0-6); Hematocrit 32 % (35-47); Hemoglobin 10.9 g/dl (12.0-16.0); Lymphocyte % 6.2 % (25-47); Mean Corpuscular HGB Conc 34 g/dl (31-36); Mean Corpuscular Hemoglobin 29 pg (27-31); Mean Corpuscular Volume 85 fL (80-97); Nucleated Red Blood Cells % 0.1; Platelet Count 250 10^3/ul (150-450); Red Blood Count 3.77 10^6/ul (4.00-5.40); Red Cell Distribution Width 14 % (10.5-15); White Blood Count 7.3 10^3/ul (3.5-10.8)
[2018-09-27] MEDS: Pravastatin (NF) 10 MG TAB PO SCH (17:44)
[2018-09-27] MEDS ORDERED: Levofloxacin TAB* 500 MG PO ONE (20:00)
[2018-09-27] MEDS: Benzonatate CAP* 100 MG PO SCH (21:15)
[2018-09-28 04:09] LABS: ABS Basophils 0.1 10^3/ul (0-0.2); ABS Eosinophils 0 10^3/ul (0-0.6); ABS Lymphocytes 1.7 10^3/ul (1.0-4.8); ABS Monocytes 0.5 10^3/ul (0-0.8); ABS Nucleated RBC 0 10^3/ul; Eosinophil % 0.3 % (0-6); Hematocrit 35 % (35-47); Hemoglobin 11.5 g/dl (12.0-16.0); Lymphocyte % 20.3 % (25-47); Mean Corpuscular HGB Conc 33 g/dl (31-36); Mean Corpuscular Hemoglobin 29 pg (27-31); Mean Corpuscular Volume 87 fL (80-97); Mean Platelet Volume 9.1 fL (7.4-10.4); Nucleated Red Blood Cells % 0; Platelet Count 238 10^3/ul (150-450); Red Blood Count 4.02 10^6/ul (4.00-5.40); Red Cell Distribution Width 14 % (10.5-15); White Blood Count 8.3 10^3/ul (3.5-10.8)
[2018-09-28 04:12] VITALS: BP 108/68
[2018-09-28] MEDS: Acetaminophen TAB* 325 MG PO PRN (05:04)
[2018-09-28] MEDS: Cyclobenzaprine TAB* 10 MG PO PRN (05:05)
[2018-09-28] MEDS: LORazepam TAB(*) 0.5 MG PO PRN (05:05)
[2018-09-28] MEDS: Heparin VIAL(*) 5000 UNITS/ML VIAL (FIVE THOUSAND) SUBCUT SCH (05:06)
[2018-09-28] MEDS: Mometasone/Formoter 200/5 MDI INH SCH ×2 (06:48→08:06)
[2018-09-28] MEDS ORDERED: Diltiazem CD CAP* 180 MG PO SCH (09:00)
[2018-09-28] MEDS ORDERED: Al Hydrox/Mg Hydrox/Simet LIQ* 30 ML UDC PO PRN (09:12)
[2018-09-28] MEDS: predniSONE TAB* 20 MG PO SCH (10:03)
[2018-09-28] MEDS: Montelukast Sodium TAB* 10 MG PO SCH (10:03)
[2018-09-28] MEDS: Folic Acid TAB* 1 MG PO SCH (10:04)
[2018-09-28] MEDS: Famotidine TAB* 20 MG PO SCH (10:04)
[2018-09-28] MEDS: Pregabalin CAP(*) 100 MG PO SCH (10:04)
[2018-09-28] MEDS: Benzonatate CAP* 100 MG PO SCH (10:04)
[2018-09-28] MEDS: Omeprazole CAP* 20 MG PO SCH (10:04)
[2018-09-28] MEDS: Magnesium Oxide TAB* 400 MG PO SCH (10:04)
[2018-09-28] MEDS: Cetirizine* 10 MG TAB PO SCH (10:04)
[2018-09-28] MEDS: Azelastine/Fluticasone NAS(NF) BTL BOTH NARES SCH (10:07)
[2018-09-28] MEDS ORDERED: PRAVASTATIN 10 MG PO SCH (18:00)
[2018-09-28] MEDS ORDERED: Levofloxacin TAB* 750 MG PO SCH (18:00)
--- NOTE | 2018-09-28 20:55 | DS ---
CC: [facility] * DISCHARGE SUMMARY: DATE OF ADMISSION: 09/25/18 DATE OF DISCHARGE: 09/28/18 ADMITTING PROVIDER: Abimael Martinez NP ATTENDING PHYSICIAN ON THE DAY OF DISCHARGE: Brandon Moy MD PRIMARY CARE PROVIDER: Formerly Dr. Wilmer Dent, but has since been discharged from his practice, plans to follow up with Dr. Inga Sandra and Dr. Brandon Moy at the [facility] at [facility]. CHIEF COMPLAINT: Cough, shortness of breath. PRINCIPAL DIAGNOSES: 1. Chronic obstructive pulmonary disease exacerbation. 2. Gastroesophageal reflux disease in the setting of running out of her medications. 3. Fibromyalgia in the setting of running out of her medications. HISTORY OF PRESENT ILLNESS AND HOSPITAL COURSE: Gisele Muniz is a 57-year-old female with past medical history of COPD, obstructive sleep apnea, allergies, TIA, fibromyalgia, hyperlipidemia, mitral valve prolapse, tachycardia, status post attempted ablation with Dr. Light, nonobstructive coronary artery disease, hypertension. Please see the H and P of Abimael Martinez NP, for full details. For a few days prior to admission, she had cold-like symptoms with cough and clear productive sputum progressive to warm milky sputum. She was getting some relief with her nebulizers and allergy meds. She attempted to walk back upstairs when she developed severe coughing in fits and could not control her symptoms, was profoundly short of breath and wheezing. She denies sick contacts or fevers. Did have some muscle aches. She presented to [facility], had several breathing treatments. Troponin was noted to be mildly elevated at 0.05, which has been chronically elevated ever since August 2016. She received Levaquin, nebulizers, and 125 mg Solu-Medrol in the ED. Her chest x-ray demonstrated stigmata of obstructive lung disease. No acute pulmonary or cardiac process evident. She had a D-dimer, which was [address] chest angiogram was obtained, which showed no evidence of pulmonary embolism. Evidence of known reactive airway disease and right upper lobe nodule that has been stable for 1 year and no followup was recommended. The patient was continued on the Levaquin, transitioned to oral steroids 60 mg daily , and was able to be weaned off supplemental oxygen. She felt subjectively improved each day, but had symptoms of spasms of left upper quadrant and left rib sharp stabbing pain that sometimes accompanied anxiety and shortness of breath, but not always, sometimes she had breathing wheezing and this led to the abdominal pain otherwise, at other times, it was the other way around. It was noted that she had given the discharge from the practice of Dr. Alexia Dent. She had been out of some of her medications including her Lyrica and her Pepcid for more than a month. The Pepcid had been started on admission and then given a PPI and Maalox Plus and these seemed to rapidly improve her left upper quadrant discomfort. She is being discharged on these medications along with the prednisone taper. She was able to ambulate around the unit the day prior to admission and the day of admission by this provider, thought increasingly steady on her feet and ready to go home with close followup with the [facility]. She has a followup scheduled on day after discharge, 09/29/18, with Dr. Inga Sandra, at 1:00 p.m., already arranged, I actually recommend that they call the office and push this back until Saturday, , or Saturday unless she is feeling worse overnight. She will eventually need to be reestablished with the primary care provider. Some medication changes were made. She had been started on propranolol by Dr. Light after the last ablation procedure and her Cardizem had been stopped at that time. Given the setting of the COPD exacerbation and her sinus tachycardia in the 100s to one teens, the propranolol was held and she was transitioned back to Cardizem. She should follow with both Dr. Light and Dr. Jain, who she had not seen since these medication changes had been made. She has also had well controlled blood pressures and even on the low side 100s to 110s/60s on just this medication, so it is not being recommended to continue her lisinopril 10 or hydrochlorothiazide 25 mg until she can follow up with Dr. Sandra this week. She was asked to record her blood pressures in a log book and bring to that appointment. She was not continued on her potassium supplement. Additional studies included no leukocytosis, she had a slight left shift, 90% neutrophils, CRP was slightly elevated at 13. She had negative Strep pneumoniae and legionella urine antigens. Blood cultures are negative x3 days. Influenza rapid testing was negative and she was afebrile throughout the course of admission. DISCHARGE MEDICATIONS: Include: 1. Maalox Plus 30 mL p.o. q.4 hours p.r.n. for 12 containers. 2. Albuterol 2.5 mg per 3 mL nebulizer solution every 2 hours as needed. 3. Azelastine/fluticasone (Dymista) 2 sprays intranasal q.a.m. 4. Flexeril 10 mg p.o. t.i.d. 5. Diltiazem CD 180 mg p.o. daily (new). 6. Folic acid 400 mcg p.o. daily. 7. Xyzal 5 mg p.o. daily. 8. Magnesium 250 mg p.o. daily. 9. Morphine concentrate oral solution 2.5 mg q.4 hours p.r.n. for air hunger. 10. Pravastatin 10 mg p.o. q.a.m. 11. Prednisone 20 mg tabs to be taken 3 tabs for 1 day 60 mg, then 2 tablets 40 mg for 3 days, then 1 tablet 20 mg for 3 days, then stop. 12. Lyrica 100 mg in the morning and at night and 50 mg in the early afternoon. 13. Acetaminophen 325 mg to 650 mg p.o. q.4 hours p.r.n. 14. Tessalon 100 mg p.o. b.i.d. p.r.n., 20 tablets. 15. Calcium carbonate/vitamin D 600-400 mg p.o. b.i.d. 16. Benadryl 25 mg p.o. q.4 hours p.r.n. 17. Esomeprazole (Nexium) 40 mg p.o. daily for 30 tabs. 18. Breo Ellipta 1 inhaled q.a.m. 19. Singulair 10 mg p.o. q.a.m. 20. Spiriva 1 capsule inhaled daily. DISCHARGE DIET: Heart healthy, unchanged. ACTIVITY LEVEL: No restrictions. FOLLOWUP: Please follow up with the [facility] by calling the office day after discharge. She has an appointment on 09/29/18 at 1:00 p.m., but I would like her to actually be seen later in the week either Saturday, , or Saturday as long as her symptoms are stable. Feel free to call with any acute complaints. She should follow up with Dr. Light and Dr. Jain as well. TIME SPENT: On discharge 45 minutes. [id number]/[facility] #: [id number]
== END 2018-09-28 14:02 | disposition home or self-care (01) | DRG 192 ==
LOC: ED 22:32 → MEDTELE 09-25 01:33
PROVIDERS: ADMIT Internal Medicine; ATTEND Internal Medicine
DX: J44.1 Chronic obstructive pulmonary disease with (acute) exacerbation (principal); I11.9 Hypertensive heart disease without heart failure; K21.9 Gastro-esophageal reflux disease without esophagitis; M79.7 Fibromyalgia; G47.33 Obstructive sleep apnea (adult) (pediatric); E78.5 Hyperlipidemia, unspecified; I25.10 Atherosclerotic heart disease of native coronary artery without angina pectoris; R10.9 Unspecified abdominal pain; J30.2 Other seasonal allergic rhinitis; R74.8 Abnormal levels of other serum enzymes; I34.1 Nonrheumatic mitral (valve) prolapse; F41.9 Anxiety disorder, unspecified; Z86.73 Personal history of transient ischemic attack (TIA), and cerebral infarction without residual deficits; Z79.1 Long term (current) use of non-steroidal anti-inflammatories (NSAID); Z79.899 Other long term (current) drug therapy; Z88.6 Allergy status to analgesic agent; Z88.1 Allergy status to other antibiotic agents; Z91.030 Bee allergy status; Z88.0 Allergy status to penicillin; Z88.8 Allergy status to other drugs, medicaments and biological substances; Z91.018 Allergy to other foods; Z82.5 Family history of asthma and other chronic lower respiratory diseases; Z82.49 Family history of ischemic heart disease and other diseases of the circulatory system; Z80.8 Family history of malignant neoplasm of other organs or systems; Z87.891 Personal history of nicotine dependence
CPT/HCPCS: 36415; 71046; 71275; 80048; 80053; 80162; 81003; 82803; 83605; 83735; 83880; 84145; 84484; 85025; 85379; 85610; 85730; 86140; 87040; 87899; 90686; 93005; 94640; 99284; A9270-GY; J1644; J2930; J3475; J7512; Q9967

== ENCOUNTER 2019-10-11 06:03 | Inpatient (IN) | payer MEDICARE, MEDICAID ==
[2019-10-11] MEDS ORDERED: NS 0.9% 1000 ML** 1,000 ML IV ONE (06:07)
[2019-10-11] MEDS ORDERED: Albuterol/Ipratropium NEB.SOL* Albuterol 2.5 MG/Ipratropium 0.5 MG 3 ML INH ONE (06:07)
[2019-10-11] MEDS ORDERED: Dexamethasone IV* 4 MG/ML 1 ML (4 MG) IV SLOW PU ONE (06:07)
[2019-10-11] MEDS ORDERED: Magnesium Sulfate 2 GM IV* 2 GM/50 ML BAG IVPB ONE (06:09)
[2019-10-11 06:58] LABS: ABS Basophils 0.1 10^3/ul (0-0.2); ABS Eosinophils 0.1 10^3/ul (0-0.6); ABS Monocytes 0.7 10^3/ul (0-0.8); ABS Neutrophils 6.6 10^3/ul (1.5-7.7); Hematocrit 39 % (35-47); Hemoglobin 13.2 g/dL (12.0-16.0); Lymphocyte % 11.8 %; Mean Corpuscular HGB Conc 34 g/dL (31-36); Mean Corpuscular Hemoglobin 28 pg (27-31); Mean Corpuscular Volume 84 fL (80-97); Mean Platelet Volume 9.6 fL (7.4-10.4); Platelet Count 207 10^3/uL (150-450); Red Blood Count 4.68 10^6 /uL (3.70-4.87); Red Cell Distribution Width 14 % (10-15); White Blood Count 8.4 10^3/uL (3.5-10.8)
[2019-10-11 07:17] LABS: ALT 11 U/L (7-52); AST 15 U/L (13-39); Albumin 3.9 g/dL (3.2-5.2); Albumin/Globulin Ratio 1.3 (1-3); Alkaline Phosphatase 69 U/L (34-104); Anion Gap 7 mmol/L (2-11); BUN/Creatinine Ratio 22.8 (8-20); Blood Urea Nitrogen 23 mg/dL (6-24); CO2 Carbon Dioxide 30 mmol/L (22-32); Calcium 9.4 mg/dL (8.6-10.3); Chloride 104 mmol/L (101-111); EGFR African American 67.9 (>60); EGFR Non-African American 56.1 (>60); Globulin 3.1 g/dL (2-4); Glucose 124 mg/dL (70-100); Magnesium 2.1 mg/dL (1.9-2.7); Potassium 3.8 mmol/L (3.5-5.0); Sodium 141 mmol/L (135-145)
[2019-10-11 07:20] LABS: Troponin I 0.05 ng/mL (<0.04)
[2019-10-11] MEDS: Albuterol 0.5% CONC NEB.SOL* 5 MG/ML 20 ml BOT INH ONE ×2 (07:25→07:27)
--- NOTE | 2019-10-11 08:01 | ED ---
Respiratory - HPI Summary HPI Summary: Patient is a 58-year-old female presenting to the ED in acute respiratory distress. Patient is unable to speak in full sentences. She does endorse a cardiac history. She states she has had 2 minor MIs, history of COPD and mitral valve prolapse. Unable to give full hx otherwise d/t inability to speak in full sentences. Patient's friend states patient came home from a long trip yesterday, driving 11 hours. No history of PE or DVT. She does not take blood thinners. Hx of COPD exacerbation with resp distress and need for admission, but no hx of intubation. - History of Current Complaint Chief Complaint: EDRespiratoryDistress Stated Complaint: SOB PER EMS Time Seen by Provider: 10/11/19 06:31 Hx Obtained From: Patient, Family/Retail Business Development Manager, EMS, Medical Records Onset/Duration: Sudden Onset Timing: Constant Initial Severity: Moderate Current Severity: Moderate Pain Intensity: 9 Aggravating Factor(s): Nothing Alleviating Factor(s): Nothing - Allergy/Home Medications Allergies/Adverse Reactions: Allergies Allergy/AdvReac Type Severity Reaction Status Date / Time aspirin Allergy Severe Bleeding Verified 10/11/19 09:04 bacitracin Allergy Severe Rash And Verified 10/11/19 09:04 Itching bee venom protein (honey bee) Allergy Severe Anaphylatic Verified 10/11/19 09:04 Shock Penicillins Allergy Severe Difficulty Verified 10/11/19 09:04 Breathing tomato Allergy Severe Rash Verified 10/11/19 09:04 cefaclor Allergy Intermediate Rash Verified 10/11/19 09:04 cefazolin Allergy Intermediate Rash Verified 09/25/18 01:53 celecoxib Allergy Intermediate Hives Verified 10/11/19 09:04 cucumber Allergy Intermediate Hives Verified 10/11/19 09:04 metoprolol Allergy Intermediate Shortness Verified 10/11/19 09:04 of Breath erythromycin base Allergy See Comment Verified 10/11/19 09:04 lidocaine Allergy Anaphylatic Verified 10/11/19 09:04 Shock milnacipran Allergy Rash Verified 10/11/19 09:04 mushroom Allergy Difficulty Verified 10/11/19 09:04 Breathing neomycin Allergy Rash And Verified 10/11/19 09:04 Itching polymyxin B Allergy Rash And Verified 10/11/19 09:04 Itching Tetracyclines Allergy Rash And Verified 10/11/19 09:04 Itching Pepper Allergy Severe Rash And Uncoded 10/11/19 09:04 Itching Bees Allergy Unknown Anaphylatic Uncoded 10/11/19 09:04 Shock Home Medications: Home Medications Benralizumab [Fasenra] 30 mg SQ SEE INSTRUCTIONS 10/11/19 [History Confirmed ] Digoxin [Digitek] 0.125 mg PO DAILY 10/11/19 [History Confirmed 10/11/19] EPINEPHrine [Epipen] 0.3 mg IJ SEE INSTRUCTIONS PRN 10/11/19 [History Confirmed 10/11/19] Famotidine TAB* [Pepcid 20 MG TAB*] 20 mg PO DAILY 10/11/19 [History Confirmed 10/11/19] Hydrochlorothiazide TAB* [Hydrodiuril TAB*] 25 mg PO DAILY 10/11/19 [History Confirmed 10/11/19] Lisinopril TAB* [Prinivil TAB 5 MG*] 10 mg PO DAILY 10/11/19 [History Confirmed 10/11/19] Potassium Chlor TAB (NF) [Kaon-Cl-10 TAB (NF)] 10 meq PO DAILY 10/11/19 [ History Confirmed 10/11/19] Pregabalin CAP(*) [Lyrica CAP(*)] 50 mg PO SEE INSTRUCTIONS MDD 200 mg 10/11/19 [History Confirmed 10/11/19] PMH/Surg Hx/FS Hx/Imm Hx Previously Healthy: Yes Endocrine/Hematology History: Reports: Hx Diabetes - Gestational with prior , Hx Sickle Cell Disease - ASINOPHELIA- HIGH WHITE BLOOD COUNT, Other Endocrine/Hematological Disorders - Eosinophilia- HIGH WHITE BLOOD COUNT Cardiovascular History: Reports: Hx Aneurysm - thoracic, Hx Angina, Hx Coronary Artery Disease, Hx Deep Vein Thrombosis, Hx Hypercholesterolemia, Hx Hypertension, Hx Myocardial Infarction - 2009 no intervention to Pt's knowledge , Hx Valvular Heart Disease - mitral valve prolapse, Other Cardiovascular Problems/Disorders - AORTIC ANEURYSM, TACHYCARDIA, HEART MURMUR, MVP, CAD Denies: Hx Congestive Heart Failure Comment Only: Hx Pacemaker/ICD - HEART MONITOR 01/2016 Respiratory History: Reports: Hx Asthma, Hx Chronic Bronchitis, Hx Chronic Obstructive Pulmonary Disease (COPD), Hx Pneumonia, Hx Seasonal Allergies, Hx Sleep Apnea - pt states unable to tolerate CPAP, Other Respiratory Problems/ Disorders - PNA GI History: Reports: Hx Gastroesophageal Reflux Disease, Hx Hiatal Hernia History: Denies: Hx Renal Disease Musculoskeletal History: Reports: Hx Arthritis - OSTEO- KNEES, ANS RHEUMATOID- HANDS AND OTHER JOINTS, Hx Fibromyalgia Denies: Hx Osteoporosis Sensory History: Reports: Hx Contacts or Glasses, Hx Vision Problem, Hx Deafness - Left ear, Hx Hearing Aid - right ear, Hx Hearing Problem Denies: Hx Cataracts, Hx Eye Injury, Hx Legally Blind, Hx Macular Degeneration, Other Sensory Impairments Opthamlomology History: Reports: Hx Contacts or Glasses, Hx Vision Problem Denies: Hx Cataracts, Hx Eye Injury, Hx Legally Blind, Hx Macular Degeneration, Other Sensory Impairments Neurological History: Reports: Hx Nerve Disease - FIBROMYALGIA, Hx Transient Ischemic Attacks (TIA), Other Neuro Impairments/Disorders - fibromyalgia Psychiatric History: Reports: Hx Anxiety, Hx Depression, Hx Post Traumatic Stress Disorder, Hx Community Mental Health Tx Denies: Hx Attention Deficit Hyperactivity Disorder, Hx Eating Disorder, Hx Panic Disorder, Hx Inpatient Treatment, Hx Schizophrenia, Hx Bipolar Disorder, Hx Suicide Attempt, Hx of Violent Episodes Against Others, Hx Substance Abuse, Other Psychiatric Issues/Disorders - Surgical History Surgery Procedure, Year, and Place: hysterectomy 04/2006 right knee arthroscopy; hernia repair tubes in ears; total right knee replacement oct 26 2013 , deviated septum, cardiac cath, tonsilectomy; RT ARTHROSCOPIC Hx Anesthesia Reactions: No - Immunization History Date of Tetanus Vaccine: utd Date of Influenza Vaccine: fall 2016 Hx Pertussis Vaccination: No Immunizations Up to Date: Yes Infectious Disease History: No Infectious Disease History: Denies: Hx Clostridium Difficile, Hx Hepatitis, Hx Human Immunodeficiency Virus (HIV), Hx of Known/Suspected MRSA, Hx Shingles, Hx Tuberculosis, Hx Known/ Suspected VRE, Hx Known/Suspected VRSA, History Other Infectious Disease, Traveled Outside the [place] in Last 30 Days - Family History Known Family History: Positive: Cardiac Disease - CAD, Hypertension, Diabetes - Social History Occupation: Unemployed Lives: With Family Alcohol Use: Occasionally Alcohol Amount: occasionally Hx Substance Use: No Substance Use Type: Reports: None Hx Tobacco Use: Yes Smoking Status (MU): Former Smoker Type: Cigarettes Length of Time of Smoking/Using Tobacco: 4-5 yrs Have You Smoked in the Last Year: No Review of Systems Positive: Fatigue. Negative: Fever, Chills, Skin Diaphoresis Negative: Dental Pain Negative: Chest Pain Positive: Shortness Of Breath. Negative: Cough Negative: Vomiting Positive: no symptoms reported Negative: Rash Negative: Headache, Weakness, Paresthesia, Numbness, Syncope, Slurred Speech Negative: Anxious All Other Systems Reviewed And Are Negative: Yes Physical Exam Triage Information Reviewed: Yes Vital Signs On Initial Exam: Initial Vitals Temp Pulse Resp BP Pulse Ox 97.6 F 135 28 146/92 100 10/11/19 06:21 10/11/19 06:21 10/11/19 06:21 10/11/19 06:21 10/11/19 06:21 Vital Signs Reviewed: Yes Appearance: Positive: Ill-Appearing - resp distress Head/Face: Positive: Normal Head/Face Inspection Eyes: Positive: EOMI, Conjunctiva Clear Neck: Positive: Supple, No Lymphadenopathy Respiratory/Lung Sounds: Positive: Wheezes, Unable to speak in full sentences, Fatigue Cardiovascular: Positive: Tachycardia. Negative: Leg Edema Left, Leg Edema Right Musculoskeletal: Positive: Normal, Strength/ROM Intact Psychiatric: Positive: Affect/Mood Appropriate Diagnostics - Vital Signs Vital Signs Temp Pulse Resp BP Pulse Ox 10/11/19 07:34 130 21 128/70 100 10/11/19 07:04 133 24 140/95 100 10/11/19 07:02 133 22 100 10/11/19 07:00 129 27 100 10/11/19 06:35 134 25 118/89 100 10/11/19 06:34 135 28 100 10/11/19 06:21 97.6 F 135 28 146/92 100 - Laboratory Lab Results: Lab Results 10/11/19 10/11/19 10/11/19 Range/Units 06:50 06:50 06:50 WBC 8.4 (3.5-10.8) 10^3/uL RBC 4.68 (3.70-4.87) 10^6 /uL Hgb 13.2 (12.0-16.0) g/dL Hct 39 (35-47) % MCV 84 (80-97) fL MCH 28 (27-31) pg MCHC 34 (31-36) g/dL RDW 14 (10-15) % Plt Count 207 (150-450) 10^3/uL MPV 9.6 (7.4-10.4) fL Neut % (Auto) 78.8 % Lymph % (Auto) 11.8 % [place] % (Auto) 7.8 % Eos % (Auto) 1.0 % Baso % (Auto) 0.6 % Absolute Neuts (auto) 6.6 (1.5-7.7) 10^3/ul Absolute Lymphs (auto) 1.0 (1.0-4.8) 10^3/ul Absolute Monos (auto) 0.7 (0-0.8) 10^3/ul Absolute Eos (auto) 0.1 (0-0.6) 10^3/ul Absolute Basos (auto) 0.1 (0-0.2) 10^3/ul Absolute Nucleated RBC 0.0 10^3/ul Nucleated RBC % 0.0 Patient Temperature ABG pH (7.35-7.45) ABG pH (Temp Correct) ABG pCO2 (35-45) mmHg ABG pCO2 (Temp Corrct ABG pO2 (80-100) mmHg ABG pO2 (Temp Correct ABG HCO3 (19-31) mmol/L ABG O2 Saturation (94.0-98.0) % ABG Base Excess (-2.0-2.0) mmol/L Respiration Rate O2 Delivery Device Ventilator Type Vent Mode FiO2 Inspiratory Time PEEP Pressure Support Pressure Control EPAP IPAP BiPAP Sodium 141 (135-145) mmol/L Potassium 3.8 (3.5-5.0) mmol/L Chloride 104 (101-111) mmol/L Carbon Dioxide 30 (22-32) mmol/L Anion Gap 7 (2-11) mmol/L BUN 23 (6-24) mg/dL Creatinine 1.01 H (0.51-0.95) mg/dL Est GFR ( Amer) 67.9 (>60) Est GFR (Non-Af Amer) 56.1 (>60) BUN/Creatinine Ratio 22.8 H (8-20) Glucose 124 H (70-100) mg/dL Lactic Acid 1.4 (0.5-2.0) mmol/L Calcium 9.4 (8.6-10.3) mg/dL Magnesium 2.1 (1.9-2.7) mg/dL Total Bilirubin 0.30 (0.2-1.0) mg/dL AST 15 (13-39) U/L ALT 11 (7-52) U/L Alkaline Phosphatase 69 (34-104) U/L Troponin I 0.05 H* (<0.04) ng/mL Total Protein 7.0 (6.4-8.9) g/dL Albumin 3.9 (3.2-5.2) g/dL Globulin 3.1 (2-4) g/dL Albumin/Globulin Ratio 1.3 (1-3) 10/11/19 Range/Units 06:58 WBC (3.5-10.8) 10^3/uL RBC (3.70-4.87) 10^6 /uL Hgb (12.0-16.0) g/dL Hct (35-47) % MCV (80-97) fL MCH (27-31) pg MCHC (31-36) g/dL RDW (10-15) % Plt Count (150-450) 10^3/uL MPV (7.4-10.4) fL Neut % (Auto) % Lymph % (Auto) % Den[place] % (Auto) % Eos % (Auto) % Baso % (Auto) % Absolute Neuts (auto) (1.5-7.7) 10^3/ul Absolute Lymphs (auto) (1.0-4.8) 10^3/ul Absolute Monos (auto) (0-0.8) 10^3/ul Absolute Eos (auto) (0-0.6) 10^3/ul Absolute Basos (auto) (0-0.2) 10^3/ul Absolute Nucleated RBC 10^3/ul Nucleated RBC % Patient Temperature Not Reportable ABG pH 7.36 (7.35-7.45) ABG pH (Temp Correct) Not Reportable ABG pCO2 52 H (35-45) mmHg ABG pCO2 (Temp Corrct Not Reportable ABG pO2 406 H (80-100) mmHg ABG pO2 (Temp Correct Not Reportable ABG HCO3 27.1 (19-31) mmol/L ABG O2 Saturation 100.0 H (94.0-98.0) % ABG Base Excess 2.8 H (-2.0-2.0) mmol/L Respiration Rate Not Reportable O2 Delivery Device vapo Ventilator Type Not Reportable Vent Mode Not Reportable FiO2 100 Inspiratory Time Not Reportable PEEP Not Reportable Pressure Support Not Reportable Pressure Control Not Reportable EPAP Not Reportable IPAP Not Reportable BiPAP Not Reportable Sodium (135-145) mmol/L Potassium (3.5-5.0) mmol/L Chloride (101-111) mmol/L Carbon Dioxide (22-32) mmol/L Anion Gap (2-11) mmol/L BUN (6-24) mg/dL Creatinine (0.51-0.95) mg/dL Est GFR ( Amer) (>60) Est GFR (Non-Af Amer) (>60) BUN/Creatinine Ratio (8-20) Glucose (70-100) mg/dL Lactic Acid (0.5-2.0) mmol/L Calcium (8.6-10.3) mg/dL Magnesium (1.9-2.7) mg/dL Total Bilirubin (0.2-1.0) mg/dL AST (13-39) U/L ALT (7-52) U/L Alkaline Phosphatase (34-104) U/L Troponin I (<0.04) ng/mL Total Protein (6.4-8.9) g/dL Albumin (3.2-5.2) g/dL Globulin (2-4) g/dL Albumin/Globulin Ratio (1-3) Result Diagrams: 10/11/19 06:50 10/12/19 08:45 Lab Statement: Any lab studies that have been ordered have been reviewed, and results considered in the medical decision making process. Re-Evaluation - Re-Evaluation First Eval Change: Improved - continues to improve with vapotherm Second Eval Change: Improved - decreased work of breathing Third Eval Change: Unchanged - remains on 40 vapotherm - now able to tolerate 35 Disposition - Course Course Of Treatment: Patient arrives in respiratory distress by EMS on 10L non- rebreather. EMS found patient tripoding and unable to speak at home. 88% on room air. Found labored breathing. O2 sat on arrival PT has labored breathing with signs of accessory muscle use and in obvious acute distress. There is audible wheezing. Patient unable to speak on arrival. Vapotherm placed: setting of LPM 40/O240/36C. Accessory muscle use, expiratory wheezes with a moderate to shallow depth. Pulse 135, respiratory rate 28, temp 97.6, O2 sat 100%. She continues on vapotherm with little response. Pt gestures she is feeling improved. Intubation ready and available. IV access failed on several attempts and EKG unable to capture. Continuous neb treatments through vapotherm improved sxs. Re-examination after 1 hour, patient able to speak in 3 -4 word sentences. CTA: IMPRESSION: 1. Due to inadequate pulmonary arterial bolus filling, only the central and lobar. pulmonary arteries are reliably evaluated. There is no centrilobular pulmonary embolism. 2. There are scattered pulmonary nodules as well as top normal mediastinal lymph nodes. that are unchanged since the March 11, 2017 CTA of the chest and therefore do not require. further follow-up. EKG: Sinus tachy at 125. Labs obtained which are unremarkable. Trop 0.05 most likely from demand. Will add serial trops. Pt given mag 2mg IV, decadron 10mg IV, continuous neb treatment, NS. Chest Xray : no acute findings. Discussed case with Dr. Reyes who will accept patient to ICU. - Differential Dx - Cardiopulmonary Differential Diagnoses - Cardiopulmonary: Other - PE, COPD, PNA, airway compromise - Diagnoses Provider Diagnoses: Respiratory distress - Physician Notifications Admit/Transition Orders Completed By ED Provider: No - Critical Care Time Critical Care Time: 75-104 min Discharge ED - Sign-Out/Discharge Documenting (check all that apply): Patient Departure All imaging exams completed and their final reports reviewed: Yes - Discharge Plan Condition: Fair Disposition: ADMITTED TO [facility] - Billing Disposition and Condition Condition: FAIR Disposition: Admitted to [facility]
[2019-10-11] MEDS ORDERED: Iodixanol* (CONTRAST) 320 MG/ML 100 ML SDV IV ONE (08:03)
[2019-10-11] MEDS: Hydrochlorothiazide TAB* 25 MG PO SCH (10:50)
[2019-10-11] MEDS: Digoxin TAB* 0.125 MG PO SCH (10:50)
[2019-10-11] MEDS: Famotidine TAB* 20 MG PO SCH (10:50)
[2019-10-11] MEDS: predniSONE TAB* 20 MG PO SCH (10:50)
[2019-10-11] MEDS: Diltiazem CD CAP* 180 MG PO SCH (10:50)
[2019-10-11] MEDS: Lisinopril TAB* 5 MG PO SCH (10:53)
[2019-10-11] MEDS: Albuterol/Ipratropium NEB.SOL* Albuterol 2.5 MG/Ipratropium 0.5 MG 3 ML INH SCH ×3 (11:00→23:51)
[2019-10-11] MEDS: Mometasone/Formoter 200/5 MDI INH SCH ×2 (11:00→21:28)
--- NOTE | 2019-10-11 12:31 | HP ---
ADMISSION HISTORY AND PHYSICAL: DATE OF ADMISSION: 10/11/19 REASON FOR ADMISSION: Acute respiratory failure. HISTORY OF PRESENT ILLNESS: This patient is a 58-year-old white female with multiple medical problems including asthma, COPD, obstructive sleep apnea, multiple allergies, fibromyalgia, hyperlipidemia, mitral valve prolapse, supraventricular tachycardia, hypertension, and prior TIA, who came to the emergency room early today with complaint of acute onset of shortness of breath , not associated with signs of recent upper respiratory tract infection or chest pain. The patient is on multiple medications for COPD, but does not use oxygen at home. Workup for pulmonary embolism in the emergency room was unnrevealing and the patient was treated with bronchodilators, with a positive response. However, the patient did require high flow nasal O2, so admission to the ICU was appropriate. OUTPATIENT MEDICATIONS: 1. Hydrochlorothiazide 25 mg daily. 2. Albuterol inhaler 2 puffs q.4 hours p.r.n. 3. Lisinopril 10 mg daily. 4. Digoxin 0.125 mg daily. 5. Diltiazem 180 mg daily. 6. Singulair 10 mg in the morning. 7. Spiriva 1 capsule inhaled daily. 8. DuoNeb treatment every 4 hours p.r.n. 9. Flexeril 10 mg 3 times daily. 10. Fluticasone 1 inhalation daily. 11. Pepcid 20 mg daily. 12. Potassium chloride 10 mEq daily. ALLERGIES: The patient has multiple drug allergies including ASPIRIN, BACITRACIN, BEE VENOM, PENICILLIN, TOMATO, CEFACLOR, CEFAZOLIN, CUCUMBERS, METOPROLOL, ERYTHROMYCIN, LIDOCAINE, MUSHROOMS, NEOMYCIN, POLYMYXIN B, TETRACYCLINES, PEPPERS, and BEES. FAMILY HISTORY: The patient's mother had history of asthma and hypertension. Father had brain cancer. SOCIAL HISTORY: The patient lives with her son and is unemployed. There is no history of smoking recently and no history of alcohol or illicit drug use. REVIEW OF SYSTEMS: Noncontributory. PHYSICAL EXAMINATION GENERAL: The patient was alert, oriented and was breathing comfortably. VITAL SIGNS: Temp was 97.6, blood pressure was 129/77, pulse was 114 and regular, respirations were 22 and nonlabored, O2 saturation was 97% on nasal O2 at 40 L per minute with an FIO2 of 100%. HEENT: There was no facial asymmetry. Pupils were equal and reactive. NECK: Supple. LUNGS: There was prolonged expiration and end-expiratory wheezing in both lung bases, both anteriorly and posteriorly. There were no crackles. CARDIAC: Exam revealed no murmurs (despite the history of mitral valve prolapse ) and rhythm was regular. ABDOMEN: Distended and tympanitic. There was no detectable organomegaly. EXTREMITIES: Warm, not cyanotic and not edematous. DIAGNOSTIC STUDIES/LAB DATA: Clinical data: Admission laboratory values revealed a blood gas with PO2 of 406, PCO2 of 52, pH 7.36, O2 saturation of 100 % on Vapotherm. Sodium was 141, potassium 3.8, chloride 104, CO2 of 30, anion gap 7, BUN 23, creatinine 1.01, glucose 124, lactic acid 1.4, magnesium 2.1. Liver enzymes and bilirubin normal. Troponin I 0.05. Albumin 3.9. White count was 8.4, hemoglobin 13.2, platelets 207. Chest x-ray showed clear lung rangel and the cardiac silhouette did appear normal in size. EKG showed a sinus tachycardia without acute ST or T wave changes. There was a prolonged QTc. IMPRESSION: Acute exacerbation of chronic obstructive pulmonary disease. The acute onset of the symptomatology makes one worry about acute pulmonary embolism but the normal CT angiogram of the chest is against this; however, that does not absolutely rule out the diagnosis, so I will follow up with an ultrasound of the lower extremities to r/o DVT. There is nothing to suggest a cardiac or infectious cause for this exacerbation. MANAGEMENT PLAN: Treatment will consist primarily of bronchodilators and steroids. I will not start antibiotics. We will also schedule the ultrasound exam for DVT. CRITICAL CARE TIME: Sixty minutes. [id number] #: [id number] [facility]
[2019-10-11] MEDS: Enoxaparin(*) 40 MG/0.4 ML SYR SUBCUT SCH (12:42)
[2019-10-11] MEDS ORDERED: Albuterol/Ipratropium NEB.SOL* Albuterol 2.5 MG/Ipratropium 0.5 MG 3 ML INH PRN (12:55)
[2019-10-11] MEDS: Acetaminophen TAB* 325 MG PO PRN (16:17)
[2019-10-12] MEDS: Albuterol/Ipratropium NEB.SOL* Albuterol 2.5 MG/Ipratropium 0.5 MG 3 ML INH SCH ×5 (06:12→20:14)
[2019-10-12] MEDS: Mometasone/Formoter 200/5 MDI INH SCH ×2 (07:47→20:14)
[2019-10-12 09:27] LABS: Anion Gap 6 mmol/L (2-11); BUN/Creatinine Ratio 24.4 (8-20); Blood Urea Nitrogen 21 mg/dL (6-24); CO2 Carbon Dioxide 27 mmol/L (22-32); Calcium 9.3 mg/dL (8.6-10.3); Chloride 105 mmol/L (101-111); EGFR African American 81.7 (>60); EGFR Non-African American 67.5 (>60); Glucose 137 mg/dL (70-100); Potassium 4.4 mmol/L (3.5-5.0); Sodium 138 mmol/L (135-145)
[2019-10-12 09:36] LABS: Troponin I 0.04 ng/mL (<0.04)
[2019-10-12] MEDS: Famotidine TAB* 20 MG PO SCH (10:32)
[2019-10-12] MEDS: Lisinopril TAB* 5 MG PO SCH (10:32)
[2019-10-12] MEDS: Diltiazem CD CAP* 180 MG PO SCH (10:33)
[2019-10-12] MEDS: predniSONE TAB* 20 MG PO SCH (10:33)
[2019-10-12] MEDS: Hydrochlorothiazide TAB* 25 MG PO SCH (10:34)
[2019-10-12] MEDS: Digoxin TAB* 0.125 MG PO SCH (10:35)
[2019-10-12] MEDS: Enoxaparin(*) 40 MG/0.4 ML SYR SUBCUT SCH (10:35)
--- NOTE | 2019-10-12 10:38 | PN ---
Subjective Date of Service: 10/12/19 Interval History: Coughing less, breathing feels improved but not baseline Denies pain, N/V, chest pain Upset that she was not told results of tests yesterday nor why they were being performed Objective Active Medications: Acetaminophen (Tylenol Tab*) 650 mg PO Q4H PRN PRN Reason: PAIN - MILD Last Admin: 10/11/19 16:17 Dose: 650 mg Albuterol/Ipratropium (Duoneb (Albuterol 2.5 Mg/Ipratropium 0.5 Mg)) 1 neb INH Q4H PRN PRN Reason: SOB/WHEEZING Last Admin: 10/11/19 12:56 Dose: 1 neb Albuterol/Ipratropium (Duoneb (Albuterol 2.5 Mg/Ipratropium 0.5 Mg)) 1 neb INH [id number] AWAKE [facility], [facility] Digoxin (Lanoxin Tab*) 0.125 mg PO DAILY [facility], [facility]1983 Last Admin: 10/11/19 10:50 Dose: 0.125 mg Diltiazem HCl (Cardizem Cd Cap*) 180 mg PO DAILY [facility] Last Admin: 10/11/19 10:50 Dose: 180 mg Enoxaparin Sodium (Lovenox(*)) 40 mg SUBCUT Q24H [facility] Last Admin: 10/11/19 12:42 Dose: 40 mg Famotidine (Pepcid Tab*) 20 mg PO DAILY [facility] Last Admin: 10/11/19 10:50 Dose: 20 mg Hydrochlorothiazide (Hydrodiuril Tab*) 25 mg PO DAILY [facility] Last Admin: 10/11/19 10:50 Dose: 25 mg Lisinopril (Prinivil Tab*) 10 mg PO DAILY [facility] Last Admin: 10/11/19 10:53 Dose: 10 mg Mometasone Furoate/Formoterol Fumar (Dulera 200/5 Mdi*) 2 puff INH BID [facility]1983 Last Admin: 10/12/19 07:47 Dose: 2 puff Prednisone (Deltasone Tab*) 60 mg PO DAILY [facility] Last Admin: 10/11/19 10:50 Dose: 60 mg Vital Signs - 8 hr 10/12/19 10/12/19 10/12/19 03:41 07:50 08:00 Temperature 97.2 F Pulse Rate 94 96 Respiratory 16 16 19 Rate Blood Pressure 91/55 (mmHg) O2 Sat by Pulse 99 100 Oximetry 10/12/19 08:20 Temperature 98.4 F Pulse Rate 107 Respiratory 18 Rate Blood Pressure 98/70 (mmHg) O2 Sat by Pulse 100 Oximetry Oxygen Devices in Use Now: Nasal Cannula - 2l Appearance: well appearing, finshing breakfast, NAD Eyes: No Scleral Icterus, PERRLA Ears/Nose/Mouth/Throat: NL Teeth, Lips, Gums, Clear Oropharnyx Neck: NL Appearance and Movements; NL JVP, Trachea Midline Respiratory: Symmetrical Chest Expansion and Respiratory Effort, - - trace rales in b/l bases, no wheeze Cardiovascular: RRR, - - early 2/6 [place] Abdominal: NL Sounds; No Tenderness; No Distention, No Hepatosplenomegaly Lymphatic: No Cervical Adenopathy Extremities: No Edema Skin: No Rash or Ulcers Neurological: Alert and Oriented x 3 Result Diagrams: 10/11/19 06:50 10/12/19 08:45 Additional Lab and Data: Lab Results 10/11/19 10/11/19 10/11/19 Range/Units 06:50 06:50 06:50 WBC 8.4 (3.5-10.8) 10^3/uL RBC 4.68 (3.70-4.87) 10^6 /uL Hgb 13.2 (12.0-16.0) g/dL Hct 39 (35-47) % MCV 84 (80-97) fL MCH 28 (27-31) pg MCHC 34 (31-36) g/dL RDW 14 (10-15) % Plt Count 207 (150-450) 10^3/uL MPV 9.6 (7.4-10.4) fL Neut % (Auto) 78.8 % Lymph % (Auto) 11.8 % Mitchell % (Auto) 7.8 % Eos % (Auto) 1.0 % Baso % (Auto) 0.6 % Absolute Neuts (auto) 6.6 (1.5-7.7) 10^3/ul Absolute Lymphs (auto) 1.0 (1.0-4.8) 10^3/ul Absolute Monos (auto) 0.7 (0-0.8) 10^3/ul Absolute Eos (auto) 0.1 (0-0.6) 10^3/ul Absolute Basos (auto) 0.1 (0-0.2) 10^3/ul Absolute Nucleated RBC 0.0 10^3/ul Nucleated RBC % 0.0 Patient Temperature ABG pH (7.35-7.45) ABG pH (Temp Correct) ABG pCO2 (35-45) mmHg ABG pCO2 (Temp Corrct ABG pO2 (80-100) mmHg ABG pO2 (Temp Correct ABG HCO3 (19-31) mmol/L ABG O2 Saturation (94.0-98.0) % ABG Base Excess (-2.0-2.0) mmol/L Respiration Rate O2 Delivery Device Ventilator Type Vent Mode FiO2 Inspiratory Time PEEP Pressure Support Pressure Control EPAP IPAP BiPAP Sodium 141 (135-145) mmol/L Potassium 3.8 (3.5-5.0) mmol/L Chloride 104 (101-111) mmol/L Carbon Dioxide 30 (22-32) mmol/L Anion Gap 7 (2-11) mmol/L BUN 23 (6-24) mg/dL Creatinine 1.01 H (0.51-0.95) mg/dL Est GFR ( Amer) 67.9 (>60) Est GFR (Non-Af Amer) 56.1 (>60) BUN/Creatinine Ratio 22.8 H (8-20) Glucose 124 H (70-100) mg/dL Lactic Acid 1.4 (0.5-2.0) mmol/L Calcium 9.4 (8.6-10.3) mg/dL Magnesium 2.1 (1.9-2.7) mg/dL Total Bilirubin 0.30 (0.2-1.0) mg/dL AST 15 (13-39) U/L ALT 11 (7-52) U/L Alkaline Phosphatase 69 (34-104) U/L Troponin I 0.05 H* (<0.04) ng/mL Total Protein 7.0 (6.4-8.9) g/dL Albumin 3.9 (3.2-5.2) g/dL Globulin 3.1 (2-4) g/dL Albumin/Globulin Ratio 1.3 (1-3) 10/11/19 Range/Units 06:58 WBC (3.5-10.8) 10^3/uL RBC (3.70-4.87) 10^6 /uL Hgb (12.0-16.0) g/dL Hct (35-47) % MCV (80-97) fL MCH (27-31) pg MCHC (31-36) g/dL RDW (10-15) % Plt Count (150-450) 10^3/uL MPV (7.4-10.4) fL Neut % (Auto) % Lymph % (Auto) % Mitchell % (Auto) % Eos % (Auto) % Baso % (Auto) % Absolute Neuts (auto) (1.5-7.7) 10^3/ul Absolute Lymphs (auto) (1.0-4.8) 10^3/ul Absolute Monos (auto) (0-0.8) 10^3/ul Absolute Eos (auto) (0-0.6) 10^3/ul Absolute Basos (auto) (0-0.2) 10^3/ul Absolute Nucleated RBC 10^3/ul Nucleated RBC % Patient Temperature Not Reportable ABG pH 7.36 (7.35-7.45) ABG pH (Temp Correct) Not Reportable ABG pCO2 52 H (35-45) mmHg ABG pCO2 (Temp Corrct Not Reportable ABG pO2 406 H (80-100) mmHg ABG pO2 (Temp Correct Not Reportable ABG HCO3 27.1 (19-31) mmol/L ABG O2 Saturation 100.0 H (94.0-98.0) % ABG Base Excess 2.8 H (-2.0-2.0) mmol/L Respiration Rate Not Reportable O2 Delivery Device vapo Ventilator Type Not Reportable Vent Mode Not Reportable FiO2 100 Inspiratory Time Not Reportable PEEP Not Reportable Pressure Support Not Reportable Pressure Control Not Reportable EPAP Not Reportable IPAP Not Reportable BiPAP Not Reportable Sodium (135-145) mmol/L Potassium (3.5-5.0) mmol/L Chloride (101-111) mmol/L Carbon Dioxide (22-32) mmol/L Anion Gap (2-11) mmol/L BUN (6-24) mg/dL Creatinine (0.51-0.95) mg/dL Est GFR ( Amer) (>60) Est GFR (Non-Af Amer) (>60) BUN/Creatinine Ratio (8-20) Glucose (70-100) mg/dL Lactic Acid (0.5-2.0) mmol/L Calcium (8.6-10.3) mg/dL Magnesium (1.9-2.7) mg/dL Total Bilirubin (0.2-1.0) mg/dL AST (13-39) U/L ALT (7-52) U/L Alkaline Phosphatase (34-104) U/L Troponin I (<0.04) ng/mL Total Protein (6.4-8.9) g/dL Albumin (3.2-5.2) g/dL Globulin (2-4) g/dL Albumin/Globulin Ratio (1-3) Microbiology and Other Data: Microbiology 10/11/19 10:40 Nasal Screen MRSA (PCR) - Final Nasal Mrsa Detected Assess/Plan/Problems-Billing Assessment: 58 yo F h/o SVT CAD, COPD, HTN, LEELA presented with subacute onset cough and SOB found with hypoxic respiratory failure improving on steroids - Patient Problems (1) Respiratory failure Comment: With hypoxia in setting of COPD exacerbation prednisone 60mg PO and improving wean O2 Incentive spirometer PRN nebs spiriva, monteleukast dulera (2) Hypertension Comment: BP lower this AM HCTZ and lisinopril held (3) Prolonged QT interval Comment: repeat EKG now if remains elevated check digoxin lvl (4) H/O supraventricular tachycardia Comment: on digoxin and diltiazem (5) DVT prophylaxis Comment: lovenox
[2019-10-12] MEDS ORDERED: Lisinopril TAB* 5 MG PO SCH (21:00)
[2019-10-12] MEDS: Cyclobenzaprine TAB* 10 MG PO PRN (21:50)
[2019-10-12] MEDS: Acetaminophen TAB* 325 MG PO PRN (21:50)
[2019-10-12] MEDS: Pregabalin CAP(*) 100 MG PO SCH (21:51)
[2019-10-13] MEDS: Albuterol/Ipratropium NEB.SOL* Albuterol 2.5 MG/Ipratropium 0.5 MG 3 ML INH SCH ×3 (02:08→14:01)
[2019-10-13] MEDS: Acetaminophen TAB* 325 MG PO PRN (05:34)
[2019-10-13] MEDS: Mometasone/Formoter 200/5 MDI INH SCH (07:40)
[2019-10-13] MEDS ORDERED: Magnesium Oxide TAB* 400 MG PO SCH (09:00)
[2019-10-13] MEDS ORDERED: CMC: Pravastatin (NF) 20 MG TAB PO SCH (09:00)
[2019-10-13] MEDS ORDERED: Montelukast Sodium TAB* 10 MG PO SCH (09:00)
[2019-10-13] MEDS ORDERED: Potassium Chlor TAB* 10 MEQ TAB.ER PO SCH (09:00)
[2019-10-13 09:14] VITALS: BP 128/63
[2019-10-13] MEDS: Diltiazem CD CAP* 180 MG PO SCH (09:20)
[2019-10-13] MEDS: Hydrochlorothiazide TAB* 25 MG PO SCH (09:21)
[2019-10-13] MEDS: Famotidine TAB* 20 MG PO SCH (09:21)
[2019-10-13] MEDS: predniSONE TAB* 20 MG PO SCH (09:22)
[2019-10-13] MEDS: Digoxin TAB* 0.125 MG PO SCH (09:22)
[2019-10-13] MEDS: Pregabalin CAP(*) 100 MG PO SCH (10:31)
[2019-10-13] MEDS: Cyclobenzaprine TAB* 10 MG PO PRN (10:31)
[2019-10-13] MEDS: Enoxaparin(*) 40 MG/0.4 ML SYR SUBCUT SCH (10:32)
[2019-10-13] MEDS ORDERED: Pregabalin CAP(*) 50 MG PO SCH (12:00)
--- NOTE | 2019-10-13 19:17 | DS ---
CC: Dr. Angelica Kelly * DISCHARGE SUMMARY: DATE OF ADMISSION: 10/11/19 DATE OF DISCHARGE: 10/13/19 PRIMARY CARE PROVIDER: Dr. Angelica Kelly. FINAL DISCHARGE DIAGNOSIS: Chronic obstructive pulmonary disease exacerbation. ADDITIONAL SECONDARY DIAGNOSES: 1. Hypertension. 2. History of supraventricular tachycardia. 3. Asthma. 4. Obstructive sleep apnea. 5. Fibromyalgia. 6. Hyperlipidemia. 7. Mitral valve prolapse. HOSPITAL COURSE: The patient presented to [facility] on 10/11/19 for sudden onset of respiratory distress and hypoxemia requiring oxygen supplementation with underlying known history of COPD, former smoker. She presented to the emergency room complaining of shortness of breath, was found to be in increased respiratory work, required bronchodilator, high flow O2, was admitted to the ICU. She was placed on the teacher's assistant service and she was transferred to the medical floor on the following day on nasal cannula. She underwent CT angiogram of the chest, which was negative for PE and ultrasound of leg, which was negative for DVT. She was seen by the hospitalist service the following morning on 10/12/19, which was a fairly unremarkable hospital day. She was placed on weaning protocol for the oxygen, continued her therapy and the patient was seen and evaluated by me this morning and clinically she appeared in no acute distress. Her oxygen saturation was 100% on room air. Tolerating p.o. well. She is taking her oral prednisone. Therefore, I reviewed her medications and her study and I deemed the patient is stable for discharge home on a taper of prednisone. PHYSICAL EXAMINATION: Vital Signs: Temperature 97.5, pulse 92, satting 100%, respiratory rate 16, blood pressure 128/63. Generally, she is awake, alert, pleasant, in no apparent distress, follows command. No nasal cannula. She is breathing on room air. Lungs: Clear to auscultation bilateral. Fine expiratory wheezing. Cardiovascular: S1 and S2. Regular rate and rhythm. Abdomen: Positive bowel sounds. Soft, nontender, nondistended. Extremities: No pedal edema with peripheral pulse. CHLORINATION OPERATOR: There is no motor or focal sensory deficit. Genitalia and rectal exam was deferred. DIAGNOSTIC STUDIES/LAB DATA: She had multiple vitals, were all fairly stable, specifically her saturation, which remained 100% all day on room air. She had CBC and chemistry unremarkable. Troponin x2 were negative at 0.05 and 0.04. Chest x-ray on admission shows no acute infiltrate. CT angiogram of the chest shows no strong evidence of pulmonary embolism. An ultrasound of the lower extremities show negative for DVT. EKG shows sinus tachycardia, rate 110 on admission, slightly prolonged QTc at 475, OR is 131, QRS 103, early transition, otherwise unremarkable. DISCHARGE MEDICATIONS: She will be discharged on oral prednisone taper dose 50 for 3 days, 40 for 3 days, 30 for 3 days, 20 for 3 days, 10 for 4 days, then stop. Continue the remaining of her medication as per home. 1. Flexeril 10 mg t.i.d. 2. Albuterol inhaler as needed. 3. Benadryl 25 every 4 hours as needed. 4. Pravachol 10 mg every day. 5. Folic acid 400 mcg daily. 6. Breo 200/25 one inhalation every morning. 7. Calcium with vitamin D. 8. Magnesium over the counter. 9. Tylenol p.r.n. 10. Dymista 2 sprays nasally every morning. 11. Spiriva 1 capsule every day. 12. Xyzal 5 mg daily. 13. Diltiazem 180 mg daily. 14. Singulair 10 mg daily. 15. Digoxin 0.125 daily. 16. Hydrochlorothiazide 25 daily. 17. Lisinopril 10 daily. 18. Potassium chloride 10 daily. 19. Fasenra 30 mg subcu as instructed. 20. Pepcid 20 daily. 21. Lyrica 50 mg as per home regimen, maximum 200 mg per day. DISCHARGE INSTRUCTIONS: 1. Take all medication as prescribed. 2. Follow up with her primary care in 1 to 2 weeks. 3. Finish all medications as prescribed. If symptoms recur or short of breath got worse, chest pain, return to emergency room immediately or seek immediate medical attention. DISCHARGE CONDITION: Stable. DISCHARGE DISPOSITION: Home. [id number]/[facility] #: [id number] [place]ER[place]
== END 2019-10-13 15:00 | disposition home or self-care (01) | DRG 190 ==
LOC: ED 06:03 → ICU 09:54 → MED 17:16
PROVIDERS: ADMIT Internal Medicine Critical Care Medicine; ATTEND Internal Medicine
PROC: 05HY33Z Insertion of Infusion Device into Upper Vein, Percutaneous Approach (ICD-10-PCS; principal; 2019-10-11)
DX: J44.1 Chronic obstructive pulmonary disease with (acute) exacerbation (principal); J96.01 Acute respiratory failure with hypoxia; I47.1 Supraventricular tachycardia; G47.33 Obstructive sleep apnea (adult) (pediatric); M79.7 Fibromyalgia; E78.5 Hyperlipidemia, unspecified; I34.1 Nonrheumatic mitral (valve) prolapse; I10 Essential (primary) hypertension; R94.31 Abnormal electrocardiogram [ECG] [EKG]; Z87.891 Personal history of nicotine dependence; Z86.73 Personal history of transient ischemic attack (TIA), and cerebral infarction without residual deficits; Z79.51 Long term (current) use of inhaled steroids; Z79.899 Other long term (current) drug therapy; Z88.6 Allergy status to analgesic agent; Z88.1 Allergy status to other antibiotic agents; Z91.030 Bee allergy status; Z88.0 Allergy status to penicillin; Z88.8 Allergy status to other drugs, medicaments and biological substances; Z91.018 Allergy to other foods; Z82.5 Family history of asthma and other chronic lower respiratory diseases; Z82.49 Family history of ischemic heart disease and other diseases of the circulatory system; Z80.8 Family history of malignant neoplasm of other organs or systems
CPT/HCPCS: 36415; 71045; 71275; 80048; 80053; 82803; 83605; 83735; 84484; 85025; 87641; 93005; 93970; 94640; 96365; 96375; 99284; A9270-GY; J1100; J1650; J3475; J7512; J7611; Q9967